=== PATIENT | male | born 1965 | race Caucasian/White ===

== ENCOUNTER 2020-02-12 09:29 | Emergency (ER) | payer MEDICARE, MEDICAID, SELFPAY ==
[2020-02-12 09:45] VITALS: BP 123/81; PULSE 87; RESP 18; TEMP 35.9; O2SAT 97
--- NOTE | 2020-02-12 09:57 | ED.WOUNDLAC ---
HPI - Wound/Laceration General Chief Complaint: Wound/Laceration Stated Complaint: Possible spider bite Time Seen by Provider: 02/12/20 09:48 Source: patient and RN notes reviewed Mode of arrival: ambulatory Limitations: no limitations History of Present Illness HPI narrative: 54-year-old male presents with concern for possible spider bite. He reports a wound on his left leg lateral to his left knee. He reports the wound is several weeks old and has been draining a small amount of purulent fluid. Denies any knee pain, ankle pain. Denies malaise, fever. He did not witness a spider biting him. Extremity Location: Left: lower leg Related Data Home Medications Medication Instructions Recorded Confirmed aripiprazole 15 mg PO DAILY 02/12/20 02/12/20 canagliflozin [Invokana] 100 mg PO DAILY 02/12/20 02/12/20 doxepin 10 mg PO DAILY 02/12/20 02/12/20 levothyroxine 25 mcg PO DAILY 02/12/20 02/12/20 linagliptin [Tradjenta] 5 mg PO DAILY 02/12/20 02/12/20 pravastatin 02/12/20 prednisone 02/12/20 sulfamethoxazole-trimethoprim 02/12/20 umeclidinium [Incruse Ellipta] INHALATION 02/12/20 umeclidinium-vilanterol [Anoro INHALATION 02/12/20 Ellipta] warfarin [Jantoven] 02/12/20 Allergies Allergy/AdvReac Type Severity Reaction Status Date / Time No Known Allergies Allergy Verified 07/24/19 20:14 Review of Systems Review of Systems: Narrative: CONSTITUTIONAL: Denies malaise, chills, sweats, or fever. ENT: Denies difficulty swallowing, swollen tongue, swollen lips CARDIOVASCULAR: Denies chest pain, palpitations, or edema. RESPIRATORY: Denies dyspnea. GASTROINTESTINAL: Denies abdominal pain, nausea, vomiting, diarrhea SKIN: Reports a wound to his left leg MUSCULOSKELETAL: Denies myalgia. Denies knee pain, ankle pain NEUROLOGIC: Denies numbness, weakness, or headache. All systems reviewed & are unremarkable except as noted in HPI and below PMFSH Social History Social History Gender identity (if verbalized by the patient): Male Comments At time of signature, agree with nursing past medical, surgical, social and family history. There is no relevant family history pertinent to the presenting complaint Exam Narrative: Exam Narrative: GENERAL: Well-appearing, well-nourished, and in no acute distress. HEAD: Normocephalic, atraumatic. EYES: PERRLA, conjunctivae clear ENT: Nares clear. Mucous membranes moist. Oropharynx without edema, erythema or lesions. NECK: Supple. No lymphadenopathy. No jugular venous distension, thyromegaly, or carotid bruits. Carotids were easily palpable bilaterally. CHEST: No respiratory distress. Clear to auscultation. No bony deformities, no asymmetry. Speaks in full sentences. HEART: Regular rate and rhythm. No murmur heard. Normal peripheral pulses. AEXTREMITIES: Left lower extremity has normal range of motion, no edema, normal strength and sensation. SKIN: Warm, dry. 2 cm diameter wound left lateral leg below the knee with 0.5cm yellow and pink wound bed. Wound bed is surrounded by ecchymosis. Wound is not surrounded by induration, erythema. No streaking noted. NEURO: Alert and oriented x3. PSYCH: Normal mood and affect Course Course Emergency Course: Patient is aware of diagnosis, understands and agrees to treatment plan. Anticipatory guidance given. Patient agrees to follow-up as directed and is aware of reasons to seek care at the emergency department. Portions of this record may have been created with voice recognition software Vital Signs Vital signs: Vital Signs Temperature 96.7 F L 02/12/20 09:45 Pulse Rate 87 02/12/20 09:45 Respiratory Rate 18 02/12/20 09:45 Blood Pressure 123/81 02/12/20 09:45 Pulse Oximetry 97 02/12/20 09:45 Temperature 96.7 F L 02/12/20 09:45 Pulse Rate 87 02/12/20 09:45 Respiratory Rate 18 02/12/20 09:45 Blood Pressure 123/81 02/12/20 09:45 Pulse Oximetry 97 02/12/20 09:45 Reviewed. Patient has history of hypert
== END 2020-02-12 10:08 | disposition home or self-care (01) ==
PROVIDERS: Emergency Provider Nurse Practitioner
DX: L08.9 Local infection of the skin and subcutaneous tissue, unspecified (principal); S81.802A Unspecified open wound, left lower leg, initial encounter; X58.XXXA Exposure to other specified factors, initial encounter; Z86.73 Personal history of transient ischemic attack (TIA), and cerebral infarction without residual deficits; I10 Essential (primary) hypertension; Z95.5 Presence of coronary angioplasty implant and graft; J44.9 Chronic obstructive pulmonary disease, unspecified; Z94.0 Kidney transplant status
CPT/HCPCS: 99213; G0463

== ENCOUNTER 2020-02-22 04:04 | Inpatient (IN) | payer MEDICARE, MEDICAID, SELFPAY ==
[2020-02-22] VITALS (28 sets, daily range): BP systolic 130–186; BP diastolic 61–118; PULSE 60–107; RESP 16–46; TEMP 36.6–37.8; O2SAT 93–100; BMI 23.8
--- NOTE | 2020-02-22 | ECHO_ITS ---
Patient Info Name: Bob Alfaro Age: 54 years : 1965 Gender: Male Ht: 69 in Wt: 160 lbs BSA: 1.88 m2 HR: 84 bpm BP: 159 / 88 mmHg Technical Quality: Fair Exam Date: 02/22/2020 12:14 PM Exam Location: [facility] Patient Status: Inpatient Admit Date: 02/22/2020 Staff Ordering Physician: Karena Hussein PA-C Yoghurt Maker: Mark Rivas, BOO, RT Attending Provider: Karena Hussein PA-C Referring Physician: Jovita COOK; Exam Type: CA echo doppler color flow Study Info Indications - elevated troponin Complete two-dimensional, color flow and Doppler transthoracic echocardiogram is performed. Summary 1. Left ventricular chamber dimension is normal. 2. Left ventricular systolic function is normal, estimated at 60-65%. 3. There is moderately increased left ventricular wall thickness. 4. Left ventricular septal wall motion is normal. 5. The left ventricular diastolic function is abnormal. 6. Left atrial chamber dimension is mildly enlarged. 7. There is moderate aortic valve sclerosis. 8. There is mild mitral valve regurgitation. 9. There is mild tricuspid valve regurgitation. Left Ventricle Left ventricular chamber dimension is normal. Left ventricular systolic function is normal, estimated at 60-65%. There is moderately increased left ventricular wall thickness. Left ventricular septal wall motion is normal. The left ventricular diastolic function is abnormal. Right Ventricle Right ventricular chamber dimension is normal. Right ventricular systolic function is normal. Left Atria Left atrial chamber dimension is mildly enlarged. Right Atria Right atrial chamber dimension is normal. Atrial Septum Intact interatrial septum visualized by color flow imaging. Aortic Valve The aortic valve is trileaflet. There is moderate aortic valve sclerosis. There is no aortic valve stenosis. There is trace aortic valve regurgitation. Pulmonic Valve The pulmonic valve is normal. There is no pulmonic valve stenosis. There is trace pulmonic regurgitation. Mitral Valve The mitral valve has calcified annulus. There is no mitral valve stenosis. There is mild mitral valve regurgitation. Tricuspid Valve The tricuspid valve leaflets are normal. There is no significant tricuspid valve stenosis. There is mild tricuspid valve regurgitation. Pericardium/Pleural The pericardium appears normal. There is trivial pericardial effusion. Inferior Vena Cava Dilated inferior vena cava with <50% collapse upon inspiration consistent with elevated right atrial pressure, 15 mmHg. Aorta The aortic root size at the sinus of Valsalva is mildly dilated. The prox ascending aorta size is normal. There is mild aortic atherosclerosis. Left Ventricular Outflow Tract Name Value Normal LVOT 2D LVOT Diameter 2.1 cm LVOT Doppler LVOT Peak Gradient 1 mmHg LVOT Mean Gradient 1 mmHg LVOT VTI 12 cm LVOT VTI/AV VTI Ratio 0.6 LVOT Stroke Volume 41 ml
--- NOTE | ~2020-02-22 | XR_ITS ---
EXAMINATION: XR chest 1V portable EXAM DATE: 02/22/2020 09:15 INDICATION: Dyspnea, COPD. TECHNIQUE: Portable AP frontal chest x-ray was obtained. Comparison is made to prior examination from earlier same day. FINDINGS: There is a dual lead pacemaker/AICD seen with leads projecting over the expected locations of the right atrial appendage and right ventricle. Moderate hyperinflation. The lungs are clear. The re are no pleural effusions. The cardiomediastinal silhouette is within normal limits. There is no pneumothorax suspected. The bones and soft tissues are unremarkable. There is aortic arterial scle rosis. IMPRESSION: 1. No acute cardiopulmonary findings. 2. Hyperinflation. Reviewed, dictated and finalized at location B.
--- NOTE | ~2020-02-22 | XR_ITS ---
EXAMINATION: XR chest 1V portable DATE: 02/22/2020 04:48 INDICATION: Dyspnea. TECHNIQUE: A single frontal view of the chest was obtained on 2 radiographs. COMPARISON: Chest single view 07/24/2019 FINDINGS: Prieto B lines are noted, consistent with mild pulmonary edema. No pleural effusion or pneu mothorax. The heart size is normal. There is a left chest wall pacer with leads in the right atrium a nd right ventricle. Main pulmonary artery is enlarged, consistent with pulmonary arterial hypertensio n. IMPRESSION: 1. Mild pulmonary edema. Reviewed, dictated and finalized at location A. IMPRESSION: 1. Mild pulmonary edema.
--- NOTE | 2020-02-22 04:04 | ECG_ITS ---
Measurements Intervals [place] Rate: 72 P: HI: 0 QRS: -89 QRSD: 204 T: 97 QT: 456 QTc: 501 Interpretive Statements ELECTRONIC VENTRICULAR PACEMAKER UNDERLYING ATRIAL FLUTTER BASELINE ARTIFACT- I, V4-V6 NO FURTHER INTERPRETATION IS POSSIBLE ABNORMAL ECG Electronically Signed On 02-22-2020 13:42:31 CDT by Eliu Thompson D.O.
--- NOTE | 2020-02-22 04:06 | ED.GENADULT ---
HPI - General Adult General Chief complaint: Shortness of Breath/Dyspnea Stated complaint: sob Source: patient and EMS Mode of arrival: EMS Limitations: clinical condition History of Present Illness HPI narrative: Patient is a 54-year-old gentleman with a history of COPD who presents for evaluation of shortness of breath. Patient reportedly went up to go to the restroom this evening, started to have difficulty breathing, and called EMS. At the time of arrival of EMS, patient's oxygen saturation was 85% on room air, patient was in tripod position, severe respiratory distress and unable to speak to them. Patient was placed on a CPAP machine and transferred to our facility for assessment. At the time of assessment, patient is awake, alert, dyspneic on the CPAP machine with use of accessory muscles to breathe. He reports congestion, dry cough, denies chest pain, abdominal pain, fever, vomiting. Patient with history of COPD, states he has never had to be intubated in the past. He is not currently taking any antibiotics or steroids. He denies any recent sick contacts, recent travel. Related Data Home Medications Medication Instructions Recorded Confirmed Aspir-81 02/22/20 albuterol sulfate INHALATION 02/22/20 aripiprazole [Abilify] mg 02/22/20 docusate sodium 100 mg PO DAILY 02/22/20 fluticasone propion-salmeterol 1 inh INHALATION Q12H 02/22/20 [Advair Diskus] levothyroxine 02/22/20 linagliptin [Tradjenta] mg 02/22/20 mycophenolate sodium [Myfortic] PO 02/22/20 pravastatin 40 mg PO DAILY 02/22/20 prednisone 02/22/20 senna mg 02/22/20 sulfamethoxazole-trimethoprim 02/22/20 tacrolimus 3 mg BID 02/22/20 tiotropium bromide [Spiriva with INHALATION 02/22/20 HandiHaler] warfarin [Jantoven] 02/22/20 Allergies Allergy/AdvReac Type Severity Reaction Status Date / Time No Known Allergies Allergy Verified 02/22/20 04:40 Review of Systems Review of Systems: Narrative: CONSTITUTIONAL: Denies fever, chills, or sweats. ENT: Reports rhinorrhea, congestion CARDIOVASCULAR: Denies chest pain, palpitations, or edema. RESPIRATORY: Reports cough and shortness of breath GASTROINTESTINAL: Denies abdominal pain, nausea, vomiting, or diarrhea. GENITOURINARY: Denies dysuria or hematuria. SKIN: Denies rash or itching. MUSCULOSKELETAL: Denies back pain, joint pain, or myalgia. NEUROLOGIC: Denies headache, numbness, or weakness. [facility] Past Medical History Medical History (Updated 02/22/20 @ 07:02 by Rose Marie De La Cruz MD) COPD (chronic obstructive pulmonary disease) Coronary artery disease Hypertension Myocardial infarction Pacemaker TIA (transient ischemic attack) Surgical History Surgical History (Updated 02/22/20 @ 06:57 by Rose Marie De La Cruz MD) Renal transplant recipient S/P coronary artery stent placement Family History Family History (Updated 02/22/20 @ 07:18 by Syl Foley RN) Mother Cancer Social History Social History (Updated 02/22/20 @ 04:09 by Rose Marie De La Cruz MD) Smoking status: Never smoker Tobacco type: cigarettes Alcohol intake: never Substance use: never Gender identity (if verbalized by the patient): Male Spiritual care concerns: No Agree to blood products: Yes Exam Narrative: Exam Narrative: GENERAL: Awake, alert, on CPAP, severe respiratory distress, tachypneic HEAD: Normocephalic, atraumatic. EYES: PERRLA and EOMI. ENT: Nares clear, no rhinorrhea or epistaxis. Mucous membranes dry NECK: Supple. CHEST: Non-CPAP, tachypneic, use of accessory muscles to breathe, bilateral expiratory wheezing, severe respiratory distress HEART: Regular rate, sinus rhythm ABDOMEN:Non distended, non tender EXTREMITIES: Normal range of motion. No edema. SKIN: Warm, dry, no rash. NEURO:No focal deficits. Alert and oriented x3 Course Course Emergency Course: Patient presented to the emergency department for evaluation of shortness of breath. At the time of initial assess
[2020-02-22] MEDS: EPINEPHrine HCL INJ 1 MG/ML AMPUL 0.3 MG IM (04:18)
[2020-02-22] MEDS: SODIUM CHLORIDE 0.9% IV 500 ML 999 ML IV CONT (04:18)
[2020-02-22] MEDS: MAGNESIUM SULF 2 GM/WATER 50ML 2 GM/50 ML BAG IVPB (04:18)
[2020-02-22 04:35] LABS: Alveolar/Arterial O2 Gradient 130.2 mmHg; Base Excess ABG -4.3 mEq/l (+/-2.0); Carboxyhemoglobin 1.2 % THb (0-2.0); Fractional Inspired Oxygen 60 %; HCO3 ABG 22.9 mEq/l (22.0-26.0); Methemoglobin ABG 0.4 %THb (0-1.5); Oxygen Content ABG 22.4 %vol (16.0-22.0); Oxygen Saturation ABG 99.4 % (95.0-100.0); Oxyhemoglobin 97.7 % THb (90.0-100.0); PCO2 ABG 49.9 mmHg (35.0-45.0); PO2 ABG 242.7 mmHg (80.0-100.0); PO2 FiO2 Ratio Arterial Blood 4.05 %; Reduced Hemoglobin 0.7 %THb (0-5.0); Total Hemoglobin 15.9 g/dL (12.0-18.0)
[2020-02-22 04:37] LABS: Basophils Absolute Auto 0.1 K/mm3 (0.0-0.1); Basophils Percent Auto 0.4 % (0.2-1.2); Eosinophils Absolute Auto 0.3 K/mm3 (0-0.3); Eosinophils Percent Auto 1.6 % (0-4.4); Hematocrit 51.9 % (42.0-52.0); Hemoglobin 16.5 g/dL (14.0-18.0); Immature Granulocyte Percent A 0.5 % (0-0.5); Lymphocytes Absolute Auto 2.64 K/mm3 (0.9-3.2); Lymphocytes Percent Auto 13.8 % (18.3-44.2); Mean Corpuscular HGB Conc 31.8 g/dl (32-36); Mean Corpuscular Hemoglobin 31.7 pg (26-34); Mean Corpuscular Volume 99.6 fl (80-100); Mean Platelet Volume 9.7 fl (7.4-10.4); Monocytes Absolute Auto 1.6 K/mm3 (0.1-0.6); Monocytes Percent Auto 8.4 % (2.6-8.5); Neutrophils Absolute Auto 14.4 K/mm3 (1.3-6.7); Neutrophils Percent Auto 75.3 % (45.5-73.1); Platelet Count Result 196 k/mm3 (150-375); Red Blood Count 5.21 M/mm3 (4.6-6.20); Red Cell Distribution Width 13.9 % (11.5-14.5); White Blood Count 19.1 K/mm3 (4.5-10.0)
[2020-02-22 04:37] LABS: Modified Allen's Test Pass; Site Drawn RIGHT RADIAL
[2020-02-22 04:38] LABS: Device NON-INVASIVE VENT; Non-Invasive Expiratory Pressure 5 CMH2O; Non-Invasive Inspiratory Pressure 14 CMH2O; Non-Invasive Vent Rate 14 /MIN
[2020-02-22] MEDS: IPRATROPIUM BR 0.02% INH SOLN 0.5 MG/2.5 ML VIAL 2 MG INHALATION (04:43)
[2020-02-22] MEDS: ALBUTEROL SULFATE NEB 2.5 MG/0.5 ML INH 20 MG INHALATION (04:43)
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
[2020-02-22 04:57] LABS: Lactic Acid Reflex 0.5 mmol/L (0.7-2.1)
[2020-02-22 05:07] LABS: Alanine Aminotransferase 10 U/L (4-50); Albumin Level 1.6 g/dL (3.5-5.1); Alkaline Phosphatase 61 U/L (38-126); Aspartate Amino Transferase 15 U/L (17-59); Bilirubin,Total < 0.1 mg/dL (0.2-1.3); Blood Urea Nitrogen 17 mg/dL (9-20); CRP 0.8 mg/dL (<1.0); Calcium 4.4 mg/dL (8.4-10.2); Carbon Dioxide 15 mmol/L (22-30); Chloride 113 mmol/L (98-107); Estimated CRCL calculation 111 ml/min; Estimated Glomerular Filt Rate > 60; Glucose 108 mg/dL (75-110); Lactate Dehydrogenase 216 U/L (313-618); Potassium 2.3 mmol/L (3.4-5.0); Sodium 132 mmol/L (137-145)
[2020-02-22 05:13] LABS: NT Pro B Type Natriuretic Pept 1210 PG/ML (5-100); Troponin I 0.016 ng/mL (0.000-0.034)
[2020-02-22] MEDS: POTASSIUM CHLORIDE 20 MEQ PACKET (FOR LIQUID) 40 MEQ PO (05:42)
--- NOTE | 2020-02-22 05:48 | PC.NURSE ---
Patient sleeping and unwilling to go over home medications.
[2020-02-22] MEDS: SODIUM CHLORIDE 0.9% IV 1,000 ML 50 ML (05:59)
--- NOTE | 2020-02-22 06:53 | ADMGEN ---
This patient, Bob Alfaro, was admitted to IMU Room 200-01. Patient/family oriented to hospital policies and general routines including ID bracelet, bed and alarms, visiting hours, pain management, procedures, bathroom and other care routines, personal items, smoking policy, room service/diet, and visiting hours. Valuables list has been completed. Information on how to activate the Rapid Response Team has been discussed. Patient/Family are encouraged to report perceived risks to care and to ask questions if they do not understand what they are told or what they should do.
[2020-02-22 07:46] LABS: Partial Thromboplastin Time 26.6 SECONDS (22.3-36.8); Prothrombin Time 21.9 Seconds (11.1-14.7)
[2020-02-22 07:51] LABS: Alanine Aminotransferase 22 U/L (4-50); Albumin Level 3.9 g/dL (3.5-5.1); Alkaline Phosphatase 107 U/L (38-126); Aspartate Amino Transferase 29 U/L (17-59); Bilirubin,Total 0.5 mg/dL (0.2-1.3); Blood Urea Nitrogen 32 mg/dL (9-20); Carbon Dioxide 24 mmol/L (22-30); Chloride 104 mmol/L (98-107); Estimated CRCL calculation 62 ml/min; Estimated Glomerular Filt Rate > 60; Glucose 223 mg/dL (75-110); Potassium 5.1 mmol/L (3.4-5.0); Sodium 136 mmol/L (137-145)
--- NOTE | 2020-02-22 08:42 | ECG_ITS ---
Measurements Intervals [place] Rate: 69 P: 0 AL: 148 QRS: -88 QRSD: 203 T: 94 QT: 439 QTc: 470 Interpretive Statements ELECTRONIC VENTRICULAR PACEMAKER UNDERLYING ATRIAL FLUTTER BASELINE ARTIFACT- I, II, V4-V6 NO FURTHER INTERPRETATION IS POSSIBLE ABNORMAL ECG Electronically Signed On 02-22-2020 13:42:45 CDT by Eliu Thompson D.O.
[2020-02-22] MEDS: ALBUTEROL SULFATE NEB 2.5 MG/0.5 ML INH 5 MG INHALATION ×3 (08:47→19:57)
[2020-02-22] MEDS: IPRATROPIUM BR 0.02% INH SOLN 0.5 MG/2.5 ML VIAL INHALATION ×3 (08:47→19:57)
[2020-02-22 09:17] LABS: Alveolar/Arterial O2 Gradient 132.5 mmHg; Base Excess ABG -5.3 mEq/l (+/-2.0); Fractional Inspired Oxygen 50 %; HCO3 ABG 22.9 mEq/l (22.0-26.0); Oxygen Content ABG 23.9 %vol (16.0-22.0); Oxygen Saturation ABG 98.8 % (95.0-100.0); Oxyhemoglobin 97.7 % THb (90.0-100.0); PCO2 ABG 54.4 mmHg (35.0-45.0); PO2 ABG 162.8 mmHg (80.0-100.0); PO2 FiO2 Ratio Arterial Blood 3.26 %; Total Hemoglobin 17.2 g/dL (12.0-18.0); pH ABG 7.242 (7.350-7.450)
[2020-02-22 09:18] LABS: Device NON-INVASIVE VENT; Modified Allen's Test Pass; Non-Invasive Expiratory Pressure 8 CMH2O; Non-Invasive Inspiratory Pressure 14 CMH2O; Non-Invasive Vent Rate 16 /MIN; Site Drawn LEFT RADIAL
[2020-02-22 09:34] LABS: Add Urine Microscopic? YES; Appearance Urine Clear (Clear); Bilirubin Urine Negative (Negative); Blood Urine Negative (Negative); Color Urine Straw (Yellow); Glucose Urine UA 3+ mg/dL (Negative); Ketones Urine Negative (Negative); Leukocyte Esterase Ur Negative LEU/UL (Negative); Nitrate Urine Negative (Negative); Protein Urine 1+ mg/dL (Negative); RBC Urine 0-2 /hpf (0-2); Specific Grav Ur 1.014 (1.001-1.035); Squamous Epithelial Cell Urine Occasional /hpf (Few); Urobilinogen Urine Negative mg/dL (<2.0); WBC Urine 0-3 /hpf
[2020-02-22] MEDS: methylPREDNISolone SOD SUCC 125 MG VIAL IV PUSH (09:34)
[2020-02-22] MEDS: FUROSEMIDE INJ 40 MG/4 ML VIAL IV PUSH (09:34)
[2020-02-22] MEDS: hydrALAZINE HCL 20 MG/ML VIAL 10 MG IV PUSH (09:35)
[2020-02-22] MEDS: FUROSEMIDE INJ 40 MG/4 ML VIAL 20 MG IV PUSH (09:36)
[2020-02-22] MEDS: BUDESONIDE RESPULE NEB 0.5 MG/2 ML AMP INHALATION ×2 (09:40→19:57)
[2020-02-22 09:43] LABS: Blood Urea Nitrogen 29 mg/dL (9-20); Calcium 10.3 mg/dL (8.4-10.2); Carbon Dioxide 23 mmol/L (22-30); Chloride 103 mmol/L (98-107); Estimated CRCL calculation 62 ml/min; Estimated Glomerular Filt Rate > 60; Glucose 261 mg/dL (75-110); Potassium 5.4 mmol/L (3.4-5.0); Sodium 135 mmol/L (137-145)
[2020-02-22 09:58] LABS: Troponin I 0.069 ng/mL (0.000-0.034)
--- NOTE | 2020-02-22 10:09 | PM.IMHP ---
H&P: HPI History of Present Illness Chief complaint: COPD exacerbation/Hypokalemia/Hypocalcemia Narrative: Bob Alfaro is a 54 year old male with a history of COPD, type 2 diabetes, atrial fibrillation, schizophrenia who presented emergency room earlier today and respiratory distress and shortness of breath. Patient states his shortness of breath started last night randomly. He says that it is no worse lying flat and it is associated with a slight cough. He is a former smoker and quit 3 days ago. He just got a nebulizer machine in the mail and he has been using it and thinks it does help a little bit. He takes a maintenance inhaler daily. He has not had any sick contacts nor has he went anywhere since the alf in place act has been suggested. His dad grocery shops for what he needs. He has not traveled. He denies diarrhea, constipation, fevers, chills, abdominal pain, nausea, vomiting, fever, chills, problems with taste or smell. I spoke to his father who says he has schizophrenia although the patient denies this. The father also states that he had PFTs done last month at [facility] and was given a nebulizer and maintenance inhaler. He has been tested for sleep apnea in the past and the father thinks he was positive but did not tolerate a CPAP at that time. He is unsure if the patient snores at night. Patient states his diabetes is well controlled and his blood sugar usually runs around 115-120 a day. He has never had a blood clot that he knows of but is on warfarin for atrial fibrillation. He has not had any sputum production. He denies any narcotic or benzodiazepine use Review of Systems Review of Systems: All systems reviewed & are unremarkable except as noted in HPI and below PMFSH Past Medical History Medical History (Updated 02/22/20 @ 16:56 by Karena Hussein PA-C) COPD (chronic obstructive pulmonary disease) Coronary artery disease Depression HTN (hypertension) with goal to be determined Hypertension Hypothyroid Immunosuppressed status Myocardial infarction Pacemaker Persistent atrial fibrillation Schizophrenia T2DM (type 2 diabetes mellitus) TIA (transient ischemic attack) Surgical History Surgical History Kidney transplant recipient Renal transplant recipient S/P coronary artery stent placement Family History Family History Mother Cancer Social History Social History (Updated 02/22/20 @ 16:57 by Karena Hussein PA-C) Social History: Patient would like to be a full code and his POA is his father relay. He sees Dr. Lyman at [facility] as his primary care doctor. He quit smoking 3 days ago but before that was smoking about a pack per month. He does not drink alcohol. He is on disability for schizophrenia. Smoking status: Never smoker Tobacco type: cigarettes Alcohol intake: never Substance use: never Gender identity (if verbalized by the patient): Male Spiritual care concerns: No Agree to blood products: Yes Meds Home Medications and Allergies Home Medications Medication Instructions Recorded Confirmed Type albuterol sulfate [ProAir HFA] 90 mcg INHALATION BID PRN 02/22/20 02/22/20 History aripiprazole [Abilify] 15 mg PO DAILY 02/22/20 02/22/20 History aspirin [Aspir-81] 81 mg PO DAILY 02/22/20 02/22/20 History canagliflozin [Invokana] 100 mg PO DAILY 02/22/20 02/22/20 History carvedilol [Coreg] 12.5 mg PO BID 02/22/20 02/22/20 History cholecalciferol (vitamin D3) 50 mcg PO DAILY 02/22/20 02/22/20 History [Vitamin D3] docusate sodium 100 mg PO DAILY 02/22/20 02/22/20 History doxepin 10 mg PO HS 02/22/20 02/22/20 History fluticasone propion-salmeterol 1 inh INHALATION Q12H 02/22/20 02/22/20 History [Advair Diskus] levothyroxine 25 mcg PO DAILY 02/22/20 02/22/20 History linagliptin [Tradjenta] 5 mg PO DAILY 02/22/20 02/22/20 History mycophenolate sodium
[2020-02-22 10:19] LABS: Lactic Acid Reflex 2.5 mmol/L (0.7-2.1)
[2020-02-22 10:19] LABS: Alanine Aminotransferase 26 U/L (4-50); Albumin Level 4.7 g/dL (3.5-5.1); Alkaline Phosphatase 146 U/L (38-126); Aspartate Amino Transferase 32 U/L (17-59); Bilirubin,Total 0.7 mg/dL (0.2-1.3); Lactate Dehydrogenase 466 U/L (313-618)
[2020-02-22] MEDS: DOCUSATE SODIUM 100 MG CAPSULE PO (10:42)
[2020-02-22] MEDS: ASPIRIN 81 MG ENTERIC TABLET PO (10:42)
[2020-02-22] MEDS: ARIPIPRAZOLE 5 MG TABLET 15 MG PO (10:42)
[2020-02-22] MEDS: PRAVASTATIN SODIUM 20 MG TABLET 40 MG PO (10:42)
--- NOTE | 2020-02-22 11:01 | PM.CNCAR ---
Assessment and Plan Additional Plan 54-year-old white male with: Elevated troponin level which I would attribute to respiratory insufficiency hypoxemia. I do not believe there is substantial evidence of an acute coronary syndrome. History of coronary artery disease previous PCI at [facility] 6 years ago details of that are not available to me at the time of this dictation History of atrial fib/flutter being managed by electrophysiology down at [facility] presumably there were unsuccessful at maintaining sinus rhythm since he has had his AV node ablated in a pacemaker installed. He is appropriately anticoagulated and his INR is therapeutic. History of end-stage renal disease with renal transplant in the past also being followed at [place] in transplant clinic Significant COPD by on physical exam and chest x-ray obviously due to chronic cigarette smoking which unfortunately continues At this point I do not believe we need to conduct an ischemia evaluation here at [facility]. His troponin levels will be elevated in this setting described above regardless of whether there is an acute coronary syndrome going on there is no clinical evidence or complaints to suggest this. Eric Suarez MD [facility] History of Present Illness History of Present Illness Consult date/time: Date of service: 02/22/20 11:01 Consult reason: shortness of breath Reason For Visit: COPD exacerbation/Hypokalemia/Hypocalcemia Narrative: This is a 54-year-old patient I am seeing at the request of the hospitalist because of dyspnea and elevated troponin level. He presented [facility] emergency room this morning complaining of shortness of breath that was relatively severe and had been progressively getting worse for about 3-4 days. He does not have any history of coughing fever chills for night sweats. He apparently has a extensive medical history and receives his medical care from physicians on downw at [facility]. According to the records he has a history of end-stage renal disease and is a renal transplant recipient. He also has a history of hypertension significant COPD, schizophrenia as well as coronary artery disease with a percutaneous revascularization that was done about 5 or 6 years ago a history of chronic AFib/flutter for which she has received AV node ablation and a permanent [employer] pacemaker implant device. He is not reporting any sense of chest pain pressure or heaviness. His lab data upon arrival, included a troponin level that was slightly elevated at 0.06. For this reason we are seeing him in consultation. His electrocardiogram shows a ventricularly paced rhythm with atrial flutter there is evidence of AV dissociation since as expected his AV node has been ablated. According to the records he is systemically anticoagulated with warfarin. The patient's chest x-ray demonstrates evidence of COPD with chronic hyperinflation I do not see any evidence of pneumonia or vascular congestion. The patient's oxygen saturations were low in the field in the mid 80s. He is now on BiPAP is adequately saturated and is in room 200 in the IMU seated in the chair. His lab data [place] [address]. According to the records from [place] he has despite the above history he continues to smoke about half a pack per day. In addition to that stated above he also has a history of a previous CVA with residual right-sided deficits. Review of Systems Constitutional: Constitutional: Reports weakness Eyes: Eyes: Reports no additional eye complaints ENT: Reports system reviewed and no additional complaints, except as documented Cardiovascular: Cardiovascular: Reports no additional cardiovascular complaints Respiratory: Respiratory: Reports dyspnea Gastrointestinal: Gastrointestinal: Reports no additional gastrointestinal complaints Musculoskeletal: Musculoskeletal: Reports no additional musculoskeletal complaints Integumentary/Breasts: Ski
[2020-02-22 11:57] LABS: Alveolar/Arterial O2 Gradient 69.8 mmHg; Base Excess ABG -4.5 mEq/l (+/-2.0); Carboxyhemoglobin 0.5 % THb (0-2.0); Fractional Inspired Oxygen 35 %; HCO3 ABG 21.1 mEq/l (22.0-26.0); Methemoglobin ABG 0.3 %THb (0-1.5); Oxygen Content ABG 22.5 %vol (16.0-22.0); Oxygen Saturation ABG 98.4 % (95.0-100.0); Oxyhemoglobin 97.5 % THb (90.0-100.0); PCO2 ABG 41.1 mmHg (35.0-45.0); PO2 FiO2 Ratio Arterial Blood 3.77 %; Reduced Hemoglobin 1.7 %THb (0-5.0); Total Hemoglobin 16.3 g/dL (12.0-18.0); pH ABG 7.329 (7.350-7.450)
[2020-02-22 11:58] LABS: Device NON-INVASIVE VENT; Modified Allen's Test Pass; Non-Invasive Expiratory Pressure 8 CMH2O; Non-Invasive Inspiratory Pressure 14 CMH2O; Non-Invasive Vent Rate 16 /MIN; Site Drawn LEFT RADIAL
[2020-02-22 13:02] LABS: Basophils Percent Auto 0.3 % (0.2-1.2); Eosinophils Percent Auto 0.2 % (0-4.4); Hematocrit 49.1 % (42.0-52.0); Hemoglobin 15.4 g/dL (14.0-18.0); Immature Granulocyte Absolute 0.09 K/mm3 (0.00-0.031); Immature Granulocyte Percent A 0.7 % (0-0.5); Lymphocytes Absolute Auto 0.68 K/mm3 (0.9-3.2); Lymphocytes Percent Auto 5.4 % (18.3-44.2); Mean Corpuscular HGB Conc 31.4 g/dl (32-36); Mean Platelet Volume 9.8 fl (7.4-10.4); Monocytes Absolute Auto 0.3 K/mm3 (0.1-0.6); Neutrophils Absolute Auto 11.6 K/mm3 (1.3-6.7); Neutrophils Percent Auto 91.4 % (45.5-73.1); Platelet Count Result 164 k/mm3 (150-375); Red Blood Count 4.96 M/mm3 (4.6-6.20); White Blood Count 12.7 K/mm3 (4.5-10.0)
[2020-02-22 13:04] LABS: Reflex Lactic Acid Yes or No Add Lactic
[2020-02-22 13:16] LABS: Glucose Point of Care 241 (65-105)
[2020-02-22] MEDS: methylPREDNISolone SOD SUCC 40 MG VIAL IV PUSH ×3 (13:17→23:44)
[2020-02-22] MEDS: carvediloL 12.5 MG TABLET PO ×2 (13:17→21:11)
[2020-02-22] MEDS: INSULIN ASPART (*BKC) 100 UNITS/ML SUB-Q ×2 (13:17→17:17)
[2020-02-22 13:30] LABS: Troponin I 0.075 ng/mL (0.000-0.034)
--- NOTE | 2020-02-22 13:36 | PHAR ---
HOME MEDICATIONS VERIFIED BY PHARMACY: TACROLIMUS 1MG CAPSULE TAKE 3 CAPSULES PO TWICE DAILY RX#[id number] 360MG TAKE 1 TABLET PO BID RX#[id number]
[2020-02-22 13:45] LABS: Lactic Acid 1.8 mmol/L (0.7-2.1)
[2020-02-22] MEDS: LEVOTHYROXINE SODIUM 25 MCG TABLET PO (14:00)
[2020-02-22 16:17] LABS: Blood Urea Nitrogen 32 mg/dL (9-20); Calcium 10.4 mg/dL (8.4-10.2); Carbon Dioxide 27 mmol/L (22-30); Chloride 102 mmol/L (98-107); Estimated CRCL calculation 58 ml/min; Estimated Glomerular Filt Rate 57; Glucose 251 mg/dL (75-110); Potassium 4.9 mmol/L (3.4-5.0); Sodium 136 mmol/L (137-145)
[2020-02-22 16:33] LABS: Troponin I 0.067 ng/mL (0.000-0.034)
[2020-02-22 17:06] LABS: Glucose Point of Care 251 (65-105)
[2020-02-22] MEDS: WARFARIN (*PBKC) 3 MG TABLET PO (17:16)
[2020-02-22 21:08] LABS: Glucose Point of Care 176 (65-105)
[2020-02-22] MEDS: DOXEPIN HCL 10 MG CAPSULE PO (21:11)
[2020-02-23] VITALS (8 sets, daily range): BP systolic 98–112; BP diastolic 54–63; PULSE 60–85; RESP 14–18; TEMP 36.6–37.1; O2SAT 94–97
[2020-02-23 04:42] LABS: Hematocrit 46.4 % (42.0-52.0); Mean Corpuscular HGB Conc 32.3 g/dl (32-36); Mean Corpuscular Hemoglobin 31.4 pg (26-34); Mean Corpuscular Volume 97.3 fl (80-100); Mean Platelet Volume 9.9 fl (7.4-10.4); Platelet Count Result 169 k/mm3 (150-375); Red Blood Count 4.77 M/mm3 (4.6-6.20); Red Cell Distribution Width 13.7 % (11.5-14.5); White Blood Count 13.2 K/mm3 (4.5-10.0)
[2020-02-23 04:52] LABS: INR 2.2; Prothrombin Time 23.8 Seconds (11.1-14.7)
[2020-02-23 05:02] LABS: Alanine Aminotransferase 19 U/L (4-50); Albumin Level 3.9 g/dL (3.5-5.1); Alkaline Phosphatase 74 U/L (38-126); Aspartate Amino Transferase 23 U/L (17-59); Bilirubin,Total 0.6 mg/dL (0.2-1.3); Blood Urea Nitrogen 36 mg/dL (9-20); CRP 2.3 mg/dL (<1.0); Calcium 10.2 mg/dL (8.4-10.2); Carbon Dioxide 23 mmol/L (22-30); Chloride 103 mmol/L (98-107); Estimated CRCL calculation 57 ml/min; Estimated Glomerular Filt Rate 57; Glucose 246 mg/dL (75-110); Magnesium 1.7 mg/dL (1.6-2.3); Potassium 4.9 mmol/L (3.4-5.0); Sodium 135 mmol/L (137-145)
[2020-02-23] MEDS: methylPREDNISolone SOD SUCC 40 MG VIAL IV PUSH (05:42)
[2020-02-23] MEDS: LEVOTHYROXINE SODIUM 25 MCG TABLET PO (05:42)
[2020-02-23] MEDS: PRAVASTATIN SODIUM 20 MG TABLET 40 MG PO (08:07)
[2020-02-23] MEDS: ASPIRIN 81 MG ENTERIC TABLET PO (08:07)
[2020-02-23] MEDS: carvediloL 12.5 MG TABLET PO (08:07)
[2020-02-23] MEDS: ARIPIPRAZOLE 5 MG TABLET 15 MG PO (08:08)
[2020-02-23] MEDS: INSULIN ASPART (*BKC) 100 UNITS/ML SUB-Q (08:08)
[2020-02-23] MEDS: DOCUSATE SODIUM 100 MG CAPSULE PO (08:08)
[2020-02-23 08:53] LABS: Glucose Point of Care 281 (65-105)
[2020-02-23] MEDS: BUDESONIDE RESPULE NEB 0.5 MG/2 ML AMP INHALATION (09:06)
[2020-02-23] MEDS: IPRATROPIUM BR 0.02% INH SOLN 0.5 MG/2.5 ML VIAL INHALATION (09:06)
[2020-02-23] MEDS: ALBUTEROL SULFATE NEB 2.5 MG/0.5 ML INH 5 MG INHALATION (09:06)
--- NOTE | 2020-02-23 18:15 | PM.DS ---
DS: Diagnosis Admitting Diagnosis Admitting Diagnosis: Acute respiratory failure with hypercapnia Discharge Diagnosis (1) Acute respiratory failure with hypercapnia: Code(s): J96.02 - Acute respiratory failure with hypercapnia Status: Acute Assessment and Plan: due to COPD exacerbation. ABG Shows acidosis with a elevated CO2 and an elevated PO2. Patient received scheduled Solu-Medrol, azithromycin, ceftriaxone, and breathing treatments and improved quickly, sat 97% RA at time of d/c... Chest x-ray no infiltrates. . (2) Acute exacerbation of chronic obstructive airways disease: Code(s): J44.1 - Chronic obstructive pulmonary disease with (acute) exacerbation Status: Acute Assessment and Plan: above. Continue steroids with taper on d/c, and inhalers (3) Elevated troponin: Code(s): R79.89 - Other specified abnormal findings of blood chemistry Status: Acute Assessment and Plan: secondary to respiratory failure. EKG was reviewed but he is ventricular paced which makes interpretation difficult. This was compared to a previous EKG from July 2019 and looks similar and is on the chart. He does have chronic atrial fibrillation which he is on warfarin for. He has no chest pain at this time. . Troponins were flat and echo normal EF 65% with no wall motion abnormality. he had a stress test 07/27/2019 at [facility] and was a pharmacological stress test which was normal. He was seen by Cardiology and they agreed there was no acute coronary syndrome, elevated tropes probably secondary to respiratory failure (4) Kidney transplant recipient: Code(s): Z94.0 - Kidney transplant status Status: Acute Assessment and Plan: -----patient has a history of kidney transplant due to diabetes and 2014. PA spoke with Dr. Sheppard, transplant attending at [facility], who recommended continuing tacrolimus and Myfortic at this time since the chest x-ray is negative and there is no other infection suspected. She says once he is ready to be tapered off steroids that he should continue his home prednisone thereafter. at 5 mg bid (5) Pacemaker: Code(s): Z95.0 - Presence of cardiac pacemaker Status: Acute Assessment and Plan: -----ventricularly paced. No acute issues, history of AFib. INR 2.2 today (6) Hypothyroid: Code(s): E03.9 - Hypothyroidism, unspecified Status: Acute Assessment and Plan: -----TSH normal at 1.8. Continue thyroid medication at this time. (7) T2DM (type 2 diabetes mellitus): Code(s): E11.9 - Type 2 diabetes mellitus without complications Status: Acute Assessment and Plan: -----last glucose 261. Will do moderate sliding scale insulin at this time and hold home medications. His last A1c in July was 6.3. He is now on high-dose IV steroids which were quickly tapered to oral with a 5 day oral taper back to his 5 mg b.i.d.. Blood sugar low 2 fasting the discharge (8) Depression: Code(s): F32.9 - Major depressive disorder, single episode, unspecified Status: Acute Assessment and Plan: ----- continue doxepin (9) Persistent atrial fibrillation: Code(s): I48.19 - Other persistent atrial fibrillation Status: Acute Assessment and Plan: -----continue warfarin. It appears that he is on carvedilol at this time. He is in regular rate and has a pacemaker. INR 2.2 (10) HTN (hypertension) with goal to be determined: Code(s): I10 - Essential (primary) hypertension Status: Acute Assessment and Plan: -----last blood pressure came down quickly with treatment of his underlying respiratory failure. Resumed his oral Coreg (11) Leukocytosis: Code(s): D72.829 - Elevated white blood cell count, unspecified Status: Acute Assessment and Plan: acute phase reactant. Received antibi
[2020-02-24 22:07] LABS: Tacrolimus Prograf 11.3 mcg/L
== END 2020-02-23 11:19 | disposition home or self-care (01) | DRG 190 ==
LOC: ANHED 05:20 → ANHIMU 06:23
PROVIDERS: Family Medicine; Physician Assistant; Admitting Provider Internal Medicine; Emergency Provider Emergency Medicine; Visit Provider Internal Medicine
DX: J44.1 Chronic obstructive pulmonary disease with (acute) exacerbation (principal); J96.02 Acute respiratory failure with hypercapnia; I48.19 Other persistent atrial fibrillation; Z94.0 Kidney transplant status; I48.92 Unspecified atrial flutter; E87.2 Acidosis; E11.9 Type 2 diabetes mellitus without complications; E03.9 Hypothyroidism, unspecified; R79.89 Other specified abnormal findings of blood chemistry; F32.9 Major depressive disorder, single episode, unspecified; I10 Essential (primary) hypertension; D72.829 Elevated white blood cell count, unspecified; F20.9 Schizophrenia, unspecified; I25.10 Atherosclerotic heart disease of native coronary artery without angina pectoris; E87.6 Hypokalemia; E87.5 Hyperkalemia; E83.51 Hypocalcemia; D89.9 Disorder involving the immune mechanism, unspecified; Z79.01 Long term (current) use of anticoagulants; Z95.0 Presence of cardiac pacemaker; I25.2 Old myocardial infarction; Z86.73 Personal history of transient ischemic attack (TIA), and cerebral infarction without residual deficits; Z95.5 Presence of coronary angioplasty implant and graft; Z87.891 Personal history of nicotine dependence
CPT/HCPCS: 36415; 36600; 71045; 80048; 80053; 80076; 80197; 81001; 82375; 82805; 83050; 83605; 83615; 83735; 83880; 84443; 84484; 85025; 85027; 85610; 85730; 86140; 87040; 87804; 93005; 93306; 94002; 94640; 96365; 96367; 96372; 96375; 99285; A9270; J0171; J0360; J0456; J0696; J1815; J1940; J2920; J2930; J3475; J3480; J7030; J7040

== ENCOUNTER 2020-03-21 11:41 | Emergency (ER) | payer MEDICARE, MEDICAID, SELFPAY ==
[2020-03-21 11:56] VITALS: BP 111/78; PULSE 85; RESP 16; TEMP 35.9; O2SAT 99
--- NOTE | 2020-03-21 11:58 | ED.SKABFB ---
HPI - Skin/Abscess/Foreign Bdy General Chief complaint: Skin/Abscess/Foreign Body Stated complaint: Possible spider bite Time Seen by Provider: 03/21/20 11:58 Source: patient and RN notes reviewed History of Present Illness HPI narrative: Patient is a 54-year-old male that presents the urgent care with complaints of a spider bite to the left leg. Patient states that it is been there for a couple months and he was treated with oral antibiotics in January. Patient states that he completed the oral antibiotics and have been cleaning it and keeping it covered. Patient states that it does have pain sometimes when he rubs up against it. Denies of any fever, nausea, vomiting. No other acute complaints. No acute distress noted. Patient read the plan of care. Related Data Home Medications Medication Instructions Recorded Confirmed canagliflozin [Invokana] 100 mg PO DAILY 02/12/20 02/12/20 linagliptin [Tradjenta] 5 mg PO DAILY 02/12/20 02/12/20 umeclidinium [Incruse Ellipta] INHALATION 02/12/20 umeclidinium-vilanterol [Anoro INHALATION 02/12/20 Ellipta] Invokana 100 mg PO DAILY 02/22/20 02/22/20 Spiriva with HandiHaler 1 cap INHALATION DAILY 02/22/20 02/22/20 Tradjenta 5 mg PO DAILY 02/22/20 02/22/20 albuterol sulfate [ProAir HFA] 90 mcg INHALATION BID PRN 02/22/20 02/22/20 aripiprazole [Abilify] 15 mg PO DAILY 02/22/20 02/22/20 aspirin [Aspir-81] 81 mg PO DAILY 02/22/20 02/22/20 carvedilol [Coreg] 12.5 mg PO BID 02/22/20 02/22/20 cholecalciferol (vitamin D3) 50 mcg PO DAILY 02/22/20 02/22/20 [Vitamin D3] docusate sodium 100 mg PO DAILY 02/22/20 02/22/20 doxepin 10 mg PO HS 02/22/20 02/22/20 fluticasone propion-salmeterol 1 inh INHALATION Q12H 02/22/20 02/22/20 [Advair Diskus] levothyroxine 25 mcg PO DAILY 02/22/20 02/22/20 mycophenolate sodium [Myfortic] 360 mg PO BID 02/22/20 02/22/20 pravastatin 40 mg PO DAILY 02/22/20 02/22/20 prednisone 5 mg PO BID 02/22/20 02/22/20 tacrolimus 3 mg PO BID 02/22/20 02/22/20 warfarin [Jantoven] 3 mg PO DAILY 02/22/20 02/22/20 Allergies Allergy/AdvReac Type Severity Reaction Status Date / Time No Known Allergies Allergy Verified 03/18/20 12:55 Review of Systems Review of Systems: Narrative: CONSTITUTIONAL: Denies fever, chills, or sweats. EYES: Denies visual changes, redness, or discharge. ENT: Denies rhinorrhea, congestion, sore throat, or otalgia. CARDIOVASCULAR: Denies chest pain, palpitations, or edema. RESPIRATORY: Denies cough or dyspnea. GASTROINTESTINAL: Denies abdominal pain, nausea, vomiting, or diarrhea. GENITOURINARY: Denies dysuria or hematuria. SKIN: Reports of a spider bite to the left leg MUSCULOSKELETAL: Denies back pain, joint pain, or myalgia. NEUROLOGIC: Denies headache, numbness, or weakness. All other systems reviewed are negative, except as documented in HPI. [facility] Past Medical History Medical History (Updated 03/21/20 @ 12:05 by JACKSON Ovalle) COPD (chronic obstructive pulmonary disease) Coronary artery disease Depression HTN (hypertension) with goal to be determined Hypertension Hypothyroid Immunosuppressed status Myocardial infarction Pacemaker Persistent atrial fibrillation Schizophrenia T2DM (type 2 diabetes mellitus) TIA (transient ischemic attack) Social History Social History (System 03/18/20 @ 12:55 by Nehal Crow) Social History: Patient would like to be a full code and his POA is his father relay. He sees Dr. Lyman at [facility] as his primary care doctor. He quit smoking 3 days ago but before that was smoking about a pack per month. He does not drink alcohol. He is on disability for schizophrenia. Smoking status: Never smoker Tobacco type: cigarettes Alcohol intake: never Substance use: never Gender identity (if verbalized by the patient): Male Spiritual care concerns: No Agree to blood products: Yes Comments At the time of my signature, I reviewed and agree with the nursing past medic
== END 2020-03-21 12:12 | disposition home or self-care (01) ==
PROVIDERS: Emergency Provider Nurse Practitioner Family
DX: S81.802A Unspecified open wound, left lower leg, initial encounter (principal); J44.9 Chronic obstructive pulmonary disease, unspecified; I25.10 Atherosclerotic heart disease of native coronary artery without angina pectoris; I10 Essential (primary) hypertension; E03.9 Hypothyroidism, unspecified; I25.2 Old myocardial infarction; E11.9 Type 2 diabetes mellitus without complications; Z95.0 Presence of cardiac pacemaker; I48.19 Other persistent atrial fibrillation; Z79.01 Long term (current) use of anticoagulants; Z79.82 Long term (current) use of aspirin; Z86.73 Personal history of transient ischemic attack (TIA), and cerebral infarction without residual deficits; F20.9 Schizophrenia, unspecified; F32.9 Major depressive disorder, single episode, unspecified; X58.XXXA Exposure to other specified factors, initial encounter
CPT/HCPCS: 99213; G0463

== ENCOUNTER 2020-04-03 15:33 | Emergency (ER) | payer MEDICARE, MEDICAID, SELFPAY ==
[2020-04-03] VITALS (8 sets, daily range): BP systolic 123–205; BP diastolic 81–133; PULSE 72–99; RESP 20–28; TEMP 36.3; O2SAT 75–100
--- NOTE | ~2020-04-03 | XR_ITS ---
EXAMINATION: XR chest 1V portable INDICATION: Myocardial infarction TECHNIQUE: Portable AP chest at 1555 hours COMPARISON: 02/22/2020 FINDINGS: A dual-lead cardiac pacemaker of the left chest wall ends with leads in expected locations. There is mild pulmonary edema. The heart size is normal. There is no pleural effusion or pneumothora x. The lungs are free of acute opacities. Again noted is enlargement of the main pulmonary artery, co nsistent with pulmonary hypertension. IMPRESSION: 1. Mild pulmonary edema. Reviewed, dictated and finalized at location A. IMPRESSION: 1. Mild pulmonary edema.
--- NOTE | 2020-04-03 15:31 | ECG_ITS ---
Measurements Intervals [place] Rate: 93 P: [place]: 0 QRS: -88 QRSD: 203 T: 95 QT: 443 QTc: 552 Interpretive Statements ATRIAL SENSE- ELECTRONIC VENTRICULAR PACEMAKER FREQUENT VENTRICULAR PREMATURE COMPLEXES BASELINE ARTIFACT- I, V1-V2 NO FURTHER INTERPRETATION IS POSSIBLE ABNORMAL ECG Electronically Signed On 04-04-2020 7:06:10 CDT by Eliu Thompson D.O.
[2020-04-03 15:53] LABS: Alveolar/Arterial O2 Gradient 122.8 mmHg; Base Excess ABG -7.2 mEq/l (+/-2.0); Carboxyhemoglobin 0.8 % THb (0-2.0); Device NON-REBREATHER MASK; Fractional Inspired Oxygen 50 %; HCO3 ABG 22.7 mEq/l (22.0-26.0); Methemoglobin ABG 0.4 %THb (0-1.5); Oxygen Content ABG 23.5 %vol (16.0-22.0); Oxygen Saturation ABG 98.6 % (95.0-100.0); Oxyhemoglobin 97.3 % THb (90.0-100.0); PCO2 ABG 63.7 mmHg (35.0-45.0); PO2 FiO2 Ratio Arterial Blood 3.24 %; Reduced Hemoglobin 1.5 %THb (0-5.0); Site Drawn RIGHT BRACHIAL
--- NOTE | 2020-04-03 15:53 | PC.NURSE ---
COVID swab collected and sent to lab. Xray at bedside to obtain chest xray.
[2020-04-03 15:56] LABS: Basophils Absolute Auto 0.1 K/mm3 (0.0-0.1); Basophils Percent Auto 0.7 % (0.2-1.2); Eosinophils Absolute Auto 0.2 K/mm3 (0-0.3); Eosinophils Percent Auto 1.4 % (0-4.4); Hematocrit 53.4 % (42.0-52.0); Hemoglobin 17.2 g/dL (14.0-18.0); Immature Granulocyte Absolute 0.11 K/mm3 (0.00-0.031); Immature Granulocyte Percent A 0.7 % (0-0.5); Lymphocytes Absolute Auto 5.15 K/mm3 (0.9-3.2); Lymphocytes Percent Auto 31.7 % (18.3-44.2); Mean Corpuscular HGB Conc 32.2 g/dl (32-36); Mean Corpuscular Volume 99.4 fl (80-100); Mean Platelet Volume 9.9 fl (7.4-10.4); Monocytes Absolute Auto 1.4 K/mm3 (0.1-0.6); Monocytes Percent Auto 8.4 % (2.6-8.5); Neutrophils Absolute Auto 9.3 K/mm3 (1.3-6.7); Neutrophils Percent Auto 57.1 % (45.5-73.1); Platelet Count Result 228 k/mm3 (150-375); Red Blood Count 5.37 M/mm3 (4.6-6.20); Red Cell Distribution Width 13.7 % (11.5-14.5); White Blood Count 16.2 K/mm3 (4.5-10.0)
--- NOTE | 2020-04-03 15:56 | ECG_ITS ---
Measurements Intervals [place] Rate: 65 P: [place]: 0 QRS: 270 QRSD: 207 T: 98 QT: 512 QTc: 536 Interpretive Statements ELECTRONIC VENTRICULAR PACEMAKER FREQUENT VENTRICULAR PREMATURE COMPLEXES UNDERLYING ATRIAL FLUTTER/TACHYCARDIA BASELINE ARTIFACT- I, V1-V2 NO FURTHER INTERPRETATION IS POSSIBLE ABNORMAL ECG Electronically Signed On 04-04-2020 7:09:50 CDT by Eliu Thompson D.O.
[2020-04-03 16:06] LABS: INR 1.8; Prothrombin Time 20.7 Seconds (11.1-14.7)
[2020-04-03 16:07] LABS: Partial Thromboplastin Time 27.5 SECONDS (22.3-36.8)
[2020-04-03 16:09] LABS: Alanine Aminotransferase 23 U/L (4-50); Albumin Level 4.7 g/dL (3.5-5.1); Alkaline Phosphatase 124 U/L (38-126); Aspartate Amino Transferase 39 U/L (17-59); Bilirubin,Total 0.4 mg/dL (0.2-1.3); Blood Urea Nitrogen 24 mg/dL (9-20); Calcium 10.5 mg/dL (8.4-10.2); Carbon Dioxide 26 mmol/L (22-30); Chloride 101 mmol/L (98-107); Cholesterol 182 mg/dL (0-200); Estimated CRCL calculation 40 ml/min; Estimated Glomerular Filt Rate 42; Glucose 230 mg/dL (75-110); HDL Direct 47 mg/dL; Sodium 137 mmol/L (137-145); Triglycerides 161 mg/dL (<150)
--- NOTE | 2020-04-03 16:11 | PC.NURSE ---
Patient requesting to have BiPap removed. EDP called to bedside; discussed with patient. EDP gave verbal order to remove BiPap mask and place patient on O2 NC 6L.
[2020-04-03 16:19] LABS: LDL Cholesterol Direct 102 mg/dL
[2020-04-03 16:29] LABS: Troponin I 0.049 ng/mL (0.000-0.034)
--- NOTE | 2020-04-03 16:29 | ED.SOB ---
HPI - SOB/Dyspnea General Chief Complaint: Shortness of Breath/Dyspnea Stated Complaint: sob Time Seen by Provider: 04/03/20 15:42 History of Present Illness HPI Narrative: Patient presents via EMS for severe shortness of breath. He received a couple breathing treatments in route. He arrived diaphoretic and moving air poorly. He was unable to answer questions. He could nod his head. Later he found him to be a COPD patient. His blood gas showed severe acidosis and hypercapnia. His EKG had ST elevation, and a STEMI was called. MD elicited complaint: shortness of breath Pertinent past history: COPD Related Data Home Medications Medication Instructions Recorded Confirmed canagliflozin [Invokana] 100 mg PO DAILY 02/12/20 02/12/20 linagliptin [Tradjenta] 5 mg PO DAILY 02/12/20 02/12/20 umeclidinium [Incruse Ellipta] INHALATION 02/12/20 umeclidinium-vilanterol [Anoro INHALATION 02/12/20 Ellipta] Invokana 100 mg PO DAILY 02/22/20 02/22/20 Spiriva with HandiHaler 1 cap INHALATION DAILY 02/22/20 02/22/20 Tradjenta 5 mg PO DAILY 02/22/20 02/22/20 albuterol sulfate [ProAir HFA] 90 mcg INHALATION BID PRN 02/22/20 02/22/20 aripiprazole [Abilify] 15 mg PO DAILY 02/22/20 02/22/20 aspirin [Aspir-81] 81 mg PO DAILY 02/22/20 02/22/20 carvedilol [Coreg] 12.5 mg PO BID 02/22/20 02/22/20 cholecalciferol (vitamin D3) 50 mcg PO DAILY 02/22/20 02/22/20 [Vitamin D3] docusate sodium 100 mg PO DAILY 02/22/20 02/22/20 doxepin 10 mg PO HS 02/22/20 02/22/20 fluticasone propion-salmeterol 1 inh INHALATION Q12H 02/22/20 02/22/20 [Advair Diskus] levothyroxine 25 mcg PO DAILY 02/22/20 02/22/20 mycophenolate sodium [Myfortic] 360 mg PO BID 02/22/20 02/22/20 pravastatin 40 mg PO DAILY 02/22/20 02/22/20 prednisone 5 mg PO BID 02/22/20 02/22/20 tacrolimus 3 mg PO BID 02/22/20 02/22/20 warfarin [Jantoven] 3 mg PO DAILY 02/22/20 02/22/20 Allergies Allergy/AdvReac Type Severity Reaction Status Date / Time No Known Allergies Allergy Verified 04/03/20 15:47 Review of Systems Review of Systems: Narrative: Unable to obtain due to the patient's severe shortness of breath. [facility] Past Medical History Medical History COPD (chronic obstructive pulmonary disease) Coronary artery disease Depression HTN (hypertension) with goal to be determined Hypertension Hypothyroid Immunosuppressed status Myocardial infarction Pacemaker Persistent atrial fibrillation Schizophrenia T2DM (type 2 diabetes mellitus) TIA (transient ischemic attack) Surgical History Surgical History Kidney transplant recipient Renal transplant recipient S/P coronary artery stent placement Social History Social History Social History: Patient would like to be a full code and his POA is his father relay. He sees Dr. Lyman at [facility] as his primary care doctor. He quit smoking 3 days ago but before that was smoking about a pack per month. He does not drink alcohol. He is on disability for schizophrenia. Smoking status: Never smoker Tobacco type: cigarettes Alcohol intake: never Substance use: never Gender identity (if verbalized by the patient): Male Spiritual care concerns: No Agree to blood products: Yes Exam Narrative: Exam Narrative: GENERAL: Severe shortness of breath retractions diaphoresis. Unable to speak.. HEAD: Normocephalic, atraumatic. EYES: PERRLA and EOMI. ENT: Nares clear, no rhinorrhea or epistaxis. Mucous membranes moist. NECK: Supple. CHEST: Retractions very poor aeration, no crackles, no wheezes. HEART: Regular rate and rhythm. No murmur heard. Normal peripheral pulses. ABDOMEN: Soft, nontender, nondistended, normal active bowel sounds. EXTREMITIES: Normal range of motion. No edema. SKIN: Warm, sweating everywhere, no rash. NEURO: No focal deficits. Alert and oriented x3.
[2020-04-03 16:31] LABS: Lactic Acid 2.6 mmol/L (0.7-2.1)
--- NOTE | 2020-04-03 16:31 | PC.NURSE ---
Software Development Coordinator at bedside assessing patient.
--- NOTE | 2020-04-03 17:02 | PM.CNCAR ---
Assessment and Plan Additional Plan SOB is likely COPD exacerbation, Abnormal EKG is paced V rhythm, Hx of CAD, Hx of Kidney transplant, mild elevation in trop is likely related to acute resp failure. HX of AF, AVN ablation and pacemaker insertion plan COPD and resp failure management per ICU team, cont ASA, statin, warfarin. serial enzymes, History of Present Illness History of Present Illness Consult date/time: 04/03/20 17:02 Consult reason: Other (abnormal EKG) Reason For Visit: sob Narrative: Patient presented with acute progressive worsening of SOB, SOB is severe, not worse with lying down but worse with mild activity. He had known HX of COPD and was recently in hospital in February with Similar symptoms. He had no fevers but has cough with green sputum. He realized it's likely recurrent COPD exacerbation. He has no recent sick contacts or travels. He has no chest painor discomfort and no plapitations. He was started on BiPAP in ER and felt much better. He had HX of CAD and prior PCI in 2015. He also had Hx of kidney transplant. Review of Systems Review of Systems: All systems reviewed & are unremarkable except as noted in HPI and below PMFSH Past Medical History Medical History COPD (chronic obstructive pulmonary disease) Coronary artery disease Depression HTN (hypertension) with goal to be determined Hypertension Hypothyroid Immunosuppressed status Myocardial infarction Pacemaker Persistent atrial fibrillation Schizophrenia T2DM (type 2 diabetes mellitus) TIA (transient ischemic attack) Surgical History Surgical History Kidney transplant recipient Renal transplant recipient S/P coronary artery stent placement Social History Social History Social History: Patient would like to be a full code and his POA is his father relay. He sees Dr. Lyman at [facility] as his primary care doctor. He quit smoking 3 days ago but before that was smoking about a pack per month. He does not drink alcohol. He is on disability for schizophrenia. Smoking status: Never smoker Tobacco type: cigarettes Alcohol intake: never Substance use: never Gender identity (if verbalized by the patient): Male Spiritual care concerns: No Agree to blood products: Yes Meds Home Medications and Allergies Home Medications Medication Instructions Recorded Confirmed Type canagliflozin [Invokana] 100 mg PO DAILY 02/12/20 02/12/20 History linagliptin [Tradjenta] 5 mg PO DAILY 02/12/20 02/12/20 History umeclidinium [Incruse Ellipta] INHALATION 02/12/20 History umeclidinium-vilanterol [Anoro INHALATION 02/12/20 History Ellipta] Invokana 100 mg PO DAILY 02/22/20 02/22/20 History Spiriva with HandiHaler 1 cap INHALATION DAILY 02/22/20 02/22/20 History Tradjenta 5 mg PO DAILY 02/22/20 02/22/20 History albuterol sulfate [ProAir HFA] 90 mcg INHALATION BID PRN 02/22/20 02/22/20 History aripiprazole [Abilify] 15 mg PO DAILY 02/22/20 02/22/20 History aspirin [Aspir-81] 81 mg PO DAILY 02/22/20 02/22/20 History carvedilol [Coreg] 12.5 mg PO BID 02/22/20 02/22/20 History cholecalciferol (vitamin D3) 50 mcg PO DAILY 02/22/20 02/22/20 History [Vitamin D3] docusate sodium 100 mg PO DAILY 02/22/20 02/22/20 History doxepin 10 mg PO HS 02/22/20 02/22/20 History fluticasone propion-salmeterol 1 inh INHALATION Q12H 02/22/20 02/22/20 History [Advair Diskus] levothyroxine 25 mcg PO DAILY 02/22/20 02/22/20 History mycophenolate sodium [Myfortic] 360 mg PO BID 02/22/20 02/22/20 History pravastatin 40 mg PO DAILY 02/22/20 02/22/20 History prednisone 5 mg PO BID 02/22/20 02/22/20 History tacrolimus 3 mg PO BID 02/22/20 02/22/20 History warfarin [Jantoven] 3 mg PO DAILY 02/22/20 02/22/20 History prednisone 20 mg PO DIRECTED #7 tablet 02/23/20 Rx mupirocin calcium 1 applic TOPICAL TID #15 gm
[2020-04-03] MEDS: FUROSEMIDE INJ 40 MG/4 ML VIAL IV PUSH (17:24)
--- NOTE | 2020-04-03 18:13 | PC.NURSE ---
Patient wishing to leave; unwilling to be admitted or transferred to different facility. Father notified. Patient wishing to sign AMA form.
== END 2020-04-03 18:35 | disposition left against medical advice (07) ==
PROVIDERS: Emergency Provider Emergency Medicine
DX: Z03.818 Encounter for observation for suspected exposure to other biological agents ruled out (principal); I21.3 ST elevation (STEMI) myocardial infarction of unspecified site; J44.1 Chronic obstructive pulmonary disease with (acute) exacerbation; I11.0 Hypertensive heart disease with heart failure; I50.9 Heart failure, unspecified; R06.00 Dyspnea, unspecified; I25.10 Atherosclerotic heart disease of native coronary artery without angina pectoris; F32.9 Major depressive disorder, single episode, unspecified; E03.9 Hypothyroidism, unspecified; I25.2 Old myocardial infarction; Z79.01 Long term (current) use of anticoagulants; Z94.0 Kidney transplant status
CPT/HCPCS: 36415; 36600; 71045; 80053; 80061; 82375; 82805; 83050; 83605; 84484; 85025; 85610; 85730; 86850; 86900; 86901; 87040; 87635; 87804; 93005; 96365; 96375; 99284; C9803; J0456; J0696; J1940; U0003

== ENCOUNTER 2020-04-08 16:23 | Emergency (ER) | payer MEDICARE, MEDICAID, SELFPAY ==
[2020-04-08] VITALS (14 sets, daily range): BP systolic 108–193; BP diastolic 75–108; PULSE 61–95; RESP 14–41; TEMP 36.6–37.2; O2SAT 93–100
--- NOTE | ~2020-04-08 | XR_ITS ---
EXAMINATION: XR chest 1V portable INDICATION: Cough TECHNIQUE: Portable AP chest at 1701 hours COMPARISON: 04/03/2020 FINDINGS: The lungs are free of acute opacities. Previously described pulmonary edema has resolved. T here is no pleural effusion or pneumothorax. The cardiomediastinal silhouette is normal. A dual-lead cardiac pacemaker of the left chest wall ends with leads in expected locations. IMPRESSION: 1. No acute cardiopulmonary abnormality. Reviewed, dictated and finalized at location A.
--- NOTE | 2020-04-08 16:24 | ECG_ITS ---
Measurements Intervals [place] Rate: 89 P: [place]: 0 QRS: -87 QRSD: 186 T: 95 QT: 427 QTc: 522 Interpretive Statements ATRIAL SENSE- ELECTRONIC VENTRICULAR PACEMAKER VENTRICULAR PREMATURE COMPLEXES BASELINE ARTIFACT- I, V1-V3 NO FURTHER INTERPRETATION IS POSSIBLE ATYPICAL ECG Electronically Signed On 04-09-2020 9:45:50 CDT by Eliu Thompson D.O.
[2020-04-08] MEDS: methylPREDNISolone SOD SUCC 125 MG VIAL IV PUSH (16:30)
--- NOTE | 2020-04-08 16:34 | PC.NURSE ---
Placed on Bipap at this time.
[2020-04-08 16:36] LABS: Basophils Absolute Auto 0.1 K/mm3 (0.0-0.1); Basophils Percent Auto 0.7 % (0.2-1.2); Eosinophils Absolute Auto 0.3 K/mm3 (0-0.3); Hematocrit 53.2 % (42.0-52.0); Hemoglobin 16.9 g/dL (14.0-18.0); Immature Granulocyte Absolute 0.07 K/mm3 (0.00-0.031); Immature Granulocyte Percent A 0.5 % (0-0.5); Lymphocytes Absolute Auto 4.34 K/mm3 (0.9-3.2); Lymphocytes Percent Auto 29.4 % (18.3-44.2); Mean Corpuscular HGB Conc 31.8 g/dl (32-36); Mean Corpuscular Hemoglobin 32.1 pg (26-34); Mean Corpuscular Volume 101.1 fl (80-100); Monocytes Absolute Auto 1.2 K/mm3 (0.1-0.6); Neutrophils Absolute Auto 8.8 K/mm3 (1.3-6.7); Neutrophils Percent Auto 59.4 % (45.5-73.1); Platelet Count Result 203 k/mm3 (150-375); Red Blood Count 5.26 M/mm3 (4.6-6.20); Red Cell Distribution Width 13.7 % (11.5-14.5); White Blood Count 14.8 K/mm3 (4.5-10.0)
[2020-04-08 16:38] LABS: Alveolar/Arterial O2 Gradient 256.4 mmHg; Base Excess ABG -6.2 mEq/l (+/-2.0); Fractional Inspired Oxygen 70 %; HCO3 ABG 25.3 mEq/l (22.0-26.0); Oxygen Content ABG 22.7 %vol (16.0-22.0); Oxygen Saturation ABG 98.3 % (95.0-100.0); Oxyhemoglobin 96.7 % THb (90.0-100.0); PO2 ABG 157.8 mmHg (80.0-100.0); PO2 FiO2 Ratio Arterial Blood 2.25 %; Total Hemoglobin 16.5 g/dL (12.0-18.0)
--- NOTE | 2020-04-08 16:39 | ED.SOB ---
HPI - SOB/Dyspnea General Chief Complaint: Shortness of Breath/Dyspnea Stated Complaint: sob/diff breathing Time Seen by Provider: 04/08/20 19:41 Source: RN notes reviewed History of Present Illness HPI Narrative: Patient presents emergency department from home for respiratory distress. Patient states that approximately 4 PM this afternoon he was going to use his inhaler he began to feel severely short of breath. At that time EMS was called. When EMS arrived the patient was noted to have a pulse ox in the mid 60s. Patient states he has a history of COPD as well as CHF. Patient also states history of renal transplant. He denies any recent illness denies any cough Related Data Home Medications Medication Instructions Recorded Confirmed canagliflozin [Invokana] 100 mg PO DAILY 02/12/20 02/12/20 linagliptin [Tradjenta] 5 mg PO DAILY 02/12/20 02/12/20 umeclidinium [Incruse Ellipta] INHALATION 02/12/20 umeclidinium-vilanterol [Anoro INHALATION 02/12/20 Ellipta] Invokana 100 mg PO DAILY 02/22/20 02/22/20 Spiriva with HandiHaler 1 cap INHALATION DAILY 02/22/20 02/22/20 Tradjenta 5 mg PO DAILY 02/22/20 02/22/20 albuterol sulfate [ProAir HFA] 90 mcg INHALATION BID PRN 02/22/20 02/22/20 aripiprazole [Abilify] 15 mg PO DAILY 02/22/20 02/22/20 aspirin [Aspir-81] 81 mg PO DAILY 02/22/20 02/22/20 carvedilol [Coreg] 12.5 mg PO BID 02/22/20 02/22/20 cholecalciferol (vitamin D3) 50 mcg PO DAILY 02/22/20 02/22/20 [Vitamin D3] docusate sodium 100 mg PO DAILY 02/22/20 02/22/20 doxepin 10 mg PO HS 02/22/20 02/22/20 fluticasone propion-salmeterol 1 inh INHALATION Q12H 02/22/20 02/22/20 [Advair Diskus] levothyroxine 25 mcg PO DAILY 02/22/20 02/22/20 mycophenolate sodium [Myfortic] 360 mg PO BID 02/22/20 02/22/20 pravastatin 40 mg PO DAILY 02/22/20 02/22/20 prednisone 5 mg PO BID 02/22/20 02/22/20 tacrolimus 3 mg PO BID 02/22/20 02/22/20 warfarin [Jantoven] 3 mg PO DAILY 02/22/20 02/22/20 Allergies Allergy/AdvReac Type Severity Reaction Status Date / Time No Known Allergies Allergy Verified 04/08/20 16:25 Review of Systems Review of Systems: Narrative: Gen.: Denies fevers or chills ENT: Denies congestion Respiratory: See HPI CV: Denies chest pain or palpitations GI: Denies abdominal pain nausea, emesis or diarrhea Musculoskeletal: Denies back pain or muscle pain Neuro: Denies numbness, tingling, weakness or focal weakness Skin: Denies rash Except as documented, all other systems reviewed and negative [facility] Past Medical History Medical History COPD (chronic obstructive pulmonary disease) Coronary artery disease Depression HTN (hypertension) with goal to be determined Hypertension Hypothyroid Immunosuppressed status Myocardial infarction Pacemaker Persistent atrial fibrillation Schizophrenia T2DM (type 2 diabetes mellitus) TIA (transient ischemic attack) Social History Social History Social History: Patient would like to be a full code and his POA is his father relay. He sees Dr. Lyman at [facility] as his primary care doctor. He quit smoking 3 days ago but before that was smoking about a pack per month. He does not drink alcohol. He is on disability for schizophrenia. Smoking status: Never smoker Tobacco type: cigarettes Alcohol intake: never Substance use: never Gender identity (if verbalized by the patient): Male Spiritual care concerns: No Agree to blood products: Yes Exam Narrative: Exam Narrative: APPEARANCE: Severe respiratory distress, nontoxic, resting in bed HEENT: Normocephalic, atraumatic OMM RESPIRATORY: Severe respiratory distress sitting upright speaking in short phrases decreased breath sounds at the bilateral lung powell with wheezing upper lung powell accessory muscles used CARDIOVASCULAR: Regular rate and rhythm without murmurs rubs or gallops. ABDOMINAL: Soft, non
[2020-04-08 16:40] LABS: Device NON-INVASIVE VENT; Modified Allen's Test Pass; Site Drawn LEFT RADIAL; pH ABG 7.124 (7.350-7.450)
[2020-04-08 16:41] LABS: Non-Invasive Expiratory Pressure 8 CMH2O; Non-Invasive Inspiratory Pressure 14 CMH2O; Non-Invasive Vent Rate 4 /MIN
[2020-04-08] MEDS: IPRATROPIUM BR 0.02% INH SOLN 0.5 MG/2.5 ML VIAL INHALATION ×2 (16:46→19:15)
[2020-04-08] MEDS: ALBUTEROL SULFATE NEB 2.5 MG/0.5 ML INH 5 MG INHALATION ×2 (16:46→19:14)
[2020-04-08 16:51] LABS: Blood Urea Nitrogen 26 mg/dL (9-20); Calcium 10.7 mg/dL (8.4-10.2); Carbon Dioxide 27 mmol/L (22-30); Chloride 102 mmol/L (98-107); Estimated CRCL calculation 54 ml/min; Estimated Glomerular Filt Rate 53; Glucose 241 mg/dL (75-110); Lactic Acid Reflex 2.7 mmol/L (0.7-2.1); Potassium 5.8 mmol/L (3.4-5.0); Sodium 137 mmol/L (137-145)
[2020-04-08 17:04] LABS: INR 1.8; Partial Thromboplastin Time 29.2 SECONDS (22.3-36.8); Prothrombin Time 20.4 Seconds (11.1-14.7)
[2020-04-08 17:08] LABS: NT Pro B Type Natriuretic Pept 4190 PG/ML (5-100); Troponin I 0.048 ng/mL (0.000-0.034)
[2020-04-08] MEDS: ASPIRIN 81 MG CHEWABLE TABLET 324 MG PO (17:30)
--- NOTE | 2020-04-08 17:33 | PC.NURSE ---
Called to add on BMP.
--- NOTE | 2020-04-08 17:44 | PC.NURSE ---
Verbal order received for repeat BNP per Dr. Crow.
[2020-04-08 18:09] LABS: NT Pro B Type Natriuretic Pept 4090 PG/ML (5-100)
--- NOTE | 2020-04-08 18:18 | PC.NURSE ---
Called lab to add on BMP.
[2020-04-08 18:23] LABS: Alveolar/Arterial O2 Gradient 109.7 mmHg; Base Excess ABG -3.7 mEq/l (+/-2.0); Fractional Inspired Oxygen 70 %; HCO3 ABG 22.9 mEq/l (22.0-26.0); Oxygen Content ABG 21.4 %vol (16.0-22.0); Oxygen Saturation ABG 99.7 % (95.0-100.0); PCO2 ABG 46.9 mmHg (35.0-45.0); PO2 FiO2 Ratio Arterial Blood 4.84 %; Total Hemoglobin 14.9 g/dL (12.0-18.0); pH ABG 7.306 (7.350-7.450)
[2020-04-08 18:24] LABS: Device NON-INVASIVE VENT; Modified Allen's Test Pass; Non-Invasive Expiratory Pressure 8 CMH2O; Non-Invasive Inspiratory Pressure 14 CMH2O; Non-Invasive Vent Rate 4 /MIN; Site Drawn RIGHT RADIAL
[2020-04-08 18:31] LABS: Blood Urea Nitrogen 27 mg/dL (9-20); Calcium 10.3 mg/dL (8.4-10.2); Carbon Dioxide 25 mmol/L (22-30); Chloride 106 mmol/L (98-107); Estimated CRCL calculation 54 ml/min; Estimated Glomerular Filt Rate 53; Glucose 210 mg/dL (75-110); Potassium 5.7 mmol/L (3.4-5.0); Sodium 138 mmol/L (137-145)
--- NOTE | 2020-04-08 18:33 | PC.NURSE ---
Patient taken off bipap at this time per Dr. Crow and placed on 2 Li NC at this time.
[2020-04-08] MEDS: DEXTROSE 50% 25 GM/50 ML SYRINGE IV PUSH (19:25)
[2020-04-08] MEDS: INSULIN HUMAN REGULAR (*BKC) 100 UNITS/ML 10 UNITS IV PUSH (19:26)
[2020-04-08 19:28] LABS: Glucose Point of Care 275 (65-105)
[2020-04-08 19:34] LABS: Reflex Lactic Acid Yes or No Add Lactic
[2020-04-08 20:04] LABS: Lactic Acid 1.6 mmol/L (0.7-2.1)
[2020-04-08 20:18] LABS: Troponin I 0.056 ng/mL (0.000-0.034)
[2020-04-08] MEDS: SODIUM POLYSTYRENE SULFONONATE 15 GM/60 ML BTL 30 GM PO (22:26)
--- NOTE | 2020-04-08 22:34 | PC.NURSE ---
2220 Called [facility] to transport patient to [place]. ETA [phone]- [facility] called to update ETA to [phone] Called [facility] to request transport. [facility] not available.
== END 2020-04-08 23:50 | disposition short-term general hospital (02) ==
PROVIDERS: Emergency Medicine; Emergency Provider Emergency Medicine
DX: J96.02 Acute respiratory failure with hypercapnia (principal); J96.01 Acute respiratory failure with hypoxia; J44.1 Chronic obstructive pulmonary disease with (acute) exacerbation; E87.5 Hyperkalemia; Z94.0 Kidney transplant status; R79.89 Other specified abnormal findings of blood chemistry; F20.9 Schizophrenia, unspecified; I25.10 Atherosclerotic heart disease of native coronary artery without angina pectoris; I50.9 Heart failure, unspecified; I11.0 Hypertensive heart disease with heart failure; E03.9 Hypothyroidism, unspecified; I25.2 Old myocardial infarction; I48.19 Other persistent atrial fibrillation; Z79.01 Long term (current) use of anticoagulants; E11.9 Type 2 diabetes mellitus without complications; Z86.73 Personal history of transient ischemic attack (TIA), and cerebral infarction without residual deficits; Z79.82 Long term (current) use of aspirin
CPT/HCPCS: 36415; 36600; 71045; 80048; 82805; 83605; 83880; 84484; 85025; 85610; 85730; 87040; 93005; 94640; 96374; 96375; 99291; A9270; J1815; J2930

== ENCOUNTER 2020-04-27 07:41 | Inpatient (IN) | payer MEDICARE, MEDICAID, SELFPAY ==
[2020-04-27] VITALS (30 sets, daily range): BP systolic 92–189; BP diastolic 69–109; PULSE 60–87; RESP 14–36; TEMP 35.5–36.2; O2SAT 93–100; BMI 23.6
--- NOTE | ~2020-04-27 | XR_ITS ---
EXAMINATION: XR chest 1V portable DATE: 04/28/2020 06:00 INDICATION: Acute respiratory failure. Pneumonia. TECHNIQUE: frontal view of the chest was obtained. COMPARISON: Chest radiograph dated 04/27/2020 FINDINGS: Endotracheal tube tip 3.2 cm above the mervin. Nasogastric tube extends below the left hemidiaphragm with distal tip collimated off the study. Interstitial and subtle airspace opacities in the bilateral lower lung zones. No pleural effusion or pneumothorax. The cardiomediastinal silhouette is normal. Dual lead pacemaker seen with leads project ing over the expected locations of the right atrium and right ventricle. IMPRESSION: 1. Slight improvement in bilateral airspace disease in the lower lungs which could represent pulmonar y edema and/or pneumonia. Reviewed, dictated and finalized at location A. IMPRESSION: 1. Slight improvement in bilateral airspace disease in the lower lungs which co uld represent pulmonary edema and/or pneumonia.
--- NOTE | ~2020-04-27 | XR_ITS ---
EXAMINATION: XR chest 1V portable INDICATION: Pulmonary vascular congestion, cough TECHNIQUE: Portable AP chest at 1018 hours COMPARISON: 0553 hours FINDINGS: The lungs are free of acute opacities. There is no pleural effusion or pneumothorax. The ca rdiomediastinal silhouette is normal. A dual-lead cardiac pacemaker of the left chest wall ends with leads in expected locations. IMPRESSION: 1. No acute cardiopulmonary abnormality. Reviewed, dictated and finalized at location A.
--- NOTE | ~2020-04-27 | XR_ITS ---
EXAMINATION: XR chest 1V portable INDICATION: Acute respiratory failure/pneumonia TECHNIQUE: Portable AP chest at 0553 hours COMPARISON: 04/29/2020 FINDINGS: The endotracheal and nasogastric tubes have been removed. The lungs are free of acute opaci ties. There is no pleural effusion or pneumothorax. The cardiomediastinal silhouette is normal. A yves l-lead cardiac pacemaker of the left chest wall ends with leads in expected locations. IMPRESSION: 1. No acute cardiopulmonary abnormality. Endotracheal and nasogastric tube removal. Reviewed, dictated and finalized at location A. IMPRESSION: 1. No acute cardiopulmonary abnormality. Endotracheal and nasogastric tube daren garcia.
--- NOTE | ~2020-04-27 | XR_ITS ---
XR chest ET placement 04/27/2020 08:14 Indication: Respiratory distress. Intubation. Procedure: AP portable chest Comparison: Comparison to multiple prior studies sequentially, with oldest reviewed study dated 04/2020. Findings: Endotracheal tube tip 3.5 cm above the mervin. Patchy bilateral airspace disease, compatibl e with pneumonia versus atypical edema. Pacemaker leads in expected position. NG tube tip in the stom ach, side-port in the distal esophagus. No pleural effusion or pneumothorax. Impression: 1: Patchy bilateral airspace disease which may represent pneumonia or atypical edema. Reviewed, dictated and finalized at location A. Impression: 1: Patchy bilateral airspace disease which may represent pneumonia or atypical edema.
--- NOTE | ~2020-04-27 | US_ITS ---
EXAMINATION: US renal BI DATE: 04/28/2020 13:15 INDICATION: Acute renal insufficiency. Renal transplantation. TECHNIQUE: Multiple ultrasound grayscale images of the kidneys were obtained. COMPARISON: 07/01/2004 FINDINGS: The right kidney measures 7.3 x 2.4 x 2.8 cm. The left kidney measures 5.3 x 2.8 x 2.3 cm. There is c ortical thinning and increased cortical echogenicity the bilateral [place] kidneys. 2.[address] at the mid right kidney. The left transplant kidney measures 12.6 x 4.5 x 5.6 cm with normal echog enicity. A patent left transplant renal vein is identified. No hydronephrosis in either [place] kidney or the left transplant kidney. No stones identified. The bladder is decompressed with a Cunningham cathet er reportedly in place which limits evaluation. IMPRESSION: 1. Atrophy of the bilateral [place] kidneys, severe on the left and moderate to severe on the right. 2. Normal-appearing left transplant kidney with patent draining vein and no hydronephrosis. Reviewed, dictated and finalized at location A. IMPRESSION: 1. Atrophy of the bilateral [place] kidneys, severe on the left and moderate to severe on the right. 2. Normal-appearing left transplant kidney with patent draining vein and no hyd ronephrosis.
--- NOTE | ~2020-04-27 | XR_ITS ---
EXAMINATION: XR chest 1V portable DATE: 04/29/2020 05:31 INDICATION: Acute respiratory failure. Pneumonia. TECHNIQUE: frontal view of the chest was obtained. COMPARISON: Chest radiograph dated 04/28/2020 FINDINGS: Endotracheal tube tip 2.5 cm above the mervin. Nasogastric tube tip in the stomach collimated off th e study. No focal airspace opacities, pulmonary edema, pleural effusion or pneumothorax. The cardiomediastinal silhouette is normal. Dual lead pacemaker seen with leads projecting over the expected locations of the right atrium and right ventricle. IMPRESSION: 1. No acute cardiopulmonary disease. Reviewed, dictated and finalized at location A.
--- NOTE | ~2020-04-27 | XR_ITS ---
XR abdomen/kub 1V INDICATION: Evaluate NG tube position. TECHNIQUE: Limited KUB perform for evaluating NG tube . COMPARISON: No prior studies for comparison. FINDINGS: NG tube tip in the stomach, side port above the GE junction. Visualized bowel gas pattern is unremarkable. IMPRESSION: 1: NG tube tip in the stomach, side port above the GE junction. Recommend tube advancement. Reviewed, dictated and finalized at location A.
--- NOTE | ~2020-04-27 | XR_ITS ---
EXAMINATION: XR chest 1V portable DATE: 05/02/2020 05:47 INDICATION: Acute respiratory failure. Pneumonia. TECHNIQUE: A single frontal view of the chest was obtained. COMPARISON: Chest single view 05/01/2020 FINDINGS: There are Prieto B-lines, consistent with mild pulmonary edema. No pleural effusion or pneu mothorax. The heart size is normal. The main pulmonary artery is enlarged, consistent with pulmonary arterial hypertension. There is a left chest wall pacer with leads in the right atrium and right vent ricle. IMPRESSION: 1. Mild pulmonary edema. Reviewed, dictated and finalized at location A. IMPRESSION: 1. Mild pulmonary edema.
--- NOTE | ~2020-04-27 | NM_ITS ---
EXAMINATION: NM mateo stress w perfusion DATE: 05/02/2020 13:37 INDICATION: Coronary atherosclerosis. TECHNIQUE: Rest images were obtained following intravenous administration of 9.9 mCi Tc99m tetrofosmi n (Myoview). The patient was infused intravenously with Lexiscan (regadenoson). Then, 29.3 mCi Tc99m tetrofosmin (Myoview) was administered intravenously, and stress images were obtained. Data was recon structed into short axis and horizontal and vertical long axis SPECT images. Gated SPECT images were also obtained. COMPARISON: None. FINDINGS: There is no definite reversible or fixed perfusion abnormality to suggest ischemia or infar ction. There is no segmental wall motion abnormality. Left ventricular ejection fraction measures 5 2%. IMPRESSION: 1. No definite ischemia or infarct. 2. Normal left ventricular ejection fraction measuring 52%. Reviewed, dictated and finalized at location A.
--- NOTE | ~2020-04-27 | XR_ITS ---
EXAMINATION: XR chest 1V portable INDICATION: Acute respiratory failure TECHNIQUE: Portable AP chest at 0550 hours COMPARISON: 04/30/2020 FINDINGS: The lungs are free of acute opacities. There is no pleural effusion or pneumothorax. The ca rdiomediastinal silhouette is normal. The visualized bones and soft tissues are unremarkable. . A vyes l-lead cardiac pacemaker of the left chest wall ends with leads in expected locations. IMPRESSION: 1. No acute cardiopulmonary abnormality. Reviewed, dictated and finalized at location A.
--- NOTE | 2020-04-27 07:50 | PC.NURSE ---
Pt arrives in respiratory distress on EMS CPAP with abdominal muscle use, accessory muscle use, and nasal flaring sitting straight up. Pt was 88% on CPAP. Pt set up for RSI per MD [place].Respiratory at bedside.
--- NOTE | 2020-04-27 07:55 | PC.NURSE ---
Pt given 20 of Etomidate IVP for RSI via IV in LAC
[2020-04-27] MEDS: RAPID SEQUENCE INTUBATION KIT 1 EACH (07:56)
--- NOTE | 2020-04-27 07:56 | PC.NURSE ---
Pt given 100 mg Succs IVP via IV LAC
--- NOTE | 2020-04-27 07:57 | PC.NURSE ---
Pt has 8.0 ETT 26 at teeth inserted without difficulty
--- NOTE | 2020-04-27 08:01 | ECG_ITS ---
Measurements Intervals [place] Rate: 78 P: [place]: 0 QRS: -81 QRSD: 194 T: 99 QT: 470 QTc: 539 Interpretive Statements ELECTRONIC VENTRICULAR PACEMAKER FREQUENT VENTRICULAR PREMATURE COMPLEXES UNDERLYING PROBABLY ATRIAL FLUTTER/TACHYCARDIA BASELINE ARTIFACT- I, II, III, V1-V6 NO FURTHER INTERPRETATION IS POSSIBLE ABNORMAL ECG Electronically Signed On 04-27-2020 9:24:48 CDT by Eliu Thompson D.O.
--- NOTE | 2020-04-27 08:04 | ED.SOB ---
HPI - SOB/Dyspnea General Chief Complaint: Shortness of Breath/Dyspnea Stated Complaint: DIFFICULTU BREATHING Time Seen by Provider: 04/27/20 08:01 History of Present Illness HPI Narrative: Patient arrives via EMS for shortness of breath. He has known COPD no home oxygen. Started about 2 hours before he called 911. They gave magnesium albuterol and steroids. He was started on CPAP. He was still in severe distress when he arrived with oxygen saturations in the high 80s. His respiratory rate got up to 44. He was diaphoretic on the CPAP. He had never been intubated before. I explained to him that his breathing was hard and that I wanted to put a tube down and he said yes. MD elicited complaint: shortness of breath Pertinent past history: COPD Onset (ago): hour(s) Timing: constant Related Data Home Medications Medication Instructions Recorded Confirmed canagliflozin [Invokana] 100 mg PO DAILY 02/12/20 04/27/20 linagliptin [Tradjenta] 5 mg PO DAILY 02/12/20 04/27/20 umeclidinium-vilanterol [Anoro 1 inh INHALATION DAILY 02/12/20 04/27/20 Ellipta] Invokana 100 mg PO DAILY 02/22/20 04/27/20 albuterol sulfate [ProAir HFA] 2 puff INHALATION Q4H PRN 02/22/20 04/27/20 aripiprazole [Abilify] 15 mg PO DAILY 02/22/20 04/27/20 aspirin [Aspir-81] 81 mg PO DAILY 02/22/20 04/27/20 carvedilol [Coreg] 12.5 mg PO BID 02/22/20 04/27/20 cholecalciferol (vitamin D3) 50 mcg PO DAILY 02/22/20 04/27/20 [Vitamin D3] docusate sodium 100 mg PO DAILY 02/22/20 04/27/20 doxepin 10 mg PO HS 02/22/20 04/27/20 levothyroxine 25 mcg PO DAILY 02/22/20 04/27/20 mycophenolate sodium [Myfortic] 360 mg PO BID 02/22/20 04/27/20 pravastatin 40 mg PO DAILY 02/22/20 04/27/20 prednisone 5 mg PO DAILY 02/22/20 04/27/20 tacrolimus 3 mg PO BID 02/22/20 04/27/20 warfarin [Jantoven] 2 mg PO DAILY 02/22/20 04/27/20 Allergies Allergy/AdvReac Type Severity Reaction Status Date / Time No Known Allergies Allergy Verified 04/27/20 07:43 Review of Systems Review of Systems: Narrative: Unable to obtain review of systems due to severe shortness of breath. [facility] Past Medical History Medical History COPD (chronic obstructive pulmonary disease) Coronary artery disease Depression HTN (hypertension) with goal to be determined Hypertension Hypothyroid Immunosuppressed status Myocardial infarction Pacemaker Persistent atrial fibrillation Schizophrenia T2DM (type 2 diabetes mellitus) TIA (transient ischemic attack) Surgical History Surgical History Kidney transplant recipient Renal transplant recipient S/P coronary artery stent placement Family History Family History Mother Cancer Social History Social History Social History: Patient would like to be a full code and his POA is his father relay. He sees Dr. Lyman at [facility] as his primary care doctor. He quit smoking 3 days ago but before that was smoking about a pack per month. He does not drink alcohol. He is on disability for schizophrenia. Smoking status: Former smoker Tobacco type: cigarettes Alcohol intake: never Substance use: never Gender identity (if verbalized by the patient): Male Spiritual care concerns: No Agree to blood products: Yes Exam Narrative: Exam Narrative: Tall thin man with severe retractions and abdominal breathing. Diaphoretic. GENERAL: HEAD: Normocephalic, atraumatic. EYES: PERRLA and EOMI. ENT: Nares clear, no rhinorrhea or epistaxis. Mucous membranes moist. NECK: Supple. CHEST: Poor aeration. HEART: Regular rate and rhythm. No murmur heard. Normal peripheral pulses. ABDOMEN: Soft, nontender, nondistended, normal active bowel sounds. EXTREMITIES: Normal range of motion. No edema. SKIN: Warm, dry, no rash. NEURO
[2020-04-27] MEDS: PROPOFOL IV EMULSION 100 ML 9 MG IV CONT (08:15)
[2020-04-27] MEDS: PROPOFOL IV EMULSION 100 ML 9 MG (08:20)
[2020-04-27 08:29] LABS: Basophils Absolute Auto 0.1 K/mm3 (0.0-0.1); Basophils Percent Auto 0.6 % (0.2-1.2); Eosinophils Absolute Auto 0.4 K/mm3 (0-0.3); Eosinophils Percent Auto 2.7 % (0-4.4); Hematocrit 50.1 % (42.0-52.0); Hemoglobin 16.1 g/dL (14.0-18.0); Immature Granulocyte Absolute 0.08 K/mm3 (0.00-0.031); Immature Granulocyte Percent A 0.6 % (0-0.5); Lymphocytes Absolute Auto 2.74 K/mm3 (0.9-3.2); Lymphocytes Percent Auto 19.3 % (18.3-44.2); Mean Corpuscular HGB Conc 32.1 g/dl (32-36); Mean Corpuscular Hemoglobin 32.7 pg (26-34); Mean Corpuscular Volume 101.6 fl (80-100); Mean Platelet Volume 9.9 fl (7.4-10.4); Monocytes Absolute Auto 1.2 K/mm3 (0.1-0.6); Monocytes Percent Auto 8.3 % (2.6-8.5); Neutrophils Absolute Auto 9.8 K/mm3 (1.3-6.7); Neutrophils Percent Auto 68.5 % (45.5-73.1); Platelet Count Result 163 k/mm3 (150-375); Red Blood Count 4.93 M/mm3 (4.6-6.20); Red Cell Distribution Width 13.6 % (11.5-14.5); White Blood Count 14.2 K/mm3 (4.5-10.0)
[2020-04-27 08:46] LABS: Alanine Aminotransferase 25 U/L (4-50); Albumin Level 4.2 g/dL (3.5-5.1); Alkaline Phosphatase 104 U/L (38-126); Aspartate Amino Transferase 46 U/L (17-59); Bilirubin,Total 0.7 mg/dL (0.2-1.3); Blood Urea Nitrogen 28 mg/dL (9-20); Calcium 10.3 mg/dL (8.4-10.2); Carbon Dioxide 21 mmol/L (22-30); Chloride 106 mmol/L (98-107); Estimated CRCL calculation 49 ml/min; Estimated Glomerular Filt Rate 45; Glucose 149 mg/dL (75-110); Lactic Acid 1.7 mmol/L (0.7-2.1); Potassium 5.2 mmol/L (3.4-5.0); Sodium 138 mmol/L (137-145)
[2020-04-27 08:59] LABS: Troponin I 0.045 ng/mL (0.000-0.034)
[2020-04-27 09:05] LABS: NT Pro B Type Natriuretic Pept 3210 PG/ML (5-100)
[2020-04-27 09:22] LABS: Alveolar/Arterial O2 Gradient 347.9 mmHg; Base Excess ABG -8.9 mEq/l (+/-2.0); Carboxyhemoglobin 1.2 % THb (0-2.0); Fractional Inspired Oxygen 80 %; HCO3 ABG 18.1 mEq/l (22.0-26.0); Methemoglobin ABG 0.3 %THb (0-1.5); Oxygen Content ABG 20.4 %vol (16.0-22.0); Oxyhemoglobin 97.3 % THb (90.0-100.0); PCO2 ABG 42.6 mmHg (35.0-45.0); PO2 ABG 177.8 mmHg (80.0-100.0); PO2 FiO2 Ratio Arterial Blood 2.22 %; Reduced Hemoglobin 1.2 %THb (0-5.0); Total Hemoglobin 14.7 g/dL (12.0-18.0)
[2020-04-27 09:24] LABS: Modified Allen's Test Pass; Site Drawn LEFT RADIAL; pH ABG 7.245 (7.350-7.450)
[2020-04-27 09:25] LABS: Arterial Blood Gas PEEP 5 cmH2O; Arterial Blood Gas Vent Mode CMV; Arterial Blood Gas Ventilator rate 14 /MIN; Device VENTILATOR
[2020-04-27 09:26] LABS: Arterial Blood Gas Tidal Volume 500 ml
--- NOTE | 2020-04-27 09:40 | PC.NURSE ---
Pt is in soft limb restraints to bilateral wrists due to pt still trying to pull at tubes and MD Boone does not want to increase propofol or add other medications due to pt BP 95/69. Pt continues to move extremities. Pt vital signs stable. Pt appears uncomfortable. Pt informed and redirected. Pt ease of breathing improved with intubation.
[2020-04-27 09:42] LABS: Add Urine Microscopic? YES; Appearance Urine Clear (Clear); Bacteria Urine Trace /hpf; Bilirubin Urine Negative (Negative); Blood Urine 1+ (Negative); Color Urine Yellow (Yellow); Glucose Urine UA 3+ mg/dL (Negative); Ketones Urine Negative (Negative); Leukocyte Esterase Ur Trace LEU/UL (Negative); Mucus Urine Rare /lpf; Nitrate Urine Negative (Negative); Protein Urine 1+ mg/dL (Negative); RBC Urine 21-50 /hpf (0-2); Specific Grav Ur 1.028 (1.001-1.035); Squamous Epithelial Cell Urine Few /hpf (Few); Urobilinogen Urine Negative mg/dL (<2.0); WBC Urine 21-30 /hpf
--- NOTE | 2020-04-27 09:58 | ADMGEN ---
This patient, Bob Alfaro, was admitted to Intensive Care Unit-4. Patient/family oriented to hospital policies and general routines including ID bracelet, bed and alarms, visiting hours, pain management, procedures, bathroom and other care routines, personal items, smoking policy, room service/diet, and visiting hours. Valuables list has been completed. Information on how to activate the Rapid Response Team has been discussed. Patient/Family are encouraged to report perceived risks to care and to ask questions if they do not understand what they are told or what they should do.
[2020-04-27] MEDS: ASPIRIN 300 MG SUPPOSITORY RECTAL (10:34)
[2020-04-27] MEDS: DEXTROSE 5%/0.9% SOD CHL 1,000 ML 100 ML IV CONT (10:34)
[2020-04-27 10:41] LABS: INR 1.4; Prothrombin Time 16.6 Seconds (11.1-14.7)
--- NOTE | 2020-04-27 10:41 | ADMGEN ---
This patient, Bob Alfaro, was admitted to Intensive Care Unit-4. Patient intubated and sedated on propofol, leonard and OG present, PIVs x2, wounds noted. Patient oriented to hospital policies and general routines including ID bracelet, bed and alarms, visiting hours, pain management, procedures, bathroom and other care routines, personal items, smoking policy, room service/diet, and visiting hours. Valuables list has been compl
[2020-04-27] MEDS: LACTATED RINGERS 500 ML 999 ML IV CONT (11:27)
[2020-04-27] MEDS: LACTATED RINGERS 1,000 ML 100 ML IV CONT ×2 (11:28→21:30)
--- NOTE | 2020-04-27 11:31 | WPDCNINT ---
Assessment and Plan Assessment and plan (1) Respiratory failure: Qualifiers: Chronicity: acute Respiratory failure complication: hypoxia Qualified Code(s): J96.01 - Acute respiratory failure with hypoxia Code(s): J96.90 - Respiratory failure, unspecified, unspecified whether with hypoxia or hypercapnia Status: Acute Assessment and Plan: Patient presented with acute shortness of breath, tachypnea, was intubated in the ED on 04/27/2020 -chest x-ray and ABGs reviewed, likely related to pneumonia, ventilator adjusted, wean FiO2 to maintain O2 sats greater than 92% -rule out COVID-19 -continue ceftriaxone and doxycycline -sedated with propofol infusion, daily sedation vacation, maintain RASS of 0 to -2 (2) Pneumonia: Code(s): J18.9 - Pneumonia, unspecified organism Status: Acute Assessment and Plan: Chest x-ray with possibility of pneumonia, will obtain sputum culture -continue antibiotics as above -continue bronchodilators (3) Suspected 2019 novel coronavirus infection: Code(s): Z20.828 - Contact with and (suspected) exposure to other viral communicable diseases Status: Acute Assessment and Plan: SARS-CoV-2 PCR has been obtained and pending -placed patient on droplet, airborne and contact isolation - if COVID-19 is positive, will obtain inflammatory markers (4) Kidney transplant recipient: Code(s): Z94.0 - Kidney transplant status Status: Acute Assessment and Plan: Patient has a history of kidney transplant, on immunosuppression, -obtain tacrolimus levels (5) Hyperkalemia: Code(s): E87.5 - Hyperkalemia Status: Acute Assessment and Plan: Hyperkalemia, potassium of 5.2, -patient will receive IV fluids, will continue to monitor (6) Renal insufficiency: Code(s): N28.9 - Disorder of kidney and ureter, unspecified Status: Acute Assessment and Plan: Patient with renal insufficiency with elevated creatinine of 1.6 (baseline creatinine seems to be 1.2-1.3) -start maintenance IV fluids -continue monitor urine output, renal function electrolytes -will have Neurology follow the patient (7) Schizophrenia: Code(s): F20.9 - Schizophrenia, unspecified Status: Acute Assessment and Plan: History of schizophrenia will restart Abilify (8) T2DM (type 2 diabetes mellitus): Code(s): E11.9 - Type 2 diabetes mellitus without complications Status: Acute Assessment and Plan: Continue Accu-Cheks and sliding scale insulin (9) DVT prophylaxis: Code(s): Z29.9 - Encounter for prophylactic measures, unspecified Status: Acute Assessment and Plan: DVT prophylaxis: Continue Coumadin Stress ulcer prophylaxis: Protonix (10) CHF (congestive heart failure): Qualifiers: Heart failure chronicity: unspecified Heart failure type: unspecified Qualified Code(s): I50.9 - Heart failure, unspecified Code(s): I50.9 - Heart failure, unspecified Status: Acute Assessment and Plan: Patient with diastolic dysfunction, --echocardiogram 02/22/2020 showed EF of 60-65%, left ventricular diastolic function is abnormal, moderate aortic valve sclerosis, mild mitral valve regurg and mild tricuspid valve regurg. -continue to monitor Additional Plan Will discuss with family Code status: Full code Critical care time spent:41 minutes Due to a high probability of clinically significant, life threatening deterioration, the patient required my highest level of preparedness to intervene emergently and I personally spent this critical care time directly and personally managing the patient. This critical care time included obtaining a history; examining the patient; pulse oximetry; ordering and review of studies; arranging urgent treatment with development of a management plan; evaluation of patient's response to treatment; frequent reassessment; and discussions with
[2020-04-27 11:33] LABS: D Dimer 0.95 ug/mL (<0.48)
[2020-04-27] MEDS: PROPOFOL IV EMULSION 100 ML 22.5 MG IV CONT ×2 (11:47→16:29)
[2020-04-27 11:55] LABS: Glucose Point of Care 111 (65-105)
--- NOTE | 2020-04-27 12:00 | PM.IMHP ---
H&P: HPI History of Present Illness Chief complaint: resp failure Narrative: Bob Alfaro is a 54 year old male with multiple medical problems including COPD, CAD, persistent atrial fibrillation with a pacemaker, kidney transplant , schizophrenia DM type 2 Hypothyroidsm who presented to the hospital with SOB and cough. He was found to be in respiratory distress in the ER and was given Mg, albuterol steroids and placed on a cpap with no significant response. He was subsequently intubated and transferred to ICU. He is currently intubated and sedated, can follow simple commands. Review of Systems Review of Systems: ROS unobtainable: Yes unobtainable due to medical condition PMFSH Past Medical History Medical History COPD (chronic obstructive pulmonary disease) Coronary artery disease Depression HTN (hypertension) with goal to be determined Hypertension Hypothyroid Immunosuppressed status Myocardial infarction Pacemaker Persistent atrial fibrillation Schizophrenia T2DM (type 2 diabetes mellitus) TIA (transient ischemic attack) Surgical History Surgical History Kidney transplant recipient Renal transplant recipient S/P coronary artery stent placement Family History Family History Mother Cancer Social History Social History Social History: Patient would like to be a full code and his POA is his father relay. He sees Dr. Lyman at [facility] as his primary care doctor. He quit smoking 3 days ago but before that was smoking about a pack per month. He does not drink alcohol. He is on disability for schizophrenia. Smoking status: Former smoker Tobacco type: cigarettes Alcohol intake: never Substance use: never Gender identity (if verbalized by the patient): Male Spiritual care concerns: No Agree to blood products: Yes Meds Home Medications and Allergies Home Medications Medication Instructions Recorded Confirmed Type canagliflozin [Invokana] 100 mg PO DAILY 02/12/20 04/27/20 History linagliptin [Tradjenta] 5 mg PO DAILY 02/12/20 04/27/20 History umeclidinium-vilanterol [Anoro 1 inh INHALATION DAILY 02/12/20 04/27/20 History Ellipta] Invokana 100 mg PO DAILY 02/22/20 04/27/20 History albuterol sulfate [ProAir HFA] 2 puff INHALATION Q4H PRN 02/22/20 04/27/20 History aripiprazole [Abilify] 15 mg PO DAILY 02/22/20 04/27/20 History aspirin [Aspir-81] 81 mg PO DAILY 02/22/20 04/27/20 History carvedilol [Coreg] 12.5 mg PO BID 02/22/20 04/27/20 History cholecalciferol (vitamin D3) 50 mcg PO DAILY 02/22/20 04/27/20 History [Vitamin D3] docusate sodium 100 mg PO DAILY 02/22/20 04/27/20 History doxepin 10 mg PO HS 02/22/20 04/27/20 History levothyroxine 25 mcg PO DAILY 02/22/20 04/27/20 History mycophenolate sodium [Myfortic] 360 mg PO BID 02/22/20 04/27/20 History pravastatin 40 mg PO DAILY 02/22/20 04/27/20 History prednisone 5 mg PO DAILY 02/22/20 04/27/20 History tacrolimus 3 mg PO BID 02/22/20 04/27/20 History warfarin [Jantoven] 2 mg PO DAILY 02/22/20 04/27/20 History Allergies Allergy/AdvReac Type Severity Reaction Status Date / Time No Known Allergies Allergy Verified 04/27/20 07:43 Vital Signs Vital Signs - 24 hr 04/27/20 07:43 04/27/20 07:57 04/27/20 08:18 Temperature Pulse Rate 65 63 67 Respiratory Rate 36 H 20 Blood Pressure 189/109 H Pulse Oximetry 100 99 100 04/27/20 08:30 04/27/20 08:33 04/27/20 08:44 Temperature Pulse Rate 62 61 64 Respiratory Rate 16 14 16 Blood Pressure 111/72 92/69 L Pulse Oximetry 04/27/20 08:45 04/27/20 08:46 04/27/20 09:00 Temperature Pulse Rate 66 64 63 Respiratory Rate 14 14 15 Blood Pressure 95/73 L Pulse Oximetry 100 97 04/27/20 09:01 04/27/20 09:15 04/27/20 09:16
[2020-04-27] MEDS: PANTOPRAZOLE SODIUM IV 40 MG VIAL IV PUSH (12:52)
[2020-04-27] MEDS: ALBUTEROL SULFATE NEB 2.5 MG/0.5 ML INH INHALATION ×2 (14:22→19:23)
[2020-04-27] MEDS: IPRATROPIUM BR 0.02% INH SOLN 0.5 MG/2.5 ML VIAL INHALATION ×2 (14:22→19:23)
[2020-04-27] MEDS: carvediloL 12.5 MG TABLET FEED TUBE (16:32)
[2020-04-27] MEDS: WARFARIN (*PBKC) 3 MG TABLET PO (16:32)
[2020-04-27 17:00] LABS: Glucose Point of Care 103 (65-105)
--- NOTE | 2020-04-27 17:31 | PM.CNNEP ---
Assessment and Plan Assessment and plan (1) JEWEL (acute kidney injury): Code(s): N17.9 - Acute kidney failure, unspecified Status: Acute (2) Kidney transplant recipient: Code(s): Z94.0 - Kidney transplant status Status: Acute (3) Hyperkalemia: Code(s): E87.5 - Hyperkalemia Status: Acute (4) Pneumonia: Code(s): J18.9 - Pneumonia, unspecified organism Status: Acute Assessment and Plan: . Additional Plan Bob appears to have an elevated creatinine on top of his mild renal insufficiency. As already mention, his baseline creatinine runs around 1.2-1.3 mg/dL and he remains on immunosuppressive therapy in the form of prednisone, CellCept, and tacrolimus. I suspect that his rising creatinine is secondary to his acute respiratory failure and possible concern for pneumonia. The patient remains hemodynamically stable but has had some fluctuations in his blood pressure in general presumably from the respiratory distress and subsequent intubation and sedation as noted. He still appears to be making fairly good urine output and although his potassium was mildly elevated I suspect that he may have also had some degree of prerenal azotemia/volume depletion given his elevated hemoglobin and albumin as noted from his admission lab work. For further evaluation of his acute kidney injury, I will check a renal ultrasound with focus on his transplant kidney, urine electrolytes, urine eosinophils, and follow the trend of his repeat labs and urine output with continued supportive therapy that has been instituted. For now, I would continue his immunosuppression as is and if his blood pressure decreases I would consider stress dose steroids since he is on prednisone therapy chronically for his kidney transplant. I agree with checking a tacrolimus level to ensure that this is not supratherapeutic and depending on the trend of his kidney function, further testing may be required and possibly consideration for backing off on his immunosuppression if the concern for sepsis exist as well. I will continue follow patient with you while remains hospitalized and make further recommendations during his hospital course. Thank you for allowing me to participate in the care this patient. History of Present Illness Reason for Consult Consult date: 04/28/20 Reason for consult: acute renal failure Chief Complaint Chief complaint: resp failure History of Present Illness Narrative: The patient is a 54 year old male with a past medical history as outlined below who presented to [facility] ER with complaints of shortness of breath. His shortness of breath started about 2 hours prior to presentation to the ER. He was able to call 911 and presented to the ER in respiratory distress. He was initially started on CPAP with administration of magnesium, albuteroll nebulizer treatment as well as steroids. Unfortunately, his respiratory status continued to decline with noted tachypnea (respiratory rate in the 40s), accessory muscle use, and diaphoresis. He was subsequently intubated and placed on mechanical ventilation. Further work-up and evaluation in the ER demonstrated a chest x-ray with possible patchy bilateral infiltrates which may represent pneumonia or atypical edema. He was otherwise hemodynamically stable and blood work was noteworthy leukocytosis, elevated hemoglobin, and a mildly elevated creatinine above his baseline. Patient was then transferred to the ICU for further management Renal consultation was requested due to his acute kidney injury/acute renal failure. The patient has a baseline creatinine around 1.2 - 1.3 mg/dL. As already mentioned, his admission creatinine was 1.6 mg/dL association with a mildly elevated potassium level. He otherwise had no other critical electrolyte abnormalities and appears to be making fairly good urine output at the time of my visit. The patient has history signific
[2020-04-27 17:34] LABS: SARS-CoV-2 RNA PCR Negative
[2020-04-27] MEDS: PROPOFOL IV EMULSION 100 ML 20.2 MG IV CONT (21:25)
[2020-04-28] VITALS (31 sets, daily range): BP systolic 113–143; BP diastolic 77–92; PULSE 60–87; RESP 8–16; TEMP 36.2–36.8; O2SAT 16–100; BMI 23.5
[2020-04-28] MEDS: PROPOFOL IV EMULSION 100 ML 22.5 MG IV CONT ×3 (01:20→09:41)
[2020-04-28] MEDS: ALBUTEROL SULFATE NEB 2.5 MG/0.5 ML INH INHALATION ×4 (01:32→19:58)
[2020-04-28] MEDS: IPRATROPIUM BR 0.02% INH SOLN 0.5 MG/2.5 ML VIAL INHALATION ×4 (01:33→19:58)
[2020-04-28 02:11] LABS: Glucose Point of Care 96 (65-105)
[2020-04-28 04:19] LABS: Basophils Percent Auto 0.2 % (0.2-1.2); Hematocrit 47.3 % (42.0-52.0); Immature Granulocyte Absolute 0.08 K/mm3 (0.00-0.031); Immature Granulocyte Percent A 0.7 % (0-0.5); Lymphocytes Absolute Auto 1.09 K/mm3 (0.9-3.2); Lymphocytes Percent Auto 9.4 % (18.3-44.2); Mean Corpuscular HGB Conc 31.7 g/dl (32-36); Mean Corpuscular Hemoglobin 32.7 pg (26-34); Mean Corpuscular Volume 103.1 fl (80-100); Mean Platelet Volume 10.1 fl (7.4-10.4); Monocytes Absolute Auto 1.1 K/mm3 (0.1-0.6); Monocytes Percent Auto 9.7 % (2.6-8.5); Neutrophils Absolute Auto 9.3 K/mm3 (1.3-6.7); Platelet Count Result 135 k/mm3 (150-375); Red Blood Count 4.59 M/mm3 (4.6-6.20); Red Cell Distribution Width 13.4 % (11.5-14.5); White Blood Count 11.6 K/mm3 (4.5-10.0)
[2020-04-28 04:35] LABS: Alveolar/Arterial O2 Gradient 131.2 mmHg; Base Excess ABG -4.2 mEq/l (+/-2.0); Carboxyhemoglobin 0.6 % THb (0-2.0); Fractional Inspired Oxygen 40 %; HCO3 ABG 20.2 mEq/l (22.0-26.0); Methemoglobin ABG 0.2 %THb (0-1.5); Oxygen Content ABG 20.2 %vol (16.0-22.0); Oxygen Saturation ABG 98.1 % (95.0-100.0); Oxyhemoglobin 96.9 % THb (90.0-100.0); PCO2 ABG 35.2 mmHg (35.0-45.0); PO2 ABG 113.5 mmHg (80.0-100.0); PO2 FiO2 Ratio Arterial Blood 2.84 %; Reduced Hemoglobin 2.3 %THb (0-5.0); Total Hemoglobin 14.7 g/dL (12.0-18.0); pH ABG 7.376 (7.350-7.450)
[2020-04-28 04:37] LABS: Prothrombin Time 22.1 Seconds (11.1-14.7)
[2020-04-28 04:38] LABS: Device VENTILATOR; Modified Allen's Test Pass; Site Drawn LEFT RADIAL
[2020-04-28 04:38] LABS: Partial Thromboplastin Time 32.8 SECONDS (22.3-36.8)
[2020-04-28 04:39] LABS: Arterial Blood Gas PEEP 5 cmH2O; Arterial Blood Gas Tidal Volume 500 ml; Arterial Blood Gas Vent Mode CMV; Arterial Blood Gas Ventilator rate 16 /MIN
[2020-04-28 04:40] LABS: Blood Urea Nitrogen 34 mg/dL (9-20); CRP 5.8 mg/dL (<1.0); Calcium 9.9 mg/dL (8.4-10.2); Carbon Dioxide 20 mmol/L (22-30); Chloride 105 mmol/L (98-107); Estimated CRCL calculation 59 ml/min; Estimated Glomerular Filt Rate 57; Glucose 122 mg/dL (75-110); Magnesium 1.9 mg/dL (1.6-2.3); Phosphorus 3.9 mg/dL (2.5-4.5); Potassium 5.6 mmol/L (3.4-5.0); Sodium 136 mmol/L (137-145)
[2020-04-28 04:47] LABS: Creatinine Urine 42.3 mg/dL; Total Protein Urine Random 15 mg/dL
[2020-04-28 04:48] LABS: Sodium Urine Random 55 meq/L
[2020-04-28] MEDS: LEVOTHYROXINE SODIUM 25 MCG TABLET FEED TUBE (05:36)
[2020-04-28] MEDS: ALBUTEROL SULFATE NEB 2.5 MG/0.5 ML INH 15 MG INHALATION (08:30)
[2020-04-28] MEDS: LACTATED RINGERS 1,000 ML 75 ML IV CONT ×2 (08:56→17:19)
[2020-04-28] MEDS: ARIPIPRAZOLE 5 MG TABLET 15 MG PO (08:58)
[2020-04-28] MEDS: PRAVASTATIN SODIUM 20 MG TABLET 40 MG FEED TUBE (08:58)
[2020-04-28] MEDS: PANTOPRAZOLE SODIUM IV 40 MG VIAL IV PUSH (08:58)
[2020-04-28] MEDS: carvediloL 12.5 MG TABLET FEED TUBE ×2 (08:58→16:59)
[2020-04-28] MEDS: ASPIRIN 81 MG ENTERIC TABLET PO (08:59)
[2020-04-28] MEDS: SODIUM BICARBONATE 8.4% 50 MEQ/50 ML VIAL IV PUSH (09:08)
[2020-04-28] MEDS: SODIUM POLYSTYRENE SULFONONATE 15 GM/60 ML BTL FEED TUBE (09:08)
[2020-04-28] MEDS: DEXTROSE 50% 25 GM/50 ML SYRINGE IV PUSH (09:09)
[2020-04-28] MEDS: INSULIN HUMAN REGULAR (*BKC) 100 UNITS/ML 10 UNITS IV PUSH (09:09)
--- NOTE | 2020-04-28 12:01 | WPDINTPN ---
Progress Note: A&P Assessment and Plan (1) Respiratory failure: Qualifiers: Chronicity: acute Respiratory failure complication: hypoxia Qualified Code(s): J96.01 - Acute respiratory failure with hypoxia Code(s): J96.90 - Respiratory failure, unspecified, unspecified whether with hypoxia or hypercapnia Status: Acute Assessment and Plan: Patient presented with acute shortness of breath, tachypnea, was intubated in the ED on 04/27/2020 -FiO2 requirements down to 30% after review chest x-ray and ABGs today. -patient ruled out for COVID-19, SARS-CoV-2 PCR negative -continue ceftriaxone and doxycycline -sedated with propofol infusion, daily sedation vacation, maintain RASS of 0 to -2 -will wean sedation and evaluate for extubation (2) Pneumonia: Qualifiers: Pneumonia type: due to unspecified organism Laterality: bilateral Lung location: unspecified part of lung Qualified Code(s): J18.9 - Pneumonia, unspecified organism Code(s): J18.9 - Pneumonia, unspecified organism Status: Acute Assessment and Plan: Chest x-ray with possibility of pneumonia, -SPUTUM culture with moderate Gram-negative bacilli -blood cultures negative x2 -continue antibiotics as above -continue bronchodilators -CRP is elevated (3) Suspected 2019 novel coronavirus infection: Code(s): Z20.828 - Contact with and (suspected) exposure to other viral communicable diseases Status: Acute Assessment and Plan: SARS-CoV-2 PCR NEGATIVE -patient taken OFF droplet, airborne and contact isolation (4) Kidney transplant recipient: Code(s): Z94.0 - Kidney transplant status Status: Acute Assessment and Plan: Patient has a history of kidney transplant, on immunosuppression, -tacrolimus levels pending -appreciate Nephrology evaluation recommendation, once tacrolimus levels are up and if not supratherapeutic will Restart his immunosuppressants (5) Hyperkalemia: Code(s): E87.5 - Hyperkalemia Status: Acute Assessment and Plan: Hyperkalemia, potassium of 5.6 this morning, will treat hyperkalemia with insulin and D50, Kayexalate, albuterol, bicarb., -repeat BMP to re-evaluate potassium level -patient will receive IV fluids, will continue to monitor (6) Renal insufficiency: Code(s): N28.9 - Disorder of kidney and ureter, unspecified Status: Acute Assessment and Plan: Patient with renal insufficiency with elevated creatinine of 1.6 (baseline creatinine seems to be 1.2-1.3) -decrease maintenance IV fluids -continue monitor urine output, renal function electrolytes -appreciate Nephrology evaluation and recommendation (7) Schizophrenia: Code(s): F20.9 - Schizophrenia, unspecified Status: Acute Assessment and Plan: Continue Abilify (8) T2DM (type 2 diabetes mellitus): Code(s): E11.9 - Type 2 diabetes mellitus without complications Status: Acute Assessment and Plan: Continue Accu-Cheks and sliding scale insulin (9) DVT prophylaxis: Code(s): Z29.9 - Encounter for prophylactic measures, unspecified Status: Acute Assessment and Plan: DVT prophylaxis: Continue Coumadin Stress ulcer prophylaxis: Protonix (10) CHF (congestive heart failure): Qualifiers: Heart failure chronicity: unspecified Heart failure type: unspecified Qualified Code(s): I50.9 - Heart failure, unspecified Code(s): I50.9 - Heart failure, unspecified Status: Acute Assessment and Plan: Patient with diastolic dysfunction, --echocardiogram 02/22/2020 showed EF of 60-65%, left ventricular diastolic function is abnormal, moderate aortic valve sclerosis, mild mitral valve regurg and mild tricuspid valve regurg. -continue to monitor (11) Dietary counseling and surveillance: Code(s): Z71.3 - Dietary counseling and surveillance Status: Acute Assessment and Plan: Will start feeds
[2020-04-28 12:17] LABS: Glucose Point of Care 120 (65-105)
--- NOTE | 2020-04-28 13:17 | PM.PNNEP ---
Progress Note: A&P Assessment and Plan (1) JEWEL (acute kidney injury): Code(s): N17.9 - Acute kidney failure, unspecified Status: Acute Assessment and Plan: suspect due to acute illness/infection creatinine close/back to baseline (runs ~ 1/2 - 1.3mg/dl) making good urine output urine lytes not suggestive of volume depletion continue supportive thearpy (2) Kidney transplant recipient: Code(s): Z94.0 - Kidney transplant status Status: Acute Assessment and Plan: transplant medications oh hold tacrolimuis level pending (3) Hyperkalemia: Code(s): E87.5 - Hyperkalemia Status: Acute Assessment and Plan: cause/etiology? treated medically today follow repeat levels (4) Pneumonia: Code(s): J18.9 - Pneumonia, unspecified organism Status: Acute Assessment and Plan: follow cultures on antibiotics follow WBC (5) Acute respiratory failure: Code(s): J96.00 - Acute respiratory failure, unspecified whether with hypoxia or hypercapnia Status: Acute Assessment and Plan: on ventilator COVID-19 negative due to #4? Will continue to follow. Subjective Date/time seen: 04/28/20 13:17 Remains intubated and on mechanical ventilation; no apparent issues overnight or earlier today; appears comfortable at the time of my visit (sedated); no distress noted. Exam Narrative: Exam Narrative: General: WD/WN male in NAD; intubated Heart: normal S1 and S2; no rub Lungs: coarse breath sounds with some rhonchi Abdomen: soft, nontender, nondistended, positive bowel sounds Extremities: no cyanosis or clubbing; no edema Skin: warm and dry Objective Data Vital Signs Vital Signs: Vital Signs Temp Pulse Resp BP Pulse Ox 04/28/20 12:00 36.2 C L 62 16 143/92 H 100 04/28/20 10:00 74 16 117/77 100 04/28/20 09:10 68 16 04/28/20 09:00 66 16 100 04/28/20 08:58 61 04/28/20 08:00 36.4 C 61 16 125/82 100 04/28/20 06:00 77 16 133/86 100 04/28/20 05:02 100 04/28/20 04:11 81 100 04/28/20 04:00 36.8 C 87 16 136/87 16 L 04/28/20 02:00 78 16 124/81 100 04/28/20 01:42 85 16 04/28/20 01:35 83 16 04/28/20 01:27 87 100 04/28/20 01:00 36.5 C 60 16 143/88 H 100 04/28/20 00:00 60 04/27/20 22:45 61 100 04/27/20 22:18 71 17 132/88 100 04/27/20 20:00 36.2 C L 69 16 144/91 H 100 04/27/20 19:37 70 16 04/27/20 19:25 79 17 04/27/20 19:18 63 100 04/27/20 18:00 76 16 115/76 98 04/27/20 17:28 60 100 04/27/20 16:32 68 04/27/20 16:00 35.9 C L 60 16 121/81 100 04/27/20 14:23 60 100 04/27/20 14:10 62 16 04/27/20 14:00 60 16 115/88 100 Intake/Output Intake/Output: Intake & Output 04/25/20 04/26/20 04/27/20 04/28/20 23:59 23:59 23:59 23:59 Intake Total 2360 1330 Output Total 875 1480 Balance 1485 -150 Meds/Results Medications: Active Medications Generic Name Dose Route Start Last Admin Trade Name Freq PRN Reason Stop Dose Admin Albuterol 2.5 mg 04/27/20 14:00 04/28/20 08:30 Albuterol Sulf Neb 2.5mg/0.5ml INHALATION 2.5 mg Q6HRT PRISCILLA Administration Aripiprazole 15 mg 04/28/20 09:00 04/28/20 08:58 Abilify PO 15 mg QAM PRISCILLA Administration Aspirin 81 mg 04/28/20 09:00 04/28/20 08:59 Aspirin Ec PO 81 mg DAILY PRISCILLA Administration Carvedilol 12.5 mg 04/27/20 17:00 04/28/20 08:58 Coreg FEED TUBE 12.5 mg BID PRISCILLA Administration Dextrose 12.5 gm 04/27/20 11:53 Dextrose 50% Syringe IV PUSH PRN PRN Hypoglycemia Protocol Glucagon 1 mg 04/27/20 11:53 Glucagon For Inj IM PRN PRN Hypoglycemia Protocol Glucose 15 gm 04/27/20 11:53 Glutose 15 PO PRN PRN Hypoglycemia Protocol Propofol 100 mls @ 17.962 mls/hr 04/27/20 08:10 04/28/20 10:40 Diprivan IV CONT
[2020-04-28 13:37] LABS: Blood Urea Nitrogen 36 mg/dL (9-20); Calcium 9.6 mg/dL (8.4-10.2); Carbon Dioxide 20 mmol/L (22-30); Chloride 104 mmol/L (98-107); Estimated CRCL calculation 64 ml/min; Estimated Glomerular Filt Rate > 60; Glucose 153 mg/dL (75-110); Sodium 133 mmol/L (137-145)
[2020-04-28] MEDS: PROPOFOL IV EMULSION 100 ML 18 MG IV CONT (14:50)
[2020-04-28] MEDS: WARFARIN (*PBKC) 3 MG TABLET PO (16:59)
--- NOTE | 2020-04-28 17:30 | PM.IMPN ---
Progress Note: A&P Assessment and Plan (1) Respiratory failure: Qualifiers: Chronicity: acute Respiratory failure complication: hypoxia Qualified Code(s): J96.01 - Acute respiratory failure with hypoxia Code(s): J96.90 - Respiratory failure, unspecified, unspecified whether with hypoxia or hypercapnia Status: Acute Assessment and Plan: Hypoxemic respiratory failure due to bilateral pneumonia, COVID 19 rule out. 04/28/20 17:30 Bob Alfaro is a 54 year old male with multiple medical problems including COPD, CAD, persistent atrial fibrillation with a pacemaker, kidney transplant , schizophrenia DM type 2 Hypothyroidsm who presented to the hospital with SOB and cough. He was found to be in respiratory distress in the ER and was given Mg, albuterol steroids and placed on a cpap with no significant response. He was subsequently intubated and transferred to ICU. Patient is found to have pneumonia most likely community-acquired sputum culture is growing gram-negative bacilli blood culture no growth so far, patient is being treated Rocephin and doxycycline seen by care director, patient also has a history of kidney transplant clinically stable seen by ad operations coordinator. (2) Pneumonia: Qualifiers: Laterality: bilateral Lung location: unspecified part of lung Pneumonia type: due to unspecified organism Qualified Code(s): J18.9 - Pneumonia, unspecified organism Code(s): J18.9 - Pneumonia, unspecified organism Status: Acute Assessment and Plan: Sputum cultures and blood cultures obtained, on ceftriaxone and doxycycline. (3) Suspected 2019 novel coronavirus infection: Code(s): Z20.828 - Contact with and (suspected) exposure to other viral communicable diseases Status: Acute Assessment and Plan: PCR sent, on isolation, it is negative patient is off isolation (4) Renal insufficiency: Code(s): N28.9 - Disorder of kidney and ureter, unspecified Status: Acute Assessment and Plan: Nephrology was consulted by critical care. (5) Kidney transplant recipient: Code(s): Z94.0 - Kidney transplant status Status: Acute Assessment and Plan: Hold his immunosuppressants for now. (6) Immunosuppressed status: Code(s): D89.9 - Disorder involving the immune mechanism, unspecified Status: Acute Assessment and Plan: Hold due to underlying severe infection, if he goes into shock he will need a stress dose of steroids, so far he is hemodynamically stable (7) Persistent atrial fibrillation: Code(s): I48.19 - Other persistent atrial fibrillation Status: Chronic Assessment and Plan: Resume carvedilol and Warfarin. (8) Elevated troponin: Code(s): R79.89 - Other specified abnormal findings of blood chemistry Status: Acute Assessment and Plan: Most likely demand ischemia due to respiratory distress, continue to trend. (9) Acute exacerbation of chronic obstructive airways disease: Code(s): J44.1 - Chronic obstructive pulmonary disease with (acute) exacerbation Status: Acute (10) Hypothyroid: Qualifiers: Hypothyroidism type: unspecified Qualified Code(s): E03.9 - Hypothyroidism, unspecified Code(s): E03.9 - Hypothyroidism, unspecified Status: Acute (11) T2DM (type 2 diabetes mellitus): Code(s): E11.9 - Type 2 diabetes mellitus without complications Status: Acute Assessment and Plan: Insulin correctional scale for now. (12) DVT prophylaxis: Code(s): Z29.9 - Encounter for prophylactic measures, unspecified Status: Acute Assessment and Plan: On warfarin Subjective Date/time seen: 04/28/20 17:30 Bob Alfaro is a 54 year old male with multiple medical problems including COPD, CAD, persistent atrial fibrillation with a pacemaker, kidney transplant , schizophrenia DM
[2020-04-28 18:00] LABS: Glucose Point of Care 139 (65-105)
[2020-04-28] MEDS: PROPOFOL IV EMULSION 100 ML 9 MG IV CONT (22:00)
[2020-04-29] VITALS (29 sets, daily range): BP systolic 109–153; BP diastolic 63–100; PULSE 60–103; RESP 8–28; TEMP 36.4–37.1; O2SAT 91–100
[2020-04-29 00:08] LABS: Glucose Point of Care 175 (65-105)
[2020-04-29] MEDS: IPRATROPIUM BR 0.02% INH SOLN 0.5 MG/2.5 ML VIAL INHALATION ×3 (01:35→13:17)
[2020-04-29] MEDS: ALBUTEROL SULFATE NEB 2.5 MG/0.5 ML INH INHALATION ×3 (01:35→13:17)
[2020-04-29 04:24] LABS: Carboxyhemoglobin 0.5 % THb (0-2.0); Fractional Inspired Oxygen 30 %; HCO3 ABG 23.9 mEq/l (22.0-26.0); Methemoglobin ABG 0.1 %THb (0-1.5); Oxygen Content ABG 19.1 %vol (16.0-22.0); Oxygen Saturation ABG 97.9 % (95.0-100.0); Oxyhemoglobin 96.8 % THb (90.0-100.0); PCO2 ABG 32.8 mmHg (35.0-45.0); PO2 ABG 98.4 mmHg (80.0-100.0); PO2 FiO2 Ratio Arterial Blood 3.28 %; Reduced Hemoglobin 2.6 %THb (0-5.0)
[2020-04-29 04:26] LABS: Device VENTILATOR; Modified Allen's Test Pass; Site Drawn RIGHT RADIAL
[2020-04-29 04:27] LABS: Arterial Blood Gas PEEP 5 cmH2O; Arterial Blood Gas Vent Mode ASV
[2020-04-29 04:36] LABS: Basophils Percent Auto 0.2 % (0.2-1.2); Eosinophils Percent Auto 0.5 % (0-4.4); Hematocrit 42.1 % (42.0-52.0); Hemoglobin 13.9 g/dL (14.0-18.0); Immature Granulocyte Absolute 0.04 K/mm3 (0.00-0.031); Immature Granulocyte Percent A 0.5 % (0-0.5); Lymphocytes Percent Auto 9.2 % (18.3-44.2); Mean Corpuscular Hemoglobin 32.8 pg (26-34); Mean Corpuscular Volume 99.3 fl (80-100); Mean Platelet Volume 10.1 fl (7.4-10.4); Monocytes Absolute Auto 0.8 K/mm3 (0.1-0.6); Monocytes Percent Auto 9.3 % (2.6-8.5); Neutrophils Percent Auto 80.3 % (45.5-73.1); Platelet Count Result 136 k/mm3 (150-375); Red Blood Count 4.24 M/mm3 (4.6-6.20); Red Cell Distribution Width 13.4 % (11.5-14.5); White Blood Count 8.7 K/mm3 (4.5-10.0)
[2020-04-29 04:46] LABS: INR 2.3; Prothrombin Time 25.2 Seconds (11.1-14.7)
[2020-04-29 04:47] LABS: Partial Thromboplastin Time 38.3 SECONDS (22.3-36.8)
[2020-04-29 04:51] LABS: Blood Urea Nitrogen 33 mg/dL (9-20); CRP 4.6 mg/dL (<1.0); Calcium 9.5 mg/dL (8.4-10.2); Carbon Dioxide 25 mmol/L (22-30); Chloride 107 mmol/L (98-107); Estimated CRCL calculation 76 ml/min; Estimated Glomerular Filt Rate > 60; Glucose 169 mg/dL (75-110); Magnesium 1.8 mg/dL (1.6-2.3); Phosphorus 2.2 mg/dL (2.5-4.5); Potassium 4.1 mmol/L (3.4-5.0); Sodium 137 mmol/L (137-145)
[2020-04-29] MEDS: LEVOTHYROXINE SODIUM 25 MCG TABLET FEED TUBE (06:19)
[2020-04-29 06:38] LABS: Glucose Point of Care 185 (65-105)
[2020-04-29] MEDS: LACTATED RINGERS 1,000 ML 75 ML IV CONT ×2 (07:03→20:54)
[2020-04-29] MEDS: ARIPIPRAZOLE 5 MG TABLET 15 MG PO (07:44)
[2020-04-29] MEDS: ASPIRIN 81 MG ENTERIC TABLET PO (07:44)
[2020-04-29] MEDS: carvediloL 12.5 MG TABLET FEED TUBE (07:45)
[2020-04-29] MEDS: PRAVASTATIN SODIUM 20 MG TABLET 40 MG FEED TUBE (07:47)
[2020-04-29] MEDS: PANTOPRAZOLE SODIUM IV 40 MG VIAL IV PUSH (07:47)
[2020-04-29] MEDS: predniSONE 5 MG TABLET PO (09:22)
[2020-04-29 09:46] LABS: Alveolar/Arterial O2 Gradient 73.8 mmHg; Base Excess ABG 3.2 mEq/l (+/-2.0); Fractional Inspired Oxygen 30 %; HCO3 ABG 27.4 mEq/l (22.0-26.0); Oxygen Content ABG 18.8 %vol (16.0-22.0); Oxygen Saturation ABG 97.4 % (95.0-100.0); PCO2 ABG 40.4 mmHg (35.0-45.0); PO2 ABG 92.6 mmHg (80.0-100.0); PO2 FiO2 Ratio Arterial Blood 3.09 %; Total Hemoglobin 13.9 g/dL (12.0-18.0)
[2020-04-29 09:47] LABS: Arterial Blood Gas Vent Mode SPONTANEOUS; Device VENTILATOR; Modified Allen's Test Pass; Site Drawn RIGHT RADIAL
[2020-04-29 09:48] LABS: Arterial Blood Gas PEEP 5 cmH2O; Arterial Blood Gas Pressure Support 8 cmH2O
--- NOTE | 2020-04-29 10:11 | PHAR ---
HOME MEDICATIONS VERIFIED BY PHARMACY: MYCOPHENOLIC ACID 360MG TABLET - 1 TAB PO TWICE DAILY RX [id number] LIGHT PINK WITH MYC 360 ON ONE SIDE TACROLIMUS 1MG CAPSULES TAKE 3 CAPSULES PO TWICE DAILY RX#[id number]
--- NOTE | 2020-04-29 11:03 | PCDIET ---
Nutrition Follow-Up Complete: Nutrition Diagnosis: Inadequate oral intake related to oral intubation as evidenced by NPO status Nutrition Goal: Patient to meet estimated nutritional needs Goal in progress. Tube feedings initiated on 04/27/20 and well tolerated, but currently on hold for anticipated extubation. Recommend swallow evaluation following extubation to ensure diet can be safely advanced. If unable to successfully extubate, recommend Glucerna 1.2 starting at 20mL/hr and advancing by 10mL/hr every 8 hours, as tolerated, to goal of 60mL/hr. Last recorded weight is 76.2 kg which is increased from last review, despite negative I/O. Bowel Motility: No documented BM as of yet. Labs Reviewed: Glu (169), BUN (33), PO4 (2.2) Meds Noted: Albuterol, Doxycycline, Abilify, Novolog, Rocephin, Atrovent, Precedex, Protonix, Prednisone, Coumadin, LR at 75mL/hr Additional Notes: Abrasion to calves documented. No pressure ulcers reported. Will continue to monitor with same goal. Nutrition Monitoring and Evaluation: Follow up every 3 days. Follow daily in ICU rounds.
[2020-04-29 11:21] LABS: Glucose Point of Care 166 (65-105)
--- NOTE | 2020-04-29 12:03 | WPDINTPN ---
Progress Note: A&P Assessment and Plan (1) Respiratory failure: Qualifiers: Chronicity: acute Respiratory failure complication: hypoxia Qualified Code(s): J96.01 - Acute respiratory failure with hypoxia Code(s): J96.90 - Respiratory failure, unspecified, unspecified whether with hypoxia or hypercapnia Status: Acute Assessment and Plan: Patient presented with acute shortness of breath, tachypnea, was intubated in the ED on 04/27/2020 -remains on ASV mode of ventilation, 30% FiO2, peep of 5 -continue ceftriaxone and doxycycline -sedation has been turned off, patient placed on SBT, will evaluate for extubation. Tube Feeds on hold (2) Pneumonia: Qualifiers: Laterality: bilateral Lung location: unspecified part of lung Pneumonia type: due to unspecified organism Qualified Code(s): J18.9 - Pneumonia, unspecified organism Code(s): J18.9 - Pneumonia, unspecified organism Status: Acute Assessment and Plan: Chest x-ray with possibility of pneumonia, -SPUTUM culture with moderate Gram-negative bacilli -blood cultures negative x2 -continue antibiotics as above -continue bronchodilators -CRP is elevated (3) Suspected 2019 novel coronavirus infection: Code(s): Z20.828 - Contact with and (suspected) exposure to other viral communicable diseases Status: Acute Assessment and Plan: SARS-CoV-2 PCR NEGATIVE -patient taken OFF droplet, airborne and contact isolation (4) Kidney transplant recipient: Code(s): Z94.0 - Kidney transplant status Status: Acute Assessment and Plan: Patient has a history of kidney transplant, on immunosuppression, -tacrolimus levels pending -kidney functions are back to normal, will restart prednisone, tacrolimus and mycophenolate (5) Hyperkalemia: Code(s): E87.5 - Hyperkalemia Status: Acute Assessment and Plan: Hyperkalemia, potassium stage IV 4.1 this morning, , -continue to monitor (6) Renal insufficiency: Code(s): N28.9 - Disorder of kidney and ureter, unspecified Status: Acute Assessment and Plan: Patient with renal insufficiency with elevated creatinine of 1.6 (baseline creatinine seems to be 1.2-1.3) -creatinine 1.0 this morning on 04/29/2020 -continue monitor urine output, renal function electrolytes -appreciate Nephrology evaluation and recommendation (7) Schizophrenia: Code(s): F20.9 - Schizophrenia, unspecified Status: Acute Assessment and Plan: Continue Abilify (8) T2DM (type 2 diabetes mellitus): Code(s): E11.9 - Type 2 diabetes mellitus without complications Status: Acute Assessment and Plan: Continue Accu-Cheks and sliding scale insulin (9) DVT prophylaxis: Code(s): Z29.9 - Encounter for prophylactic measures, unspecified Status: Acute Assessment and Plan: DVT prophylaxis: Continue Coumadin Stress ulcer prophylaxis: Protonix (10) CHF (congestive heart failure): Qualifiers: Heart failure chronicity: unspecified Heart failure type: unspecified Qualified Code(s): I50.9 - Heart failure, unspecified Code(s): I50.9 - Heart failure, unspecified Status: Acute Assessment and Plan: Patient with diastolic dysfunction, --echocardiogram 02/22/2020 showed EF of 60-65%, left ventricular diastolic function is abnormal, moderate aortic valve sclerosis, mild mitral valve regurg and mild tricuspid valve regurg. -continue to monitor (11) Dietary counseling and surveillance: Code(s): Z71.3 - Dietary counseling and surveillance Status: Acute Assessment and Plan: Will start diet once extubated Additional Plan Discussed with patient's father Hemal Alfaro and updated with his condition and plan of care. The father wanted the patient to get an O2 evaluation for home O2. PT/OT will be ordered Code status: Full code Critical care time spent:33 minutes Due
--- NOTE | 2020-04-29 14:19 | PM.IMPN ---
Progress Note: A&P Assessment and Plan (1) Respiratory failure: Qualifiers: Chronicity: acute Respiratory failure complication: hypoxia Qualified Code(s): J96.01 - Acute respiratory failure with hypoxia Code(s): J96.90 - Respiratory failure, unspecified, unspecified whether with hypoxia or hypercapnia Status: Acute Assessment and Plan: Hypoxemic respiratory failure due to bilateral pneumonia, COVID 19 rule out. 04/29/20 14:19 Bob Alfaro is a 54 year old male with multiple medical problems including COPD, CAD, persistent atrial fibrillation with a pacemaker, kidney transplant , schizophrenia DM type 2 Hypothyroidsm who presented to the hospital with SOB and cough. He was found to be in respiratory distress in the ER and was given Mg, albuterol steroids and placed on a cpap with no significant response. He was subsequently intubated and transferred to ICU. Patient is found to have pneumonia most likely community-acquired sputum culture is growing gram-negative bacilli blood culture no growth so far, patient is being treated Rocephin and doxycycline seen by roof tiler, patient also has a history of kidney transplant clinically stable seen by orthopedic cast specialist. t today patient was placed on SBT and taken off sedation eventually was extubated today, patient states feeling better now apparently patient had ran out of his COPD medications this may have led to exacerbation of COPD. patient also has a history of kidney transplant clinically stable seen by orthopedic cast specialist. (2) Pneumonia: Qualifiers: Laterality: bilateral Lung location: unspecified part of lung Pneumonia type: due to unspecified organism Qualified Code(s): J18.9 - Pneumonia, unspecified organism Code(s): J18.9 - Pneumonia, unspecified organism Status: Acute Assessment and Plan: Sputum cultures and blood cultures obtained, on ceftriaxone and doxycycline. (3) Suspected 2019 novel coronavirus infection: Code(s): Z20.828 - Contact with and (suspected) exposure to other viral communicable diseases Status: Acute Assessment and Plan: PCR sent, on isolation, it is negative patient is off isolation (4) Renal insufficiency: Code(s): N28.9 - Disorder of kidney and ureter, unspecified Status: Acute Assessment and Plan: Nephrology was consulted by critical care. (5) Kidney transplant recipient: Code(s): Z94.0 - Kidney transplant status Status: Acute Assessment and Plan: Hold his immunosuppressants for now. (6) Immunosuppressed status: Code(s): D89.9 - Disorder involving the immune mechanism, unspecified Status: Acute Assessment and Plan: Hold due to underlying severe infection, if he goes into shock he will need a stress dose of steroids, so far he is hemodynamically stable (7) Persistent atrial fibrillation: Code(s): I48.19 - Other persistent atrial fibrillation Status: Chronic Assessment and Plan: Resume carvedilol and Warfarin. (8) Elevated troponin: Code(s): R79.89 - Other specified abnormal findings of blood chemistry Status: Acute Assessment and Plan: Most likely demand ischemia due to respiratory distress, continue to trend. (9) Acute exacerbation of chronic obstructive airways disease: Code(s): J44.1 - Chronic obstructive pulmonary disease with (acute) exacerbation Status: Acute (10) Hypothyroid: Qualifiers: Hypothyroidism type: unspecified Qualified Code(s): E03.9 - Hypothyroidism, unspecified Code(s): E03.9 - Hypothyroidism, unspecified Status: Acute (11) T2DM (type 2 diabetes mellitus): Code(s): E11.9 - Type 2 diabetes mellitus without complications Status: Acute Assessment and Plan: Insulin correctional scale for now. (12) DVT prophylaxis: Code(s): Z29.9 - Encounter for prophylact
--- NOTE | 2020-04-29 15:41 | PM.PNNEP ---
Progress Note: A&P Assessment and Plan (1) JEWEL (acute kidney injury): Code(s): N17.9 - Acute kidney failure, unspecified Status: Acute Assessment and Plan: suspect due to acute illness/infection creatinine back to baseline if not better making good urine output urine lytes not suggestive of volume depletion continue supportive thearpy (2) Kidney transplant recipient: Code(s): Z94.0 - Kidney transplant status Status: Acute Assessment and Plan: transplant medications resumed tacrolimuis level pending (3) Hyperkalemia: Code(s): E87.5 - Hyperkalemia Status: Acute Assessment and Plan: cause/etiology? - due to #1 treated medically yesterday follow repeat levels - stable (4) Pneumonia: Code(s): J18.9 - Pneumonia, unspecified organism Status: Acute Assessment and Plan: follow cultures on antibiotics follow WBC (5) Acute respiratory failure: Code(s): J96.00 - Acute respiratory failure, unspecified whether with hypoxia or hypercapnia Status: Acute Assessment and Plan: resolving (extubated ) COVID-19 negative presumably due to #4? Will continue to follow. Subjective Date/time seen: 04/29/20 15:41 Patient extubated at the time of my visit and currently in the process of being transferred out the ICU; no apparent distress at this time; no issues or events overnight or earlier this AM. Exam Narrative: Exam Narrative: General: WD/WN male in NAD Heart: normal S1 and S2; no rub Lungs: coarse breath sounds with some rhonchi Abdomen: soft, nontender, nondistended, positive bowel sounds Extremities: no cyanosis or clubbing; no edema Skin: warm and dry Objective Data Vital Signs Vital Signs: Vital Signs Temp Pulse Resp BP Pulse Ox 04/29/20 14:00 73 26 H 139/100 H 91 04/29/20 13:26 68 25 H 04/29/20 13:20 67 22 H 04/29/20 12:00 62 04/29/20 11:25 65 26 H 141/91 H 99 04/29/20 11:23 67 28 H 98 04/29/20 10:37 65 25 H 100 04/29/20 10:30 93 04/29/20 10:00 60 22 H 122/85 100 04/29/20 08:15 60 8 L 04/29/20 08:09 60 9 L 04/29/20 08:08 60 98 04/29/20 08:01 36.5 C 65 9 L 135/90 99 04/29/20 08:00 74 10 L 100 04/29/20 07:45 60 04/29/20 06:00 60 9 L 139/90 100 04/29/20 04:31 60 100 04/29/20 04:00 36.4 C 60 9 L 139/90 100 04/29/20 02:00 60 9 L 115/79 100 04/29/20 01:50 60 8 L 04/29/20 01:38 75 9 L 04/29/20 01:32 103 H 100 04/29/20 00:00 36.7 C 81 9 L 153/97 H 100 04/28/20 22:46 60 99 04/28/20 22:00 60 9 L 120/89 99 04/28/20 20:07 60 8 L 04/28/20 20:01 77 99 04/28/20 20:00 36.4 C L 62 9 L 113/78 100 04/28/20 19:59 68 9 L 04/28/20 18:00 60 9 L 123/83 100 04/28/20 17:07 73 99 04/28/20 16:59 61 04/28/20 16:00 36.3 C L 64 9 L 122/84 99 04/28/20 15:49 65 100 Intake/Output Intake/Output: Intake & Output 04/26/20 04/27/20 04/28/20 04/29/20 23:59 23:59 23:59 23:59 Intake Total 2360 3009 1802 Output Total 875 3080 850 Balance 1485 -71 952 Meds/Results Medications: Active Medications Generic Name Dose Route Start Last Admin Trade Name Freq PRN Reason Stop Dose Admin Albuterol 2.5 mg 04/29/20 14:44 Albuterol Sulf Neb 2.5mg/0.5ml INHALATION Q4HRT PRN Shortness Of Breath Aripiprazole 15 mg 04/28/20 09:00 04/29/20 07:44 Abilify PO 15 mg QAM PRISCILLA Administration Aspirin 81 mg 04/28/20 09:00 04/29/20 07:44 Aspirin Ec PO 81 mg DAILY PRISCILLA Administration Carvedilol 12.5 mg 04/29/20 21:00 Coreg PO Q12HR PRISCILLA Dextrose 12.5 gm 04/27/20 11:53 Dextrose 50% Syringe IV PUSH PRN PRN Hypoglycemia Protocol Glucagon 1 mg 04/27/20 11:53 Glucagon For Inj IM PRN PRN Hypoglycemia Protocol Glucose 15 gm 04/27/20 11:5
[2020-04-29] MEDS: WARFARIN (*PBKC) 3 MG TABLET PO (16:13)
--- NOTE | 2020-04-29 16:53 | PC.NURSE ---
Patient downgraded to med tele. Report given to Amita BROWN. Patient travelled via wheelchair with O2 and belongings with patient. Also sent walker from PT to give to patient. Gave meds to RN and put patient to bed, restarted IV fluids and connected to O2 at 2L on wall at 1735
--- NOTE | 2020-04-29 16:54 | PC.NURSE ---
Received patient from ICU via wheelchair with ICU staff. Patient settled into room. No distress noted. O2 on at 2 liters per nasal cannula. Patient denies pain or discomfort. Telemetry placed on patient.
[2020-04-29 16:55] LABS: Tacrolimus Prograf 7.1 mcg/L
[2020-04-29 17:06] LABS: Glucose Point of Care 159 (65-105)
[2020-04-29] MEDS: ACETAMINOPHEN 325 MG TABLET 650 MG PO (18:32)
[2020-04-29] MEDS: BENZOCAINE/MENTHOL (*BKC) 18 EA LOZENGE 1 LOZENGE PO (18:32)
[2020-04-29] MEDS: carvediloL 12.5 MG TABLET PO (20:45)
[2020-04-29 21:10] LABS: Glucose Point of Care 244 (65-105)
[2020-04-30] VITALS (25 sets, daily range): BP systolic 108–178; BP diastolic 65–80; PULSE 59–100; RESP 16–44; TEMP 36.3–36.9; O2SAT 86–100
[2020-04-30 03:32] LABS: Basophils Percent Auto 0.3 % (0.2-1.2); Eosinophils Absolute Auto 0.1 K/mm3 (0-0.3); Eosinophils Percent Auto 1.5 % (0-4.4); Hematocrit 37.6 % (42.0-52.0); Hemoglobin 12.1 g/dL (14.0-18.0); Immature Granulocyte Absolute 0.02 K/mm3 (0.00-0.031); Immature Granulocyte Percent A 0.3 % (0-0.5); Lymphocytes Absolute Auto 1.08 K/mm3 (0.9-3.2); Mean Corpuscular HGB Conc 32.2 g/dl (32-36); Mean Corpuscular Hemoglobin 32.8 pg (26-34); Mean Corpuscular Volume 101.9 fl (80-100); Mean Platelet Volume 10.1 fl (7.4-10.4); Monocytes Absolute Auto 0.9 K/mm3 (0.1-0.6); Monocytes Percent Auto 12.2 % (2.6-8.5); Neutrophils Absolute Auto 5.1 K/mm3 (1.3-6.7); Neutrophils Percent Auto 70.7 % (45.5-73.1); Platelet Count Result 119 k/mm3 (150-375); Red Blood Count 3.69 M/mm3 (4.6-6.20); Red Cell Distribution Width 13.3 % (11.5-14.5); White Blood Count 7.2 K/mm3 (4.5-10.0)
[2020-04-30 03:42] LABS: INR 2.1; Prothrombin Time 23.4 Seconds (11.1-14.7)
[2020-04-30 03:43] LABS: Partial Thromboplastin Time 35.5 SECONDS (22.3-36.8)
[2020-04-30 04:17] LABS: Blood Urea Nitrogen 28 mg/dL (9-20); CRP 11.7 mg/dL (<1.0); Calcium 9.3 mg/dL (8.4-10.2); Carbon Dioxide 26 mmol/L (22-30); Chloride 107 mmol/L (98-107); Estimated CRCL calculation 84 ml/min; Estimated Glomerular Filt Rate > 60; Glucose 130 mg/dL (75-110); Magnesium 1.6 mg/dL (1.6-2.3); Phosphorus 2.4 mg/dL (2.5-4.5); Sodium 138 mmol/L (137-145)
[2020-04-30] MEDS: IPRATROPIUM BR 0.02% INH SOLN 0.5 MG/2.5 ML VIAL INHALATION ×4 (04:52→19:19)
[2020-04-30] MEDS: ALBUTEROL SULFATE NEB 2.5 MG/0.5 ML INH INHALATION ×4 (04:52→19:19)
[2020-04-30] MEDS: ACETAMINOPHEN 325 MG TABLET 650 MG PO ×2 (05:03→18:37)
[2020-04-30 05:06] LABS: Alveolar/Arterial O2 Gradient 83.7 mmHg; Base Excess ABG 3.4 mEq/l (+/-2.0); Carboxyhemoglobin 0.8 % THb (0-2.0); Fractional Inspired Oxygen 28 %; HCO3 ABG 27.9 mEq/l (22.0-26.0); Methemoglobin ABG 0.3 %THb (0-1.5); Oxygen Content ABG 17.7 %vol (16.0-22.0); Oxygen Saturation ABG 93.7 % (95.0-100.0); Oxyhemoglobin 92.3 % THb (90.0-100.0); PCO2 ABG 42.1 mmHg (35.0-45.0); PO2 ABG 66.3 mmHg (80.0-100.0); PO2 FiO2 Ratio Arterial Blood 2.37 %; Reduced Hemoglobin 6.6 %THb (0-5.0); Total Hemoglobin 13.6 g/dL (12.0-18.0); pH ABG 7.439 (7.350-7.450)
[2020-04-30 05:07] LABS: Device NASAL CANNULA; Site Drawn RIGHT BRACHIAL
[2020-04-30] MEDS: LEVOTHYROXINE SODIUM 25 MCG TABLET PO (06:12)
[2020-04-30] MEDS: ARIPIPRAZOLE 5 MG TABLET 15 MG PO (08:46)
[2020-04-30] MEDS: predniSONE 5 MG TABLET PO (08:47)
[2020-04-30] MEDS: PRAVASTATIN SODIUM 20 MG TABLET 40 MG PO (08:47)
[2020-04-30] MEDS: ASPIRIN 81 MG ENTERIC TABLET PO (08:47)
[2020-04-30] MEDS: PANTOPRAZOLE SODIUM IV 40 MG VIAL IV PUSH (08:48)
[2020-04-30] MEDS: carvediloL 12.5 MG TABLET PO ×2 (08:48→22:03)
[2020-04-30 10:00] LABS: Glucose Point of Care 151 (65-105)
[2020-04-30 10:22] LABS: NT Pro B Type Natriuretic Pept 8290 PG/ML (5-100)
[2020-04-30 11:16] LABS: Glucose Point of Care 179 (65-105)
--- NOTE | 2020-04-30 11:48 | PM.PNNEP ---
Progress Note: A&P Assessment and Plan (1) JEWEL (acute kidney injury): Code(s): N17.9 - Acute kidney failure, unspecified Status: Acute Assessment and Plan: resolved suspect due to acute illness/infection creatinine back to baseline if not better making good urine output urine lytes not suggestive of volume depletion continue supportive thearpy (2) Kidney transplant recipient: Code(s): Z94.0 - Kidney transplant status Status: Acute Assessment and Plan: transplant medications resumed allograft function back to baseline (3) Hyperkalemia: Code(s): E87.5 - Hyperkalemia Status: Acute Assessment and Plan: cause/etiology? - due to #1 treated medically when present follow repeat levels - stable (4) Pneumonia: Code(s): J18.9 - Pneumonia, unspecified organism Status: Acute Assessment and Plan: sputun culture with Pseudomonas on antibiotics follow WBC (5) Acute respiratory failure: Code(s): J96.00 - Acute respiratory failure, unspecified whether with hypoxia or hypercapnia Status: Acute Assessment and Plan: resolving COVID-19 negative presumably due to #4? Will continue to follow. Subjective Date/time seen: 04/30/20 11:48 Transferred out of ICU yesterday afternoon; sleeping comfortably at the time of my visit; upon awakening; no apparent distress voiced at this time; breathing stable if not better; no issues overnight. Exam Narrative: Exam Narrative: General: WD/WN male in NAD Heart: normal S1 and S2; no rub Lungs: coarse breath sounds with some rhonchi Abdomen: soft, nontender, nondistended, positive bowel sounds Extremities: no cyanosis or clubbing; no edema Skin: warm and dry Objective Data Vital Signs Vital Signs: Vital Signs Temp Pulse Resp BP Pulse Ox 04/30/20 11:15 61 20 04/30/20 11:06 80 20 94 04/30/20 10:00 36.6 C 61 16 108/68 97 04/30/20 09:04 91 04/30/20 08:50 91 04/30/20 08:48 64 04/30/20 08:00 72 04/30/20 05:00 71 21 H 04/30/20 04:54 73 20 04/30/20 04:00 36.4 C L 68 18 160/73 H 98 06/13/20 00:00 36.6 C 60 20 128/65 96 04/29/20 20:45 63 04/29/20 20:00 37.1 C 67 22 H 134/69 99 04/29/20 18:00 36.9 C 71 17 131/63 98 04/29/20 17:15 65 04/29/20 16:00 67 04/29/20 15:58 37.0 C 77 22 H 109/78 98 04/29/20 14:00 73 26 H 139/100 H 91 04/29/20 13:26 68 25 H 04/29/20 13:20 67 22 H 04/29/20 12:00 62 Intake/Output Intake/Output: Intake & Output 04/27/20 04/28/20 04/29/20 04/30/20 23:59 23:59 23:59 23:59 Intake Total 2360 3009 4182 1245 Output Total 875 3080 2550 1000 Balance 1485 -71 1632 245 Meds/Results Medications: Active Medications Generic Name Dose Route Start Last Admin Trade Name Freq PRN Reason Stop Dose Admin Acetaminophen 650 mg 04/29/20 17:06 04/30/20 05:03 Tylenol Tablet PO 650 mg Q4H PRN Administration Mild Pain (1-3) or Fever Albuterol 2.5 mg 04/29/20 14:44 04/30/20 11:05 Albuterol Sulf Neb 2.5mg/0.5ml INHALATION 2.5 mg Q4HRT PRN Administration Shortness Of Breath Aripiprazole 15 mg 04/28/20 09:00 04/30/20 08:46 Abilify PO 15 mg QAM PRISCILLA Administration Aspirin 81 mg 04/28/20 09:00 04/30/20 08:47 Aspirin Ec PO 81 mg DAILY PRISCILLA Administration Benzocaine 1 lozenge 04/29/20 17:05 04/29/20 18:32 Chloraseptic Lozenge PO 1 lozenge PRN PRN Administration Sore Throat Carvedilol 12.5 mg 04/29/20 21:00 04/30/20 08:48 Coreg PO 12.5 mg Q12HR PRISCILLA Administration Dextrose 12.5 gm 04/27/20 11:53 Dextrose 50% Syringe IV PUSH PRN PRN Hypoglycemia Protocol Glucagon 1 mg 04/27/20 11:53 Glucagon For Inj IM PRN PRN Hypoglycemia Protocol Glucose 15 gm 04/27/20 11:53 Glutose 15 PO PRN PRN Hypoglycemia
--- NOTE | 2020-04-30 13:38 | PM.IMPN ---
Progress Note: A&P Assessment and Plan (1) Respiratory failure: Qualifiers: Chronicity: acute Respiratory failure complication: hypoxia Qualified Code(s): J96.01 - Acute respiratory failure with hypoxia Code(s): J96.90 - Respiratory failure, unspecified, unspecified whether with hypoxia or hypercapnia Status: Acute Assessment and Plan: Hypoxemic respiratory failure due to bilateral pneumonia, COVID 19 rule out. 04/30/20 13:38 Bob Alfaro is a 54 year old male with multiple medical problems including COPD, CAD, persistent atrial fibrillation with a pacemaker, kidney transplant , schizophrenia DM type 2 Hypothyroidsm who presented to the hospital with SOB and cough. He was found to be in respiratory distress in the ER and was given Mg, albuterol steroids and placed on a cpap with no significant response. He was subsequently intubated and transferred to ICU. Patient is found to have pneumonia most likely community-acquired sputum culture is growing gram-negative bacilli blood culture no growth so far, patient is being treated Rocephin and doxycycline seen by ground crewman mission support, patient also has a history of kidney transplant clinically stable seen by network operations analyst. t today patient was placed on SBT and taken off sedation eventually was extubated on 04/29, patient states feeling better now apparently patient had ran out of his inhalers medications this may have led to exacerbation of COPD. History of atrial fibrillation with pacemaker, patient also has a history of kidney transplant clinically stable seen by network operations analyst. Patient is not on home oxygen for his requiring oxygen while in the hospital and patient with history of severe COPD will consult expenditure requisition clerk for further recommendation, and is participating in physical therapy and occupation therapy, will do the home oxygen evaluation before discharging the patient on Saturday (2) Pneumonia: Qualifiers: Pneumonia type: due to unspecified organism Laterality: bilateral Lung location: unspecified part of lung Qualified Code(s): J18.9 - Pneumonia, unspecified organism Code(s): J18.9 - Pneumonia, unspecified organism Status: Acute Assessment and Plan: Sputum cultures and blood cultures obtained, on ceftriaxone and doxycycline. Sputum is growing Pseudomonas blood culture still no growth will continue present management and follow-up sensitivity (3) Suspected 2019 novel coronavirus infection: Code(s): Z20.828 - Contact with and (suspected) exposure to other viral communicable diseases Status: Acute Assessment and Plan: PCR sent, on isolation, it is negative patient is off isolation (4) Renal insufficiency: Code(s): N28.9 - Disorder of kidney and ureter, unspecified Status: Acute Assessment and Plan: Nephrology was consulted by critical care. (5) Kidney transplant recipient: Code(s): Z94.0 - Kidney transplant status Status: Acute Assessment and Plan: Hold his immunosuppressants for now. (6) Immunosuppressed status: Code(s): D89.9 - Disorder involving the immune mechanism, unspecified Status: Acute Assessment and Plan: Hold due to underlying severe infection, if he goes into shock he will need a stress dose of steroids, so far he is hemodynamically stable (7) Persistent atrial fibrillation: Code(s): I48.19 - Other persistent atrial fibrillation Status: Chronic Assessment and Plan: Resume carvedilol and Warfarin. (8) Elevated troponin: Code(s): R79.89 - Other specified abnormal findings of blood chemistry Status: Acute Assessment and Plan: Most likely demand ischemia due to respiratory distress, continue to trend. (9) Acute exacerbation of chronic obstructive airways disease: Code(s): J44.1 - Chronic obstructive pulmonary disease with (acute) exacerbation Status: Acut
--- NOTE | 2020-04-30 13:58 | PM.CNPUL ---
Assessment and Plan Assessment and plan (1) CHF (congestive heart failure): Qualifiers: Heart failure chronicity: unspecified Heart failure type: unspecified Qualified Code(s): I50.9 - Heart failure, unspecified Code(s): I50.9 - Heart failure, unspecified Status: Acute Assessment and Plan: Diastolic dysfunction, BNP of > 8000 with normal Cr and CXR showing increased vascular markings. - will start lasix 20 mg IV daily + spironolactone 25 mg PO daily - monitor O2 sats, daily K, Mag levels (2) COPD exacerbation: Code(s): J44.1 - Chronic obstructive pulmonary disease with (acute) exacerbation Status: Acute Assessment and Plan: - will schedule Albuterol 2.5 mg /Atrovent 0.5 mg Q6h - start Pulmicort 0.5 mg bid - agree with ceftriaxone and doxy as prescribed for 5-7 days - PT/OT History of Present Illness History of Present Illness Consult date: 04/30/20 Chief complaint: resp failure Narrative: 54 y/o male with COPD, smoker who quit in January/February of this year, h/o or renal transplant, diastolic dysfunction presents with sudden onset dyspnea exertion but no chest tightness or excessive wheezing. Albuterol HFA was not helping. He was brought to ER in respiratory distress with RR in the 40's and O2 sats in the high 80's. He was intubated for 1-2 days and has now been transferred to medical [facility]. He does have cough productive of colored sputum but denies fever, chills or night sweats. He's a bit disoriented and his remote memory is not the best. He continues to feel short of breath and does not feel dramatically better than admission. CXR on admission showed hyperinflated lungs consistent with COPD. I do not see significant pneumonia but do see increased pulmonary vascular markings and fluid in the right fissure. Review of Systems Review of Systems: All systems reviewed & are unremarkable except as noted in HPI and below PMFSH Past Medical History Medical History COPD (chronic obstructive pulmonary disease) Coronary artery disease Depression HTN (hypertension) with goal to be determined Hypertension Hypothyroid Immunosuppressed status Myocardial infarction Pacemaker Persistent atrial fibrillation Schizophrenia T2DM (type 2 diabetes mellitus) TIA (transient ischemic attack) Surgical History Surgical History Kidney transplant recipient Renal transplant recipient S/P coronary artery stent placement Family History Family History Mother Cancer Social History Social History Social History: Patient would like to be a full code and his POA is his father relay. He sees Dr. Lyman at [facility] as his primary care doctor. He quit smoking 3 days ago but before that was smoking about a pack per month. He does not drink alcohol. He is on disability for schizophrenia. Smoking status: Former smoker Tobacco type: cigarettes Alcohol intake: never Substance use: never Gender identity (if verbalized by the patient): Male Spiritual care concerns: No Agree to blood products: Yes Meds Home Medications and Allergies Home Medications Medication Instructions Recorded Confirmed Type canagliflozin [Invokana] 100 mg PO DAILY 02/12/20 04/27/20 History linagliptin [Tradjenta] 5 mg PO DAILY 02/12/20 04/27/20 History umeclidinium-vilanterol [Anoro 1 inh INHALATION DAILY 02/12/20 04/27/20 History Ellipta] Invokana 100 mg PO DAILY 02/22/20 04/27/20 History albuterol sulfate [ProAir HFA] 2 puff INHALATION Q4H PRN 02/22/20 04/27/20 History aripiprazole [Abilify] 15 mg PO DAILY 02/22/20 04/27/20 History aspirin [Aspir-81] 81 mg PO DAILY 02/22/20 04/27/20 History carvedilol [Coreg] 12.5 mg PO BID 02/22/20 04/27/20 History cholecalciferol (
--- NOTE | 2020-04-30 14:21 | PCOTNOTE ---
Patient refused this morning due to fatigue, Patient attempted again in afternoon and receiving respiratory services- will attempt again tomorrow.
[2020-04-30] MEDS: SPIRONOLACTONE 25 MG TABLET PO (14:26)
[2020-04-30] MEDS: MAGNESIUM SULFATE 3GM/D5W100ML 3 GM/100 ML BAG IVPB (14:26)
[2020-04-30] MEDS: FUROSEMIDE INJ 40 MG/4 ML VIAL 20 MG IV PUSH (14:26)
[2020-04-30 16:27] LABS: Glucose Point of Care 196 (65-105)
[2020-04-30] MEDS: WARFARIN (*PBKC) 3 MG TABLET PO (17:14)
[2020-04-30] MEDS: SILVERGEL (ELTA) 45 ML 1 APPLIC TOPICAL (18:04)
[2020-04-30] MEDS: BUDESONIDE RESPULE NEB 0.5 MG/2 ML AMP INHALATION (19:19)
--- NOTE | 2020-04-30 19:30 | P.PNCROSS_ITS ---
Event Note Event Note Event Note: Subjective: I received a call from the patient's nurse at approximately 19:30 with reports of respiratory distress. Patient was admitted to the emergency department on 04/27/2020 in respiratory distress, intubated shortly after arrival, and treated for COPD exacerbation. He was extubated on 04/29/2020 and was downgraded to the medical floor. He continues to receive updrafts q.6 hours and is on both ceftriaxone and doxycycline though chest x-ray shows no findings of pneumonia. Today he was seen in consult by fuel efficient automobile designer Dr. Suarez who added Pulmicort to his regimen and also started Lasix 20 milligrams IV daily plus spironolactone due to increase pulmonary vascular markings on chest x-ray and elevated BNP. According to the nurse, the patient has been doing well on 1 to 3 liters nasal cannula today. This evening he developed sudden onset respiratory distress. At the time my evaluation the patient is only able to give one-word answers. He does indicate that he feels very short of breath. He denies chest pain, pleuritic pain, lightheadedness, nausea. Objective: Acutely ill-appearing male sitting up in bed, on Venti mask receiving a nebulizer treatment. He is tachypneic with respiratory rate in the mid 40s. He is using abdominal muscles to aid in his breathing. He is diaphoretic. Diminished breath sounds noted with diffuse crackles heard anteriorly. Regular rate and rhythm. Bowel sounds positive. Trace pretibial edema bilaterally. Negative Paulie sign. Stat ABG showed a pH of 7.290, pCO2 59.9, PO2 82.5, bicarb 28.2. Assessment: Acute respiratory failure, suspected acute pulmonary edema given the sudden onset. Pulmonary embolism is considered, as his INR was subtherapeutic on admission however was 2.1 today but less likely. Plan: He has been placed on BiPAP with repeat blood gas 1 hour thereafter. Lasix 20 milligrams IV push x1. Nitro paste 0.5 inches x1. EKG and troponins to rule out cardiac event. CXR pending. Transfer to IMU. I did discuss the case with terrazzo polisher, Dr. Gonsales, in the event that the patient may need to be reintubated. I have a call out to Dr. Suarez at this time so he can be updated on change in condition. <Amparo Barraza PA-C - Last Filed: 04/30/20 20:35> Critical Care Time Critical Care Time: Yes <Amparo Barraza PA-C - Last Filed: 04/30/20 20:35> Total Critical Care Time: 40 <Amparo Barraza PA-C - Last Filed: 04/30/20 20:35> Attestation: Due to a high probability of clinically significant, life threatening d eterioration, the patient required my highest level of preparedness to intervene emergently and I personally spent this critical care time directly and personally managing the patient. This critical care time included obtaining a history; examining the patient; pulse oximetry; ordering and review of studies including ABG; arranging urgent treatment with BiPAP and development of a management plan; evaluation of patient's response to treatment; frequent reassessment; and discussions with other providers. It was exclusive of separately billable procedures and treating other patients and teaching time. Please see Assessment and Plan section and the rest of the note for further information on patient assessment and treatment <Amparo Barraza PA-C - Last Filed: 04/30/20 20:35>
[2020-04-30 19:36] LABS: Alveolar/Arterial O2 Gradient 279.4 mmHg; Carboxyhemoglobin 1.4 % THb (0-2.0); Fractional Inspired Oxygen 60 %; HCO3 ABG 28.2 mEq/l (22.0-26.0); Methemoglobin ABG 0.3 %THb (0-1.5); Oxygen Content ABG 20.4 %vol (16.0-22.0); Oxygen Saturation ABG 94.7 % (95.0-100.0); Oxyhemoglobin 92.9 % THb (90.0-100.0); PCO2 ABG 59.9 mmHg (35.0-45.0); PO2 ABG 82.5 mmHg (80.0-100.0); PO2 FiO2 Ratio Arterial Blood 1.38 %; Reduced Hemoglobin 5.4 %THb (0-5.0); Total Hemoglobin 15.6 g/dL (12.0-18.0)
[2020-04-30] MEDS: FUROSEMIDE INJ 40 MG/4 ML VIAL (19:36)
[2020-04-30 19:37] LABS: Device SIMPLE MASK; Modified Allen's Test Pass; Site Drawn LEFT RADIAL
[2020-04-30 19:40] LABS: Glucose Point of Care 155 (65-105)
[2020-04-30] MEDS: NITROGLYCERIN OINTMENT 1 INCH DOSE (19:45)
--- NOTE | 2020-04-30 19:49 | PCRCNOTE ---
CALLED TO PT ROOM FOR EARLY ALBUTEROL TX DUE TO PT C/O SOB. UPON ARRIVAL, I FOUND PT BREATHING IN THE 40'S WITH SPO2 86% ON 3L NC. IMMEDIATELY STARTED ALBUTEROL TX ON OXYGEN WITH AN INCREASE IN SPO2 TO 99%. PER SANDY THOMAS PA-C, ABG DRAWN AND PT PLACED ON BIPAP WITH SETTINGS OF 14/8. PT RR DECREASED TO LOW 30'S AND APPEARS MORE COMFORTABLE. WILL RE-EVALUATE IN 30MIN
--- NOTE | 2020-04-30 20:32 | ECG_ITS ---
Measurements Intervals [place] Rate: 64 P: MT: 0 QRS: 90 QRSD: 193 T: -90 QT: 557 QTc: 578 Interpretive Statements ELECTRONIC VENTRICULAR PACEMAKER VENTRICULAR PREMATURE COMPLEXES UNDERLYING ATRIAL FLUTTER/TACHYCARDIA BASELINE ARTIFACT- I, II, AVR, AVL NO FURTHER INTERPRETATION IS POSSIBLE ABNORMAL ECG Electronically Signed On 05-01-2020 8:04:45 CDT by Eliu Thompson D.O.
--- NOTE | 2020-04-30 20:59 | PC.NURSE ---
Transferred pt to IMU at 2044. Continous BIpap on. Report given to Sherry in IMU. Received to Room 205. Calling family to make aware of pt transfer.
[2020-04-30 21:08] LABS: Glucose Point of Care 230 (65-105)
[2020-04-30 21:33] LABS: Base Excess ABG 2.4 mEq/l (+/-2.0); Fractional Inspired Oxygen 40 %; HCO3 ABG 26.6 mEq/l (22.0-26.0); Methemoglobin ABG 0.2 %THb (0-1.5); Oxygen Content ABG 18.8 %vol (16.0-22.0); Oxygen Saturation ABG 98.4 % (95.0-100.0); Oxyhemoglobin 96.6 % THb (90.0-100.0); PCO2 ABG 39.6 mmHg (35.0-45.0); PO2 ABG 116.7 mmHg (80.0-100.0); PO2 FiO2 Ratio Arterial Blood 2.92 %; Reduced Hemoglobin 2.2 %THb (0-5.0); Total Hemoglobin 13.7 g/dL (12.0-18.0); pH ABG 7.445 (7.350-7.450)
[2020-04-30 21:33] LABS: Troponin I 0.306 ng/mL (0.000-0.034)
[2020-04-30 21:34] LABS: Device NON-INVASIVE VENT; Non-Invasive Vent Rate 12 /MIN; Site Drawn RIGHT BRACHIAL
[2020-04-30 21:35] LABS: Non-Invasive Expiratory Pressure 8 CMH2O; Non-Invasive Inspiratory Pressure 14 CMH2O
[2020-04-30] MEDS: INSULIN ASPART (*BKC) 100 UNITS/ML SUB-Q (22:08)
--- NOTE | 2020-04-30 22:19 | PC.NURSE ---
Spoke with Pt's listed contact for close to an hour regarding copd. Pt continuiing for every day need at home as well as plans to work and get pt where he can manage his chronic conditions at home. Expressed that at home pt would have to continue to follow every day measures such as bipap at night. No changing of oxygen level at home seeking outside help when having additional trouble at home. Compliance with medications being used for his Chf as well as Copd will be a have to do not a want to do.
--- NOTE | 2020-04-30 22:34 | PC.NURSE ---
This patient, Bob Alfaro, was received from room 249-01 on 04/30/20 at 2051. Report taken from KEVIN Saab. Personal belongings list checked and signed. Patient/family oriented to unit policies and routines
[2020-05-01] VITALS (25 sets, daily range): BP systolic 82–133; BP diastolic 42–80; PULSE 62–97; RESP 14–26; TEMP 36.3–37; O2SAT 92–99
[2020-05-01 02:03] LABS: Troponin I 0.335 ng/mL (0.000-0.034)
[2020-05-01] MEDS: IPRATROPIUM BR 0.02% INH SOLN 0.5 MG/2.5 ML VIAL INHALATION ×4 (02:19→19:22)
[2020-05-01] MEDS: ALBUTEROL SULFATE NEB 2.5 MG/0.5 ML INH INHALATION ×4 (02:19→19:22)
[2020-05-01 04:20] LABS: Basophils Percent Auto 0.4 % (0.2-1.2); Eosinophils Absolute Auto 0.3 K/mm3 (0-0.3); Eosinophils Percent Auto 3.1 % (0-4.4); Hematocrit 42.1 % (42.0-52.0); Hemoglobin 13.6 g/dL (14.0-18.0); Immature Granulocyte Absolute 0.04 K/mm3 (0.00-0.031); Immature Granulocyte Percent A 0.5 % (0-0.5); Lymphocytes Absolute Auto 1.09 K/mm3 (0.9-3.2); Mean Corpuscular HGB Conc 32.3 g/dl (32-36); Mean Corpuscular Hemoglobin 32.8 pg (26-34); Mean Corpuscular Volume 101.4 fl (80-100); Mean Platelet Volume 9.9 fl (7.4-10.4); Monocytes Absolute Auto 0.9 K/mm3 (0.1-0.6); Monocytes Percent Auto 10.1 % (2.6-8.5); Neutrophils Absolute Auto 6.1 K/mm3 (1.3-6.7); Neutrophils Percent Auto 72.9 % (45.5-73.1); Platelet Count Result 135 k/mm3 (150-375); Red Blood Count 4.15 M/mm3 (4.6-6.20); White Blood Count 8.4 K/mm3 (4.5-10.0)
[2020-05-01 04:30] LABS: INR 2.1; Partial Thromboplastin Time 36.4 SECONDS (22.3-36.8); Prothrombin Time 22.9 Seconds (11.1-14.7)
[2020-05-01 04:59] LABS: Blood Urea Nitrogen 26 mg/dL (9-20); CRP 13.4 mg/dL (<1.0); Calcium 9.6 mg/dL (8.4-10.2); Carbon Dioxide 29 mmol/L (22-30); Chloride 102 mmol/L (98-107); Estimated CRCL calculation 81 ml/min; Estimated Glomerular Filt Rate > 60; Glucose 124 mg/dL (75-110); Magnesium 1.7 mg/dL (1.6-2.3); Phosphorus 2.4 mg/dL (2.5-4.5); Potassium 3.9 mmol/L (3.4-5.0); Sodium 137 mmol/L (137-145); Troponin I 0.329 ng/mL (0.000-0.034)
[2020-05-01] MEDS: LEVOTHYROXINE SODIUM 25 MCG TABLET PO (06:24)
[2020-05-01] MEDS: ACETAMINOPHEN 325 MG TABLET 650 MG PO ×2 (06:27→20:53)
[2020-05-01 06:30] LABS: Glucose Point of Care 187 (65-105)
[2020-05-01] MEDS: BUDESONIDE RESPULE NEB 0.5 MG/2 ML AMP INHALATION ×2 (07:55→19:22)
[2020-05-01] MEDS: PANTOPRAZOLE 40 MG TABLET PO (09:31)
[2020-05-01] MEDS: PRAVASTATIN SODIUM 20 MG TABLET 40 MG PO (09:31)
[2020-05-01] MEDS: ARIPIPRAZOLE 5 MG TABLET 15 MG PO (09:32)
[2020-05-01] MEDS: ASPIRIN 81 MG ENTERIC TABLET PO (09:32)
[2020-05-01] MEDS: carvediloL 12.5 MG TABLET PO ×2 (09:32→20:48)
[2020-05-01] MEDS: SPIRONOLACTONE 25 MG TABLET PO (09:33)
[2020-05-01] MEDS: SILVERGEL (ELTA) 45 ML 1 APPLIC TOPICAL (09:34)
[2020-05-01] MEDS: predniSONE 5 MG TABLET PO (09:34)
[2020-05-01] MEDS: FUROSEMIDE INJ 40 MG/4 ML VIAL 20 MG IV PUSH (09:35)
--- NOTE | 2020-05-01 10:43 | PM.PNPUL ---
Progress Note: A&P Assessment and Plan (1) COPD exacerbation: Code(s): J44.1 - Chronic obstructive pulmonary disease with (acute) exacerbation Status: Acute Assessment and Plan: - continue albuterol, atrovent and pulmicort nebs as prescribed. - no need to increased systemic steroid dose at this point - Ceftriaxone and Doxycyline distoninued and switched to oral levaquin in light of Pseudomonas in sputum (2) CHF (congestive heart failure): Qualifiers: Heart failure chronicity: unspecified Heart failure type: unspecified Qualified Code(s): I50.9 - Heart failure, unspecified Code(s): I50.9 - Heart failure, unspecified Status: Acute Assessment and Plan: History from last night and admission consistent with Flash Pulmonary edema. This may not show up very well on CXR in patients with COPD. - DD is Aflutter ( last nights EKG) vs underying CAD - patient had cardiac cath and possible stent at [facility] at time of of renal transplant which he thinks is about six years ago but he's a poor historian and this may be unreliable - Cardiology consult is recommended (3) Pseudomonas aeruginosa colonization: Code(s): Z22.39 - Carrier of other specified bacterial diseases Status: Acute Assessment and Plan: Growth in sputum after > 48 hours. This is likely a colonizer. - will treat with oral Levaquin 750 mg PO OD X 7 days anyway given immune compromized state Subjective Date/time seen: 05/01/20 10:43 Interval history: Developed sudden onset respiratory distress last night likely from flash pulmonary edema in the setting of rapid Aflutter as evidenced by EKG. Given Lasix 20 mg IV X 1 and placed on BIPAP and now improved and back to baseline this morning. This is not due to COPD exacerbation in my opinion. Flash pulmonary edema maybe due to AFlutter or underlying CAD. Cardiology consult should be considered. He feels back to baseline this morning. I suspect this is what was going on at home Review of Systems Review of Systems: All systems reviewed & are unremarkable except as noted in HPI and below Exam Const: General: comfortable and no acute distress Eyes: General: appearance normal, both eyes and all related structures Neck: Neck: supple and no JVD Resp: Auscultation: crackles and diminished lung sounds Cardio: Rate: regular rate Rhythm: regular rhythm Heart sounds: no murmurs GI: GI Palp: Yes Soft to palpation Auscultation: normal bowel sounds Skin: General skin exam: normal color Neuro: Speech: No normal speech Extrem: General: normal to inspection, no edema and no pedal edema Objective Data Vital Signs Vital Signs: Vital Signs - 24 hr 04/30/20 11:06 04/30/20 11:15 04/30/20 12:00 Temperature Pulse Rate 80 61 69 Respiratory Rate 20 20 Blood Pressure Pulse Oximetry 94 04/30/20 14:00 04/30/20 14:15 04/30/20 16:00 Temperature 36.7 C Pulse Rate 68 66 75 Respiratory Rate 18 20 Blood Pressure 137/68 Pulse Oximetry 100 04/30/20 18:00 04/30/20 19:19 04/30/20 19:36 Temperature 36.9 C Pulse Rate 100 68 82 Respiratory Rate 20 30 H 44 H Blood Pressure 178/80 H Pulse Oximetry 95 86 L 04/30/20 19:37 04/30/20 19:40 04/30/20 20:00 Temperature Pulse Rate 72 Respiratory Rate 44 H 34 H Blood Pressure Pulse Oximetry 99 96 04/30/20 20:55 04/30/20 20:59 04/30/20 22:03 Temperature 36.3 C L Pulse Rate 67 67 64 Respiratory Rate 29 H 29 H Blood Pressure 147/75 H Pulse Oximetry 100 100 04/30/20 23:59 05/01/20 00:00 05/01/20 02:00 Temperature 36.6 C Pulse Rate 74 74 67 Respiratory Rate 18 18 Blood Pressure 115/72 Pulse Oximetry 99 99 05/01/20 02:19 05/01/20 02:25 05/01/20 03:55 Temperature 36.3 C L Pulse Rate 65 69 62 Respiratory Rate 24 H 20 18 Blood Pressure 131/78 Pulse Oximetry 93 05/01/20 04:00 05/01/20 05:34 05/01/20 07:52 Temperature Pulse Rate 69 78 64 Respirat
[2020-05-01 11:29] LABS: Glucose Point of Care 183 (65-105)
--- NOTE | 2020-05-01 11:59 | PM.CNCAR ---
Assessment and Plan Assessment and plan (1) COPD exacerbation: Code(s): J44.1 - Chronic obstructive pulmonary disease with (acute) exacerbation Status: Acute Assessment and Plan: Per pulmonology. (2) Persistent atrial fibrillation: Code(s): I48.19 - Other persistent atrial fibrillation Status: Chronic Assessment and Plan: On anticoagulation (3) Elevated troponin: Code(s): R79.89 - Other specified abnormal findings of blood chemistry Status: Acute Assessment and Plan: Chronically elevated troponins. Thought to be related to hypoxemia. He does have a history of coronary disease though and will proceed with a Lexiscan perfusion study in the morning for ischemic evaluation given the episode last night. Discontinue further troponins unless there is a change in clinical status. (4) Pacemaker: Code(s): Z95.0 - Presence of cardiac pacemaker Status: Acute Assessment and Plan: Previously functioning normally (5) Coronary artery disease: Code(s): I25.10 - Atherosclerotic heart disease of [place] coronary artery without angina pectoris Status: Acute Assessment and Plan: Discontinue nitroglycerin paste. Stress test in a.m.. Continue his other cardiac regimen (6) Shortness of breath: Code(s): R06.02 - Shortness of breath Status: Acute Assessment and Plan: I do not think he is in significant heart failure. I think his underlying lung disease as the cause of his shortness of breath and including acutely last night aS he states that his symptoms were predominantly improved with albuterol. However to be thorough and complete given multiple admissions lately, will proceed with a Lexiscan in the morning History of Present Illness History of Present Illness Consult date/time: 05/01/20 11:59 Requesting physician: Sameer Castañeda MD Consult reason: shortness of breath Reason For Visit: resp failure Narrative: Date of service 05/01/2020: Reason for consultation shortness of breath Requesting provider Dr. Castañeda History patient is a 54-year-old male who we have now seen on several occasions recently. He does have a history of coronary disease and follows with doctor Rios at [facility]. He also has significant COPD. He has been seen in consultation because of elevated troponin as well shortness of breath. Troponin in the past had been thought to be related to underlying hypoxemia in the setting of significant COPD exacerbation. Most recent consultation for shortness of breath was also thought to be related to COPD exacerbation. Serial cardiac enzymes were revised and patient was recommended to continue on his current drug regimen. Patient was admitted once again on 04/27/2020 in respiratory distress. He was treated for COPD exacerbation. He was intubated shortly after arrival. He was extubated on 04/29/2020 and down graded to the medical floor. He has continued to have up q.6 hours. He is on antibiotics also. Chest x-ray showed no findings of pneumonia. He was started on some IV diuretics as well as spironolactone. Yesterday evening he developed acute onset of respiratory distress. He was seen in cross coverage by Amparo Barraza who started him on nitroglycerin and give him IV Lasix. Troponins were drawn which were elevated and EKG was ordered showing a ventricular paced rhythm with underlying chronic atrial flutter. Cardiology consultation was requested for further evaluation. Patient denies any chest pain. He states that her shortness of breath predominantly improved with albuterol inhaler yesterday. He denies any syncope, presyncope, paroxysmal nocturnal dyspnea Heidi orthopnea, edema or palpitations. Troponins were elevated although he does have chronically elevated troponins Review of Systems Review of Systems: All systems reviewed & are unremarkable except as noted in HPI and below Constitutional: Constitutional: Rep
[2020-05-01] MEDS: MAGNESIUM SULF 2 GM/WATER 50ML 2 GM/50 ML BAG IVPB (13:43)
--- NOTE | 2020-05-01 14:06 | PM.PNNEP ---
Progress Note: A&P Assessment and Plan (1) JEWEL (acute kidney injury): Code(s): N17.9 - Acute kidney failure, unspecified Status: Acute Assessment and Plan: resolved suspect due to acute illness/infection creatinine back to baseline if not better making good urine output urine lytes not suggestive of volume depletion continue supportive thearpy (2) Kidney transplant recipient: Code(s): Z94.0 - Kidney transplant status Status: Acute Assessment and Plan: transplant medications resumed allograft function back to baseline (3) Hyperkalemia: Code(s): E87.5 - Hyperkalemia Status: Acute Assessment and Plan: cause/etiology? - due to #1 treated medically when present follow repeat levels - stable (4) Pneumonia: Code(s): J18.9 - Pneumonia, unspecified organism Status: Acute Assessment and Plan: sputun culture with Pseudomonas on antibiotics follow WBC (5) Acute respiratory failure: Code(s): J96.00 - Acute respiratory failure, unspecified whether with hypoxia or hypercapnia Status: Acute Assessment and Plan: resolving but events noted overnight Pulmonary and Cardiology following COVID-19 negative presumably due to #4? Not much else to add from renal perspective -- will continue to follow from a distance. Subjective Date/time seen: 05/01/20 14:06 Events noted overnight -- episode of acute respiratory distress that seemed to improve with a combination of nebulizer treatments, SL nitro, BiPAP and and IV lasix; appears to be doing significantly better at this time. Exam Narrative: Exam Narrative: General: WD/WN male in NAD Heart: normal S1 and S2; no rub Lungs: coarse breath sounds with some rhonchi Abdomen: soft, nontender, nondistended, positive bowel sounds Extremities: no cyanosis or clubbing; no edema Skin: warm and dry Objective Data Vital Signs Vital Signs: Vital Signs Temp Pulse Resp BP Pulse Ox 05/01/20 13:31 87 20 05/01/20 12:00 71 05/01/20 11:07 36.9 C 62 26 H 82/42 L 93 05/01/20 10:00 71 05/01/20 09:32 78 05/01/20 08:08 64 20 05/01/20 08:00 62 05/01/20 07:59 36.5 C 62 14 109/71 93 05/01/20 07:52 64 20 94 05/01/20 05:34 78 05/01/20 04:00 69 18 93 05/01/20 03:55 36.3 C L 62 18 131/78 93 05/01/20 02:25 69 20 05/01/20 02:19 65 24 H 05/01/20 02:00 67 05/01/20 00:00 74 18 99 04/30/20 23:59 36.6 C 74 18 115/72 99 04/30/20 22:03 64 04/30/20 20:59 36.3 C L 67 29 H 147/75 H 100 04/30/20 20:55 67 29 H 100 04/30/20 20:00 72 04/30/20 19:40 34 H 96 04/30/20 19:37 44 H 99 04/30/20 19:36 82 44 H 04/30/20 19:19 68 30 H 86 L 04/30/20 18:00 36.9 C 100 20 178/80 H 95 04/30/20 16:00 75 04/30/20 14:15 66 20 Intake/Output Intake/Output: Intake & Output 04/28/20 04/29/20 04/30/20 05/01/20 23:59 23:59 23:59 23:59 Intake Total 3009 4182 1855 490 Output Total 3080 2550 3095 1140 Balance -71 1632 1240 -650 Meds/Results Medications: Active Medications Generic Name Dose Route Start Last Admin Trade Name Freq PRN Reason Stop Dose Admin Acetaminophen 650 mg 04/29/20 17:06 05/01/20 06:27 Tylenol Tablet PO 650 mg Q4H PRN Administration Mild Pain (1-3) or Fever Albuterol 2.5 mg 04/30/20 14:00 05/01/20 13:30 Albuterol Sulf Neb 2.5mg/0.5ml INHALATION 2.5 mg Q6HRT PRISCILLA Administration Aripiprazole 15 mg 04/28/20 09:00 05/01/20 09:32 Abilify PO 15 mg QAM PRISCILLA Administration Aspirin 81 mg 04/28/20 09:00 05/01/20 09:32 Aspirin Ec PO 81 mg DAILY PRISCILLA Administration Benzocaine 1 lozenge 04/29/20 17:05 04/29/20 18:32 Chloraseptic Lozenge PO 1 lozenge PRN PRN Administration Sore Throat Budesonide 0.5 mg 04/30/20 20:00 05/01/20 07:55 Pulmicort Respule Neb IN
[2020-05-01 17:03] LABS: Glucose Point of Care 207 (65-105)
--- NOTE | 2020-05-01 17:22 | PM.IMPN ---
Progress Note: A&P Assessment and Plan (1) Respiratory failure: Qualifiers: Chronicity: acute Respiratory failure complication: hypoxia Qualified Code(s): J96.01 - Acute respiratory failure with hypoxia Code(s): J96.90 - Respiratory failure, unspecified, unspecified whether with hypoxia or hypercapnia Status: Acute Assessment and Plan: Hypoxemic respiratory failure due to bilateral pneumonia, COVID 19 rule out. 05/01/20 17:22 Bob Alfaro is a 54 year old male with multiple medical problems including COPD, CAD, persistent atrial fibrillation with a pacemaker, kidney transplant , schizophrenia DM type 2 Hypothyroidsm who presented to the hospital with SOB and cough. He was found to be in respiratory distress in the ER and was given Mg, albuterol steroids and placed on a cpap with no significant response. He was subsequently intubated and transferred to ICU. Patient is found to have pneumonia most likely community-acquired sputum culture is growing gram-negative bacilli blood culture no growth so far, patient is being treated Rocephin and doxycycline seen by regional sales associate, patient also has a history of kidney transplant clinically stable seen by alcohol and drug counselor. t today patient was placed on SBT and taken off sedation eventually was extubated on 04/29, patient states feeling better now apparently patient had ran out of his inhalers medications this may have led to exacerbation of COPD. History of atrial fibrillation with pacemaker, patient also has a history of kidney transplant clinically stable seen by alcohol and drug counselor. Patient is not on home oxygen for his requiring oxygen while in the hospital and patient with history of severe COPD consulted assistant professor sculpture for further recommendation, on 04/30 during the daytime patient was clinically stable however late in the evening patient developed shortness of breath he was placed on BiPAP was given Lasix and albuterol inhaler which did improve seen and he was transferred to IMU for observation, today patient is feeling little better not a short of breath his last night patient is seen by marketing support assistant does not suspect cardiac event however to further evaluate patient will have Lexiscan test tomorrow and further recommendation to follow, patient is seen by assistant professor sculpture, patient sputum culture is growing Pseudomonas assistant professor sculpture started the patient on Levaquin for 7 days as patient is immunocompromised on transplant kidney, will continue to monitor and plan (2) Pneumonia: Qualifiers: Pneumonia type: due to unspecified organism Laterality: bilateral Lung location: unspecified part of lung Qualified Code(s): J18.9 - Pneumonia, unspecified organism Code(s): J18.9 - Pneumonia, unspecified organism Status: Acute Assessment and Plan: Sputum cultures and blood cultures obtained, on ceftriaxone and doxycycline. Sputum is growing Pseudomonas blood culture still no growth will continue present management and follow-up sensitivity (3) Suspected 2019 novel coronavirus infection: Code(s): Z20.828 - Contact with and (suspected) exposure to other viral communicable diseases Status: Acute Assessment and Plan: PCR sent, on isolation, it is negative patient is off isolation (4) Renal insufficiency: Code(s): N28.9 - Disorder of kidney and ureter, unspecified Status: Acute Assessment and Plan: Nephrology was consulted by critical care. (5) Kidney transplant recipient: Code(s): Z94.0 - Kidney transplant status Status: Acute Assessment and Plan: Hold his immunosuppressants for now. (6) Immunosuppressed status: Code(s): D89.9 - Disorder involving the immune mechanism, unspecified Status: Acute Assessment and Plan: Hold due to underlying severe infection, if he goes into shock he will need a stress dose of steroids, so far he is hemodynamically stable (7) Persiste
[2020-05-01] MEDS: WARFARIN (*PBKC) 3 MG TABLET PO (17:40)
[2020-05-01] MEDS: INSULIN ASPART (*BKC) 100 UNITS/ML SUB-Q (17:41)
[2020-05-01 20:53] LABS: Glucose Point of Care 177 (65-105)
[2020-05-02] VITALS (25 sets, daily range): BP systolic 106–154; BP diastolic 64–95; PULSE 59–101; RESP 12–24; TEMP 35.7–36.6; O2SAT 93–100
[2020-05-02] MEDS: IPRATROPIUM BR 0.02% INH SOLN 0.5 MG/2.5 ML VIAL INHALATION ×4 (01:19→19:17)
[2020-05-02] MEDS: ALBUTEROL SULFATE NEB 2.5 MG/0.5 ML INH INHALATION ×4 (01:19→19:17)
[2020-05-02 05:41] LABS: Basophils Percent Auto 0.6 % (0.2-1.2); Eosinophils Absolute Auto 0.3 K/mm3 (0-0.3); Eosinophils Percent Auto 5.9 % (0-4.4); Hematocrit 37.6 % (42.0-52.0); Hemoglobin 12.2 g/dL (14.0-18.0); Immature Granulocyte Absolute 0.02 K/mm3 (0.00-0.031); Immature Granulocyte Percent A 0.4 % (0-0.5); Lymphocytes Absolute Auto 1.02 K/mm3 (0.9-3.2); Lymphocytes Percent Auto 19.4 % (18.3-44.2); Mean Corpuscular HGB Conc 32.4 g/dl (32-36); Mean Corpuscular Hemoglobin 32.2 pg (26-34); Mean Corpuscular Volume 99.2 fl (80-100); Mean Platelet Volume 10.2 fl (7.4-10.4); Monocytes Absolute Auto 0.6 K/mm3 (0.1-0.6); Monocytes Percent Auto 11.6 % (2.6-8.5); Neutrophils Absolute Auto 3.3 K/mm3 (1.3-6.7); Neutrophils Percent Auto 62.1 % (45.5-73.1); Platelet Count Result 144 k/mm3 (150-375); Red Blood Count 3.79 M/mm3 (4.6-6.20); Red Cell Distribution Width 12.5 % (11.5-14.5); White Blood Count 5.3 K/mm3 (4.5-10.0)
[2020-05-02 05:52] LABS: INR 2.5; Prothrombin Time 26.6 Seconds (11.1-14.7)
[2020-05-02 05:53] LABS: Partial Thromboplastin Time 46.3 SECONDS (22.3-36.8)
[2020-05-02] MEDS: LEVOTHYROXINE SODIUM 25 MCG TABLET PO (05:54)
[2020-05-02 06:53] LABS: Blood Urea Nitrogen 34 mg/dL (9-20); CRP 15.1 mg/dL (<1.0); Calcium 9.4 mg/dL (8.4-10.2); Carbon Dioxide 28 mmol/L (22-30); Chloride 102 mmol/L (98-107); Estimated CRCL calculation 66 ml/min; Estimated Glomerular Filt Rate > 60; Glucose 123 mg/dL (75-110); Magnesium 1.8 mg/dL (1.6-2.3); Phosphorus 2.2 mg/dL (2.5-4.5); Potassium 3.9 mmol/L (3.4-5.0); Sodium 135 mmol/L (137-145)
--- NOTE | 2020-05-02 08:00 | EST_ITS ---
Patient Info Name: Bob Alfaro Age: 54 years : 1965 Gender: Male Ht: 70 in Wt: 154 lbs BSA: 1.86 m2 Heart Rhythm: Paced Exam Date: 05/02/2020 12:07 PM Exam Location: [facility] Stress Patient Status: Inpatient Admit Date: 04/27/2020 Staff Ordering Physician: Miguel Rene MD Attending Provider: Babak Aparicio MD Exercise Technologist: Malissa Rasheed RDCS Nurse: Haydee Watts ANP, ACNP-BC Exam Type: CA stress mateo w NM Study Info Indications - cad - elevated troponins A regadenoson stress test was performed. Summary 1. Ventricular pacing. 2. Non-diagnostic ECG due to electronic pacing. 3. Frequent PVCs. 4. Please correlate with nuclear medicine images, reported separately. Protocol: Lexiscan Stress ECG Details Stage: REST Duration (min): 1 min : 1 sec HR (bpm): 68 SBP (mmHg): 148 DBP (mmHg): 93 Stage: REST Duration (min): 14 min : 21 sec HR (bpm): 64 SBP (mmHg): 148 DBP (mmHg): 93 Stage: STAGE 1 Duration (min): 0 min : 59 sec HR (bpm): 67 SBP (mmHg): 159 DBP (mmHg): 98 Stage: RECOVERY Duration (min): 1 min : 0 sec HR (bpm): 68 SBP (mmHg): 159 DBP (mmHg): 98 Stage: RECOVERY Duration (min): 2 min : 0 sec HR (bpm): 65 SBP (mmHg): 140 DBP (mmHg): 86 Stage: RECOVERY Duration (min): 3 min : 0 sec HR (bpm): 64 SBP (mmHg): 141 DBP (mmHg): 87 Stage: RECOVERY Duration (min): 4 min : 0 sec HR (bpm): 64 SBP (mmHg): 141 DBP (mmHg): 87 Stage: RECOVERY Duration (min): 5 min : 0 sec HR (bpm): 63 SBP (mmHg): 138 DBP (mmHg): 86 Stage: RECOVERY Duration (min): 5 min : 6 sec HR (bpm): 64 SBP (mmHg): 138 DBP (mmHg): 86 Rest HR: 64 bpm Peak HR: 68 bpm Rest Sys BP: 148 mmHg Peak Sys BP: 159 mmHg Max Pred HR: 165 bpm % Max Pred HR: 41 % Target HR: 140 bpm Max RPP: 10,812 bpm*mmHg Termination Reason: Completed protocol Cardiac Symptoms: None Total Time: 1 min : 0 sec Rest Linda BP: 93 mmHg Peak Linda BP: 98 mmHg Total Dose: 0.4 mg Resting ECG Ventricular pacing. Stress ECG Non-diagnostic ECG due to electronic pacing. Arrhythmias Frequent PVCs. Report Signatures
[2020-05-02] MEDS: ACETAMINOPHEN 325 MG TABLET 650 MG PO ×2 (08:11→20:47)
[2020-05-02 08:29] LABS: Glucose Point of Care 95 (65-105)
[2020-05-02] MEDS: BUDESONIDE RESPULE NEB 0.5 MG/2 ML AMP INHALATION ×2 (08:48→19:19)
[2020-05-02] MEDS: PANTOPRAZOLE 40 MG TABLET PO (09:49)
--- NOTE | 2020-05-02 11:57 | PC.NURSE ---
0800- NPO for [employer]
--- NOTE | 2020-05-02 12:29 | PCNFU ---
Nutrition Follow-Up Complete: Inadequate oral intake related to oral intubation as evidenced by NPO status Goal:Patient to meet estimated nutritional needs Progressing towards goal. We will continue current goal. Pt current nutrition is NPO. Nutrition recommendation: NPO advance to [facility]. Last recorded weight is 69 kg. Bowel Motility:+Bm reported 04/29 Labs Reviewed:Glu 123,BUN 34,Na 135,PO4 2.2 Meds Noted:Levaquin,Protonix Additional Notes: Patient NPO today for Lexiscan. He has been tolerating diabetic diet, eating 60-100% of meals. Monitoring: Follow up every 5 days.
--- NOTE | 2020-05-02 12:51 | PM.PNCARD ---
Progress Note: A&P Assessment and Plan (1) Elevated troponin: Code(s): R79.89 - Other specified abnormal findings of blood chemistry Status: Acute Assessment and Plan: Chronically elevated troponins. Thought to be related to hypoxemia. He does have a history of coronary disease. Lexiscan perfusion study for ischemic evaluation pending. (2) COPD exacerbation: Code(s): J44.1 - Chronic obstructive pulmonary disease with (acute) exacerbation Status: Acute Assessment and Plan: Per pulmonology (3) Persistent atrial fibrillation: Code(s): I48.19 - Other persistent atrial fibrillation Status: Chronic Assessment and Plan: On anticoagulation (4) Pacemaker: Code(s): Z95.0 - Presence of cardiac pacemaker Status: Acute Assessment and Plan: Previously functioning normally. States it is a [employer]. (5) Coronary artery disease: Code(s): I25.10 - Atherosclerotic heart disease of [place] coronary artery without angina pectoris Status: Acute Assessment and Plan: Follows at [place] with Dr Stauffer. Andrea pending. Continue his other cardiac regimen (6) Shortness of breath: Code(s): R06.02 - Shortness of breath Status: Acute Assessment and Plan: Underlying lung disease as the cause of his shortness of breath and including acutely night of admission. His symptoms were predominantly improved with albuterol. To be thorough and complete given multiple admissions lately Lexiscan has been performed. Results pending. Additional Plan Further recommendations pending outcome of the stress test. Plan discussed with Dr. Pandya 1255 05/02/2020 Time Spent With Patient Time with patient: less than 15 minutes Subjective Date/time seen: 05/02/20 12:20 Seen in stress lab. Interval history: Follow-up for: Shortness of breath. History of persistent atrial fibrillation, pacemaker, coronary artery disease and COPD. Date of service: 05/02/2020 Subjective: Denied chest discomfort. States breathing is ?okay?. No lightheadedness. Review of Systems Constitutional: Constitutional: Denies excessive sweating, Denies fatigue, Denies headache(s) and Reports weakness Eyes: Eyes: Denies blurry vision ENT: Reports Normal hearing present and Denies headache(s) Cardiovascular: Cardiovascular: Denies chest pain and Reports dyspnea Respiratory: Respiratory: Reports dyspnea Gastrointestinal: Gastrointestinal: Denies abdominal pain and Denies melena Genitourinary: Genitourinary: Denies hematuria, Denies dysuria and Denies urinary frequency Musculoskeletal: Musculoskeletal: Denies back pain Integumentary/Breasts: Skin/Breast: Denies dry skin Neurologic: Reports Normal hearing present, Denies headache(s) and Reports weakness Psychiatric: Psychiatric: Denies anxiety Endocrine: Endocrine: Denies excessive sweating and Denies fatigue Hematologic/Lymphatic: Hematologic/Lymphatic: Denies easy bleeding Allergic/Immunologic: Allergic/Immunologic: Denies GI upset with certain foods Exam Narrative: Exam Narrative: Comfortable in stress lab. No complaints of discomfort. Const: General: no acute distress HENMT: Other: Nasal cannula in place Eyes: Sclera: sclerae normal Neck: Neck: supple and no JVD Resp: Auscultation: diminished lung sounds bilateral Cardio: Rate: regular rate Other: Ventricular paced rhythm without significant murmur Skin: General skin exam: normal color Neuro: Cranial nerves: Yes Normal hearing present Cognition (Neuro): normal cognition Speech: normal speech Extrem: General: normal to inspection Psych: Affect: normal affect Objective Data Vital Signs Vital Signs: Vital Signs - 24 hr 05/01/20 13:31 05/01/20 14:00 05/01/20
[2020-05-02 13:36] LABS: Glucose Point of Care 71 (65-105)
--- NOTE | 2020-05-02 13:42 | PCOTNOTE ---
Attempted to see patient this PM for skilled OT, however patient reported he just got back from testing and was too tired . Patient not seen for OT this date. Will continue poc tomorrow.
[2020-05-02] MEDS: PRAVASTATIN SODIUM 20 MG TABLET 40 MG PO (14:46)
[2020-05-02] MEDS: carvediloL 12.5 MG TABLET PO ×2 (14:46→20:47)
[2020-05-02] MEDS: ASPIRIN 81 MG ENTERIC TABLET PO (14:46)
[2020-05-02] MEDS: ARIPIPRAZOLE 5 MG TABLET 15 MG PO (14:47)
[2020-05-02] MEDS: predniSONE 5 MG TABLET PO (14:47)
[2020-05-02] MEDS: SPIRONOLACTONE 25 MG TABLET PO (14:47)
[2020-05-02] MEDS: FUROSEMIDE INJ 40 MG/4 ML VIAL 20 MG IV PUSH (14:48)
--- NOTE | 2020-05-02 15:16 | PM.PNPUL ---
Progress Note: A&P Assessment and Plan (1) COPD exacerbation: Code(s): J44.1 - Chronic obstructive pulmonary disease with (acute) exacerbation Status: Acute Assessment and Plan: - continue albuterol, atrovent and pulmicort nebs as prescribed. - no need to increased systemic steroid dose at this point - Ceftriaxone and Doxycyline discontinued, switched to oral levaquin in light of Pseudomonas in sputum (2) CHF (congestive heart failure): Qualifiers: Heart failure chronicity: unspecified Heart failure type: unspecified Qualified Code(s): I50.9 - Heart failure, unspecified Code(s): I50.9 - Heart failure, unspecified Status: Acute Assessment and Plan: History from last night and admission consistent with Flash Pulmonary edema. This may not show up very well on CXR in patients with COPD. - DD is Aflutter ( last nights EKG) vs underying CAD - patient had cardiac cath and possible stent at [place] at time of of renal transplant which he thinks is about six years ago but he's a poor historian and this may be unreliable - Lexiscan is adequate. EF 52% and no evidence of ischemia. (3) Pseudomonas aeruginosa colonization: Code(s): Z22.39 - Carrier of other specified bacterial diseases Status: Acute Assessment and Plan: Growth in sputum after > 48 hours. This is likely a colonizer. - will treat with oral Levaquin 750 mg PO OD X 7 days anyway given immune compromized state Subjective Date/time seen: 05/02/20 15:16 This 54 yo man is seen in follow up for COPD exacerbation, feels better, sitting up in a chair. He declined wearing BiPAP last night, and his hypercapnea improved April 30, see ABGs below. He completed his Lexiscan today, no evidence of ischemia. EF 52%. He is on 3 L/min with saturation 99%, so can be weaned. He has no sputum, feels less short of breath. his sputum grew Pseudomonas and he is on oral Levaquin. CRP today is 15.1, elevated. Review of Systems Review of Systems: All systems reviewed & are unremarkable except as noted in HPI and below Exam Const: General: comfortable and no acute distress Eyes: General: appearance normal, both eyes and all related structures Neck: Neck: supple and no JVD Resp: Auscultation: crackles (few in the bases) bilateral and diminished lung sounds Cardio: Rate: regular rate Rhythm: regular rhythm Heart sounds: no murmurs GI: Auscultation: normal bowel sounds Skin: General skin exam: normal color Neuro: Speech: No normal speech Extrem: General: normal to inspection (with cool fingertips; cannot fully open hands 2/2 stroke Left ), no edema and no pedal edema Objective Data Vital Signs Vital Signs: Vital Signs - 24 hr 05/01/20 16:00 05/01/20 18:00 05/01/20 19:23 Temperature 37.0 C Pulse Rate 83 97 70 Respiratory Rate 20 18 Blood Pressure 104/68 Pulse Oximetry 96 05/01/20 19:26 05/01/20 19:33 05/01/20 20:00 Temperature 36.6 C Pulse Rate 68 73 Respiratory Rate 18 18 Blood Pressure 133/80 Pulse Oximetry 96 97 05/01/20 20:48 05/01/20 21:51 05/02/20 00:00 Temperature 36.6 C Pulse Rate 70 68 73 Respiratory Rate 18 Blood Pressure 118/77 Pulse Oximetry 99 05/02/20 01:19 05/02/20 01:25 05/02/20 02:00 Temperature Pulse Rate 66 62 66 Respiratory Rate 20 18 Blood Pressure Pulse Oximetry 05/02/20 03:56 05/02/20 04:00 05/02/20 06:00 Temperature 36.5 C Pulse Rate 68 64 76 Respiratory Rate 18 18 Blood Pressure 130/73 Pulse Oximetry 99 93 05/02/20 07:52 05/02/20 08:26 05/02/20 08:48 Temperature 35.8 C L Pulse Rate 59 L 64 69 Respiratory Rate 12 20 Blood Pressure 133/84 Pulse Oximetry 97 94 05/02/20 09:07 05/02/20 12:00 05/02/20 14:46 Tem
[2020-05-02 16:41] LABS: Glucose Point of Care 107 (65-105)
[2020-05-02] MEDS: WARFARIN (*PBKC) 3 MG TABLET PO (18:02)
[2020-05-02] MEDS: SILVERGEL (ELTA) 45 ML 1 APPLIC TOPICAL (18:21)
--- NOTE | 2020-05-02 18:43 | PM.IMPN ---
Progress Note: A&P Assessment and Plan (1) Respiratory failure: Qualifiers: Chronicity: acute Respiratory failure complication: hypoxia Qualified Code(s): J96.01 - Acute respiratory failure with hypoxia Code(s): J96.90 - Respiratory failure, unspecified, unspecified whether with hypoxia or hypercapnia Status: Acute Assessment and Plan: Hypoxemic respiratory failure due to bilateral pneumonia, COVID 19 rule out. 05/02/20 18:43 Bob Alfaro is a 54 year old male with multiple medical problems including COPD, CAD, persistent atrial fibrillation with a pacemaker, kidney transplant , schizophrenia DM type 2 Hypothyroidsm who presented to the hospital with SOB and cough. He was found to be in respiratory distress in the ER and was given Mg, albuterol steroids and placed on a cpap with no significant response. He was subsequently intubated and transferred to ICU. Patient is found to have pneumonia most likely community-acquired sputum culture is growing gram-negative bacilli blood culture no growth so far, patient is being treated Rocephin and doxycycline seen by surveyor geophysical prospecting, patient also has a history of kidney transplant clinically stable seen by refuse collector. t today patient was placed on SBT and taken off sedation eventually was extubated on 04/29, patient states feeling better now apparently patient had ran out of his inhalers medications this may have led to exacerbation of COPD. History of atrial fibrillation with pacemaker, patient also has a history of kidney transplant clinically stable seen by refuse collector. Patient is not on home oxygen for his requiring oxygen while in the hospital and patient with history of severe COPD consulted pottery decorator for further recommendation, on 04/30 during the daytime patient was clinically stable however late in the evening patient developed shortness of breath he was placed on BiPAP was given Lasix and albuterol inhaler which did improve seen and he was transferred to IMU for observation, today patient is feeling little better not a short of breath his last night patient is seen by curb machine operator does not suspect cardiac event however to further evaluate patient will have Lexiscan test tomorrow and further recommendation to follow, patient is seen by pottery decorator, patient sputum culture is growing Pseudomonas pottery decorator started the patient on Levaquin for 7 days, stop Rocephin and doxycycline, as patient is immunocompromised on transplant kidney, today patient Lexiscan which is essentially normal with ejection fraction of 52% and no ischemic event most likely patient symptoms stems from severe COPD and patient is seen by pottery decorator, patient is clinically stable today will continue present management and may discharge the patient home tomorrow (2) Pneumonia: Qualifiers: Pneumonia type: due to unspecified organism Laterality: bilateral Lung location: unspecified part of lung Qualified Code(s): J18.9 - Pneumonia, unspecified organism Code(s): J18.9 - Pneumonia, unspecified organism Status: Acute Assessment and Plan: Sputum cultures and blood cultures obtained, on ceftriaxone and doxycycline. Sputum is growing Pseudomonas blood culture still no growth will continue present management and follow-up sensitivity (3) Suspected 2019 novel coronavirus infection: Code(s): Z20.828 - Contact with and (suspected) exposure to other viral communicable diseases Status: Acute Assessment and Plan: PCR sent, on isolation, it is negative patient is off isolation (4) Renal insufficiency: Code(s): N28.9 - Disorder of kidney and ureter, unspecified Status: Acute Assessment and Plan: Nephrology was consulted by critical care. (5) Kidney transplant recipient: Code(s): Z94.0 - Kidney transplant status Status: Acute Assessment and Plan: Hold his immunosuppressants for now. (6) Immunosu
[2020-05-02 21:17] LABS: Glucose Point of Care 207 (65-105)
[2020-05-03] VITALS (20 sets, daily range): BP systolic 102–159; BP diastolic 61–87; PULSE 63–99; RESP 12–20; TEMP 35.8–36.8; O2SAT 92–100
[2020-05-03] MEDS: ALBUTEROL SULFATE NEB 2.5 MG/0.5 ML INH INHALATION ×3 (01:07→14:24)
[2020-05-03] MEDS: IPRATROPIUM BR 0.02% INH SOLN 0.5 MG/2.5 ML VIAL INHALATION ×3 (01:07→14:24)
[2020-05-03 03:40] LABS: Hematocrit 44.7 % (42.0-52.0); Hemoglobin 14.5 g/dL (14.0-18.0); Mean Corpuscular HGB Conc 32.4 g/dl (32-36); Mean Corpuscular Hemoglobin 32.6 pg (26-34); Mean Corpuscular Volume 100.4 fl (80-100); Mean Platelet Volume 10.1 fl (7.4-10.4); Platelet Count Result 172 k/mm3 (150-375); Red Blood Count 4.45 M/mm3 (4.6-6.20); Red Cell Distribution Width 12.6 % (11.5-14.5); White Blood Count 4.7 K/mm3 (4.5-10.0)
[2020-05-03 03:50] LABS: INR 2.1; Prothrombin Time 23.4 Seconds (11.1-14.7)
[2020-05-03 03:53] LABS: Blood Urea Nitrogen 41 mg/dL (9-20); Calcium 10.2 mg/dL (8.4-10.2); Carbon Dioxide 30 mmol/L (22-30); Chloride 100 mmol/L (98-107); Estimated CRCL calculation 61 ml/min; Estimated Glomerular Filt Rate > 60; Glucose 209 mg/dL (75-110); Potassium 4.4 mmol/L (3.4-5.0); Sodium 135 mmol/L (137-145)
[2020-05-03] MEDS: LEVOTHYROXINE SODIUM 25 MCG TABLET PO (05:42)
[2020-05-03] MEDS: ACETAMINOPHEN 325 MG TABLET 650 MG PO (05:42)
[2020-05-03 07:52] LABS: Glucose Point of Care 124 (65-105)
[2020-05-03] MEDS: carvediloL 12.5 MG TABLET PO (08:20)
[2020-05-03] MEDS: predniSONE 5 MG TABLET PO (08:20)
[2020-05-03] MEDS: ARIPIPRAZOLE 5 MG TABLET 15 MG PO (08:20)
[2020-05-03] MEDS: PRAVASTATIN SODIUM 20 MG TABLET 40 MG PO (08:21)
[2020-05-03] MEDS: ASPIRIN 81 MG ENTERIC TABLET PO (08:21)
[2020-05-03] MEDS: PANTOPRAZOLE 40 MG TABLET PO (08:21)
[2020-05-03] MEDS: SPIRONOLACTONE 25 MG TABLET PO (08:22)
[2020-05-03] MEDS: FUROSEMIDE INJ 40 MG/4 ML VIAL 20 MG IV PUSH (08:22)
[2020-05-03] MEDS: BUDESONIDE RESPULE NEB 0.5 MG/2 ML AMP INHALATION (08:55)
--- NOTE | 2020-05-03 11:06 | PCOTNOTE ---
Attempted to see patient for skilled OT session this A.M. Patient sitting up in chair upon entry. When asked if patient would like to participate in OT session, patient stated No, I don't need to wash up or anything, I'm going home. and I just finished with another therapy, I'm good. Patient declined OT session this date.
--- NOTE | 2020-05-03 11:10 | PM.PNPUL ---
Progress Note: A&P Assessment and Plan (1) COPD exacerbation: Code(s): J44.1 - Chronic obstructive pulmonary disease with (acute) exacerbation Status: Acute Assessment and Plan: - much improved; will check home O2 evaluation today to determine if he needs home O2, has not been on this at home. - switch to Advair which he uses at home, continue albuterol nebs and inhaler prn shortness of breath. - no need to increased systemic steroid dose at this point - oral in light of Pseudomonas in sputum - he has a pulmonary doctor at [place], and will follow up after discharge. He does not know the name of his doctor who prescribes Advair and nebulizer with albuterol. (2) CHF (congestive heart failure): Qualifiers: Heart failure chronicity: unspecified Heart failure type: unspecified Qualified Code(s): I50.9 - Heart failure, unspecified Code(s): I50.9 - Heart failure, unspecified Status: Acute Assessment and Plan: - low (+) tropnins with 3 recenet admissions, Lexiscan is adequate. EF 52% and no evidence of ischemia. - had tachyarrhythmia a few nights ago. - patient had cardiac cath and possible stent at [facility] [place] at time of of renal transplant which he thinks is about six years ago but - - he's a poor historian and this may be unreliable (3) Pseudomonas aeruginosa colonization: Code(s): Z22.39 - Carrier of other specified bacterial diseases Status: Acute Assessment and Plan: - Growth in sputum after > 48 hours. This is likely a colonizer. - will treat with oral Levaquin 750 mg PO OD X 7 days anyway given immune compromised state Subjective Date/time seen: 05/03/20 11:10 This 54 yo man is seen in follow up for COPD exacerbation, feels better, Has had a kidney transplant and is on immunosuppressant. Followed at [facility] by fur finisher tailor, pulmonary, renal specialists. He is now on Room Air down from 3 L/min yesterday and I am waiting on his home walk study. He has had recurrent admissions with increased troponins, and cardiology has evaluated, says that he is not ischedmic. Lexiscan was negative yesterday. EF 52%. He declined wearing BiPAP 2 nights ago. Hypercapnea improved April 30. He has no sputum, feels less short of breath. Sputum grew Pseudomonas and he is on oral Levaquin.elevated. Review of Systems Review of Systems: All systems reviewed & are unremarkable except as noted in HPI and below Exam Const: General: comfortable and no acute distress Eyes: General: appearance normal, both eyes and all related structures Neck: Neck: supple and no JVD Chest: Chest palpation & inspection: normal inspection of the chest Resp: Auscultation: diminished lung sounds Cardio: Rate: regular rate Rhythm: regular rhythm Heart sounds: no murmurs GI: Auscultation: normal bowel sounds Skin: General skin exam: normal color Neuro: Speech: No normal speech Extrem: General: normal to inspection (with cool fingertips; cannot fully open hands 2/2 stroke Left ), no edema and no pedal edema Objective Data Vital Signs Vital Signs: Vital Signs - 24 hr 05/02/20 12:00 05/02/20 13:00 05/02/20 14:00 Temperature 35.7 C L Pulse Rate 65 69 67 Respiratory Rate 12 Blood Pressure 154/95 H Pulse Oximetry 96 05/02/20 14:46 05/02/20 15:03 05/02/20 15:11 Temperature Pulse Rate 86 101 H 71 Respiratory Rate 24 H 22 H Blood Pressure Pulse Oximetry 05/02/20 16:00 05/02/20 19:20 05/02/20 19:30 Temperature 35.7 C L Pulse Rate 80 69 62 Respiratory Rate 12 20 20 Blood Pressure 106/64 Pulse Oximetry 96 97 05/02/20 20:00 05/02/20 20:47 05/02/20 22:00 Temperature 36.4 C Pulse Rate 86 82 86 Respiratory Rate 18 Blood Pressure 134/73 Pulse Oximetry 100
[2020-05-03] MEDS: SILVERGEL (ELTA) 45 ML 1 APPLIC TOPICAL (11:49)
[2020-05-03 12:05] LABS: Glucose Point of Care 199 (65-105)
--- NOTE | 2020-05-03 14:30 | HOMEO2EVAL ---
Home Oxygen Evaluation RC: Home Oxygen (O2) Evaluation Start: 05/03/20 11:14 Freq: ONCE Status: Active Protocol: RPE Activity Type Activity Date Activity User E-Sign Co-Sign Detail Recorded Client Recorded Date Recorded By Document 05/03/20 14:05 ABHAY [id number] 05/03/20 14:30 ABHAY Document 05/03/20 14:10 ABHAY [id number] 05/03/20 14:30 ABHAY Document 05/03/20 14:20 ABHAY [id number] 05/03/20 14:30 ABHAY 05/03/20 05/03/20 05/03/20 14:05 14:10 14:20 Home O2 Evaluation Test Phase Resting Exercise Resting Oxygen Delivery Room Air Room Air Room Air Pulse Oximetry (90-100 %) 95 92 95 Pulse Rate (60-100 beats/min) 89 99 90 Activity Tolerance Good Rating of Perceived Dyspnea (PD) +1 Mild, Noticeable to the Participant but Not to an Observer Ambulation Distance (feet) 200 Home Oxygen Evaluation Comments PT ALSO UP TO BATHROOM AND BACK TO BED AFTER WALK Treatment Charges O2 Evaluation
--- NOTE | 2020-05-03 14:30 | PCRCNOTE ---
HOME O2 EVAL DONE, NO HOME O2 NEEDED AT THIS TIME, RN NOTIFIED
--- NOTE | 2020-05-03 15:10 | PM.DS ---
DS: Admitting Diagnosis Admitting Diagnosis Admitting Diagnosis: Pneumonia, unspecified organism DS: Discharge Diagnosis Discharge Diagnosis (1) Respiratory failure: Qualifiers: Chronicity: acute Respiratory failure complication: hypoxia Qualified Code(s): J96.01 - Acute respiratory failure with hypoxia Code(s): J96.90 - Respiratory failure, unspecified, unspecified whether with hypoxia or hypercapnia Status: Acute Assessment and Plan: Hypoxemic respiratory failure due to bilateral pneumonia, COVID 19 rule out. 05/02/20 18:43 Bob Alfaro is a 54 year old male with multiple medical problems including COPD, CAD, persistent atrial fibrillation with a pacemaker, kidney transplant , schizophrenia DM type 2 Hypothyroidsm who presented to the hospital with SOB and cough. He was found to be in respiratory distress in the ER and was given Mg, albuterol steroids and placed on a cpap with no significant response. He was subsequently intubated and transferred to ICU. Patient is found to have pneumonia most likely community-acquired sputum culture is growing gram-negative bacilli blood culture no growth so far, patient is being treated Rocephin and doxycycline seen by product marketing programs manager, patient also has a history of kidney transplant clinically stable seen by shop assistant. t today patient was placed on SBT and taken off sedation eventually was extubated on 04/29, patient states feeling better now apparently patient had ran out of his inhalers medications this may have led to exacerbation of COPD. History of atrial fibrillation with pacemaker, patient also has a history of kidney transplant clinically stable seen by shop assistant. Patient is not on home oxygen for his requiring oxygen while in the hospital and patient with history of severe COPD consulted numerical control tool programmer for further recommendation, on 04/30 during the daytime patient was clinically stable however late in the evening patient developed shortness of breath he was placed on BiPAP was given Lasix and albuterol inhaler which did improve seen and he was transferred to IMU for observation, today patient is feeling little better not a short of breath his last night patient is seen by liquor bridge operator helper does not suspect cardiac event however to further evaluate patient will have Lexiscan test tomorrow and further recommendation to follow, patient is seen by numerical control tool programmer, patient sputum culture is growing Pseudomonas numerical control tool programmer started the patient on Levaquin for 7 days, stop Rocephin and doxycycline, as patient is immunocompromised on transplant kidney, today patient Lexiscan which is essentially normal with ejection fraction of 52% and no ischemic event most likely patient symptoms stems from severe COPD and patient is seen by numerical control tool programmer, patient is clinically stable today will continue present management and may discharge the patient home tomorrow (2) Pneumonia: Qualifiers: Pneumonia type: due to unspecified organism Laterality: bilateral Lung location: unspecified part of lung Qualified Code(s): J18.9 - Pneumonia, unspecified organism Code(s): J18.9 - Pneumonia, unspecified organism Status: Acute Assessment and Plan: Sputum cultures and blood cultures obtained, on ceftriaxone and doxycycline. Sputum is growing Pseudomonas blood culture still no growth will continue present management and follow-up sensitivity (3) Suspected 2019 novel coronavirus infection: Code(s): Z20.828 - Contact with and (suspected) exposure to other viral communicable diseases Status: Acute Assessment and Plan: PCR sent, on isolation, it is negative patient is off isolation (4) Renal insufficiency: Code(s): N28.9 - Disorder of kidney and ureter, unspecified Status: Acute Assessment and Plan: Nephrology was consulted by critical care. (5) Kidney transplant recipient: Code(s): Z94.0 - Kidney transplant statu
--- NOTE | 2020-05-03 16:16 | PC.NURSE ---
called pt 's father and discussed discharge medications and appointments; Hemal Alfaro confirmed pt will to follow up with primary physician about wound on left leg
[2020-05-03 17:14] LABS: Chloride Rand Ur 49 mmol/L (32-290); Chloride/Creatinine Rand Ur 126 (23-275); Creatinine Random Urine 39 mg/dL (20-320)
== END 2020-05-03 15:20 | disposition home or self-care (01) | DRG 208 ==
LOC: ANHED 08:50 → ANHICU 11:01 → ANHIMU 05-02 08:45 → ANH2MED 05-04 08:05 → ANHICU 05-04 08:05 → ANHIMU 05-04 08:05
PROVIDERS: Hospitalist; Internal Medicine; Internal Medicine Critical Care Medicine; Internal Medicine Nephrology; Physician Assistant; Admitting Provider Family Medicine; Emergency Provider Emergency Medicine; Visit Provider Family Medicine
DX: J15.1 Pneumonia due to Pseudomonas (principal); J96.01 Acute respiratory failure with hypoxia; J44.0 Chronic obstructive pulmonary disease with (acute) lower respiratory infection; I48.19 Other persistent atrial fibrillation; Z94.0 Kidney transplant status; J44.1 Chronic obstructive pulmonary disease with (acute) exacerbation; I24.8 Other forms of acute ischemic heart disease; N17.9 Acute kidney failure, unspecified; I48.92 Unspecified atrial flutter; Z20.828 Contact with and (suspected) exposure to other viral communicable diseases; I25.10 Atherosclerotic heart disease of native coronary artery without angina pectoris; E03.9 Hypothyroidism, unspecified; F20.9 Schizophrenia, unspecified; N28.9 Disorder of kidney and ureter, unspecified; I11.0 Hypertensive heart disease with heart failure; I50.9 Heart failure, unspecified; E87.5 Hyperkalemia; E11.9 Type 2 diabetes mellitus without complications; E83.42 Hypomagnesemia; D89.9 Disorder involving the immune mechanism, unspecified; I25.2 Old myocardial infarction; Z95.0 Presence of cardiac pacemaker; Z95.5 Presence of coronary angioplasty implant and graft; Z86.73 Personal history of transient ischemic attack (TIA), and cerebral infarction without residual deficits; Z87.891 Personal history of nicotine dependence; Z79.82 Long term (current) use of aspirin
CPT/HCPCS: 31500; 36415; 36600; 71045; 74018; 76775; 78452; 80048; 80053; 80197; 81001; 81050; 82375; 82436; 82570; 82805; 83050; 83605; 83735; 83880; 84100; 84156; 84300; 84484; 85025; 85027; 85380; 85610; 85730; 85999; 86140; 87040; 87070; 87077; 87086; 87186; 87205; 87635; 87804; 93005; 93017; 94002; 94003; 94618; 94640; 94660; 96365; 96375; 97110; 97116; 97161; 97165; 99291; A9270; A9502; C9113; C9803; J0456; J0696; J1815; J1940; J2704; J2785; J3475; J7040; J7042; J7120; J7512; U0003

== ENCOUNTER 2020-05-09 17:08 | Emergency (ER) | payer MEDICARE, MEDICAID, SELFPAY ==
--- NOTE | ~2020-05-09 | XR_ITS ---
EXAMINATION: XR chest 1V portable INDICATION: Shortness of breath TECHNIQUE: Portable AP chest at 1824 hours COMPARISON: 05/02/2020 FINDINGS: The lungs are free of acute opacities. There is no pleural effusion or pneumothorax. The he art size is normal. A dual-lead cardiac pacemaker of the left chest wall ends with leads in expected locations. IMPRESSION: 1. No acute cardiopulmonary abnormality. Reviewed, dictated and finalized at location A.
[2020-05-09 17:14] VITALS: BP 155/105; PULSE 65; RESP 38; O2SAT 88
--- NOTE | 2020-05-09 17:21 | ED.GENADULT ---
HPI - General Adult General Chief complaint: Shortness of Breath/Dyspnea Stated complaint: resp distress Time Seen by Provider: 05/09/20 17:20 History of Present Illness HPI narrative: Patient is a 54 y/o male complaining of SOB for 1-2 months, but it's worse today. He states that his SOB is severe and relieved slight by Albuterol. He has some cough, but denies any fever, chest pain, abdominal pain or vomiting. Related Data Home Medications Medication Instructions Recorded Confirmed Anoro Ellipta 1 inh INHALATION DAILY 02/12/20 04/27/20 Invokana 100 mg PO DAILY 02/12/20 04/27/20 Tradjenta 5 mg PO DAILY 02/12/20 04/27/20 Invokana 100 mg PO DAILY 02/22/20 04/27/20 albuterol sulfate [ProAir HFA] 2 puff INHALATION Q4H PRN 02/22/20 04/27/20 aripiprazole [Abilify] 15 mg PO DAILY 02/22/20 04/27/20 aspirin [Aspir-81] 81 mg PO DAILY 02/22/20 04/27/20 carvedilol [Coreg] 12.5 mg PO BID 02/22/20 04/27/20 cholecalciferol (vitamin D3) 50 mcg PO DAILY 02/22/20 04/27/20 [Vitamin D3] docusate sodium 100 mg PO DAILY 02/22/20 04/27/20 doxepin 10 mg PO HS 02/22/20 04/27/20 levothyroxine 25 mcg PO DAILY 02/22/20 04/27/20 mycophenolate sodium [Myfortic] 360 mg PO BID 02/22/20 04/27/20 pravastatin 40 mg PO DAILY 02/22/20 04/27/20 prednisone 5 mg PO DAILY 02/22/20 04/27/20 tacrolimus 3 mg PO BID 02/22/20 04/27/20 warfarin [Jantoven] 2 mg PO DAILY 02/22/20 04/27/20 Allergies Allergy/AdvReac Type Severity Reaction Status Date / Time No Known Allergies Allergy Verified 05/09/20 17:20 Review of Systems Constitutional: Constitutional: Denies chills, Denies fever(s), Denies headache(s) and Denies weakness Eyes: Eyes: Denies blurry vision ENT: Denies headache(s) and Denies neck pain Cardiovascular: Cardiovascular: Denies chest pain and Denies dyspnea Respiratory: Respiratory: Reports cough and Reports dyspnea Gastrointestinal: Gastrointestinal: Denies abdominal pain, Denies diarrhea, Denies nausea and Denies vomiting Genitourinary: Genitourinary: Denies hematuria and Denies dysuria Musculoskeletal: Musculoskeletal: Denies back pain and Denies neck pain Neurologic: Denies headache(s) and Denies weakness [facility] Past Medical History Medical History COPD (chronic obstructive pulmonary disease) Coronary artery disease Depression HTN (hypertension) with goal to be determined Hypertension Hypothyroid Immunosuppressed status Myocardial infarction Pacemaker Persistent atrial fibrillation Schizophrenia T2DM (type 2 diabetes mellitus) TIA (transient ischemic attack) Surgical History Surgical History Kidney transplant recipient Renal transplant recipient S/P coronary artery stent placement Family History Family History Mother Cancer Social History Social History Social History: Patient would like to be a full code and his POA is his father relay. He sees Dr. Lyman at [facility] as his primary care doctor. He quit smoking 3 days ago but before that was smoking about a pack per month. He does not drink alcohol. He is on disability for schizophrenia. Smoking status: Former smoker Tobacco type: cigarettes Alcohol intake: never Substance use: never Gender identity (if verbalized by the patient): Male Spiritual care concerns: No Agree to blood products: Yes Exam Const: General: well developed and acute distress Orientation/consciousness: oriented to person, oriented to place, oriented to time and patient oriented x3 HENMT: Head: normocephalic Ears: external ears normal General nose exam: Normal external nose present Eyes: General: appearance normal, both eyes and all related structures Conjunctivae: conjunctivae normal Neck: Neck: normal visual inspection and full ROM Chest: Chest palpation & in
--- NOTE | 2020-05-09 17:24 | ECG_ITS ---
Measurements Intervals [place] Rate: 68 P: [place]: 0 QRS: -87 QRSD: 209 T: 100 QT: 483 QTc: 516 Interpretive Statements ELECTRONIC VENTRICULAR PACEMAKER UNDERLYING ATRIAL FLUTTER/TACHYCARDIA NO FURTHER INTERPRETATION IS POSSIBLE ABNORMAL ECG Electronically Signed On 05-09-2020 17:42:36 CDT by Eliu Thompson D.O.
[2020-05-09 17:34] VITALS: PULSE 66; RESP 28; O2SAT 95
[2020-05-09 17:38] LABS: Basophils Absolute Auto 0.1 K/mm3 (0.0-0.1); Basophils Percent Auto 0.9 % (0.2-1.2); Eosinophils Absolute Auto 0.4 K/mm3 (0-0.3); Eosinophils Percent Auto 4.1 % (0-4.4); Hematocrit 46.7 % (42.0-52.0); Immature Granulocyte Absolute 0.12 K/mm3 (0.00-0.031); Immature Granulocyte Percent A 1.4 % (0-0.5); Lymphocytes Absolute Auto 1.25 K/mm3 (0.9-3.2); Lymphocytes Percent Auto 14.1 % (18.3-44.2); Mean Corpuscular HGB Conc 32.1 g/dl (32-36); Mean Corpuscular Hemoglobin 32.5 pg (26-34); Mean Corpuscular Volume 101.3 fl (80-100); Mean Platelet Volume 10.1 fl (7.4-10.4); Monocytes Absolute Auto 0.8 K/mm3 (0.1-0.6); Monocytes Percent Auto 8.5 % (2.6-8.5); Neutrophils Absolute Auto 6.3 K/mm3 (1.3-6.7); Platelet Count Result 223 k/mm3 (150-375); Red Blood Count 4.61 M/mm3 (4.6-6.20); Red Cell Distribution Width 13.2 % (11.5-14.5); White Blood Count 8.8 K/mm3 (4.5-10.0)
[2020-05-09 18:05] LABS: Alveolar/Arterial O2 Gradient 241.8 mmHg; Base Excess ABG -2.7 mEq/l (+/-2.0); Fractional Inspired Oxygen 50 %; HCO3 ABG 24.1 mEq/l (22.0-26.0); Oxygen Content ABG 17.9 %vol (16.0-22.0); Oxygen Saturation ABG 88.3 % (95.0-100.0); Oxyhemoglobin 87.7 % THb (90.0-100.0); PO2 ABG 59.6 mmHg (80.0-100.0); PO2 FiO2 Ratio Arterial Blood 1.19 %; Total Hemoglobin 14.5 g/dL (12.0-18.0); pH ABG 7.309 (7.350-7.450)
[2020-05-09 18:06] LABS: Device NON-INVASIVE VENT; Modified Allen's Test Pass; Non-Invasive Expiratory Pressure 6 CMH2O; Non-Invasive Inspiratory Pressure 16 CMH2O; Non-Invasive Vent Rate 14 /MIN; Site Drawn RIGHT RADIAL
[2020-05-09] MEDS: methylPREDNISolone SOD SUCC 125 MG VIAL IV PUSH (18:45)
--- NOTE | 2020-05-09 18:45 | PC.NURSE ---
pt demanding to be taken off bipap. placed on 6l via nc. ice water given.
[2020-05-09 19:15] LABS: Alanine Aminotransferase 26 U/L (4-50); Albumin Level 3.6 g/dL (3.5-5.1); Alkaline Phosphatase 75 U/L (38-126); Aspartate Amino Transferase 27 U/L (17-59); Bilirubin,Total 0.3 mg/dL (0.2-1.3); Blood Urea Nitrogen 22 mg/dL (9-20); Calcium 9.7 mg/dL (8.4-10.2); Carbon Dioxide 28 mmol/L (22-30); Chloride 101 mmol/L (98-107); Estimated CRCL calculation 54 ml/min; Estimated Glomerular Filt Rate 53; Glucose 245 mg/dL (75-110); Potassium 4.8 mmol/L (3.4-5.0); Sodium 138 mmol/L (137-145)
[2020-05-09 19:30] LABS: NT Pro B Type Natriuretic Pept 3100 PG/ML (5-100); Troponin I 0.085 ng/mL (0.000-0.034)
== END 2020-05-09 19:29 | disposition left against medical advice (07) ==
PROVIDERS: Emergency Provider Emergency Medicine
DX: J44.9 Chronic obstructive pulmonary disease, unspecified (principal); J96.21 Acute and chronic respiratory failure with hypoxia; J96.22 Acute and chronic respiratory failure with hypercapnia; J44.1 Chronic obstructive pulmonary disease with (acute) exacerbation; I25.10 Atherosclerotic heart disease of native coronary artery without angina pectoris; I10 Essential (primary) hypertension; E03.9 Hypothyroidism, unspecified; I25.2 Old myocardial infarction; I48.19 Other persistent atrial fibrillation; E11.9 Type 2 diabetes mellitus without complications; F20.9 Schizophrenia, unspecified; F32.9 Major depressive disorder, single episode, unspecified; Z86.73 Personal history of transient ischemic attack (TIA), and cerebral infarction without residual deficits; Z95.0 Presence of cardiac pacemaker; Z79.01 Long term (current) use of anticoagulants; Z79.82 Long term (current) use of aspirin; Z95.5 Presence of coronary angioplasty implant and graft; Z94.0 Kidney transplant status; Z87.891 Personal history of nicotine dependence
CPT/HCPCS: 36415; 36600; 71045; 80053; 82805; 83880; 84484; 85025; 93005; 94002; 96374; 99284; J2930

== ENCOUNTER 2020-06-03 02:35 | Inpatient (IN) | payer MEDICARE, MEDICAID, SELFPAY ==
[2020-06-03] VITALS (26 sets, daily range): BP systolic 109–163; BP diastolic 58–113; PULSE 60–170; RESP 16–33; TEMP 35.5–36.7; O2SAT 96–100; BMI 32.2
--- NOTE | ~2020-06-03 | XR_ITS ---
XR chest 1V portable DATE: 06/03/2020 03:29 INDICATION: Shortness of breath TECHNIQUE: Portable AP chest on 06/03/2020 at 0256 hours COMPARISON: 05/09/2020 portable AP chest at 1824 hours FINDINGS: Moderate bilateral hyperinflation. No pulmonary infiltrate or consolidation, pleural effusi on or pulmonary vascular congestion or pneumothorax. Normal heart size. There is a left-sided pacemak er device with leads overlying right atrium and right ventricle. There is aortic arch calcification. No hilar or mediastinal enlargement. Included skeletal structures are unremarkable. IMPRESSION: Moderate bilateral hyperinflation; no active cardiopulmonary disease Aortic atherosclerosis Dual-lead left-sided pacemaker device again noted Reviewed, dictated and finalized at location A. IMPRESSION: Moderate bilateral hyperinflation; no active cardiopulmonary diseas e Aortic atherosclerosis Dual-lead left-sided pacemaker device again noted
--- NOTE | 2020-06-03 02:35 | PC.NURSE ---
pt mad we had to turn the light on. pt yelled HEY . pt wants to be moved to a different room, explained we would not be able to do that at this time. gave pt an updated eta
[2020-06-03] MEDS: IPRATROPIUM BR 0.02% INH SOLN 0.5 MG/2.5 ML VIAL INHALATION (02:50)
[2020-06-03] MEDS: ALBUTEROL SULFATE NEB 2.5 MG/0.5 ML INH 10 MG INHALATION (02:50)
--- NOTE | 2020-06-03 03:34 | ECG_ITS ---
Measurements Intervals [place] Rate: 76 P: [place]: 0 QRS: 270 QRSD: 194 T: 97 QT: 464 QTc: 525 Interpretive Statements ELECTRONIC VENTRICULAR PACEMAKER FREQUENT VENTRICULAR PREMATURE COMPLEX UNDERLYING ATRIAL FLUTTER/TACHYCARDIA BASELINE ARTIFACT- I, AVL NO FURTHER INTERPRETATION IS POSSIBLE ABNORMAL ECG Electronically Signed On 06-03-2020 7:59:30 CDT by Eliu Thompson D.O.
[2020-06-03 03:51] LABS: Basophils Absolute Auto 0.1 K/mm3 (0.0-0.1); Basophils Percent Auto 0.4 % (0.2-1.2); Eosinophils Absolute Auto 0.3 K/mm3 (0-0.3); Eosinophils Percent Auto 1.7 % (0-4.4); Hemoglobin 15.8 g/dL (14.0-18.0); Immature Granulocyte Absolute 0.08 K/mm3 (0.00-0.031); Immature Granulocyte Percent A 0.5 % (0-0.5); Lymphocytes Absolute Auto 1.74 K/mm3 (0.9-3.2); Lymphocytes Percent Auto 10.6 % (18.3-44.2); Mean Corpuscular HGB Conc 31.6 g/dl (32-36); Mean Corpuscular Hemoglobin 31.8 pg (26-34); Mean Corpuscular Volume 100.6 fl (80-100); Mean Platelet Volume 9.4 fl (7.4-10.4); Monocytes Absolute Auto 1.7 K/mm3 (0.1-0.6); Monocytes Percent Auto 10.5 % (2.6-8.5); Neutrophils Absolute Auto 12.5 K/mm3 (1.3-6.7); Neutrophils Percent Auto 76.3 % (45.5-73.1); Platelet Count Result 207 k/mm3 (150-375); Red Blood Count 4.97 M/mm3 (4.6-6.20); Red Cell Distribution Width 13.2 % (11.5-14.5); White Blood Count 16.4 K/mm3 (4.5-10.0)
[2020-06-03 03:54] LABS: Alanine Aminotransferase 20 U/L (4-50); Albumin Level 4.8 g/dL (3.5-5.1); Alkaline Phosphatase 87 U/L (38-126); Aspartate Amino Transferase 36 U/L (17-59); Bilirubin,Total 0.7 mg/dL (0.2-1.3); Blood Urea Nitrogen 21 mg/dL (9-20); Calcium 10.7 mg/dL (8.4-10.2); Carbon Dioxide 21 mmol/L (22-30); Chloride 103 mmol/L (98-107); Estimated Glomerular Filt Rate 57; Glucose 245 mg/dL (75-110); NT Pro B Type Natriuretic Pept 2320 PG/ML (5-100); Potassium 4.3 mmol/L (3.4-5.0); Sodium 138 mmol/L (137-145)
--- NOTE | 2020-06-03 04:16 | ED.SOB ---
HPI - SOB/Dyspnea General Chief Complaint: Shortness of Breath/Dyspnea History of Present Illness HPI Narrative: Patient is a 54-year-old male who presents the ER with sudden onset shortness of breath. Picked up by EMS. Placed on CPAP and given Decadron and magnesium IV. Patient is denying any chest pain or chest pressure. He is much more comfortable on the BiPAP. He has had no infectious prodrome. Cannot describe aggravating factors. Related Data Home Medications Medication Instructions Recorded Confirmed Anoro Ellipta 1 inh INHALATION DAILY 02/12/20 04/27/20 Invokana 100 mg PO DAILY 02/12/20 04/27/20 Tradjenta 5 mg PO DAILY 02/12/20 04/27/20 Invokana 100 mg PO DAILY 02/22/20 04/27/20 albuterol sulfate [ProAir HFA] 2 puff INHALATION Q4H PRN 02/22/20 04/27/20 aripiprazole [Abilify] 15 mg PO DAILY 02/22/20 04/27/20 aspirin [Aspir-81] 81 mg PO DAILY 02/22/20 04/27/20 carvedilol [Coreg] 12.5 mg PO BID 02/22/20 04/27/20 cholecalciferol (vitamin D3) 50 mcg PO DAILY 02/22/20 04/27/20 [Vitamin D3] docusate sodium 100 mg PO DAILY 02/22/20 04/27/20 doxepin 10 mg PO HS 02/22/20 04/27/20 levothyroxine 25 mcg PO DAILY 02/22/20 04/27/20 mycophenolate sodium [Myfortic] 360 mg PO BID 02/22/20 04/27/20 pravastatin 40 mg PO DAILY 02/22/20 04/27/20 prednisone 5 mg PO DAILY 02/22/20 04/27/20 tacrolimus 3 mg PO BID 02/22/20 04/27/20 warfarin [Jantoven] 2 mg PO DAILY 02/22/20 04/27/20 Allergies Allergy/AdvReac Type Severity Reaction Status Date / Time No Known Allergies Allergy Verified 05/09/20 17:20 Review of Systems Review of Systems: All systems reviewed & are unremarkable except as noted in HPI and below Constitutional: Constitutional: Denies chills, Denies fever(s) and Denies weakness ENT: Denies nasal congestion and Denies sore throat Respiratory: Respiratory: Reports chest congestion, Denies cough and Reports dyspnea Gastrointestinal: Gastrointestinal: Denies abdominal pain, Denies nausea and Denies vomiting PMFSH Social History Social History Social History: Patient would like to be a full code and his POA is his father relay. He sees Dr. Lyman at [facility] as his primary care doctor. He quit smoking 3 days ago but before that was smoking about a pack per month. He does not drink alcohol. He is on disability for schizophrenia. Smoking status: Former smoker Tobacco type: cigarettes Alcohol intake: never Substance use: never Gender identity (if verbalized by the patient): Male Spiritual care concerns: No Agree to blood products: Yes Exam Narrative: Exam Narrative: GENERAL: Chronically ill-appearing, well-nourished, and in mild distress. HEAD: Normocephalic, atraumatic. ENT: Mucous membranes moist. CHEST: Clear to auscultation. No respiratory distress. HEART: Regular rate and rhythm. Normal peripheral pulses. ABDOMEN: Soft, nontender, nondistended. EXTREMITIES: Normal range of motion. No edema. SKIN: Warm, dry, no rash. NEURO: Alert and oriented x3. Course Vital Signs Vital signs: Vital Signs Temperature 98.1 F 06/03/20 02:35 Pulse Rate 86 06/03/20 02:35 Respiratory Rate 33 H 06/03/20 02:35 Blood Pressure 163/113 H 06/03/20 02:35 Pulse Oximetry 97 06/03/20 02:35 Temperature 98.1 F 06/03/20 02:35 Pulse Rate 66 06/03/20 04:34 Respiratory Rate 25 H 06/03/20 04:34 Blood Pressure 110/58 L 06/03/20 04:34 Pulse Oximetry 100 06/03/20 04:34 MDM - SOB/Dyspnea Lab Data Result diagrams: 06/03/20 02:30 06/03/20 02:30 Labs: Lab Results 06/03/20 06/03/20 Range/Units 02:30 02:30 WBC 16.4 H (4.5-10.0) K/mm3 RBC 4.97 (4.6-6.20) M/mm3 Hgb 15.8 (14.0-18.0) g/dL Hct 50.0 (42.0-52.0) % MCV 100.6 H (80-100) fl MCH 31.8 (26-34) pg MCHC 31.6 L (32-36) g/dl RDW 13.2 (11.5-14.5) % Plt Count 207 (150-375) k/mm3 MPV 9.4 (7.4-10.4) fl I
[2020-06-03] MEDS: FUROSEMIDE INJ 40 MG/4 ML VIAL IV PUSH ×2 (05:02→18:49)
--- NOTE | 2020-06-03 05:06 | PM.IMHP ---
H&P: HPI History of Present Illness Chief complaint: chf exacerbation Narrative: This is a 54 year old Diabetic male with known Chronic Respiratory failure, CAD, persistent atrial fibrillation with a pacemaker, kidney transplant , schizophrenia, Hypothyroidsm who presented to the hospital with sudden onset of shortness of breath that started this evening. He was found to be in respiratory distress by EMS and was placed on CPAP and given Decadron and Magnesium IV. On arrival to the ER the patient was transitioned to a Bipap and denies any other symptoms including fever, cough, chest pain, abdominal pain, nausea, vomiting, dysuria, or LE swelling. He states his symptoms started abruptly this evening. Routine labs were obtained which demonstrated mild leukocytosis. His BNP was elevated but now nearly as high as it has been in the past when he has had a CHF exacerbation. CXR demonstrated pulmonary congestion but no signficiant pulmonary edema. We have been asked to admit the patient to the hospital for his acute respiratory failure. Review of Systems Review of Systems: All systems reviewed & are unremarkable except as noted in HPI and below PMFSH Past Medical History Medical History COPD (chronic obstructive pulmonary disease) Coronary artery disease Depression HTN (hypertension) with goal to be determined Hypertension Hypothyroid Immunosuppressed status Myocardial infarction Pacemaker Persistent atrial fibrillation Schizophrenia T2DM (type 2 diabetes mellitus) TIA (transient ischemic attack) Surgical History Surgical History Kidney transplant recipient Renal transplant recipient S/P coronary artery stent placement Family History Family History Mother Cancer Social History Social History Social History: Patient would like to be a full code and his POA is his father relay. [facility]. He quit smoking 3 days ago but before that was smoking about a pack per month. He does not drink alcohol. He is on disability for schizophrenia. Smoking status: Former smoker Tobacco type: cigarettes Alcohol intake: never Substance use: never Gender identity (if verbalized by the patient): Male Spiritual care concerns: No Agree to blood products: Yes Meds Home Medications and Allergies Home Medications Medication Instructions Recorded Confirmed Type Anoro Ellipta 1 inh INHALATION DAILY 02/12/20 04/27/20 History Invokana 100 mg PO DAILY 02/12/20 04/27/20 History Tradjenta 5 mg PO DAILY 02/12/20 04/27/20 History Invokana 100 mg PO DAILY 02/22/20 04/27/20 History albuterol sulfate [ProAir HFA] 2 puff INHALATION Q4H PRN 02/22/20 04/27/20 History aripiprazole [Abilify] 15 mg PO DAILY 02/22/20 04/27/20 History aspirin [Aspir-81] 81 mg PO DAILY 02/22/20 04/27/20 History carvedilol [Coreg] 12.5 mg PO BID 02/22/20 04/27/20 History cholecalciferol (vitamin D3) 50 mcg PO DAILY 02/22/20 04/27/20 History [Vitamin D3] docusate sodium 100 mg PO DAILY 02/22/20 04/27/20 History doxepin 10 mg PO HS 02/22/20 04/27/20 History levothyroxine 25 mcg PO DAILY 02/22/20 04/27/20 History mycophenolate sodium [Myfortic] 360 mg PO BID 02/22/20 04/27/20 History pravastatin 40 mg PO DAILY 02/22/20 04/27/20 History prednisone 5 mg PO DAILY 02/22/20 04/27/20 History tacrolimus 3 mg PO BID 02/22/20 04/27/20 History warfarin [Jantoven] 2 mg PO DAILY 02/22/20 04/27/20 History levofloxacin [Levaquin] 750 mg PO DAILY #4 tablet 05/03/20 Rx pantoprazole 40 mg PO QAM #30 tablet 05/03/20 Rx silver [Silver-Sept] 1 applic TOPICAL DAILY #60 g 05/03/20 Rx spironolactone 25 mg PO QAM #30 tablet 05/03/20 Rx Allergies Allergy/AdvReac Type Severity Reaction Status Date / Time No Known
--- NOTE | 2020-06-03 05:16 | ECG_ITS ---
Measurements Intervals [place] Rate: 67 P: 229 GA: 90 QRS: -85 QRSD: 205 T: 90 QT: 541 QTc: 574 Interpretive Statements ELECTRONIC VENTRICULAR PACEMAKER VENTRICULAR PREMATURE COMPLEXES UNDERLYING ATRIAL FLUTTER/TACHYCARDIA NO FURTHER INTERPRETATION IS POSSIBLE ABNORMAL ECG Electronically Signed On 06-03-2020 8:00:39 CDT by Eliu Thompson D.O.
--- NOTE | 2020-06-03 05:55 | PC.NURSE ---
heber capellan-father [id number]
[2020-06-03 06:25] LABS: HCO3 ABG 20.4 mEq/l (22.0-26.0); PCO2 ABG 43.2 mmHg (35.0-45.0); pH ABG 7.293 (7.350-7.450)
[2020-06-03 06:26] LABS: Base Excess ABG 5.9 mEq/l (+/-2.0); Oxygen Saturation ABG 99.2 % (95.0-100.0)
[2020-06-03 06:27] LABS: Alveolar/Arterial O2 Gradient 76.7 mmHg; Total Hemoglobin 14.7 g/dL (12.0-18.0)
[2020-06-03 06:28] LABS: Fractional Inspired Oxygen 45 %; Oxygen Content ABG 20.5 %vol (16.0-22.0); Oxyhemoglobin 97.4 % THb (90.0-100.0); PO2 FiO2 Ratio Arterial Blood 4.33 %; Site Drawn RIGHT BRACHIAL
[2020-06-03 06:29] LABS: Device BIPAP; Expiratory Pressure 6 cmH2O; Inspiratory Pressure 12 cmH2O
[2020-06-03] MEDS: methylPREDNISolone SOD SUCC 125 MG VIAL 60 MG IV PUSH ×3 (06:31→18:49)
--- NOTE | 2020-06-03 06:37 | ADMGEN ---
This patient, Bob Alfaro, was admitted to IMU Room 203-01 on 06/03/20 at 0618. Patient/family oriented to hospital policies and general routines including ID bracelet, bed and alarms, visiting hours, pain management, procedures, bathroom and other care routines, personal items, smoking policy, room service/diet, and visiting hours. Valuables list has been completed. Information on how to activate the Rapid Response Team has been discussed. Patient/Family are encouraged to report perceived risks to care and to ask questions if they do not understand what they are told or what they should do.
[2020-06-03 07:35] LABS: INR 1.6
[2020-06-03 07:56] LABS: Alveolar/Arterial O2 Gradient 199.2 mmHg; Base Excess ABG -8.1 mEq/l (+/-2.0); Carboxyhemoglobin 1.6 % THb (0-2.0); Device NON-INVASIVE VENT; Fractional Inspired Oxygen 45 %; HCO3 ABG 20.7 mEq/l (22.0-26.0); Methemoglobin ABG 0.2 %THb (0-1.5); Modified Allen's Test Pass; Oxygen Content ABG 21.4 %vol (16.0-22.0); Oxygen Saturation ABG 98.7 % (95.0-100.0); Oxyhemoglobin 96.8 % THb (90.0-100.0); PCO2 ABG 55.7 mmHg (35.0-45.0); PO2 ABG 167.3 mmHg (80.0-100.0); PO2 FiO2 Ratio Arterial Blood 2.79 %; Reduced Hemoglobin 1.4 %THb (0-5.0); Site Drawn RIGHT RADIAL; Total Hemoglobin 15.5 g/dL (12.0-18.0); pH ABG 7.189 (7.350-7.450)
[2020-06-03 07:58] LABS: Non-Invasive Expiratory Pressure 6 CMH2O; Non-Invasive Inspiratory Pressure 12 CMH2O; Non-Invasive Vent Rate 14 /MIN
[2020-06-03] MEDS: ALBUTEROL SULFATE NEB 2.5 MG/0.5 ML INH 5 MG INHALATION ×3 (08:43→20:06)
[2020-06-03 09:11] LABS: Glucose Point of Care 176 (65-105)
[2020-06-03] MEDS: INSULIN ASPART (*BKC) 100 UNITS/ML SUB-Q (13:12)
[2020-06-03 13:13] LABS: Glucose Point of Care 282 (65-105)
--- NOTE | 2020-06-03 15:22 | PM.IMPN ---
Progress Note: A&P Assessment and Plan (1) Acute respiratory failure: Qualifiers: Respiratory failure complication: unspecified whether with hypoxia or hypercapnia Qualified Code(s): J96.00 - Acute respiratory failure, unspecified whether with hypoxia or hypercapnia Code(s): J96.00 - Acute respiratory failure, unspecified whether with hypoxia or hypercapnia Status: Acute Assessment and Plan: Continue treatment for COPD exacerbation. HOme tomorrow (2) COPD exacerbation: Code(s): J44.1 - Chronic obstructive pulmonary disease with (acute) exacerbation Status: Acute Assessment and Plan: Continue steroid therapy, Bronchodilators. (3) Leukocytosis: Qualifiers: Leukocytosis type: unspecified Qualified Code(s): D72.829 - Elevated white blood cell count, unspecified Code(s): D72.829 - Elevated white blood cell count, unspecified Status: Acute Assessment and Plan: May be secondary to acute COPD exacerbation vs. steroids (4) Kidney transplant recipient: Code(s): Z94.0 - Kidney transplant status Status: Chronic Assessment and Plan: Resume home immunosuppresants. (5) Persistent atrial fibrillation: Code(s): I48.19 - Other persistent atrial fibrillation Status: Chronic Assessment and Plan: Rate controlled. Check EKG. Continue Coreg and Coumadin. Check PT/PTT/INR (6) Hypothyroid: Qualifiers: Hypothyroidism type: unspecified Qualified Code(s): E03.9 - Hypothyroidism, unspecified Code(s): E03.9 - Hypothyroidism, unspecified Status: Chronic Assessment and Plan: Continue Levothyroxine PO. (7) T2DM (type 2 diabetes mellitus): Qualifiers: Diabetes mellitus termite control technician insulin use: without alf use Diabetes mellitus complication status: without complication Qualified Code(s): E11.9 - Type 2 diabetes mellitus without complications Code(s): E11.9 - Type 2 diabetes mellitus without complications Status: Chronic Assessment and Plan: Accuchecks, SSI Coverage, Hypoglycemic protocol. (8) HTN (hypertension) with goal to be determined: Code(s): I10 - Essential (primary) hypertension Status: Chronic Assessment and Plan: stable. Monitor blood pressure. Resume home antihypertensives in am. (9) Schizophrenia: Qualifiers: Schizophrenia type: other Qualified Code(s): F20.89 - Other schizophrenia Code(s): F20.9 - Schizophrenia, unspecified Status: Chronic Assessment and Plan: Continue abilify. Subjective Date/time seen: 06/03/20 15:22 Interval history: Pt admitted last night with SOB, pt has history of Chronic Respiratory failure, CAD, persistent atrial fibrillation with a pacemaker, kidney transplant , schizophrenia, Hypothyroidsm who presented to the hospital with sudden onset of shortness of breath that started this evening. Needing Bipap last night , continue to watch today and hopeful dischrage tomorrow. Review of Systems Review of Systems: All systems reviewed & are unremarkable except as noted in HPI and below Respiratory: Respiratory: Reports dyspnea and Reports wheezing Exam Const: General: tired appearing Resp: Effort & Inspection: other (Stable on oxygen ) Auscultation: diminished lung sounds Cardio: Rate: regular rate Rhythm: regular rhythm Heart sounds: no murmurs GI: Inspection: normal to inspection Auscultation: normal bowel sounds Skin: General skin exam: normal color and no rashes or lesions noted Neuro: General: patient oriented x3 Cranial nerves: Yes CN's II-XII intact bilaterally and Yes Equal, round and reactive pupils present Speech: normal speech Motor exam (neuro): 5/5 motor strength present throughout Sensory Exam: normal sensation Extrem: General: normal to inspection and no edema Objective Data Vital Signs Vital Signs: Vital Signs - 24 hr 06/03/20
[2020-06-03 16:22] LABS: INR 1.8
[2020-06-03 17:36] LABS: Glucose Point of Care 196 (65-105)
[2020-06-03 20:37] LABS: Glucose Point of Care 307 (65-105)
--- NOTE | 2020-06-03 23:42 | PC.NURSE ---
This patient, Bob Alfaro, was transferred to [facility] on 06/03/20 at 2343 via wheelchair. Personal belongings sent with patient. Belongings list checked and signed with receiving RN. Report given to Haleigh BROWN. Appropriate documentation sent with patient.
[2020-06-04] VITALS (9 sets, daily range): BP systolic 112–138; BP diastolic 69–78; PULSE 59–73; RESP 16–24; TEMP 36.1–36.6; O2SAT 97–100
[2020-06-04] MEDS: methylPREDNISolone SOD SUCC 125 MG VIAL 60 MG IV PUSH ×3 (00:06→12:05)
[2020-06-04] MEDS: ALBUTEROL SULFATE NEB 2.5 MG/0.5 ML INH 5 MG INHALATION (01:02)
[2020-06-04 05:44] LABS: Hematocrit 43.6 % (42.0-52.0); Hemoglobin 13.9 g/dL (14.0-18.0); Mean Corpuscular HGB Conc 31.9 g/dl (32-36); Mean Corpuscular Volume 100.2 fl (80-100); Mean Platelet Volume 10.3 fl (7.4-10.4); Platelet Count Result 160 k/mm3 (150-375); Red Blood Count 4.35 M/mm3 (4.6-6.20); Red Cell Distribution Width 13.2 % (11.5-14.5)
[2020-06-04 05:54] LABS: Blood Urea Nitrogen 34 mg/dL (9-20); Calcium 10.5 mg/dL (8.4-10.2); Carbon Dioxide 26 mmol/L (22-30); Chloride 100 mmol/L (98-107); Estimated CRCL calculation 67 ml/min; Estimated Glomerular Filt Rate 57; Glucose 260 mg/dL (75-110); Potassium 4.4 mmol/L (3.4-5.0); Sodium 135 mmol/L (137-145)
[2020-06-04] MEDS: FUROSEMIDE INJ 40 MG/4 ML VIAL IV PUSH (06:08)
[2020-06-04 06:21] LABS: Lymphocytes Absolute Manual 0.39 K/mm3 (1.1-4.5); Monocytes Absolute Manual 0.26 K/mm3 (0.1-0.90); Monocytes Percent Manual 2 % (3-9); Neutrophils Percent Manual 95 % (46-73); Platelet Estimate Adequate (Adequate); Total Cells Counted 100
[2020-06-04 06:22] LABS: Hypochromasia 2+ (NORMAL)
[2020-06-04 06:23] LABS: Stomatocytes 1+ (NORMAL)
[2020-06-04 08:15] LABS: Glucose Point of Care 233 (65-105)
[2020-06-04] MEDS: INSULIN ASPART (*BKC) 100 UNITS/ML SUB-Q ×2 (08:15→12:05)
--- NOTE | 2020-06-04 08:26 | PCRCNOTE ---
pt refused neb tx/will call if he feels he needs it
[2020-06-04] MEDS: ACETAMINOPHEN 325 MG TABLET 650 MG PO (12:13)
--- NOTE | 2020-06-04 13:12 | PCRCNOTE ---
pt refused/going home
--- NOTE | 2020-06-04 15:07 | PM.DS ---
DS: Admitting Diagnosis Admitting Diagnosis Admitting Diagnosis: Acute respiratory failure, unspecified whether with hypoxia or hypercapnia DS: Discharge Diagnosis Discharge Diagnosis (1) Acute respiratory failure: Qualifiers: Respiratory failure complication: unspecified whether with hypoxia or hypercapnia Qualified Code(s): J96.00 - Acute respiratory failure, unspecified whether with hypoxia or hypercapnia Code(s): J96.00 - Acute respiratory failure, unspecified whether with hypoxia or hypercapnia Status: Acute Assessment and Plan: Continue treatment for COPD exacerbation. Home today, taper off steroids then back to regular dose of prednisone daily. Pt also received iv lasix few doses while in the hospital, but likely COPD excerbation. (2) COPD exacerbation: Code(s): J44.1 - Chronic obstructive pulmonary disease with (acute) exacerbation Status: Acute Assessment and Plan: Continue steroid therapy, Bronchodilators. (3) Leukocytosis: Qualifiers: Leukocytosis type: unspecified Qualified Code(s): D72.829 - Elevated white blood cell count, unspecified Code(s): D72.829 - Elevated white blood cell count, unspecified Status: Acute Assessment and Plan: May be secondary to acute COPD exacerbation vs. steroids (4) Kidney transplant recipient: Code(s): Z94.0 - Kidney transplant status Status: Chronic Assessment and Plan: Resume home immunosuppresants. (5) Persistent atrial fibrillation: Code(s): I48.19 - Other persistent atrial fibrillation Status: Chronic Assessment and Plan: . Continue Coreg and Coumadin. (6) Hypothyroid: Qualifiers: Hypothyroidism type: unspecified Qualified Code(s): E03.9 - Hypothyroidism, unspecified Code(s): E03.9 - Hypothyroidism, unspecified Status: Chronic Assessment and Plan: Continue Levothyroxine PO. 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 While in the hospital. (8) HTN (hypertension) with goal to be determined: Code(s): I10 - Essential (primary) hypertension Status: Chronic Assessment and Plan: Stable. Monitor blood pressure. Resume home antihypertensives in am. (9) Schizophrenia: Qualifiers: Schizophrenia type: other Qualified Code(s): F20.89 - Other schizophrenia Code(s): F20.9 - Schizophrenia, unspecified Status: Chronic Assessment and Plan: Continue abilify. DS: Summary Time Spent with Patient Time attestation: Total time spent providing and/or coordinating discharge services:40 minutes on the day of discharge Exam Const: General: cooperative, alert and awake Nutritional Appearance: well nourished Orientation/consciousness: patient oriented x3 Neck: Neck: supple and no JVD Thyroid: thyroid normal Lymphatic: lymphadenopathy not noted Resp: Auscultation: clear to auscultation bilaterally Cardio: Rate: regular rate Rhythm: regular rhythm Heart sounds: no murmurs GI: Inspection: normal to inspection Auscultation: normal bowel sounds Skin: General skin exam: normal color and no rashes or lesions noted Neuro: General: patient oriented x3 Cranial nerves: Yes CN's II-XII intact bilaterally and Yes Equal, round and reactive pupils present Speech: normal speech Motor exam (neuro): 5/5 motor strength present throughout Sensory Exam: normal sensation Extrem: General: normal to inspection and no edema Psych: Mental Status: mental status grossly normal Affect: normal affect DS: [place]
[2020-06-04 16:46] LABS: Glucose Point of Care 229 (65-105)
== END 2020-06-04 13:50 | disposition home or self-care (01) | DRG 189 ==
LOC: ANHED 04:59 → ANHIMU 05:26 → ANH2MED 06-04 13:30 → ANHIMU 06-06 17:12
PROVIDERS: Admitting Provider Family Medicine; Emergency Provider Emergency Medicine; Visit Provider Family Medicine
DX: J96.20 Acute and chronic respiratory failure, unspecified whether with hypoxia or hypercapnia (principal); J44.1 Chronic obstructive pulmonary disease with (acute) exacerbation; Z94.0 Kidney transplant status; I50.9 Heart failure, unspecified; I48.19 Other persistent atrial fibrillation; E03.9 Hypothyroidism, unspecified; D72.829 Elevated white blood cell count, unspecified; E11.9 Type 2 diabetes mellitus without complications; F20.9 Schizophrenia, unspecified; I25.10 Atherosclerotic heart disease of native coronary artery without angina pectoris; Z95.0 Presence of cardiac pacemaker; I25.2 Old myocardial infarction; Z86.73 Personal history of transient ischemic attack (TIA), and cerebral infarction without residual deficits; F32.9 Major depressive disorder, single episode, unspecified; Z87.891 Personal history of nicotine dependence; I11.0 Hypertensive heart disease with heart failure
CPT/HCPCS: 36415; 36600; 71045; 80048; 80053; 82375; 82805; 83050; 83880; 85025; 85610; 85730; 93005; 94002; 94003; 94640; 96375; 99285; A9270; G0378; J1815; J1940; J2930

== ENCOUNTER 2020-06-30 21:16 | Inpatient (IN) | payer MEDICARE, MEDICAID, SELFPAY ==
[2020-06-30] VITALS (8 sets, daily range): BP systolic 105–171; BP diastolic 80–106; PULSE 60–88; RESP 20–30; TEMP 36.1; O2SAT 98–100
--- NOTE | ~2020-06-30 | XR_ITS ---
EXAMINATION: XR chest 1V portable EXAM DATE: 06/30/2020 22:10 INDICATION: Shortness of breath, low oxygen saturation. TECHNIQUE: Portable AP frontal chest x-ray was obtained. Comparison is made to prior examination from 06/03/2020. FINDINGS: There is indistinct right basilar reticulation, new compared to prior study. Likely develop ing edema or possibly nonconfluent pneumonia. Moderate chronic hyperinflation. There is a dual lead p acemaker/AICD seen with leads projecting over the expected locations of the right atrial appendage an d right ventricle. Cardiomediastinal silhouette is normal. IMPRESSION: Indistinct right basilar reticulation, likely developing edema or possibly pneumonia. Reviewed, dictated and finalized at location G.
--- NOTE | 2020-06-30 21:17 | ECG_ITS ---
Measurements Intervals [place] Rate: 64 P: [place]: 0 QRS: -89 QRSD: 205 T: 102 QT: 508 QTc: 524 Interpretive Statements ELECTRONIC VENTRICULAR PACEMAKER VENTRICULAR PREMATURE COMPLEX UNDERLYING ATRIAL FLUTTER/TACHYCARDIA BASELINE ARTIFACT- I, V2 NO FURTHER INTERPRETATION IS POSSIBLE ABNORMAL ECG Electronically Signed On 07-01-2020 10:50:54 CDT by Eliu Thompson D.O.
--- NOTE | 2020-06-30 21:21 | ED.SOB ---
HPI - SOB/Dyspnea General Chief Complaint: Shortness of Breath/Dyspnea Stated Complaint: sob History of Present Illness HPI Narrative: Brought in from home by EMS for respiratory distress. When EMS arrived his O2 saturation was in the 80s. He was placed on CPAP with some improvement in his condition. No Chest pain or fever. History limited by medical condition. Related Data Home Medications Medication Instructions Recorded Confirmed Anoro Ellipta 1 inh INHALATION DAILY 02/12/20 07/01/20 Invokana 100 mg PO DAILY 02/12/20 07/01/20 Tradjenta 5 mg PO DAILY 02/12/20 07/01/20 albuterol sulfate [ProAir HFA] 2 puff INHALATION Q4H PRN 02/22/20 07/01/20 aripiprazole [Abilify] 15 mg PO DAILY 02/22/20 07/01/20 aspirin [Aspir-81] 81 mg PO DAILY 02/22/20 07/01/20 carvedilol [Coreg] 12.5 mg PO BID 02/22/20 07/01/20 cholecalciferol (vitamin D3) 50 mcg PO DAILY 02/22/20 07/01/20 [Vitamin D3] docusate sodium 100 mg PO DAILY 02/22/20 07/01/20 doxepin 10 mg PO HS 02/22/20 07/01/20 levothyroxine 25 mcg PO DAILY 02/22/20 07/01/20 mycophenolate sodium [Myfortic] 360 mg PO BID 02/22/20 07/01/20 pravastatin 40 mg PO DAILY 02/22/20 07/01/20 tacrolimus 3 mg PO BID 02/22/20 07/01/20 Allergies Allergy/AdvReac Type Severity Reaction Status Date / Time No Known Allergies Allergy Verified 06/03/20 07:19 Review of Systems Review of Systems: ROS unobtainable: Yes unobtainable due to medical condition Constitutional: Constitutional: Denies fever(s) Cardiovascular: Cardiovascular: Denies chest pain Respiratory: Respiratory: Reports dyspnea PMFSH Past Medical History Medical History COPD (chronic obstructive pulmonary disease) Coronary artery disease Depression HTN (hypertension) with goal to be determined Hypertension Hypothyroid Immunosuppressed status Myocardial infarction Pacemaker Persistent atrial fibrillation Schizophrenia T2DM (type 2 diabetes mellitus) TIA (transient ischemic attack) Surgical History Surgical History Kidney transplant recipient Renal transplant recipient S/P coronary artery stent placement Family History Family History Mother Cancer Social History Social History Social History: Patient would like to be a full code and his POA is his father relay. He sees Dr. Lyman at [facility] as his primary care doctor. He quit smoking 3 days ago but before that was smoking about a pack per month. He does not drink alcohol. He is on disability for schizophrenia. Years smoked: 15 Smoking status: Former smoker Tobacco type: cigarettes Additional smoking assessment comments: Pt states he smokes about 1 pack per month Alcohol intake: never Substance use: current Substance use type: marijuana Gender identity (if verbalized by the patient): Male Spiritual care concerns: No Agree to blood products: Yes Exam Const: General: alert and ill appearing Other: mild distress, diaphoretic HENMT: Head: normal to inspection Chest: Chest palpation & inspection: normal inspection of the chest Resp: Effort & Inspection: labored and tachypneic Auscultation: diminished lung sounds Cardio: Rate: regular rate GI: GI Palp: Yes Soft to palpation and No Tenderness to palpation present (GI) Skin: General skin exam: normal color Other: diaphoretic Neuro: General: patient oriented x3 and CN's II-XI intact bilaterally Course Vital Signs Vital signs: Vital Signs Temperature 36.1 C L 06/30/20 21:12 Pulse Rate 88 06/30/20 21:12 Respiratory Rate 30 H 06/30/20 21:12 Blood Pressure 171/106 H 06/30/20 21:12 Pulse Oximetry 99 06/30/20 21:12 Temperature 36.3 C L 07/02/20 06:00 Pulse Rate 103 H 07/02/20 12:00 Respiratory Rate 16 07/02/20 06:00 Blood P
[2020-06-30] MEDS: ALBUTEROL SULFATE NEB 2.5 MG/0.5 ML INH 10 MG INHALATION (21:36)
[2020-06-30] MEDS: IPRATROPIUM BR 0.02% INH SOLN 0.5 MG/2.5 ML VIAL 1 MG INHALATION (21:37)
[2020-06-30 21:55] LABS: Alveolar/Arterial O2 Gradient 133.3 mmHg; Base Excess ABG -5.3 mEq/l (+/-2.0); Fractional Inspired Oxygen 40 %; HCO3 ABG 20.8 mEq/l (22.0-26.0); Oxygen Content ABG 21.4 %vol (16.0-22.0); Oxygen Saturation ABG 97.3 % (95.0-100.0); Oxyhemoglobin 95.5 % THb (90.0-100.0); PCO2 ABG 42.2 mmHg (35.0-45.0); PO2 ABG 103.4 mmHg (80.0-100.0); PO2 FiO2 Ratio Arterial Blood 2.59 %; Total Hemoglobin 15.9 g/dL (12.0-18.0)
[2020-06-30 22:06] LABS: Basophils Absolute Auto 0.1 K/mm3 (0.0-0.1); Basophils Percent Auto 0.5 % (0.2-1.2); Eosinophils Absolute Auto 0.1 K/mm3 (0-0.3); Hematocrit 55.1 % (42.0-52.0); Hemoglobin 17.2 g/dL (14.0-18.0); Immature Granulocyte Absolute 0.11 K/mm3 (0.00-0.031); Lymphocytes Absolute Auto 0.96 K/mm3 (0.9-3.2); Lymphocytes Percent Auto 8.4 % (18.3-44.2); Mean Corpuscular HGB Conc 31.2 g/dl (32-36); Mean Corpuscular Hemoglobin 31.4 pg (26-34); Mean Corpuscular Volume 100.7 fl (80-100); Mean Platelet Volume 9.7 fl (7.4-10.4); Monocytes Absolute Auto 1.2 K/mm3 (0.1-0.6); Monocytes Percent Auto 10.1 % (2.6-8.5); Platelet Count Result 198 k/mm3 (150-375); Red Blood Count 5.47 M/mm3 (4.6-6.20); Red Cell Distribution Width 13.3 % (11.5-14.5); White Blood Count 11.4 K/mm3 (4.5-10.0)
[2020-06-30 22:16] LABS: INR 1.2; Prothrombin Time 15.2 Seconds (11.1-14.7)
[2020-06-30 22:17] LABS: Partial Thromboplastin Time 24.6 SECONDS (22.3-36.8)
[2020-06-30 22:18] LABS: Alanine Aminotransferase 54 U/L (4-50); Albumin Level 4.8 g/dL (3.5-5.1); Alkaline Phosphatase 149 U/L (38-126); Anion Gap 13 mmol/L (8-16); Aspartate Amino Transferase 80 U/L (17-59); Bilirubin,Total 0.7 mg/dL (0.2-1.3); Blood Urea Nitrogen 25 mg/dL (9-20); Calcium 10.8 mg/dL (8.4-10.2); Carbon Dioxide 23 mmol/L (22-30); Chloride 101 mmol/L (98-107); Estimated Glomerular Filt Rate 48; Glucose 244 mg/dL (75-110); Potassium 5.8 mmol/L (3.4-5.0); Sodium 137 mmol/L (137-145)
[2020-06-30 22:27] LABS: Modified Allen's Test Pass; Site Drawn RIGHT RADIAL
[2020-06-30 22:28] LABS: Device NON-INVASIVE VENT
[2020-06-30 22:29] LABS: Non-Invasive Expiratory Pressure 5 CMH2O; Non-Invasive Inspiratory Pressure 15 CMH2O; Non-Invasive Vent Rate 20 /MIN
[2020-06-30 22:30] LABS: NT Pro B Type Natriuretic Pept 1020 PG/ML (5-100); Troponin I < 0.012 ng/mL (0.000-0.034)
--- NOTE | 2020-06-30 23:15 | PM.IMHP ---
H&P: HPI History of Present Illness Date/Time: 06/30/20 23:15 Chief complaint: Acute respiratory failure, COPD exacerbation Narrative: This is a 54 year old Diabetic male with known Chronic Respiratory failure, CAD, persistent atrial fibrillation with a pacemaker, kidney transplant , schizophrenia, Hypothyroidsm known to me from a recent admission one month ago who presented to the hospital with sudden onset of shortness of breath that started today. He was found to be in respiratory distress with low oxygen sats by EMS. On arrival to the ER the patient was placed on Bipap and denies any other symptoms including fever, cough, chest pain, abdominal pain, nausea, vomiting, dysuria, or LE swelling. His BNP was elevated but now nearly as high as it has been in the past when he has had a CHF exacerbation. CXR demonstrated developing pulmonary edema. We have been asked to admit the patient to the hospital for his acute respiratory failure. He has no other complaints. The patient admits that he continues to smoke cigarettes. Review of Systems Review of Systems: All systems reviewed & are unremarkable except as noted in HPI and below PMFSH Past Medical History Medical History COPD (chronic obstructive pulmonary disease) Coronary artery disease Depression HTN (hypertension) with goal to be determined Hypertension Hypothyroid Immunosuppressed status Myocardial infarction Pacemaker Persistent atrial fibrillation Schizophrenia T2DM (type 2 diabetes mellitus) TIA (transient ischemic attack) Surgical History Surgical History Kidney transplant recipient Renal transplant recipient S/P coronary artery stent placement Family History Family History Mother Cancer Social History Social History Social History: Patient would like to be a full code and his POA is his father relay. He sees Dr. Lyman at [facility] as his primary care doctor. He quit smoking 3 days ago but before that was smoking about a pack per month. He does not drink alcohol. He is on disability for schizophrenia. Years smoked: 15 Smoking status: Former smoker Tobacco type: cigarettes Additional smoking assessment comments: Pt states he smokes about 1 pack per month Alcohol intake: never Substance use: current Substance use type: marijuana Gender identity (if verbalized by the patient): Male Spiritual care concerns: No Agree to blood products: Yes Meds Home Medications and Allergies Home Medications Medication Instructions Recorded Confirmed Type Anoro Ellipta 1 inh INHALATION DAILY 02/12/20 07/01/20 History Invokana 100 mg PO DAILY 02/12/20 07/01/20 History Tradjenta 5 mg PO DAILY 02/12/20 07/01/20 History albuterol sulfate [ProAir HFA] 2 puff INHALATION Q4H PRN 02/22/20 07/01/20 History aripiprazole [Abilify] 15 mg PO DAILY 02/22/20 07/01/20 History aspirin [Aspir-81] 81 mg PO DAILY 02/22/20 07/01/20 History carvedilol [Coreg] 12.5 mg PO BID 02/22/20 07/01/20 History cholecalciferol (vitamin D3) 50 mcg PO DAILY 02/22/20 07/01/20 History [Vitamin D3] docusate sodium 100 mg PO DAILY 02/22/20 07/01/20 History doxepin 10 mg PO HS 02/22/20 07/01/20 History levothyroxine 25 mcg PO DAILY 02/22/20 07/01/20 History mycophenolate sodium [Myfortic] 360 mg PO BID 02/22/20 07/01/20 History pravastatin 40 mg PO DAILY 02/22/20 07/01/20 History tacrolimus 3 mg PO BID 02/22/20 07/01/20 History warfarin [Jantoven] 2 mg PO DAILY 02/22/20 07/01/20 History Silver-Sept 1 applic TOPICAL DAILY #60 g 05/03/20 07/01/20 Rx pantoprazole 40 mg PO QAM #30 tablet 05/03/20 07/01/20 Rx spironolactone 25 mg PO QAM #30 tablet 05/03/20 07/01/20 Rx prednisone 5 mg PO DAILY #0 tablet 06/04/20 07/01/20 Rx Allergies Allergy/AdvReac Type Severity Re
[2020-07-01] VITALS (18 sets, daily range): BP systolic 105–121; BP diastolic 66–93; PULSE 20–79; RESP 16–26; TEMP 36.2–36.8; O2SAT 60–100; BMI 22.7
--- NOTE | 2020-07-01 00:18 | ADMGEN ---
This patient, Bob Alfaro, was admitted to IMU Room 211-01. Patient/family oriented to hospital policies and general routines including ID bracelet, bed and alarms, visiting hours, pain management, procedures, bathroom and other care routines, personal items, smoking policy, room service/diet, and visiting hours. Valuables list has been completed. Information on how to activate the Rapid Response Team has been discussed. Patient/Family are encouraged to report perceived risks to care and to ask questions if they do not understand what they are told or what they should do.
[2020-07-01 02:18] LABS: Alveolar/Arterial O2 Gradient 44.1 mmHg; Base Excess ABG -3.8 mEq/l (+/-2.0); Fractional Inspired Oxygen 40 %; HCO3 ABG 21.6 mEq/l (22.0-26.0); Modified Allen's Test Pass; Oxygen Content ABG 21.8 %vol (16.0-22.0); Oxygen Saturation ABG 99.3 % (95.0-100.0); Oxyhemoglobin 97.8 % THb (90.0-100.0); PCO2 ABG 40.4 mmHg (35.0-45.0); PO2 ABG 194.6 mmHg (80.0-100.0); PO2 FiO2 Ratio Arterial Blood 4.87 %; Site Drawn LEFT RADIAL; Total Hemoglobin 15.6 g/dL (12.0-18.0); pH ABG 7.345 (7.350-7.450)
[2020-07-01 02:19] LABS: Device NON-INVASIVE VENT; Non-Invasive Expiratory Pressure 5 CMH2O; Non-Invasive Inspiratory Pressure 15 CMH2O; Non-Invasive Vent Rate 20 /MIN
[2020-07-01] MEDS: ENOXAPARIN 80 MG/0.8 ML SYRINGE 73 MG SUB-Q ×2 (02:29→09:04)
[2020-07-01 05:27] LABS: INR 1.4; Partial Thromboplastin Time 34.6 SECONDS (22.3-36.8); Prothrombin Time 16.8 Seconds (11.1-14.7)
[2020-07-01 05:28] LABS: Basophils Absolute Auto 0.1 K/mm3 (0.0-0.1); Basophils Percent Auto 0.6 % (0.2-1.2); Eosinophils Absolute Auto 0.1 K/mm3 (0-0.3); Eosinophils Percent Auto 1.4 % (0-4.4); Hematocrit 46.6 % (42.0-52.0); Hemoglobin 14.6 g/dL (14.0-18.0); Immature Granulocyte Absolute 0.05 K/mm3 (0.00-0.031); Immature Granulocyte Percent A 0.6 % (0-0.5); Lymphocytes Absolute Auto 1.67 K/mm3 (0.9-3.2); Lymphocytes Percent Auto 19.3 % (18.3-44.2); Mean Corpuscular HGB Conc 31.3 g/dl (32-36); Mean Corpuscular Hemoglobin 31.9 pg (26-34); Mean Corpuscular Volume 101.7 fl (80-100); Mean Platelet Volume 9.6 fl (7.4-10.4); Monocytes Absolute Auto 1.2 K/mm3 (0.1-0.6); Monocytes Percent Auto 14.3 % (2.6-8.5); Neutrophils Absolute Auto 5.5 K/mm3 (1.3-6.7); Neutrophils Percent Auto 63.8 % (45.5-73.1); Platelet Count Result 170 k/mm3 (150-375); Red Blood Count 4.58 M/mm3 (4.6-6.20); Red Cell Distribution Width 13.2 % (11.5-14.5); White Blood Count 8.7 K/mm3 (4.5-10.0)
[2020-07-01 05:39] LABS: Anion Gap 7 mmol/L (8-16); Blood Urea Nitrogen 26 mg/dL (9-20); Calcium 9.8 mg/dL (8.4-10.2); Carbon Dioxide 23 mmol/L (22-30); Chloride 105 mmol/L (98-107); Estimated CRCL calculation 54 ml/min; Estimated Glomerular Filt Rate 57; Glucose 142 mg/dL (75-110); Potassium 4.9 mmol/L (3.4-5.0); Sodium 135 mmol/L (137-145)
[2020-07-01] MEDS: CANAGLIFLOZIN 100 MG TABLET PO (06:39)
[2020-07-01] MEDS: LEVOTHYROXINE SODIUM 25 MCG TABLET PO (06:40)
[2020-07-01 08:51] LABS: Glucose Point of Care 109 (65-105)
[2020-07-01] MEDS: ALBUTEROL SULFATE (*SP) AEROSOL 1 PUFF 2 PUFF INHALATION ×3 (09:01→20:01)
[2020-07-01] MEDS: predniSONE 20 MG TABLET 60 MG PO (09:01)
[2020-07-01] MEDS: DOCUSATE SODIUM 100 MG CAPSULE PO (09:02)
[2020-07-01] MEDS: carvediloL 12.5 MG TABLET PO ×2 (09:02→17:30)
[2020-07-01] MEDS: CHOLECALCIFEROL 1,000 UNITS TABLET 2000 UNITS PO (09:02)
[2020-07-01] MEDS: PRAVASTATIN SODIUM 20 MG TABLET 40 MG PO (09:03)
[2020-07-01] MEDS: SPIRONOLACTONE 25 MG TABLET PO (09:03)
[2020-07-01] MEDS: ARIPiprazole 5 MG TABLET 15 MG PO (09:03)
[2020-07-01] MEDS: ASPIRIN 81 MG ENTERIC TABLET PO (09:03)
[2020-07-01] MEDS: PANTOPRAZOLE 40 MG TABLET PO (09:03)
[2020-07-01] MEDS: SILVERGEL (ELTA) 45 ML 1 APPLIC TOPICAL (09:04)
--- NOTE | 2020-07-01 09:28 | P.PNIM_ITS ---
Progress Note: A&P Assessment and Plan (1) Acute respiratory failure: Qualifiers: Respiratory failure complication: unspecified whether with hypoxia or hypercapnia Qualified Code(s): J96.00 - Acute respiratory failure, unspecified whether with hypoxia or hypercapnia Code(s): J96.00 - Acute respiratory failure, unspecified whether with hypoxia or hypercapnia Status: Acute Assessment and Plan: Suspect 2/2 COPD exacerbation. Improvement in respiratory status overnight. On 2L O2 NC now. * Treat COPD exacerbation noted below * RT assess and treat. * Wean O2 as tolerated * Monitor * Consider transfer to medical floor if continued improvement today or tomorrow (2) COPD exacerbation: Code(s): J44.1 - Chronic obstructive pulmonary disease with (acute) exacerbation Status: Acute Assessment and Plan: As noted above, seems to have clinical improvement * Continue IV antibiotics with doxycycline for severe COPD exacerbation. * Continue bronchodilators. * Steroid therapy. Consider weaning to 50 mg prednisone daily tomorrow (3) Subtherapeutic anticoagulation: Code(s): Z51.81 - Encounter for therapeutic drug level monitoring; Z79.01 - salvage determiner (current) use of anticoagulants Status: Acute Assessment and Plan: INR increased 1.4. For persistent a. Fib * Continue coumadin PO. Consider increasing * We will bridge with therapeutic Lovenox SC. * Monitor PT/INR. (4) Kidney transplant recipient: Code(s): Z94.0 - Kidney transplant status Status: Chronic Assessment and Plan: * Continue home meds. May use home meds (5) Hypothyroid: Qualifiers: Hypothyroidism type: unspecified Qualified Code(s): E03.9 - Hypothyroidism, unspecified Code(s): E03.9 - Hypothyroidism, unspecified Status: Chronic Assessment and Plan: * Continue levothyroxine. * Check TSH tomorrow (6) T2DM (type 2 diabetes mellitus): Qualifiers: Diabetes mellitus intermediate manager insulin use: without intermediate manager use Diabetes mellitus complication status: without complication Qualified Code(s): E11.9 - Type 2 diabetes mellitus without complications Code(s): E11.9 - Type 2 diabetes mellitus without complications Status: Chronic Assessment and Plan: BGL 100s today * Continue home oral hypoglycemic agents if formulary * Accuchecks ACHS, hypoglycemia protocol, correctional insulin, diabetic diet (7) Persistent atrial fibrillation: Code(s): I48.19 - Other persistent atrial fibrillation Status: Chronic Assessment and Plan: No cp/palpitations; Appears to be a. flutter on tele. Subtherapeutic INR * Continue beta guillermo. * Continue anticoagulation. (8) Schizophrenia: Qualifiers: Schizophrenia type: other Qualified Code(s): F20.89 - Other schizophrenia Code(s): F20.9 - Schizophrenia, unspecified Status: Chronic Assessment and Plan: * Continue home antispychotic medications. (9) HTN (hypertension) with goal to be determined: Code(s): I10 - Essential (primary) hypertension Status: Chronic Assessment and Plan: Stable. 120s sys * Monitor blood pressure. * Continue home antihypertensives.
--- NOTE | 2020-07-01 09:28 | PM.IMPN ---
Progress Note: A&P Assessment and Plan (1) Acute respiratory failure: Qualifiers: Respiratory failure complication: unspecified whether with hypoxia or hypercapnia Qualified Code(s): J96.00 - Acute respiratory failure, unspecified whether with hypoxia or hypercapnia Code(s): J96.00 - Acute respiratory failure, unspecified whether with hypoxia or hypercapnia Status: Acute Assessment and Plan: Suspect 2/2 COPD exacerbation. Improvement in respiratory status overnight. On 2L O2 NC now. Treat COPD exacerbation noted below RT assess and treat. Wean O2 as tolerated Monitor Consider transfer to medical floor if continued improvement today or tomorrow (2) COPD exacerbation: Code(s): J44.1 - Chronic obstructive pulmonary disease with (acute) exacerbation Status: Acute Assessment and Plan: As noted above, seems to have clinical improvement Continue IV antibiotics with doxycycline for severe COPD exacerbation. Continue bronchodilators. Steroid therapy. Consider weaning to 50 mg prednisone daily tomorrow (3) Subtherapeutic anticoagulation: Code(s): Z51.81 - Encounter for therapeutic drug level monitoring; Z79.01 - USP (current) use of anticoagulants Status: Acute Assessment and Plan: INR increased 1.4. For persistent a. Fib Continue coumadin PO. Consider increasing We will bridge with therapeutic Lovenox SC. Monitor PT/INR. (4) Kidney transplant recipient: Code(s): Z94.0 - Kidney transplant status Status: Chronic Assessment and Plan: Continue home meds. May use home meds (5) Hypothyroid: Qualifiers: Hypothyroidism type: unspecified Qualified Code(s): E03.9 - Hypothyroidism, unspecified Code(s): E03.9 - Hypothyroidism, unspecified Status: Chronic Assessment and Plan: Continue levothyroxine. Check TSH tomorrow (6) T2DM (type 2 diabetes mellitus): Qualifiers: Diabetes mellitus terminal carman insulin use: without custodial use Diabetes mellitus complication status: without complication Qualified Code(s): E11.9 - Type 2 diabetes mellitus without complications Code(s): E11.9 - Type 2 diabetes mellitus without complications Status: Chronic Assessment and Plan: BGL 100s today Continue home oral hypoglycemic agents if formulary Accuchecks ACHS, hypoglycemia protocol, correctional insulin, diabetic diet (7) Persistent atrial fibrillation: Code(s): I48.19 - Other persistent atrial fibrillation Status: Chronic Assessment and Plan: No cp/palpitations; Appears to be a. flutter on tele. Subtherapeutic INR Continue beta guillermo. Continue anticoagulation. (8) Schizophrenia: Qualifiers: Schizophrenia type: other Qualified Code(s): F20.89 - Other schizophrenia Code(s): F20.9 - Schizophrenia, unspecified Status: Chronic Assessment and Plan: Continue home antispychotic medications. (9) HTN (hypertension) with goal to be determined: Code(s): I10 - Essential (primary) hypertension Status: Chronic Assessment and Plan: Stable. 120s sys Monitor blood pressure. Continue home antihypertensives. Subjective Date/time seen: 07/01/20 09:28 Interval history: Patient is a 55 yo M with history of known DMII, Chronic Respiratory failure, CAD, persistent atrial fibrillation with a pacemaker, kidney transplant , schizophrenia, Hypothyroidsm, and wound on left posterior lower leg (followed by physician at [facility], per patient) who is here for likely COPD exacerbation an
[2020-07-01 09:37] LABS: Amphetamine Screen Urine Negative (Negative); Barbiturate Screen Urine Negative (Negative); Benzodiazepines Screen Urine Negative (Negative); Cannabinoid Screen Urine Negative (Negative); Cocaine Screen Urine Negative (Negative); Methadone Screen Urine Negative (Negative); Opiate Screen Urine Negative (Negative); Phencyclidine Screen Urine Negative (Negative)
--- NOTE | 2020-07-01 10:38 | PHAR ---
Home Meds Verified: Tacrolimus 1mg take 3 caps PO BID Mycophenolic Acid 360mg take 1 tab PO BID
--- NOTE | 2020-07-01 11:40 | PCRCNOTE ---
ALBUTEROL INHALER NOT GIVEN AT THIS TIME. PT. PLACED ON BIPAP.
[2020-07-01] MEDS: INSULIN ASPART (*BKC) 100 UNITS/ML SUB-Q (13:27)
[2020-07-01 16:25] LABS: Glucose Point of Care 207 (65-105)
--- NOTE | 2020-07-01 17:23 | PC.NURSE ---
This patient, Bob Alfaro, was transferred to [[id number] ] on 07/01/20 at 1723. Personal belongings sent with patient. Belongings list checked and signed with receiving [ ]. Report given to [Betty ]. Appropriate documentation sent with patient. Transferred patient on room air O2 sats at 98%
[2020-07-01] MEDS: WARFARIN (*PBKC) 2 MG TABLET PO (17:31)
[2020-07-01 17:33] LABS: Glucose Point of Care 230 (65-105)
[2020-07-01 17:46] LABS: Glucose Point of Care 181 (65-105)
--- NOTE | 2020-07-01 18:34 | PC.NURSE ---
This patient, Bob Alfaro, was received from IMU on 07/01/20 at 1715. Personal belongings list checked and signed. Patient/family oriented to unit policies and routines
[2020-07-01] MEDS: ENOXAPARIN 80 MG/0.8 ML SYRINGE 70 MG SUB-Q (20:55)
[2020-07-01] MEDS: DOXEPIN HCL 10 MG CAPSULE PO (21:00)
[2020-07-02] VITALS: PULSE 69
[2020-07-02 01:51] LABS: Glucose Point of Care 256 (65-105)
[2020-07-02 04:00] VITALS: PULSE 65
[2020-07-02 06:00] VITALS: BP 120/77; PULSE 62; RESP 16; TEMP 36.3; O2SAT 100
[2020-07-02] MEDS: LEVOTHYROXINE SODIUM 25 MCG TABLET PO (06:04)
[2020-07-02] MEDS: CANAGLIFLOZIN 100 MG TABLET PO (06:31)
[2020-07-02 06:34] LABS: Basophils Percent Auto 0.2 % (0.2-1.2); Eosinophils Percent Auto 0.5 % (0-4.4); Hematocrit 48.6 % (42.0-52.0); Hemoglobin 15.5 g/dL (14.0-18.0); Immature Granulocyte Absolute 0.06 K/mm3 (0.00-0.031); Immature Granulocyte Percent A 0.7 % (0-0.5); Lymphocytes Absolute Auto 1.29 K/mm3 (0.9-3.2); Lymphocytes Percent Auto 15.1 % (18.3-44.2); Mean Corpuscular HGB Conc 31.9 g/dl (32-36); Mean Corpuscular Hemoglobin 31.4 pg (26-34); Mean Corpuscular Volume 98.6 fl (80-100); Mean Platelet Volume 9.8 fl (7.4-10.4); Monocytes Absolute Auto 0.9 K/mm3 (0.1-0.6); Monocytes Percent Auto 10.2 % (2.6-8.5); Neutrophils Absolute Auto 6.3 K/mm3 (1.3-6.7); Neutrophils Percent Auto 73.3 % (45.5-73.1); Platelet Count Result 187 k/mm3 (150-375); Red Blood Count 4.93 M/mm3 (4.6-6.20); Red Cell Distribution Width 13.2 % (11.5-14.5); White Blood Count 8.5 K/mm3 (4.5-10.0)
[2020-07-02 06:48] LABS: INR 1.2; Prothrombin Time 14.8 Seconds (11.1-14.7)
[2020-07-02 07:30] LABS: Anion Gap 8 mmol/L (8-16); Blood Urea Nitrogen 30 mg/dL (9-20); Calcium 10.4 mg/dL (8.4-10.2); Carbon Dioxide 25 mmol/L (22-30); Chloride 104 mmol/L (98-107); Estimated CRCL calculation 59 ml/min; Estimated Glomerular Filt Rate > 60; Glucose 174 mg/dL (75-110); Potassium 5.1 mmol/L (3.4-5.0); Sodium 137 mmol/L (137-145)
[2020-07-02 07:42] LABS: Thyroid Stimulating Hormone Reflex 0.649 uIU/mL (0.465-4.68)
[2020-07-02 08:00] VITALS: PULSE 60
[2020-07-02 08:30] VITALS: O2SAT 92
[2020-07-02] MEDS: predniSONE 20 MG TABLET 60 MG PO (09:01)
[2020-07-02] MEDS: ARIPiprazole 5 MG TABLET 15 MG PO (09:02)
[2020-07-02] MEDS: ASPIRIN 81 MG ENTERIC TABLET PO (09:03)
[2020-07-02] MEDS: carvediloL 12.5 MG TABLET PO (09:03)
[2020-07-02 09:06] LABS: Glucose Point of Care 126 (65-105)
[2020-07-02] MEDS: ENOXAPARIN 80 MG/0.8 ML SYRINGE 70 MG SUB-Q (09:07)
[2020-07-02] MEDS: DOCUSATE SODIUM 100 MG CAPSULE PO (09:07)
[2020-07-02] MEDS: PANTOPRAZOLE 40 MG TABLET PO (09:10)
[2020-07-02] MEDS: SPIRONOLACTONE 25 MG TABLET PO (09:11)
[2020-07-02] MEDS: PRAVASTATIN SODIUM 20 MG TABLET 40 MG PO (09:11)
[2020-07-02] MEDS: CHOLECALCIFEROL 1,000 UNITS TABLET 2000 UNITS PO (10:39)
--- NOTE | 2020-07-02 10:57 | P.DS_ITS ---
DS: Admitting Diagnosis Admitting Diagnosis Admitting Diagnosis: Acute respiratory failure, COPD exacerbation DS: Discharge Diagnosis Discharge Diagnosis (1) Acute respiratory failure: Qualifiers: Respiratory failure complication: unspecified whether with hypoxia or hypercapnia Qualified Code(s): J96.00 - Acute respiratory failure, unspecified whether with hypoxia or hypercapnia Code(s): J96.00 - Acute respiratory failure, unspecified whether with hypoxia or hypercapnia Status: Acute Assessment and Plan: Suspect 2/2 COPD exacerbation. Significant improvement in respiratory status again today. On RA and satting 100% * Treat COPD exacerbation noted below * RT assess and treat. * D/c today back home (2) COPD exacerbation: Code(s): J44.1 - Chronic obstructive pulmonary disease with (acute) exacerbation Status: Acute Assessment and Plan: As noted above, seems to have significant clinical improvement * Switch to PO antibiotics with doxycycline for COPD exacerbation. Will do 7 days total therapy * Continue bronchodilators. * Steroid therapy. Will do Prednisone taper to home dose at discharge (3) Subtherapeutic anticoagulation: Code(s): Z51.81 - Encounter for therapeutic drug level monitoring; Z79.01 - terminal computer operator (current) use of anticoagulants Status: Acute Assessment and Plan: INR down to 1.2. For persistent a. Fib. Patient states this has happened before and usually increases his warfarin to 3 mg. Agreeable to check INR on 07/04 and prompt follow up with his Material Flow Engineer at [place] * Will increase to 3 mg today and have patient check INR on 07/04 * F/u with Material Flow Engineer at [place] (4) Kidney transplant recipient: Code(s): Z94.0 - Kidney transplant status Status: Chronic Assessment and Plan: * Continue home meds. (5) Hypothyroid: Qualifiers: Hypothyroidism type: unspecified Qualified Code(s): E03.9 - Hypothyroidism, unspecified Code(s): E03.9 - Hypothyroidism, unspecified Status: Chronic Assessment and Plan: * Continue levothyroxine. * TSH WNL (6) T2DM (type 2 diabetes mellitus): Qualifiers: Diabetes mellitus complication status: without complication Diabetes mellitus senior living insulin use: without senior living use Qualified Code(s): E11.9 - Type 2 diabetes mellitus without complications Code(s): E11.9 - Type 2 diabetes mellitus without complications Status: Chronic Assessment and Plan: BGL 100s today * Continue home oral hypoglycemic agents at discharge * Accuchecks ACHS, hypoglycemia protocol, correctional insulin, diabetic diet during stay (7) Persistent atrial fibrillation: Code(s): I48.19 - Other persistent atrial fibrillation Status: Chronic Assessment and Plan: No cp/palpitations; Appears to be a. flutter on tele. Subtherapeutic INR * Continue beta guillermo. * Continue anticoagulation at increased dose as noted above (8) Schizophrenia: Qualifiers: Schizophrenia type: other Qualified Code(s): F20.89 - Other sc hizophrenia Code(s): F20.9 - Schizophrenia, unspecified Status: Chronic Assessment and Plan: * Continue home antispychotic medications. (9)
--- NOTE | 2020-07-02 10:57 | PM.DS ---
DS: Admitting Diagnosis Admitting Diagnosis Admitting Diagnosis: Acute respiratory failure, COPD exacerbation DS: Discharge Diagnosis Discharge Diagnosis (1) Acute respiratory failure: Qualifiers: Respiratory failure complication: unspecified whether with hypoxia or hypercapnia Qualified Code(s): J96.00 - Acute respiratory failure, unspecified whether with hypoxia or hypercapnia Code(s): J96.00 - Acute respiratory failure, unspecified whether with hypoxia or hypercapnia Status: Acute Assessment and Plan: Suspect 2/2 COPD exacerbation. Significant improvement in respiratory status again today. On RA and satting 100% Treat COPD exacerbation noted below RT assess and treat. D/c today back home (2) COPD exacerbation: Code(s): J44.1 - Chronic obstructive pulmonary disease with (acute) exacerbation Status: Acute Assessment and Plan: As noted above, seems to have significant clinical improvement Switch to PO antibiotics with doxycycline for COPD exacerbation. Will do 7 days total therapy Continue bronchodilators. Steroid therapy. Will do Prednisone taper to home dose at discharge (3) Subtherapeutic anticoagulation: Code(s): Z51.81 - Encounter for therapeutic drug level monitoring; Z79.01 - termite control servicer (current) use of anticoagulants Status: Acute Assessment and Plan: INR down to 1.2. For persistent a. Fib. Patient states this has happened before and usually increases his warfarin to 3 mg. Agreeable to check INR on 07/04 and prompt follow up with his Knife Setter Assembler at [place] Will increase to 3 mg today and have patient check INR on 07/04 F/u with Knife Setter Assembler at [place] (4) Kidney transplant recipient: Code(s): Z94.0 - Kidney transplant status Status: Chronic Assessment and Plan: Continue home meds. (5) Hypothyroid: Qualifiers: Hypothyroidism type: unspecified Qualified Code(s): E03.9 - Hypothyroidism, unspecified Code(s): E03.9 - Hypothyroidism, unspecified Status: Chronic Assessment and Plan: Continue levothyroxine. TSH WNL (6) T2DM (type 2 diabetes mellitus): Qualifiers: Diabetes mellitus complication status: without complication Diabetes mellitus termite control servicer insulin use: without termite control servicer use Qualified Code(s): E11.9 - Type 2 diabetes mellitus without complications Code(s): E11.9 - Type 2 diabetes mellitus without complications Status: Chronic Assessment and Plan: BGL 100s today Continue home oral hypoglycemic agents at discharge Accuchecks ACHS, hypoglycemia protocol, correctional insulin, diabetic diet during stay (7) Persistent atrial fibrillation: Code(s): I48.19 - Other persistent atrial fibrillation Status: Chronic Assessment and Plan: No cp/palpitations; Appears to be a. flutter on tele. Subtherapeutic INR Continue beta guillermo. Continue anticoagulation at increased dose as noted above (8) Schizophrenia: Qualifiers: Schizophrenia type: other Qualified Code(s): F20.89 - Other schizophrenia Code(s): F20.9 - Schizophrenia, unspecified Status: Chronic Assessment and Plan: Continue home antispychotic medications. (9) HTN (hypertension) with goal to be determined: Code(s): I10 - Essential (primary) hypertension Status: Chronic Assessment and Plan: Stable. 120s sys Monitor blood pressure. Continue home antihypertensives. DS: Summary Hospital Course Reason for hospitalization: COPD exacerbation, ARF, subtherapeutic INR Hospital Course: Patient is
[2020-07-02] MEDS: ALBUTEROL SULFATE (*SP) AEROSOL 1 PUFF 2 PUFF INHALATION (11:18)
[2020-07-02 12:00] VITALS: PULSE 103
== END 2020-07-02 13:20 | disposition home or self-care (01) | DRG 190 ==
LOC: ANHED 22:50 → ANHIMU 07-01 02:16 → ANH3MEDSUR 07-02 05:28 → ANHIMU 07-05 12:37
PROVIDERS: Admitting Provider Family Medicine; Emergency Provider Emergency Medicine; Visit Provider Physician Assistant
DX: J44.1 Chronic obstructive pulmonary disease with (acute) exacerbation (principal); J96.20 Acute and chronic respiratory failure, unspecified whether with hypoxia or hypercapnia; Z94.0 Kidney transplant status; I48.19 Other persistent atrial fibrillation; F20.89 Other schizophrenia; E03.9 Hypothyroidism, unspecified; I10 Essential (primary) hypertension; E11.9 Type 2 diabetes mellitus without complications; I25.10 Atherosclerotic heart disease of native coronary artery without angina pectoris; Z95.0 Presence of cardiac pacemaker; Z79.01 Long term (current) use of anticoagulants; I25.2 Old myocardial infarction; Z86.73 Personal history of transient ischemic attack (TIA), and cerebral infarction without residual deficits; Z95.5 Presence of coronary angioplasty implant and graft; Z87.891 Personal history of nicotine dependence
CPT/HCPCS: 36415; 36600; 71045; 80048; 80053; 80307; 82805; 83735; 83880; 84443; 84484; 85025; 85610; 85730; 93005; 94002; 94003; 94640; 99285; A9270; J1650; J1815; J7512

== ENCOUNTER 2020-07-19 14:17 | Emergency (ER) | payer MEDICARE, MEDICAID, SELFPAY ==
--- NOTE | ~2020-07-19 | XR_ITS ---
EXAMINATION: XR chest 1V portable INDICATION: Respiratory failure TECHNIQUE: Portable AP chest at 1449 hours COMPARISON: 06/30/2020 FINDINGS: The lungs are hyperinflated but free of acute opacities. The cardiomediastinal silhouette i s normal. There is no pleural effusion or pneumothorax. A dual-lead cardiac pacemaker of the left ju[address] wall ends with leads in expected locations. IMPRESSION: 1. Hyperinflation without acute cardiopulmonary abnormality. Reviewed, dictated and finalized at location A.
[2020-07-19 14:18] VITALS: BP 150/108; PULSE 79; RESP 22; O2SAT 89
--- NOTE | 2020-07-19 14:24 | ECG_ITS ---
Measurements Intervals [place] Rate: 86 P: NC: 0 QRS: 269 QRSD: 191 T: 93 QT: 457 QTc: 548 Interpretive Statements ELECTRONIC VENTRICULAR PACEMAKER FREQUENT VENTRICULAR PREMATURE COMPLEXES UNDERLYING ATRIAL FLUTTER/TACHYCARDIA BASELINE ARTIFACT- I, AVR, V1-V2 NO FURTHER INTERPRETATION IS POSSIBLE ABNORMAL ECG Electronically Signed On 07-19-2020 15:48:51 CDT by Eliu Thompson D.O.
[2020-07-19 14:27] VITALS: PULSE 79
[2020-07-19 14:37] LABS: Alveolar/Arterial O2 Gradient 79.2 mmHg; Base Excess ABG -2.1 mEq/l (+/-2.0); Carboxyhemoglobin 0.8 % THb (0-2.0); Fractional Inspired Oxygen 28 %; HCO3 ABG 24.8 mEq/l (22.0-26.0); Methemoglobin ABG 0.3 %THb (0-1.5); Oxygen Content ABG 22.4 %vol (16.0-22.0); Oxygen Saturation ABG 89.4 % (95.0-100.0); Oxyhemoglobin 89.4 % THb (90.0-100.0); PCO2 ABG 49.9 mmHg (35.0-45.0); PO2 ABG 61.6 mmHg (80.0-100.0); Reduced Hemoglobin 9.5 %THb (0-5.0); Total Hemoglobin 17.9 g/dL (12.0-18.0); pH ABG 7.315 (7.350-7.450)
[2020-07-19 14:39] LABS: Basophils Absolute Auto 0.1 K/mm3 (0.0-0.1); Basophils Percent Auto 0.6 % (0.2-1.2); Eosinophils Absolute Auto 0.2 K/mm3 (0-0.3); Eosinophils Percent Auto 1.9 % (0-4.4); Hematocrit 55.2 % (42.0-52.0); Immature Granulocyte Absolute 0.12 K/mm3 (0.00-0.031); Lymphocytes Absolute Auto 2.42 K/mm3 (0.9-3.2); Lymphocytes Percent Auto 19.7 % (18.3-44.2); Mean Corpuscular HGB Conc 32.6 g/dl (32-36); Mean Corpuscular Hemoglobin 31.9 pg (26-34); Mean Corpuscular Volume 97.7 fl (80-100); Mean Platelet Volume 10.1 fl (7.4-10.4); Monocytes Absolute Auto 1.2 K/mm3 (0.1-0.6); Monocytes Percent Auto 10.1 % (2.6-8.5); Neutrophils Absolute Auto 8.2 K/mm3 (1.3-6.7); Neutrophils Percent Auto 66.7 % (45.5-73.1); Platelet Count Result 155 k/mm3 (150-375); Red Blood Count 5.65 M/mm3 (4.6-6.20); Red Cell Distribution Width 14.1 % (11.5-14.5); White Blood Count 12.3 K/mm3 (4.5-10.0)
[2020-07-19 14:40] VITALS: PULSE 60; RESP 25; O2SAT 100
[2020-07-19 14:42] LABS: Device NASAL CANNULA; Modified Allen's Test Pass; Site Drawn RIGHT RADIAL
--- NOTE | 2020-07-19 14:42 | ED.SOB ---
HPI - SOB/Dyspnea General Chief Complaint: Shortness of Breath/Dyspnea Stated Complaint: sob Time Seen by Provider: 07/19/20 14:36 History of Present Illness HPI Narrative: Brought in from home in severe respiratory distress. He has been SOB for the past few hours. He notes that this happens frequently. No CP, fever. He has a h/o COPD, CHF, pacemaker. History limited by acuity of condition. Related Data Home Medications Medication Instructions Recorded Confirmed Anoro Ellipta 1 inh INHALATION DAILY 02/12/20 07/01/20 Invokana 100 mg PO DAILY 02/12/20 07/01/20 Tradjenta 5 mg PO DAILY 02/12/20 07/01/20 albuterol sulfate [ProAir HFA] 2 puff INHALATION Q4H PRN 02/22/20 07/01/20 aripiprazole [Abilify] 15 mg PO DAILY 02/22/20 07/01/20 aspirin [Aspir-81] 81 mg PO DAILY 02/22/20 07/01/20 carvedilol [Coreg] 12.5 mg PO BID 02/22/20 07/01/20 cholecalciferol (vitamin D3) 50 mcg PO DAILY 02/22/20 07/01/20 [Vitamin D3] docusate sodium 100 mg PO DAILY 02/22/20 07/01/20 doxepin 10 mg PO HS 02/22/20 07/01/20 levothyroxine 25 mcg PO DAILY 02/22/20 07/01/20 mycophenolate sodium [Myfortic] 360 mg PO BID 02/22/20 07/01/20 pravastatin 40 mg PO DAILY 02/22/20 07/01/20 tacrolimus 3 mg PO BID 02/22/20 07/01/20 Allergies Allergy/AdvReac Type Severity Reaction Status Date / Time No Known Allergies Allergy Verified 06/03/20 07:19 Review of Systems Review of Systems: ROS unobtainable: Yes unobtainable due to medical condition PMFSH Past Medical History Medical History COPD (chronic obstructive pulmonary disease) Coronary artery disease Depression HTN (hypertension) with goal to be determined Hypertension Hypothyroid Immunosuppressed status Myocardial infarction Pacemaker Persistent atrial fibrillation Schizophrenia T2DM (type 2 diabetes mellitus) TIA (transient ischemic attack) Surgical History Surgical History Kidney transplant recipient Renal transplant recipient S/P coronary artery stent placement Family History Family History Mother Cancer Social History Social History Social History: Patient would like to be a full code and his POA is his father relay. He sees Dr. Lyman at [facility] as his primary care doctor. He quit smoking 3 days ago but before that was smoking about a pack per month. He does not drink alcohol. He is on disability for schizophrenia. Years smoked: 15 Smoking status: Former smoker Tobacco type: cigarettes Additional smoking assessment comments: Pt states he smokes about 1 pack per month Alcohol intake: never Substance use: current Substance use type: marijuana Gender identity (if verbalized by the patient): Male Spiritual care concerns: No Agree to blood products: Yes Exam Const: General: alert and ill appearing acutely and chronically Orientation/consciousness: patient oriented x3 Other: moderate distress HENMT: Head: normal to inspection Chest: Chest palpation & inspection: normal inspection of the chest Resp: Effort & Inspection: labored and tachypneic Auscultation: wheezes and diminished lung sounds Cardio: Rate: regular rate Rhythm: regular rhythm Other: Distant Skin: Other: diaphoretic, pale Neuro: General: patient oriented x3, moves all extremities and no focal motor deficits Course Vital Signs Vital signs: Vital Signs Pulse Rate 79 07/19/20 14:18 Respiratory Rate 22 H 07/19/20 14:18 Blood Pressure 150/108 H 07/19/20 14:18 Pulse Oximetry 89 L 07/19/20 14:18 Pulse Rate 61 07/19/20 16:55 Respiratory Rate 19 07/19/20 16:55 Blood Pressure 122/76 07/19/20 16:55 Pulse Oximetry 100 07/19/20 16:55 MDM - SOB/Dyspnea MDM Narrative Medical decision making narrative: He improved significantly o
--- NOTE | 2020-07-19 14:44 | PC.NURSE ---
Patient placed on BiPAP at this time per EDP verbal order.
[2020-07-19] MEDS: ALBUTEROL SULFATE NEB 2.5 MG/0.5 ML INH 5 MG INHALATION (14:46)
[2020-07-19] MEDS: IPRATROPIUM BR 0.02% INH SOLN 0.5 MG/2.5 ML VIAL INHALATION (14:47)
[2020-07-19 14:50] VITALS: PULSE 60; RESP 28
[2020-07-19 14:51] LABS: Anion Gap 9 mmol/L (8-16); Blood Urea Nitrogen 23 mg/dL (9-20); Calcium 10.5 mg/dL (8.4-10.2); Carbon Dioxide 26 mmol/L (22-30); Chloride 102 mmol/L (98-107); Estimated CRCL calculation 60 ml/min; Estimated Glomerular Filt Rate > 60; Glucose 216 mg/dL (75-110); Potassium 4.5 mmol/L (3.4-5.0); Sodium 137 mmol/L (137-145)
[2020-07-19 14:55] VITALS: BP 126/80; PULSE 70; RESP 18; O2SAT 100
[2020-07-19 15:07] LABS: INR 1.9; Prothrombin Time 20.9 Seconds (11.1-14.7)
[2020-07-19 15:08] LABS: Partial Thromboplastin Time 33.5 SECONDS (22.3-36.8)
[2020-07-19 15:15] LABS: NT Pro B Type Natriuretic Pept 3610 PG/ML (5-100); Troponin I 0.015 ng/mL (0.000-0.034)
--- NOTE | 2020-07-19 15:29 | PC.NURSE ---
Patient found to have taken Bipap off face, refusing to put back on until he can get something to drink.
--- NOTE | 2020-07-19 16:45 | PC.NURSE ---
Patient found in room sitting in chair, patient took all monitors off and refusing to put bipap back on face.
[2020-07-19 16:55] VITALS: BP 122/76; PULSE 61; RESP 19; O2SAT 100
--- NOTE | 2020-07-19 17:30 | PC.NURSE ---
patient found in room without BiPap on face, patients family states that he keeps removing his mask. patient states I want to go home, i am not staying here, I am feeling better. EDP aware that patient will not wear BiPap at this time and wants to leave AMA.
--- NOTE | 2020-07-19 17:56 | PC.NURSE ---
patient left AMA, refusing any exit vitals and stating I am going home I dont care what you say. Patient educated and informed of the risks of him leaving AMA. Patient signed AMA paperwork after EDP spoke with patient.
[2020-07-19 23:56] LABS: SARS-CoV-2 RNA PCR Negative
== END 2020-07-19 17:45 | disposition left against medical advice (07) ==
PROVIDERS: Emergency Provider Emergency Medicine
DX: J44.1 Chronic obstructive pulmonary disease with (acute) exacerbation (principal); I50.9 Heart failure, unspecified; Z20.828 Contact with and (suspected) exposure to other viral communicable diseases; I49.3 Ventricular premature depolarization; Z95.5 Presence of coronary angioplasty implant and graft; I25.10 Atherosclerotic heart disease of native coronary artery without angina pectoris; I11.0 Hypertensive heart disease with heart failure; I25.2 Old myocardial infarction; E03.9 Hypothyroidism, unspecified; I48.19 Other persistent atrial fibrillation; F20.9 Schizophrenia, unspecified; E11.9 Type 2 diabetes mellitus without complications; Z95.0 Presence of cardiac pacemaker; Z86.73 Personal history of transient ischemic attack (TIA), and cerebral infarction without residual deficits; Z79.82 Long term (current) use of aspirin
CPT/HCPCS: 36415; 36600; 71045; 80048; 82375; 82805; 83050; 83880; 84484; 85025; 85610; 85730; 87635; 93005; 94002; 94640; 99284; C9803; U0003

== ENCOUNTER 2020-07-21 07:43 | Inpatient (IN) | payer MEDICARE, MEDICAID, SELFPAY ==
[2020-07-21] VITALS (27 sets, daily range): BP systolic 90–208; BP diastolic 61–123; PULSE 60–92; RESP 19–44; TEMP 35.8–36.6; O2SAT 93–100; BMI 21.9
--- NOTE | ~2020-07-21 | XR_ITS ---
EXAMINATION: XR chest 1V portable DATE: 07/21/2020 08:55 INDICATION: Shortness of breath. TECHNIQUE: A single frontal view of the chest was obtained on 2 radiographs. COMPARISON: Chest single view 07/19/2020 FINDINGS: The lungs are hyperexpanded, consistent with chronic obstructive pulmonary disease. Prieto B-lines are noted, consistent with mild pulmonary edema. No pleural effusion or pneumothorax. The hea rt size is normal. There is a left chest wall pacer with leads in the right atrium and right ventricl e. IMPRESSION: 1. Mild pulmonary edema. 2. Hyperexpanded lungs, consistent with chronic obstructive pulmonary disease. Reviewed, dictated and finalized at location A.
--- NOTE | ~2020-07-21 | XR_ITS ---
EXAMINATION: XR chest 1V portable INDICATION: Pulmonary edema TECHNIQUE: Portable AP chest at 0603 hours COMPARISON: 07/21/2020 FINDINGS: A mild diffuse interstitial pattern persists but has improved. There is no pleural effusion or pneumothorax. The cardiomediastinal silhouette is normal. The lungs are hyperinflated but free of acute opacities. A dual-lead cardiac pacemaker of the left chest wall ends with leads in expected lo cations. IMPRESSION: 1. Improving mild pulmonary edema. Reviewed, dictated and finalized at location A.
--- NOTE | 2020-07-21 08:12 | ED.SOB ---
HPI - SOB/Dyspnea General Chief Complaint: Shortness of Breath/Dyspnea Stated Complaint: SOB Time Seen by Provider: 07/21/20 08:02 Source: patient and EMS Mode of arrival: EMS Limitations: clinical condition History of Present Illness HPI Narrative: 55 years old white male presents with shortness of breath for the last few days, got worse this morning, called the ambulance, oxygen saturation was 76% on room air, patient was placed on BiPAP and brought to the emergency room with respiratory rate at 42 bpm, patient is DNR. History of COPD and congestive heart failure. Patient came to our emergency room with the same symptoms 2 days ago and signed AMA. I am not able to take any history from the patient because currently he is on BiPAP and no family member at the bedside. Negative COVID-19 test 2 days ago, July 19. Related Data Home Medications Medication Instructions Recorded Confirmed Anoro Ellipta 1 inh INHALATION DAILY 02/12/20 07/01/20 Invokana 100 mg PO DAILY 02/12/20 07/01/20 Tradjenta 5 mg PO DAILY 02/12/20 07/01/20 albuterol sulfate [ProAir HFA] 2 puff INHALATION Q4H PRN 02/22/20 07/01/20 aripiprazole [Abilify] 15 mg PO DAILY 02/22/20 07/01/20 aspirin [Aspir-81] 81 mg PO DAILY 02/22/20 07/01/20 carvedilol [Coreg] 12.5 mg PO BID 02/22/20 07/01/20 cholecalciferol (vitamin D3) 50 mcg PO DAILY 02/22/20 07/01/20 [Vitamin D3] docusate sodium 100 mg PO DAILY 02/22/20 07/01/20 doxepin 10 mg PO HS 02/22/20 07/01/20 levothyroxine 25 mcg PO DAILY 02/22/20 07/01/20 mycophenolate sodium [Myfortic] 360 mg PO BID 02/22/20 07/01/20 pravastatin 40 mg PO DAILY 02/22/20 07/01/20 tacrolimus 3 mg PO BID 02/22/20 07/01/20 nitroglycerin 07/21/20 Allergies Allergy/AdvReac Type Severity Reaction Status Date / Time No Known Allergies Allergy Verified 06/03/20 07:19 Review of Systems Review of Systems: ROS unobtainable: Yes unobtainable due to medical condition PMFSH Past Medical History Medical History COPD (chronic obstructive pulmonary disease) Coronary artery disease Depression HTN (hypertension) with goal to be determined Hypertension Hypothyroid Immunosuppressed status Myocardial infarction Pacemaker Persistent atrial fibrillation Schizophrenia T2DM (type 2 diabetes mellitus) TIA (transient ischemic attack) Surgical History Surgical History Kidney transplant recipient Renal transplant recipient S/P coronary artery stent placement Family History Family History Mother Cancer Social History Social History Social History: Patient would like to be a full code and his POA is his father relay. He sees Dr. Lyman at [facility] as his primary care doctor. He quit smoking 3 days ago but before that was smoking about a pack per month. He does not drink alcohol. He is on disability for schizophrenia. Years smoked: 15 Smoking status: Former smoker Tobacco type: cigarettes Additional smoking assessment comments: Pt states he smokes about 1 pack per month Alcohol intake: never Substance use: current Substance use type: marijuana Gender identity (if verbalized by the patient): Male Spiritual care concerns: No Agree to blood products: Yes Exam Narrative: Exam Narrative: General appearance: Well-developed, well-nourished, tachypneic, BiPAP unable to talk Skin: Normal color Head: Normocephalic, nontraumatic Eyes: Clear conjunctiva ENT: Oropharynx normal, ears normal, nose normal Neck: Supple, nontender Chest and respiratory: Airway patent, labored breathing, diminution of air entry bilaterally Heart: Regular rate/rhythm Abdomen: Soft, nontender, no organomegaly, quiet bowel sounds Vascular: Normal peripheral pulses, normal capillary refill. Neurologic: Alert and oriented ?3,
[2020-07-21] MEDS: MORPHINE SULFATE 2 MG/ML INJ IV PUSH (08:15)
[2020-07-21] MEDS: ONDANSETRON INJ 4 MG/2 ML VIAL IV PUSH (08:15)
[2020-07-21] MEDS: ALBUTEROL SULFATE NEB 2.5 MG/0.5 ML INH 5 MG INHALATION ×3 (08:24→20:56)
[2020-07-21] MEDS: IPRATROPIUM BR 0.02% INH SOLN 0.5 MG/2.5 ML VIAL INHALATION ×3 (08:24→20:57)
[2020-07-21 08:28] LABS: Basophils Absolute Auto 0.1 K/mm3 (0.0-0.1); Basophils Percent Auto 0.6 % (0.2-1.2); Eosinophils Absolute Auto 0.3 K/mm3 (0-0.3); Eosinophils Percent Auto 1.3 % (0-4.4); Hematocrit 51.4 % (42.0-52.0); Hemoglobin 16.5 g/dL (14.0-18.0); Immature Granulocyte Absolute 0.13 K/mm3 (0.00-0.031); Immature Granulocyte Percent A 0.7 % (0-0.5); Lymphocytes Absolute Auto 4.79 K/mm3 (0.9-3.2); Lymphocytes Percent Auto 24.5 % (18.3-44.2); Mean Corpuscular HGB Conc 32.1 g/dl (32-36); Mean Corpuscular Hemoglobin 31.6 pg (26-34); Mean Corpuscular Volume 98.5 fl (80-100); Mean Platelet Volume 10.3 fl (7.4-10.4); Monocytes Absolute Auto 1.9 K/mm3 (0.1-0.6); Monocytes Percent Auto 9.7 % (2.6-8.5); Neutrophils Absolute Auto 12.3 K/mm3 (1.3-6.7); Neutrophils Percent Auto 63.2 % (45.5-73.1); Platelet Count Result 184 k/mm3 (150-375); Red Blood Count 5.22 M/mm3 (4.6-6.20); Red Cell Distribution Width 13.9 % (11.5-14.5); White Blood Count 19.5 K/mm3 (4.5-10.0)
[2020-07-21 08:32] LABS: Alveolar/Arterial O2 Gradient 200.5 mmHg; Fractional Inspired Oxygen 100 %; Oxygen Saturation ABG 99.8 % (95.0-100.0); Oxyhemoglobin 98.1 % THb (90.0-100.0); PCO2 ABG 44.4 mmHg (35.0-45.0); PO2 ABG 468.1 mmHg (80.0-100.0); PO2 FiO2 Ratio Arterial Blood 4.68 %; Total Hemoglobin 15.8 g/dL (12.0-18.0)
--- NOTE | 2020-07-21 08:32 | ECG_ITS ---
Measurements Intervals [place] Rate: 77 P: [place]: 0 QRS: -84 QRSD: 190 T: 95 QT: 440 QTc: 499 Interpretive Statements ELECTRONIC VENTRICULAR PACEMAKER BASELINE ARTIFACT- I, V1-V6 NO FURTHER INTERPRETATION IS POSSIBLE ATYPICAL ECG Electronically Signed On 07-21-2020 9:59:49 CDT by Eliu Thompson D.O.
[2020-07-21 08:34] LABS: Device NON-INVASIVE VENT; Site Drawn LEFT BRACHIAL
[2020-07-21 08:35] LABS: Non-Invasive Expiratory Pressure 8 CMH2O; Non-Invasive Inspiratory Pressure 14 CMH2O; Non-Invasive Vent Rate 16 /MIN
[2020-07-21 08:38] LABS: Prothrombin Time 22.4 Seconds (11.1-14.7)
[2020-07-21 08:39] LABS: Lactic Acid Reflex 2.1 mmol/L (0.7-2.1); Partial Thromboplastin Time 33.7 SECONDS (22.3-36.8)
[2020-07-21 08:43] LABS: Alanine Aminotransferase 25 U/L (4-50); Albumin Level 4.2 g/dL (3.5-5.1); Alkaline Phosphatase 113 U/L (38-126); Anion Gap 9 mmol/L (8-16); Aspartate Amino Transferase 41 U/L (17-59); Bilirubin,Total 1.1 mg/dL (0.2-1.3); Blood Urea Nitrogen 25 mg/dL (9-20); CRP 7.9 mg/dL (<1.0); Calcium 10.2 mg/dL (8.4-10.2); Carbon Dioxide 23 mmol/L (22-30); Chloride 104 mmol/L (98-107); Estimated CRCL calculation 55 ml/min; Estimated Glomerular Filt Rate 57; Glucose 225 mg/dL (75-110); Potassium 5.1 mmol/L (3.4-5.0); Sodium 136 mmol/L (137-145)
[2020-07-21 08:53] LABS: NT Pro B Type Natriuretic Pept 3930 PG/ML (5-100)
[2020-07-21 09:03] LABS: Add Urine Microscopic? YES; Appearance Urine Clear (Clear); Bilirubin Urine Negative (Negative); Blood Urine Negative (Negative); Color Urine Yellow (Yellow); Glucose Urine UA 3+ mg/dL (Negative); Ketones Urine Negative (Negative); Leukocyte Esterase Ur Negative LEU/UL (Negative); Nitrate Urine Negative (Negative); Protein Urine 2+ mg/dL (Negative); Squamous Epithelial Cell Urine Rare /hpf (Few); Urobilinogen Urine Negative mg/dL (<2.0); WBC Urine 0-3 /hpf
[2020-07-21 09:08] LABS: Specific Grav Ur 1.035 (1.001-1.035)
--- NOTE | 2020-07-21 10:11 | PC.NURSE ---
Report called to IMU KEVIN Barker. Patient transport to be completed by RN.
--- NOTE | 2020-07-21 10:22 | PC.NURSE ---
This patient, Bob Alfaro, was admitted to IMU Room 203-01. Patient/family oriented to hospital policies and general routines including ID bracelet, bed and alarms, visiting hours, pain management, procedures, bathroom and other care routines, personal items, smoking policy, room service/diet, and visiting hours. Valuables list has been completed. Information on how to activate the Rapid Response Team has been discussed. Patient/Family are encouraged to report perceived risks to care and to ask questions if they do not understand what they are told or what they should do.
[2020-07-21 11:25] LABS: Reflex Lactic Acid Yes or No Add Lactic
[2020-07-21 12:10] LABS: Lactic Acid 1.7 mmol/L (0.7-2.1)
[2020-07-21] MEDS: methylPREDNISolone SOD SUCC 125 MG VIAL 60 MG IV PUSH ×2 (13:42→17:16)
[2020-07-21 14:29] LABS: Hemoglobin A1C 7.6 % (<5.7)
[2020-07-21 14:33] LABS: Anion Gap 6 mmol/L (8-16); Blood Urea Nitrogen 27 mg/dL (9-20); Calcium 9.7 mg/dL (8.4-10.2); Carbon Dioxide 24 mmol/L (22-30); Chloride 104 mmol/L (98-107); Estimated CRCL calculation 59 ml/min; Estimated Glomerular Filt Rate > 60; Glucose 134 mg/dL (75-110); Potassium 5.3 mmol/L (3.4-5.0); Sodium 134 mmol/L (137-145)
[2020-07-21 14:40] LABS: Alveolar/Arterial O2 Gradient 104.6 mmHg; Carboxyhemoglobin 0.1 % THb (0-2.0); Fractional Inspired Oxygen 100 %; HCO3 ABG 19.4 mEq/l (22.0-26.0); Methemoglobin ABG 0.3 %THb (0-1.5); Oxygen Content ABG 22.3 %vol (16.0-22.0); Oxygen Saturation ABG 99.9 % (95.0-100.0); PCO2 ABG 31.3 mmHg (35.0-45.0); PO2 ABG 577.1 mmHg (80.0-100.0); PO2 FiO2 Ratio Arterial Blood 5.77 %; Reduced Hemoglobin 0.6 %THb (0-5.0); Total Hemoglobin 14.9 g/dL (12.0-18.0)
[2020-07-21 14:41] LABS: Device NON-INVASIVE VENT; Non-Invasive Expiratory Pressure 8 CMH2O; Non-Invasive Inspiratory Pressure 14 CMH2O; Non-Invasive Vent Rate 16 /MIN; Site Drawn LEFT BRACHIAL
--- NOTE | 2020-07-21 15:50 | PM.IMHP ---
H&P: HPI History of Present Illness Date/Time: 07/21/20 15:50 Chief complaint: Shortness of breath. Narrative: Bob Alfaro is a 55-year-old male, former smoker, with COPD, coronary artery disease, hypertension, type 2 diabetes mellitus, chronic kidney disease stage 3 status post kidney transplant on immunosuppressants, and persistent atrial fibrillation on warfarin who presented to the emergency department earlier today via EMS from home for evaluation of shortness of breath. He has chronic dyspnea on minimal exertion, getting short of breath when ambulating from the bedroom to the kitchen to the point where he has to stop and rest for about a minute before he is able to catch his breath. Today, he got up from his bed and went to sit in the chair as per usual. Shortly thereafter he went to the bathroom, got extremely short of breath, and called 911. On arrival to the emergency department he was found to be hypercarbic and was started on BiPAP. He was admitted to the floor for acute respiratory failure, however he has frequently been taking the BiPAP off because it pushes too much air. a repeat ABG demonstrated normalization of his pCO2 and pH, and he is now on room air with oxygen saturations in the mid 90s. With further questioning, he has occasional cough which is productive of green phlegm, and he goes on to say that this is not unusual for him. He uses nebulizers 3 times a day, but did not try the nebulizer before coming to the hospital. At the time of my evaluation he feels much better and is asking whether he might qualify for a BiPAP at home. He has no complaints at this time and specifically denies fever, chest pain, pleuritic pain, palpitations, nausea, vomiting, and lower extremity edema. Of note, this is his 6th visit to the hospital since February 2020, and he was admitted several times for COPD exacerbation and in fact required intubation in April. Most recently he was seen emergency department 2 days ago on July 19, but left against medical advice despite abnormal ABGs. Review of Systems Review of Systems: Narrative: Twelve systems were reviewed with pertinent positives and negatives as per HPI no sinus congestion, rhinorrhea, otalgia, or odynophagia. He denies fever. He has chronic dyspnea on exertion as detailed above. He denies orthopnea and PND. No history of sleep apnea. He is not on oxygen at home. He denies sick contacts and exposure to those with known positive COVID-19. Except as documented, all other systems were reviewed and are negative. [facility] Past Medical History Medical History (Updated 07/21/20 @ 20:20 by Amparo Barraza PA-C) Cerebrovascular accident (~06/2004) Chronic kidney disease, stage 3 Baseline creatinine between 1.2 and 1.30. Chronic obstructive pulmonary disease Coronary artery disease Status post stent in 2016. Depression Essential hypertension Hypertension Hypothyroidism Immunosuppressed status On immunosuppressant status post renal transplant. Pacemaker Persistent atrial fibrillation On long-term anticoagulation with warfarin. Schizophrenia Type 2 diabetes mellitus Surgical History Surgical History (Updated 07/21/20 @ 20:12 by Amparo Barraza PA-C) Status post coronary artery stent placement Status post kidney transplant Family History Family History Mother Cancer Social History Social History (Updated 07/21/20 @ 20:15 by Amparo Barraza PA-C) Social History: The patient lives in [place] with his father. He is unemployed and is on disability due to schizophrenia. He smoked about a pack of cigarettes per day for several years and got down to the point where he was smoking a pack of month and now he has quit smoking as of May 2020. No alcohol use. Occasional marijuana use. He designates his father, Hemal, as his surrogate decision maker and he wishes to be a DNR. Smoking packs per day: 1 Smokin
[2020-07-21] MEDS: WARFARIN (*PBKC) 3 MG TABLET PO (17:16)
[2020-07-21] MEDS: SODIUM CHLORIDE 0.9% IV 1,000 ML 999 ML IV CONT (17:16)
[2020-07-21 19:39] LABS: Potassium 5.5 mmol/L (3.4-5.0)
[2020-07-21 20:52] LABS: Glucose Point of Care 237 (65-105)
[2020-07-21] MEDS: DEXTROSE 50% 25 GM/50 ML SYRINGE IV PUSH (21:47)
[2020-07-21] MEDS: CALCIUM GLUC 1,000 MG/NS 50 ML 1,000 MG/50 ML BAG 100 MG IVPB (21:47)
[2020-07-21] MEDS: DOXEPIN HCL 10 MG CAPSULE PO (21:52)
[2020-07-21] MEDS: carvediloL 12.5 MG TABLET PO (21:52)
[2020-07-21] MEDS: SODIUM BICARBONATE 8.4% 50 MEQ/50 ML VIAL IV PUSH (21:54)
[2020-07-21] MEDS: INSULIN HUMAN REGULAR (*BKC) 100 UNITS/ML 10 UNITS IV PUSH (21:55)
[2020-07-22] VITALS (28 sets, daily range): BP systolic 100–133; BP diastolic 66–88; PULSE 60–101; RESP 16–21; TEMP 36–36.8; O2SAT 91–100
--- NOTE | 2020-07-22 | ECHO_ITS ---
Patient Info Name: Bob Alfaro Age: 55 years : 1965 Gender: Male Ht: 69 in Wt: 151 lbs BSA: 1.83 m2 HR: 77 bpm BP: 131 / 83 mmHg Heart Rhythm: Paced Technical Quality: Good Exam Date: 07/22/2020 1:48 PM Exam Location: [facility] Pulmonary Patient Status: Inpatient Admit Date: 07/21/2020 Staff Ordering Physician: Shine Figueroa MD Collection Manager: Arnulfo rKishna RDCS Attending Provider: Sameer Castañeda MD Exam Type: CA echo doppler color flow Study Info Indications R06.02 - Shortness of breath Complete two-dimensional, color flow and Doppler transthoracic echocardiogram is performed. History/Risk Factors COPD exacerbation; SOB, CAD/[place], HTN, PPM, Afib, DM2, CHF. Summary 1. Complete two-dimensional, color flow and Doppler transthoracic echocardiogram is performed. 2. Left ventricular chamber dimension is mildly enlarged. 3. Left ventricular systolic function is normal, estimated at 60-65%. 4. There is severely increased left ventricular wall thickness. 5. Left ventricular septal wall motion is normal. 6. The left ventricular diastolic function is grade III diastolic dysfunction. 7. Right ventricular chamber dimension is moderately enlarged. 8. Left atrial chamber dimension is mildly enlarged. 9. Right atrial chamber dimension is mildly enlarged. 10. There is severe aortic valve calcification. 11. There is mild aortic valve stenosis with a peak velocity of 127 cm/s, mean gradient of 3 mmHg, and aortic valve area of 1.7 cm2. 12. There is mild mitral valve regurgitation. 13. There is mild tricuspid valve regurgitation. 14. Mild pulmonary hypertension, estimated pulmonary arterial systolic pressure is 40 mmHg. 15. There is mild pulmonic regurgitation. 16. Possible bicuspid aortic valve. Left Ventricle Left ventricular chamber dimension is mildly enlarged. Left ventricular systolic function is normal, estimated at 60-65%. There is severely increased left ventricular wall thickness. Left ventricular septal wall motion is normal. The left ventricular diastolic function is grade III diastolic dysfunction. Right Ventricle Right ventricular chamber dimension is moderately enlarged. Right ventricular systolic function is normal. Left Atria Left atrial chamber dimension is mildly enlarged. Right Atria Right atrial chamber dimension is mildly enlarged. Atrial Septum Intact interatrial septum visualized by color flow imaging. Aortic Valve There is mild aortic valve stenosis with a peak velocity of 127 cm/s, mean gradient of 3 mmHg, and aortic valve area of 1.7 cm2. There is trace aortic valve regurgitation. There is severe aortic valve calcification. Possible bicuspid aortic valve. Pulmonic Valve The pulmonic valve is normal. There is no pulmonic valve stenosis. There is mild pulmonic regurgitation. Mitral Valve The mitral valve has calcified annulus. There is no mitral valve stenosis. There is mild mitral valve regurgitation. Tricuspid Valve The tricuspid valve leaflets are normal. There is no significant tricuspid valve stenosis. There is mild tricuspid valve regurgitation. Mild pulmonary hypertension, estimated pulmonary arterial systolic pressure is 40 mmHg. Pericardium/Pleural The pericardium appears normal. There is trivial pericardial effusion. Inferior Vena Cava Dilated inferior vena cava with <50% collapse upon inspiration consistent with elevated right atrial pressure, 15 mmHg. Aorta The aorti
[2020-07-22 01:02] LABS: Anion Gap 6 mmol/L (8-16); Blood Urea Nitrogen 33 mg/dL (9-20); Calcium 9.2 mg/dL (8.4-10.2); Carbon Dioxide 22 mmol/L (22-30); Chloride 105 mmol/L (98-107); Estimated CRCL calculation 70 ml/min; Estimated Glomerular Filt Rate > 60; Glucose 294 mg/dL (75-110); Potassium 4.9 mmol/L (3.4-5.0); Sodium 133 mmol/L (137-145)
[2020-07-22] MEDS: ALBUTEROL SULFATE NEB 2.5 MG/0.5 ML INH 5 MG INHALATION ×4 (04:51→20:52)
[2020-07-22] MEDS: IPRATROPIUM BR 0.02% INH SOLN 0.5 MG/2.5 ML VIAL INHALATION ×4 (04:51→20:53)
[2020-07-22 05:05] LABS: Hematocrit 42.4 % (42.0-52.0); Hemoglobin 13.7 g/dL (14.0-18.0); Mean Corpuscular HGB Conc 32.3 g/dl (32-36); Mean Corpuscular Hemoglobin 31.9 pg (26-34); Mean Corpuscular Volume 98.6 fl (80-100); Mean Platelet Volume 10.3 fl (7.4-10.4); Platelet Count Result 98 k/mm3 (150-375); Red Cell Distribution Width 13.6 % (11.5-14.5); White Blood Count 7.9 K/mm3 (4.5-10.0)
[2020-07-22 05:16] LABS: Alveolar/Arterial O2 Gradient 35.8 mmHg; Base Excess ABG -3.1 mEq/l (+/-2.0); Carboxyhemoglobin 0.3 % THb (0-2.0); Device ROOM AIR; Fractional Inspired Oxygen 21 %; HCO3 ABG 21.4 mEq/l (22.0-26.0); Methemoglobin ABG 0.2 %THb (0-1.5); Oxygen Content ABG 19.1 %vol (16.0-22.0); Oxyhemoglobin 92.8 % THb (90.0-100.0); PCO2 ABG 36.7 mmHg (35.0-45.0); PO2 FiO2 Ratio Arterial Blood 3.33 %; Reduced Hemoglobin 6.7 %THb (0-5.0); Site Drawn LEFT BRACHIAL; Total Hemoglobin 14.6 g/dL (12.0-18.0); pH ABG 7.384 (7.350-7.450)
[2020-07-22 05:19] LABS: Anion Gap 7 mmol/L (8-16); Blood Urea Nitrogen 32 mg/dL (9-20); Calcium 9.6 mg/dL (8.4-10.2); Carbon Dioxide 23 mmol/L (22-30); Chloride 103 mmol/L (98-107); Estimated CRCL calculation 65 ml/min; Estimated Glomerular Filt Rate > 60; Glucose 248 mg/dL (75-110); Magnesium 1.7 mg/dL (1.6-2.3); Sodium 133 mmol/L (137-145)
[2020-07-22] MEDS: LEVOTHYROXINE SODIUM 25 MCG TABLET PO (06:13)
[2020-07-22] MEDS: methylPREDNISolone SOD SUCC 40 MG VIAL IV PUSH ×3 (06:14→21:07)
[2020-07-22 07:36] LABS: INR 2.3; Prothrombin Time 24.6 Seconds (11.1-14.7)
[2020-07-22 08:18] LABS: Glucose Point of Care 216 (65-105)
[2020-07-22] MEDS: CANAGLIFLOZIN 100 MG TABLET PO (08:29)
[2020-07-22] MEDS: predniSONE 10 MG TABLET PO (08:29)
[2020-07-22] MEDS: PANTOPRAZOLE 40 MG TABLET PO (08:30)
[2020-07-22] MEDS: DOCUSATE SODIUM 100 MG CAPSULE PO (08:30)
[2020-07-22] MEDS: INSULIN ASPART (*BKC) 100 UNITS/ML SUB-Q ×3 (08:30→17:06)
[2020-07-22] MEDS: carvediloL 12.5 MG TABLET PO ×2 (08:30→20:47)
[2020-07-22] MEDS: PRAVASTATIN SODIUM 20 MG TABLET 40 MG PO (08:30)
[2020-07-22] MEDS: ASPIRIN 81 MG ENTERIC TABLET PO (08:30)
[2020-07-22] MEDS: ARIPiprazole 5 MG TABLET 15 MG PO (08:30)
[2020-07-22] MEDS: CHOLECALCIFEROL 1,000 UNITS TABLET 2000 UNITS PO (08:30)
[2020-07-22] MEDS: SOD HYPOCHLORITE 1/4 STRENGTH 473 ML 1 APPLIC TOPICAL ×2 (09:44→20:57)
--- NOTE | 2020-07-22 11:17 | HOMEO2EVAL ---
Home Oxygen Evaluation RC: Home Oxygen (O2) Evaluation Start: 07/21/20 20:25 Freq: ONCE Status: Active Protocol: RPE Activity Type Activity Date Activity User E-Sign Co-Sign Detail Recorded Client Recorded Date Recorded By Document 07/22/20 10:45 ABHAY [id number] 07/22/20 11:16 ABHAY Document 07/22/20 10:50 ABHAY [id number] 07/22/20 11:16 ABHAY Document 07/22/20 10:55 ABHAY [id number] 07/22/20 11:16 ABHAY 07/22/20 07/22/20 07/22/20 10:45 10:50 10:55 Home O2 Evaluation Test Phase Resting Exercise Resting Oxygen Delivery Room Air Room Air Room Air Pulse Oximetry (90-100 %) 99 91 97 Pulse Rate (60-100 beats/min) 74 101 H 79 Activity Tolerance Good Ambulation Distance (feet) 250 Treatment Charges O2 Evaluation
--- NOTE | 2020-07-22 11:17 | PCRCNOTE ---
HOME O2 EVAL COMPLETED. PT DOES NOT REQUIRE HOEM O2 AT REST OR WITH EXERTION DURING THE DAY, BUT DOES REQUIRE HOME O2 AT NIGHT ACCORDING TO THE APNEA LINK RESULTS. I WILL SET UP HOME O2 WITH [facility] FOR NOCTURNAL USE. [facility] PHONE # [phone]. UPON DISCHARGE
--- NOTE | 2020-07-22 11:30 | PM.IMPN ---
Progress Note: A&P Assessment and Plan (1) Acute respiratory failure with hypoxia and hypercarbia: Code(s): J96.01 - Acute respiratory failure with hypoxia; J96.02 - Acute respiratory failure with hypercapnia Status: Acute Assessment and Plan: Patient presents with complaints of shortness of breath. ABG showed a pH of 7.25 with a normal pCO2. He was placed on BiPAP and repeat ABG Showing normal pH and pCO2. Patient has since been refusing BiPAP. He is a DNR. Chest x-ray is consistent with mild pulmonary edema. BNP was 3900. He was treated for COPD exacerbation with Solu-Medrol and nebulizer treatments. Last Echo in February showing EF 60% with diastolic dysfunction. He feels much better today. Apnea link showing AHI 5.8 and RI 7.4 for 6.5hrs on room air. Will give Lasix IV. (2) COPD exacerbation: Code(s): J44.1 - Chronic obstructive pulmonary disease with (acute) exacerbation Status: Acute Assessment and Plan: [place] he has COPD exacerbation. Continue Solu-Medrol and nebs. Convert to oral steroids tomorrow. (3) Hyperkalemia: Code(s): E87.5 - Hyperkalemia Status: Acute Assessment and Plan: Potassium is mildly elevated On admission. Probably related to the spironolactone which has been placed on hold. Repeat potassium 5.0. Lasix should help with this. Continue to monitor. (4) Type 2 diabetes mellitus: Code(s): E11.9 - Type 2 diabetes mellitus without complications Status: Acute Assessment and Plan: A1c 7.6. The patient's blood glucose was reviewed on 07/22 Glucose elevated into the 200s related the steroids. Continue AccuCheks covering with sliding scale. Hypoglycemia protocol available as needed. Continue current medications with Invokana and Tradjenta. Add Levemir (5) Essential hypertension: Code(s): I10 - Essential (primary) hypertension Status: Acute Assessment and Plan: Patient's blood pressure was reviewed on 07/22 Blood pressure remains well controlled. Will continue current medications with COreg. (6) Chronic kidney disease, stage 3: Code(s): N18.3 - Chronic kidney disease, stage 3 (moderate) Status: Acute Assessment and Plan: Patient presumably has CKD stage 3 but his eGFR >60 with his creatinine clearance of 60-70. Renal function appears stable. Continue to monitor (7) Immunosuppressed status: Code(s): D89.9 - Disorder involving the immune mechanism, unspecified Status: Acute Assessment and Plan: Patient is status post renal transplant. continue mycophenolate and tacrolimus. (8) Kidney transplant recipient: Code(s): Z94.0 - Kidney transplant status Status: Chronic Assessment and Plan: As above. (9) Leukocytosis: Qualifiers: Leukocytosis type: unspecified Qualified Code(s): D72.829 - Elevated white blood cell count, unspecified Code(s): D72.829 - Elevated white blood cell count, unspecified Status: Acute Assessment and Plan: White count elevated 19,000 for unclear reasons. No evidence of acute infection. Repeat white count this morning is normal. Repeat white count probably will be higher given the fact he is on Solu-Medrol now. (10) Persistent atrial fibrillation: Code(s): I48.19 - Other persistent atrial fibrillation Status: Chronic Assessment and Plan: He has mostly paced rhythm. Continue Carvedilol. INR remains t
[2020-07-22 12:35] LABS: Glucose Point of Care 304 (65-105)
[2020-07-22] MEDS: FUROSEMIDE INJ 40 MG/4 ML VIAL IV PUSH ×2 (12:59→17:06)
--- NOTE | 2020-07-22 13:31 | PM.CNGS ---
Assessment and Plan Assessment and plan (1) Skin ulcer: Code(s): L98.499 - Non-pressure chronic ulcer of skin of other sites with unspecified severity Status: Acute Assessment and Plan: will need surgical debridement, no active infection noted on exam, pt would like to proceed c procedure as outpt as he is planned to be discharged tomorrow, cont local wound care c [place] at this point, f/u next wk to setup debridement (2) Acute respiratory failure with hypoxia and hypercarbia: Code(s): J96.01 - Acute respiratory failure with hypoxia; J96.02 - Acute respiratory failure with hypercapnia Status: Acute Assessment and Plan: much improved, cont current mgmt (3) Chronic kidney disease, stage 3: Code(s): N18.3 - Chronic kidney disease, stage 3 (moderate) Status: Acute Assessment and Plan: stable (4) Type 2 diabetes mellitus: Code(s): E11.9 - Type 2 diabetes mellitus without complications Status: Acute Assessment and Plan: stable (5) Essential hypertension: Code(s): I10 - Essential (primary) hypertension Status: Acute Assessment and Plan: stable History of Present Illness Consult details Consult date: 07/22/20 Reason for consult: wound care Requesting physician: Shine Figueroa MD Narrative: Pt is a 55 y/o M c multiple med issues including COPD, CKD s/p txp, DM presenting c respiratory failure. Pt has improved at this point and is actually doing well on RA at this time. Incidentally, pt noted to have L post lower thigh wound. Pt reports wound has been present for quite a while . Wound care consulted and evaluation was c/w need for surgical debridment. Review of Systems Constitutional: Constitutional: Reports chills, Reports fatigue, Reports lethargy and Reports weakness Eyes: Eyes: Reports as per HPI and Reports no additional eye complaints ENT: Reports system reviewed and no additional complaints, except as documented Cardiovascular: Cardiovascular: Reports no additional cardiovascular complaints Respiratory: Respiratory: Reports chest congestion, Reports cough, Denies hemoptysis, Reports dyspnea, Reports dyspnea on exertion and Reports wheezing Gastrointestinal: Gastrointestinal: Reports no additional gastrointestinal complaints Genitourinary: Genitourinary: Reports no additional male genitourinary complaints Musculoskeletal: Musculoskeletal: Reports no additional musculoskeletal complaints Integumentary/Breasts: Skin/Breast: Reports system reviewed and no additional complaints, except as docu and Reports wounds Neurologic: Reports system reviewed and no additional complaints, except as documented Psychiatric: Psychiatric: Reports no additional psychiatric complaints PMF Past Medical History Medical History Cerebrovascular accident (~06/2004) Chronic kidney disease, stage 3 Baseline creatinine between 1.2 and 1.30. Chronic obstructive pulmonary disease Coronary artery disease Status post stent in 2016. Depression Essential hypertension Hypertension Hypothyroidism Immunosuppressed status On immunosuppressant status post renal transplant. Pacemaker Persistent atrial fibrillation On long-term anticoagulation with warfarin. Schizophrenia Type 2 diabetes mellitus Surgical History Surgical History Status post coronary artery stent placement Status post kidney transplant Family History Family History Mother Cancer Social History Social History Social History: The patient lives in [place] with his father. He is unemployed and is on disability due to schizophrenia. He smoked about a pack of cigarettes per day for several years and got down to the point where he was smoking a pack of month and n
[2020-07-22] MEDS: WARFARIN (*PBKC) 3 MG TABLET PO (17:06)
[2020-07-22 17:13] LABS: Glucose Point of Care 299 (65-105)
[2020-07-22 20:27] LABS: Glucose Point of Care 374 (65-105)
[2020-07-22] MEDS: DOXEPIN HCL 10 MG CAPSULE PO (20:48)
[2020-07-22] MEDS: INSULIN DETEMIR 100 UNITS/ML 10 UNITS SUB-Q (20:57)
[2020-07-22] MEDS: ACETAMINOPHEN 325 MG TABLET 650 MG PO (22:21)
[2020-07-23] VITALS (13 sets, daily range): BP systolic 107–140; BP diastolic 74–93; PULSE 61–89; RESP 16–20; TEMP 35.8–36.2; O2SAT 96–100
[2020-07-23 04:32] LABS: Mean Platelet Volume 10.7 fl (7.4-10.4); Platelet Count Result 139 k/mm3 (150-375)
[2020-07-23 04:47] LABS: Anion Gap 9 mmol/L (8-16); Blood Urea Nitrogen 39 mg/dL (9-20); Carbon Dioxide 27 mmol/L (22-30); Chloride 100 mmol/L (98-107); Estimated CRCL calculation 55 ml/min; Estimated Glomerular Filt Rate 57; Glucose 299 mg/dL (75-110); Potassium 4.4 mmol/L (3.4-5.0); Sodium 136 mmol/L (137-145)
[2020-07-23 05:09] LABS: INR 2.7; Prothrombin Time 28.3 Seconds (11.1-14.7)
[2020-07-23] MEDS: LEVOTHYROXINE SODIUM 25 MCG TABLET PO (06:13)
[2020-07-23] MEDS: ALBUTEROL SULFATE NEB 2.5 MG/0.5 ML INH 5 MG INHALATION ×2 (08:25→13:42)
[2020-07-23] MEDS: IPRATROPIUM BR 0.02% INH SOLN 0.5 MG/2.5 ML VIAL INHALATION ×2 (08:26→13:43)
[2020-07-23 08:35] LABS: Glucose Point of Care 246 (65-105)
[2020-07-23] MEDS: SOD HYPOCHLORITE 1/4 STRENGTH 473 ML 1 APPLIC TOPICAL (09:28)
[2020-07-23] MEDS: INSULIN ASPART (*BKC) 100 UNITS/ML SUB-Q ×2 (09:28→13:54)
[2020-07-23] MEDS: predniSONE 20 MG TABLET 40 MG PO (09:29)
[2020-07-23] MEDS: ASPIRIN 81 MG ENTERIC TABLET PO (09:29)
[2020-07-23] MEDS: ARIPiprazole 5 MG TABLET 15 MG PO (09:29)
[2020-07-23] MEDS: CANAGLIFLOZIN 100 MG TABLET PO (09:29)
[2020-07-23] MEDS: carvediloL 12.5 MG TABLET PO (09:29)
[2020-07-23] MEDS: DOCUSATE SODIUM 100 MG CAPSULE PO (09:30)
[2020-07-23] MEDS: PANTOPRAZOLE 40 MG TABLET PO (09:30)
[2020-07-23] MEDS: PRAVASTATIN SODIUM 20 MG TABLET 40 MG PO (09:30)
[2020-07-23] MEDS: FUROSEMIDE INJ 40 MG/4 ML VIAL IV PUSH (09:30)
[2020-07-23] MEDS: CHOLECALCIFEROL 1,000 UNITS TABLET 2000 UNITS PO (09:30)
[2020-07-23] MEDS: ACETAMINOPHEN 325 MG TABLET 650 MG PO (09:32)
[2020-07-23] MEDS: INSULIN DETEMIR 100 UNITS/ML 10 UNITS SUB-Q (09:33)
[2020-07-23 12:59] LABS: Glucose Point of Care 285 (65-105)
--- NOTE | 2020-07-23 13:22 | PM.DS ---
DS: Admitting Diagnosis Admitting Diagnosis Admitting Diagnosis: Shortness of breath. DS: Discharge Diagnosis Discharge Diagnosis (1) Acute respiratory failure with hypoxia and hypercarbia: Code(s): J96.01 - Acute respiratory failure with hypoxia; J96.02 - Acute respiratory failure with hypercapnia Status: Acute Assessment and Plan: Patient presents with complaints of shortness of breath. ABG showed a pH of 7.25 with a normal pCO2. He was placed on BiPAP and repeat ABG showing normal pH and pCO2. Patient has since been refusing BiPAP. He is a DNR. Chest x-ray is consistent with mild pulmonary edema. BNP was 3900. He was treated for COPD exacerbation with Solu-Medrol and nebulizer treatments. Last Echo in February showing EF 60% with diastolic dysfunction. He feels much better today. Apnea link showing AHI 5.8 and RI 7.4 for 6.5hrs on room air. [place] he had CHF exacerbation. We treated him with Lasix IV. Repeat CXR showing improving mild pulmonary edema. Echo here showing EF 60-65% with grade III diastolic dysfunction. He has only mild valvular disease but a possible bicuspid valve. He follows with cardioligst at [place]. Home today - continue with Lasix. (2) Diastolic CHF: Code(s): I50.30 - Unspecified diastolic (congestive) heart failure Status: Acute Assessment and Plan: As above. (3) COPD exacerbation: Code(s): J44.1 - Chronic obstructive pulmonary disease with (acute) exacerbation Status: Acute Assessment and Plan: [place] he has COPD exacerbation as well. Treated with Solu-Medrol and nebs. Converted to oral steroids. (4) Hyperkalemia: Code(s): E87.5 - Hyperkalemia Status: Acute Assessment and Plan: Potassium is mildly elevated on admission. Probably related to the spironolactone which has been placed on hold. Repeat potassium normal. Luisana should help with this. (5) Type 2 diabetes mellitus: Code(s): E11.9 - Type 2 diabetes mellitus without complications Status: Acute Assessment and Plan: A1c 7.6. The patient's blood glucose was monitored Glucose elevated into the 200s related the steroids. We added levemir while here. Continue AccuCheks covering with sliding scale. Hypoglycemia protocol available as needed. Continue current medications with Invokana and Tradjenta. (6) Essential hypertension: Code(s): I10 - Essential (primary) hypertension Status: Acute Assessment and Plan: Patient's blood pressure was monitored Blood pressure remains well controlled. We continued current medications with Coreg. (7) Chronic kidney disease, stage 3: Code(s): N18.3 - Chronic kidney disease, stage 3 (moderate) Status: Acute Assessment and Plan: Patient presumably has CKD stage 3. His eGFR >60 with his creatinine clearance of 60-70 but with diuresis, CrCl 55. (8) Immunosuppressed status: Code(s): D89.9 - Disorder involving the immune mechanism, unspecified Status: Acute Assessment and Plan: Patient is status post renal transplant. Continue mycophenolate and tacrolimus. (9) Kidney transplant recipient: Code(s): Z94.0 - Kidney transplant status Status: Chronic Assessment and Plan: As above. (10) Leukocytosis: Qualifiers: Leukocytosis type: unspecified Qualified Code(s): D72.829 - Elevated white blood cell count, unspecified Code(s): D72.829 - Elevated white blood cell count, unspecified
== END 2020-07-23 14:24 | disposition home or self-care (01) | DRG 291 ==
LOC: ANHED 09:29 → ANHIMU 09:58
PROVIDERS: Physician Assistant; Admitting Provider Family Medicine; Emergency Provider Emergency Medicine; Visit Provider Internal Medicine
DX: I13.0 Hypertensive heart and chronic kidney disease with heart failure and stage 1 through stage 4 chronic kidney disease, or unspecified chronic kidney disease (principal); J96.02 Acute respiratory failure with hypercapnia; J96.01 Acute respiratory failure with hypoxia; I50.33 Acute on chronic diastolic (congestive) heart failure; J44.1 Chronic obstructive pulmonary disease with (acute) exacerbation; Z94.0 Kidney transplant status; I48.19 Other persistent atrial fibrillation; L97.129 Non-pressure chronic ulcer of left thigh with unspecified severity; E11.22 Type 2 diabetes mellitus with diabetic chronic kidney disease; N18.3 Chronic kidney disease, stage 3 (moderate); D69.6 Thrombocytopenia, unspecified; F20.9 Schizophrenia, unspecified; Z66 Do not resuscitate; I25.10 Atherosclerotic heart disease of native coronary artery without angina pectoris; I25.2 Old myocardial infarction; E03.9 Hypothyroidism, unspecified; E87.5 Hyperkalemia; D72.829 Elevated white blood cell count, unspecified; Z79.01 Long term (current) use of anticoagulants; Z79.82 Long term (current) use of aspirin; Z79.899 Other long term (current) drug therapy; Z86.73 Personal history of transient ischemic attack (TIA), and cerebral infarction without residual deficits; Z87.891 Personal history of nicotine dependence; Z95.0 Presence of cardiac pacemaker; Z95.5 Presence of coronary angioplasty implant and graft
CPT/HCPCS: 36415; 36600; 51701; 71045; 80048; 80053; 81001; 82375; 82805; 83036; 83050; 83605; 83735; 83880; 84132; 84484; 85025; 85027; 85049; 85610; 85730; 86140; 87040; 87635; 93005; 93306; 94002; 94618; 94640; 94762; 96365; 96375; 99284; 99285; A9270; C9803; J0610; J1815; J1940; J1956; J2270; J2405; J2920; J2930; J7030; J7512; U0003

== ENCOUNTER 2020-08-02 00:14 | Outpatient (CLI) | payer MEDICARE, MEDICAID, SELFPAY ==
[2020-08-02 17:25] LABS: SARS-CoV-2 RNA PCR Negative
== END 2020-08-02 00:15 | disposition home or self-care (01) ==
LOC: ANHCOVIDDT 00:15
PROVIDERS: Visit Provider Surgery
DX: Z01.812 Encounter for preprocedural laboratory examination (principal); Z11.59 Encounter for screening for other viral diseases
CPT/HCPCS: 87635; C9803; U0003

== ENCOUNTER 2020-08-04 01:01 | Day surgery (SDC) | payer MEDICARE, MEDICAID, SELFPAY ==
[2020-07-27 14:31] VITALS: BMI 20.7
[2020-08-04] VITALS (8 sets, daily range): BP systolic 97–125; BP diastolic 74–89; PULSE 59–78; RESP 12–18; TEMP 36.2; O2SAT 93–98
--- NOTE | 2020-08-04 07:28 | WPDHPUPDATE1 ---
History and Physical Update Update Date/Time: 08/04/20 07:28 History and Physical has been reviewed, including an updated exam of the patient. There are NO changes in the patient's condition. Risks, benefits, and alternatives have been discussed and questions answered. Patient agrees to proceed with procedure.
[2020-08-04] MEDS: LACTATED RINGERS 1,000 ML 30 ML IV CONT (07:35)
[2020-08-04 07:47] LABS: Glucose Point of Care 274 (65-105)
--- NOTE | 2020-08-04 07:50 | WPDANESEPPF ---
Anes - Initial Pre Proc Eval Procedure: Operation Date: 08/04/20 08:30 Proposed Procedures p Debridement Necrotic Wound Left Lower Leg Times Two - Deloris Pedraza MD Date/Time: 08/04/20 07:50 Surgeon: Deloris Pedraza MD Pre Op Diagnosis: non healing necrotic left lower extremity wound x2 Patient Data Age: 55 Gender: M Height: 5 ft 9 in Weight: 63.5 kg Allergies Allergy/AdvReac Type Severity Reaction Status Date / Time No Known Allergies Allergy Verified 07/27/20 14:31 Home Medications Medication Instructions Recorded Confirmed Type Anoro Ellipta 1 inh INHALATION DAILY 02/12/20 08/01/20 History Invokana 100 mg PO DAILY 02/12/20 08/01/20 History Tradjenta 5 mg PO DAILY 02/12/20 08/01/20 History albuterol sulfate [ProAir HFA] 2 puff INHALATION Q4H PRN 02/22/20 08/01/20 History aripiprazole [Abilify] 15 mg PO QPM 02/22/20 08/01/20 History carvedilol [Coreg] 12.5 mg PO Q12H 02/22/20 08/01/20 History cholecalciferol (vitamin D3) 50 mcg PO DAILY 02/22/20 08/01/20 History [Vitamin D3] docusate sodium 100 mg PO DAILY 02/22/20 08/01/20 History levothyroxine 25 mcg PO DAILY 02/22/20 08/01/20 History mycophenolate sodium [Myfortic] 360 mg PO Q12H 02/22/20 08/01/20 History pravastatin 40 mg PO DAILY 02/22/20 08/01/20 History tacrolimus 3 mg PO Q12H 02/22/20 08/01/20 History pantoprazole 40 mg PO QAM #30 tablet 05/03/20 08/01/20 Rx doxepin 10 mg PO HS 07/21/20 08/01/20 History furosemide [Lasix] 20 mg PO DAILY #30 tablet 07/23/20 08/01/20 Rx prednisone 10 mg PO DIRECTED #23 tablet 07/23/20 08/01/20 Rx albuterol sulfate 2.5 mg INHALATION TID 07/27/20 07/27/20 History sulfamethoxazole-trimethoprim 1 tablet PO Q12H 07/27/20 07/27/20 History [Bactrim DS] warfarin 2 mg PO DAILY 07/27/20 07/27/20 History Laboratory Tests 08/04/20 07:45 POC Capillary Glucose 274 mg/dl H mg/dl (65-105) Patient hx anesthesia problems: none Family hx anesthesia problems: none [facility] Social History Social History Social History: The patient lives in [place] with his father. He is unemployed and is on disability due to schizophrenia. He smoked about a pack of cigarettes per day for several years and got down to the point where he was smoking a pack of month and now he has quit smoking as of May 2020. No alcohol use. Occasional marijuana use. He designates his father, Hemal, as his surrogate decision maker and he wishes to be a DNR. Smoking packs per day: 2 Smoking cigarettes per day: 40.0 Years smoked: 20 Smoking pack-years: 40.00 Smoking status: Former smoker Tobacco type: cigarettes Second hand tobacco smoke exposure: Yes Additional smoking assessment comments: QUIT 3 MONTHS AGO Alcohol intake: never Substance use: former Substance use type: marijuana Gender identity (if verbalized by the patient): Male Spiritual care concerns: No Agree to blood products: Yes Anes - Eval Final PreProcedure Day of Procedure 08/04/20 07:50 Patient weight: normal Heart: irregular rhythm Lungs: clear to auscultation Airway: Mallampati scale class III Neurological: alert and oriented Last oral intake: >/= 8 hours ASA classification: IV Emergent: no Anesthetic plan: proceed Anesthesia type and monitoring: general LMA and standard monitoring Informed Consent: The patient's anesthetic plan and its attendant risks and benefits were discussed with the patient/family/POA. Questions were solicited and answers provided to the satisfaction of the patient/family/POA.
[2020-08-04 08:04] LABS: INR 1.1; Partial Thromboplastin Time 22.4 SECONDS (22.3-36.8)
[2020-08-04] MEDS: ceFAZolin 2 GM/D5W 50 ML 2 GM/50 ML BAG IVPB (08:30)
--- NOTE | 2020-08-04 09:15 | PM.PROC ---
Procedure Note - Detailed Date of procedure: 08/04/20 Pre-op diagnosis: non healing necrotic left lower extremity wound x2 Post-op diagnosis: same Procedure performed: sharp debridement and washout LLE necrotic wound x 2, posterior calf 6x6 cm, lateral calf 2x2 cm, extending through dermis and subcutaneous tissue but not into underlying fascia or muscle Description of procedure: Patient brought to the operating room and placed in the lateral position. After adequate induction LMA mac anesthesia, the patient was prepped and draped in the normal sterile fashion. I began by doing the smaller wound on the lateral calf, measuring approximately 2 x 2 cm. There was noted to be a necrotic eschar superficial and I debrided this tissue using a 15 blade scalp. I debrided this through the dermis and into the subcutaneous tissue. There was noted to be some liquified necrosis in the subcutaneous tissue. Of note, this did not extend into the underlying fascia or muscle. I debrided this to healthy appearing subcutaneous tissue. I then gained hemostasis with the Bovie cautery. I then began working on the bigger wound in the posterior calf. This was noted to be approximately 6 x 6 cm. Began by again debriding the necrotic eschar. I again used a 15 blade scalpel and the debridement was noted to be through the dermis into the subcutaneous tissue. Again the underlying fascia and muscle were uninvolved. There was again noted to be liquified necrosis of the fat in this area. Once debrided to healthy viable tissue I gained hemostasis with the Bovie cautery. The depth of the wounds were noted to be approximately 1 and half to 2 cm. I then washed both these wounds out extensively. Sterile dressing was then placed. The patient tolerated the procedure well will be transferred to the recovery room in stable condition. Surgeon: Deloris Pedraza MD Estimated blood loss (mL): 5 Drains: No Packing: No Pathology: none sent Complications: No immediate complications Condition: stable Disposition: PACU Findings: necrotic LLE wound x 2
[2020-08-04 10:02] LABS: Glucose Point of Care 267 (65-105)
--- NOTE | 2020-08-04 12:22 | SUR.PHASEII ---
1015 called and left message with Nivia(dr chong nurse) concerning dressing change and wound care for pt 1050 dr chong returned call, would like to set up pt to see wound care in hospital. i will call wound care to set up.
== END 2020-08-04 10:40 | disposition home or self-care (01) ==
PROVIDERS: Visit Provider Surgery
PROC: (CPT 11042; principal; 2020-08-04 08:30)
DX: I96 Gangrene, not elsewhere classified (principal); I13.0 Hypertensive heart and chronic kidney disease with heart failure and stage 1 through stage 4 chronic kidney disease, or unspecified chronic kidney disease; N18.9 Chronic kidney disease, unspecified; E11.22 Type 2 diabetes mellitus with diabetic chronic kidney disease; I48.19 Other persistent atrial fibrillation; N18.3 Chronic kidney disease, stage 3 (moderate); I25.10 Atherosclerotic heart disease of native coronary artery without angina pectoris; Z79.01 Long term (current) use of anticoagulants; Z87.891 Personal history of nicotine dependence; F20.9 Schizophrenia, unspecified; F12.90 Cannabis use, unspecified, uncomplicated; Z94.0 Kidney transplant status; Z66 Do not resuscitate
CPT/HCPCS: 11042; 11045; 36415; 85610; 85730; A9270; J0690; J2405; J2704; J3010; J7120

== ENCOUNTER 2020-09-26 09:42 | Outpatient (CLI) | payer MEDICARE, MEDICAID, SELFPAY ==
--- NOTE | ~2020-09-26 | CT_ITS ---
EXAMINATION:CT chest high resolution wo al DATE: 09/26/2020 10:59 INDICATION: Chronic obstructive pulmonary disease. TECHNIQUE: Computed tomography (CT) of the chest was performed without intravenous contrast. Automate d exposure control and iterative reconstruction technique were employed. The dose-length product (DLP ) was 181.37 mGy-cm. COMPARISON: None. FINDINGS: There is mild emphysema. There is mild atelectasis bilaterally. No pleural effusion. The he art size is normal. There are coronary artery calcifications. No pericardial effusion. There is a lef t chest wall pacer with leads in the right atrium and right ventricle. The central pulmonary arteries are enlarged, consistent with pulmonary arterial hypertension. There is ectasia of ascending aorta m easuring 4.2 cm. Bilateral gynecomastia is noted. There is moderate to severe atrophy of the kidneys. There is mild thoracic spondylosis. IMPRESSION: 1. Mild emphysema. Reviewed, dictated and finalized at location B. OLL ADMINISTRATOR IMPRESSION: 1. Mild emphysema.
--- NOTE | 2020-09-26 10:52 | PCRCNOTE ---
PT. REFUSED SIX MINUTE WALK.
--- NOTE | 2020-10-02 14:48 | WPDPFTINT ---
PFT Interpretation PFT Interpretation: This PFT met all criteria for ATS standards and reproducibility FEV/FVC post bronchodilator 48% FEV1 43% or 1.43 liters FVC 65% or 2.96 liters TLC 114% RV 209% RV/TLC 63% DLCO 66% when adjusted for alveolar volume but not adjusted for hemoglobin Flow volume loops showed severe expiratory coving Impression: Severe airflow obstruction with air trapping and mildly reduced diffusion capacity. Clinical correlation is advised.
== END 2020-09-26 09:43 | disposition home or self-care (01) ==
PROVIDERS: Visit Provider Internal Medicine Critical Care Medicine
DX: J44.9 Chronic obstructive pulmonary disease, unspecified (principal); J43.9 Emphysema, unspecified
CPT/HCPCS: 71250; 94060; 94726; 94729

== ENCOUNTER 2020-11-07 08:01 | Outpatient (RCR) | payer MEDICARE, MEDICAID, SELFPAY ==
[2020-08-15 13:36] VITALS: BMI 19.9
--- NOTE | 2020-08-15 13:40 | WPDWOUNDNOTE ---
Wound Care Note Date/Time: 08/15/20 13:40 Pt seen and examined in wound care clinic. Pt denies any changes, reports he has overall been doing well. Pt seen by derm and Kenelog injection done around wounds. Pt denies any s/s infection. Pt reports some pain in bigger site francis c palpation, pressure. Assessment and Plan Assessment and plan (1) Non-healing wound of left lower extremity: Code(s): S81.802A - Unspecified open wound, left lower leg, initial encounter Status: Acute Assessment and Plan: will place Santyl for enzymatic debridement, cont local wound care, f/u 2 wks Review of Systems Constitutional: Constitutional: Reports body ache(s), Denies chills, Reports fatigue, Reports lethargy and Reports weakness Cardiovascular: Cardiovascular: Reports no additional cardiovascular complaints and Denies chest pain Respiratory: Respiratory: Reports no additional respiratory complaints and Denies dyspnea Gastrointestinal: Gastrointestinal: Reports no additional gastrointestinal complaints Musculoskeletal: Musculoskeletal: Reports back pain, Reports myalgias and Reports arthralgias Integumentary/Breasts: Skin/Breast: Denies erythema, Denies skin pain and Reports wounds Exam Const: General: no acute distress Resp: Auscultation: clear to auscultation bilaterally Cardio: Rate: regular rate Rhythm: regular rhythm GI: Inspection: non-distended GI Palp: Yes Soft to palpation, No Tenderness to palpation present (GI), No Guarding due to palpation present (GI) and No Hernia present Skin: Other: LLE wound x 2 lateral knee - 2x2 cm, shallow, mild eschar, no s/s infection post fossa - 6x6 cm, good granulation base, small amount of eschar at periphery, no s/s infection Neuro: Speech: normal speech Psych: Mental Status: mental status grossly normal
--- NOTE | 2020-08-29 13:05 | P.PNWOUND_ITS ---
Wound Care Note Date/Time: 08/29/20 13:05 Pt seen today in wound care clinic. Pt reports no issues and states wound seems to be healing. Pt denies any s/s infection. Pt does request some pain meds for nighttime. Assessment and Plan Assessment and plan (1) Non-healing wound of left lower extremity: Code(s): S81.802A - Unspecified open wound, left lower leg, initial encounter Status: Acute Assessment and Plan: cont local wound care c Santyl, will refill [place] rx, f/u for wound check in 6 wks Review of Systems Constitutional: Constitutional: Denies anorexia, Denies chills, Denies fatigue, Denies fever(s), Denies lethargy, Denies malaise and Denies weakness Cardiovascular: Cardiovascular: Reports no additional cardiovascular complaints Respiratory: Respiratory: Reports no additional respiratory complaints Gastrointestinal: Gastrointestinal: Reports no additional gastrointestinal complaints Exam Const: General: cooperative and ill appearing Nutritional Appearance: malnourished Orientation/consciousness: patient oriented x3 Resp: Effort & Inspection: normal respiratory effort Auscultation: clear to auscultation bilaterally Cardio: Rate: regular rate Rhythm: regular rhythm GI: Inspection: normal to inspection GI Palp: No abdominal tenderness, Yes Soft to palpation and No Tenderness to palpation present (GI) Skin: Other: LLE wounds x 2 - medial wound approx 2x2 clean c good granulation base, lat wound 6x6 good granulation bed, some eschar at edges diminished since last visit
--- NOTE | 2020-10-10 13:08 | P.PNWOUND_ITS ---
Wound Care Note Date/Time: 10/10/20 13:08 Pt here for eval of LLE wounds. Pt reports wound seems to be ok but somewhat enlarging. Pt c some eschar at edges of wound. Pt denies any s/s infection, drainage. Pt reports diabetes poorly controlled and he has been losing weight. Assessment and Plan Assessment and plan (1) Non-healing wound of left lower extremity: Code(s): S81.802A - Unspecified open wound, left lower leg, initial encounter Status: Acute Assessment and Plan: slowly enlarging, will need further debridement in OR, will likely need skin graft, will refer to plastics, needs better nutrition and bs control prior to OR, no s/s infection, cont local wound care for now (2) Type 2 diabetes mellitus: Qualifiers: Diabetes mellitus correction insulin use: without equipment operator intermodal yard use Diabetes mellitus complication status: without complication Qualified Code(s): E11.9 - Type 2 diabetes mellitus without complications Code(s): E11.9 - Type 2 diabetes mellitus without complications Status: Acute Assessment and Plan: needs better bs control Review of Systems Review of Systems: All systems reviewed & are unremarkable except as noted in HPI and below Exam Const: General: cooperative, comfortable and no acute distress Nutritional Appearance: malnourished Orientation/consciousness: patient oriented x3 Resp: Effort & Inspection: normal respiratory effort Auscultation: diminished lung sounds Cardio: Rate: regular rate Rhythm: regular rhythm GI: Inspection: normal to inspection GI Palp: Yes Soft to palpation, No Fir mness to palpation present (GI), No Tenderness to palpation present (GI) and No Guarding due to palpation present (GI) Skin: Other: L post knee wound - measuring 14x5.7.0.8 cm, good granulation base, dk eschar around periphery, no s/s infection
--- NOTE | 2020-11-07 15:01 | WPDWOUNDNOTE ---
Wound Care Note Date/Time: 11/07/20 15:01 Pt reports he has developed some new wounds and area in LLE seems to be slowly getting longer. Pt reports he is seeing hot blaster at [facility] and they recently took a bx. Pt has also had extensive changes in his home meds. Assessment and Plan Assessment and plan (1) Non-healing wound of left lower extremity: Code(s): S81.802A - Unspecified open wound, left lower leg, initial encounter Status: Acute Assessment and Plan: new wounds in bilateral UE and LE, await bx, as pt receives majority of care at [facility] would recommend wound care at that facility, pt will likely need further debridement once dx made Review of Systems Review of Systems: All systems reviewed & are unremarkable except as noted in HPI and below Exam Const: General: cooperative, no acute distress and ill appearing Nutritional Appearance: underweight Orientation/consciousness: patient oriented x3 Resp: Effort & Inspection: normal respiratory effort Auscultation: clear to auscultation bilaterally Cardio: Rate: regular rate Rhythm: regular rhythm GI: Inspection: normal to inspection GI Palp: No abdominal tenderness, Yes Soft to palpation and No Tenderness to palpation present (GI) Skin: Other: LLE wound 20x7x.3 c some necrotic eschar at edges, also new wound on prox thigh 4x3x.2 c necrotic eschar overlying, no s/s active infection
== END 2020-11-13 23:59 | disposition home or self-care (01) ==
LOC: ANHWOC 08:01
PROVIDERS: Visit Provider Surgery
DX: S81.802D Unspecified open wound, left lower leg, subsequent encounter (principal)
CPT/HCPCS: 99212; 99213; G0463

== ENCOUNTER 2020-12-28 07:28 | Inpatient (IN) | payer MEDICARE, MEDICAID, SELFPAY ==
[2020-12-28] VITALS (26 sets, daily range): BP systolic 107–196; BP diastolic 57–101; PULSE 52–109; RESP 20–40; TEMP 35.8–36.8; O2SAT 84–100; BMI 20.5
--- NOTE | ~2020-12-28 | XR_ITS ---
XR chest 1V portable 12/28/2020 08:22 Indication: Cough and shortness of breath Procedure: AP portable chest Comparison: Comparison to multiple prior studies sequentially, with oldest reviewed study dated 06/30. Findings: Heart size is normal. Pacemaker leads in expected position. There are chronic interstitial changes of the right lower lung zone peripherally, curly B lines, likely mild chronic interstitial ed jessica. Blunting of the costophrenic recesses may represent small effusions. No pneumothorax. The lungs are hyperinflated which is consistent with, but not diagnostic of chronic obstructive pulmonary disea se. Impression: 1: Chronic interstitial changes of the lower lung zones, possibly chronic interstitial edema. Reviewed, dictated and finalized at location [facility] Impression: 1: Chronic interstitial changes of the lower lung zones, possibly chronic inter stitial edema.
--- NOTE | 2020-12-28 07:31 | ECG_ITS ---
Measurements Intervals [place] Rate: 68 P: CT: 0 QRS: -85 QRSD: 196 T: 98 QT: 463 QTc: 494 Interpretive Statements ELECTRONIC VENTRICULAR PACEMAKER UNDERLYING ATRIAL FLUTTER/TACHYCARDIA BASELINE ARTIFACT- I, III, AVL NO FURTHER INTERPRETATION IS POSSIBLE ABNORMAL ECG Electronically Signed On 12-28-2020 8:05:07 AUTOMOTIVE REFINISH TECHNICIAN by Eliu Thompson D.O.
--- NOTE | 2020-12-28 07:38 | ED.SOB ---
HPI - SOB/Dyspnea General Chief Complaint: Shortness of Breath/Dyspnea Stated Complaint: SOB Source: RN notes reviewed History of Present Illness HPI Narrative: Patient presents to emergency department from home via EMS for shortness of breath. Patient has a history of CHF and COPD states he has been feeling short of breath for the past day unable to tell me specifically how much home oxygen he normally wears when EMS arrived she was noted to be in the 70s on room air he was placed on nonrebreather and transported that time. Patient denies having any chest pain or abdominal pain he denies any fevers or chills Related Data Home Medications Medication Instructions Recorded Confirmed Anoro Ellipta 1 inh INHALATION DAILY 02/12/20 08/04/20 Invokana 100 mg PO DAILY 02/12/20 08/04/20 Tradjenta 5 mg PO DAILY 02/12/20 08/04/20 albuterol sulfate [ProAir HFA] 2 puff INHALATION Q4H PRN 02/22/20 08/04/20 aripiprazole [Abilify] 15 mg PO QPM 02/22/20 08/04/20 carvedilol [Coreg] 12.5 mg PO Q12H 02/22/20 08/04/20 cholecalciferol (vitamin D3) 50 mcg PO DAILY 02/22/20 08/04/20 [Vitamin D3] docusate sodium 100 mg PO DAILY 02/22/20 08/04/20 levothyroxine 25 mcg PO DAILY 02/22/20 08/04/20 mycophenolate sodium [Myfortic] 360 mg PO Q12H 02/22/20 08/04/20 pravastatin 40 mg PO DAILY 02/22/20 08/04/20 tacrolimus 3 mg PO Q12H 02/22/20 08/04/20 doxepin 10 mg PO HS 07/21/20 08/04/20 albuterol sulfate 2.5 mg INHALATION TID 07/27/20 08/04/20 sulfamethoxazole-trimethoprim 1 tablet PO Q12H 07/27/20 08/04/20 [Bactrim DS] warfarin 2 mg PO DAILY 07/27/20 08/04/20 Allergies Allergy/AdvReac Type Severity Reaction Status Date / Time No Known Allergies Allergy Verified 12/28/20 07:38 Review of Systems Review of Systems: Narrative: Gen.: Denies fevers or chills ENT: Denies congestion Respiratory: See HPI CV: Denies chest pain or palpitations GI: Denies abdominal pain nausea, emesis or diarrhea Musculoskeletal: Denies back pain or muscle pain Neuro: Denies numbness, tingling, weakness or focal weakness Skin: Denies rash Except as documented, all other systems reviewed and negative [facility] Past Medical History Medical History (Updated 12/28/20 @ 14:08 by Rodríguez Crow DO) Cerebrovascular accident (~06/2004) Chronic kidney disease, stage 3 Baseline creatinine between 1.2 and 1.30. Chronic obstructive pulmonary disease Coronary artery disease Status post stent in 2016. Depression Essential hypertension Hypertension Hypothyroidism Immunosuppressed status On immunosuppressant status post renal transplant. Pacemaker Persistent atrial fibrillation On long-term anticoagulation with warfarin. Schizophrenia Type 2 diabetes mellitus Surgical History Surgical History Status post coronary artery stent placement Status post kidney transplant Family History Family History Mother Cancer Social History Social History Social History: The patient lives in [place] with his father. He is unemployed and is on disability due to schizophrenia. He smoked about a pack of cigarettes per day for several years and got down to the point where he was smoking a pack of month and now he has quit smoking as of May 2020. No alcohol use. Occasional marijuana use. He designates his father, Hemal, as his surrogate decision maker and he wishes to be a DNR. Smoking packs per day: 2 Smoking cigarettes per day: 40.0 Years smoked: 20 Smoking pack-years: 40.00 Smoking status: Former smoker Tobacco type: cigarettes Second hand tobacco smoke exposure: Yes Additional smoking assessment comments: QUIT 3 MONTHS AGO Alcohol intake: never Substance use: former Substance use type: marijuana Gender identity (if verbalized by the patient): Male Spiritual care concerns:
[2020-12-28] MEDS: IPRATROPIUM BR 0.02% INH SOLN 0.5 MG/2.5 ML VIAL INHALATION ×3 (07:45→21:14)
[2020-12-28] MEDS: methylPREDNISolone SOD SUCC 125 MG VIAL IV PUSH (07:45)
[2020-12-28] MEDS: ALBUTEROL SULFATE NEB 2.5 MG/0.5 ML INH 5 MG INHALATION ×3 (07:45→21:16)
[2020-12-28 07:46] LABS: Basophils Absolute Auto 0.1 K/mm3 (0.0-0.1); Basophils Percent Auto 0.7 % (0.2-1.2); Eosinophils Absolute Auto 0.1 K/mm3 (0-0.3); Hematocrit 43.3 % (42.0-52.0); Hemoglobin 13.5 g/dL (14.0-18.0); Immature Granulocyte Absolute 0.04 K/mm3 (0.00-0.031); Immature Granulocyte Percent A 0.3 % (0-0.5); Lymphocytes Absolute Auto 3.12 K/mm3 (0.9-3.2); Lymphocytes Percent Auto 23.7 % (18.3-44.2); Mean Corpuscular HGB Conc 31.2 g/dl (32-36); Mean Corpuscular Hemoglobin 29.1 pg (26-34); Mean Corpuscular Volume 93.3 fl (80-100); Mean Platelet Volume 9.8 fl (7.4-10.4); Monocytes Absolute Auto 1.3 K/mm3 (0.1-0.6); Monocytes Percent Auto 9.6 % (2.6-8.5); Neutrophils Absolute Auto 8.5 K/mm3 (1.3-6.7); Neutrophils Percent Auto 64.7 % (45.5-73.1); Platelet Count Result 218 k/mm3 (150-375); Red Blood Count 4.64 M/mm3 (4.6-6.20); Red Cell Distribution Width 17.8 % (11.5-14.5); White Blood Count 13.2 K/mm3 (4.5-10.0)
[2020-12-28 07:57] LABS: INR 1.5; Lactic Acid Reflex 2.8 mmol/L (0.7-2.1); Prothrombin Time 18.3 Seconds (11.1-14.7)
[2020-12-28 07:58] LABS: Partial Thromboplastin Time 33.5 SECONDS (22.3-36.8)
[2020-12-28 07:59] LABS: Alveolar/Arterial O2 Gradient 223.4 mmHg; Base Excess ABG -6.1 mEq/l (+/-2.0); Device NON-INVASIVE VENT; Fractional Inspired Oxygen 100 %; HCO3 ABG 19.9 mEq/l (22.0-26.0); Modified Allen's Test Pass; Oxygen Content ABG 18.3 %vol (16.0-22.0); Oxygen Saturation ABG 99.8 % (95.0-100.0); Oxyhemoglobin 98.2 % THb (90.0-100.0); PO2 ABG 448.6 mmHg (80.0-100.0); PO2 FiO2 Ratio Arterial Blood 4.49 %; Site Drawn RIGHT RADIAL; Total Hemoglobin 12.4 g/dL (12.0-18.0); pH ABG 7.303 (7.350-7.450)
[2020-12-28 08:00] LABS: Non-Invasive Expiratory Pressure 6 CMH2O; Non-Invasive Inspiratory Pressure 12 CMH2O; Non-Invasive Vent Rate 16 /MIN
--- NOTE | 2020-12-28 08:15 | PC.NURSE ---
Called laboratory and added on labs ordered by EDP. Spoke to Elvira.
--- NOTE | 2020-12-28 09:18 | PC.NURSE ---
Spoke to father - Hemal in regards to pt. Given verbal permission per pt. Pt resides w/ father. PH# [phone]
[2020-12-28 09:25] LABS: Anion Gap 9 mmol/L (8-16); Blood Urea Nitrogen 17 mg/dL (9-20); Calcium 10.2 mg/dL (8.4-10.2); Carbon Dioxide 25 mmol/L (22-30); Chloride 107 mmol/L (98-107); Estimated CRCL calculation 61 ml/min; Estimated Glomerular Filt Rate > 60; Glucose 144 mg/dL (75-110); Potassium 4.9 mmol/L (3.4-5.0); Sodium 141 mmol/L (137-145)
[2020-12-28 09:55] LABS: NT Pro B Type Natriuretic Pept 8940 PG/ML (5-100); Troponin I 0.056 ng/mL (0.000-0.034)
[2020-12-28] MEDS: FUROSEMIDE INJ 40 MG/4 ML VIAL IV PUSH (10:15)
[2020-12-28] MEDS: ASPIRIN 81 MG CHEWABLE TABLET 324 MG PO (10:31)
[2020-12-28 10:43] LABS: Reflex Lactic Acid Yes or No Add Lactic
--- NOTE | 2020-12-28 10:47 | PC.NURSE ---
Pts wallet/ID/cards given to father Hemal. EDP Dr Crow in w/r to discuss POC w/ pts father.
--- NOTE | 2020-12-28 12:58 | PM.IMHP ---
H&P: HPI History of Present Illness Date/Time: 12/28/20 12:58 Chief Complaint: sob Narrative: Bob Alfaro is a 55 year old male with past medical history of COPD hypertension diabetes mellitus kidney transplant presented to the hospital with shortness of breath complaint shortness of breath was worsened with activity associated with cough also has some lower extremity swelling and the patient was found to have saturation in 70s and started on non-rebreather with saturation improvement patient found to have COPD exacerbation and CHF exacerbation admitted for further evaluation and treatment Review of Systems Review of Systems: All systems reviewed & are unremarkable except as noted in HPI and below PMFSH Past Medical History Medical History Cerebrovascular accident (~06/2004) Chronic kidney disease, stage 3 Baseline creatinine between 1.2 and 1.30. Chronic obstructive pulmonary disease Coronary artery disease Status post stent in 2016. Depression Essential hypertension Hypertension Hypothyroidism Immunosuppressed status On immunosuppressant status post renal transplant. Pacemaker Persistent atrial fibrillation On long-term anticoagulation with warfarin. Schizophrenia Type 2 diabetes mellitus Surgical History Surgical History Status post coronary artery stent placement Status post kidney transplant Family History Family History Mother Cancer Social History Social History Social History: The patient lives in [place] with his father. He is unemployed and is on disability due to schizophrenia. He smoked about a pack of cigarettes per day for several years and got down to the point where he was smoking a pack of month and now he has quit smoking as of May 2020. No alcohol use. Occasional marijuana use. He designates his father, Hemal, as his surrogate decision maker and he wishes to be a DNR. Smoking packs per day: 2 Smoking cigarettes per day: 40.0 Years smoked: 20 Smoking pack-years: 40.00 Smoking status: Former smoker Tobacco type: cigarettes Second hand tobacco smoke exposure: Yes Additional smoking assessment comments: QUIT 3 MONTHS AGO Alcohol intake: never Substance use: former Substance use type: marijuana Gender identity (if verbalized by the patient): Male Spiritual care concerns: No Agree to blood products: Yes Meds Home Medications and Allergies Home Medications Medication Instructions Recorded Confirmed Type Anoro Ellipta 1 inh INHALATION DAILY 02/12/20 08/04/20 History Invokana 100 mg PO DAILY 02/12/20 08/04/20 History Tradjenta 5 mg PO DAILY 02/12/20 08/04/20 History albuterol sulfate [ProAir HFA] 2 puff INHALATION Q4H PRN 02/22/20 08/04/20 History aripiprazole [Abilify] 15 mg PO QPM 02/22/20 08/04/20 History carvedilol [Coreg] 12.5 mg PO Q12H 02/22/20 08/04/20 History cholecalciferol (vitamin D3) 50 mcg PO DAILY 02/22/20 08/04/20 History [Vitamin D3] docusate sodium 100 mg PO DAILY 02/22/20 08/04/20 History levothyroxine 25 mcg PO DAILY 02/22/20 08/04/20 History mycophenolate sodium [Myfortic] 360 mg PO Q12H 02/22/20 08/04/20 History pravastatin 40 mg PO DAILY 02/22/20 08/04/20 History tacrolimus 3 mg PO Q12H 02/22/20 08/04/20 History pantoprazole 40 mg PO QAM #30 tablet 05/03/20 08/04/20 Rx doxepin 10 mg PO HS 07/21/20 08/04/20 History prednisone 10 mg PO DIRECTED #23 tablet 07/23/20 08/04/20 Rx albuterol sulfate 2.5 mg INHALATION TID 07/27/20 08/04/20 History sulfamethoxazole-trimethoprim 1 tablet PO Q12H 07/27/20 08/04/20 History [Bactrim DS] warfarin 2 mg PO DAILY 07/27/20 08/04/20 History hydrocodone-acetaminophen [[place]] 1 tablet PO Q6H PRN #14 tablet 08/04/20 Rx hydrocodone 5 mg-acetaminophen 325 1 tablet P
--- NOTE | 2020-12-28 13:02 | ADMGEN ---
This patient, Bob Alfaro, was admitted to IMU Room 213-01. Patient/family oriented to hospital policies and general routines including ID bracelet, bed and alarms, visiting hours, pain management, procedures, bathroom and other care routines, personal items, smoking policy, room service/diet, and visiting hours. Information on how to activate the Rapid Response Team has been discussed. Patient/Family are encouraged to report perceived risks to care and to ask questions if they do not understand what they are told or what they should do.
[2020-12-28 14:29] LABS: Free T4 Free Thyroxine 1.49 ng/mL (0.78-2.19)
[2020-12-28] MEDS: methylPREDNISolone SOD SUCC 40 MG VIAL IV PUSH ×2 (15:24→22:17)
--- NOTE | 2020-12-28 15:24 | PHAR ---
HOME MEDICATIONS VERIFIED BY PHARMACY: TACROLIMUS 1MG TAKE 3 CAPSULES PO BID RX [id number] MYCOPHENOLIC ACID 360 MG TAKE 1 TABLET PO BID RX [id number] PREDNISONE 5MG TABLET 1 TABLET PO ONCE DAILY RX [id number] ELIQUIS 5MG TABLET TAKE 1 TABLET PO BID RX [id number] BACTRIM DS TABLET TAKE 1 TABLET PO DAILY RX [id number]
[2020-12-28 15:41] LABS: Lactic Acid 2.1 mmol/L (0.7-2.1)
--- NOTE | 2020-12-28 16:03 | PM.CNCAR ---
Assessment and Plan Assessment and plan (1) Acute respiratory failure with hypoxia: Code(s): J96.01 - Acute respiratory failure with hypoxia Status: Acute Assessment and Plan: Patient presents with hypoxia primarily secondary to COPD exacerbation with a component of diastolic CHF, improved with treatment. (2) COPD exacerbation: Code(s): J44.1 - Chronic obstructive pulmonary disease with (acute) exacerbation Status: Acute Assessment and Plan: Continue updrafts, BiPAP etc. per Dr. Blue (3) Acute on chronic diastolic heart failure: Code(s): I50.33 - Acute on chronic diastolic (congestive) heart failure Status: Acute Assessment and Plan: Elevated BNP and mild edema on admission although chest x-ray did not show significant CHF and he had no PND orthopnea. Mild exacerbation of diastolic heart failure, aggravated by hypoxia. Improved with diuresis. Probably discontinue IV Lasix tomorrow as he does not appear significantly volume overloaded. Daily BMP (4) Coronary artery disease: Qualifiers: Coronary Disease-Associated Artery/Lesion type: [place] artery [place] vs. transplanted heart: [place] heart Associated angina: without angina Qualified Code(s): I25.10 - Atherosclerotic heart disease of [place] coronary artery without angina pectoris Code(s): I25.10 - Atherosclerotic heart disease of [place] coronary artery without angina pectoris Status: Acute Assessment and Plan: History of coronary stent in 2016. Has mildly elevated troponins, a common phenomenon for him when he arrives hypoxic. Troponin spill secondary to physiologic stress. No acute coronary syndrome. Continue statin, Eliquis (5) Persistent atrial fibrillation: Code(s): I48.19 - Other persistent atrial fibrillation Status: Chronic Assessment and Plan: Patient has chronic AFib, rate controlled, on Eliquis Also has of pacemaker. History of Present Illness History of Present Illness Consult date/time: 12/28/20 16:03 Requesting physician: Dave Blue M.A., MD Consult reason: congestive heart failure Reason For Visit: Acute respiratory failure with hypoxia/CHF/COPD Narrative: 12/28/2020 Mr. Bob Alfaro is a 55-year-old male with schizophrenia who was admitted with shortness of breath and COPD exacerbation. We were asked to see him at the request of the hospitalists for our advice and opinion regarding his congestive heart failure in consultation. To the ER by EMS with complaints of shortness of breath and O2 saturations in the 70s. In the ER the patient's respiratory rate was 40, blood pressure 196/101 and pulse ox was 84%. Methylprednisolone, antibiotics, albuterol and atrovent inhalation, BiPAP, and improved. He denies any chest discomfort, PND, orthopnea but had SERRANO with any minor exertion over the last few days. Mild cough.. He has had some mild edema. The patient has CAD and pacemaker and has been followed by Dr. Rios at [place]. His COPD has been followed by Dr. Suarez. He was hospitalized here for shortness of breath in March, April, May and July 2020. Has chronic minimally elevated troponins secondary to COPD/hypoxia, elevated BNPs and shortness of breath was thought to be primarily secondary to COPD with some diastolic CHF. Coronary stent in 2015, kidney transplant, persistent atrial fibrillation as well as a [employer] pacemaker. Lexiscan stress test In April 2020 showed no ischemia or infarct, EF 52%. Echocardiogram in July 2020 showed EF 60-65%, severe LVH, diastolic dysfunction, moderate right ventricular enlargement, biatrial enlargement, mild aortic stenosis and possibly bicuspid aortic valve with a peak velocity of only 1.3 meters per 2nd, aortic valve area 1.7 cm2, mild MR/TR, RV
[2020-12-28 16:12] LABS: Alanine Aminotransferase 21 U/L (4-50); Albumin Level 3.8 g/dL (3.5-5.1); Alkaline Phosphatase 101 U/L (38-126); Anion Gap 9 mmol/L (8-16); Aspartate Amino Transferase 26 U/L (17-59); Bilirubin,Total 1.1 mg/dL (0.2-1.3); Blood Urea Nitrogen 21 mg/dL (9-20); Calcium 10.6 mg/dL (8.4-10.2); Carbon Dioxide 24 mmol/L (22-30); Chloride 105 mmol/L (98-107); Estimated CRCL calculation 65 ml/min; Estimated Glomerular Filt Rate > 60; Glucose 177 mg/dL (75-110); Potassium 4.9 mmol/L (3.4-5.0); Sodium 138 mmol/L (137-145)
--- NOTE | 2020-12-28 16:19 | PM.CNNEP ---
Assessment and Plan Assessment and plan (1) Kidney transplant recipient: Code(s): Z94.0 - Kidney transplant status Status: Chronic Assessment and Plan: allograft function appears stable I would resume his home immunosuppression medications although he probably does not need prednisone since he is on IV steroids follow repeat labs and UOP to ensure stability in renal function (2) Acute respiratory failure with hypoxia: Code(s): J96.01 - Acute respiratory failure with hypoxia Status: Acute Assessment and Plan: likely due to a combination of COPD exacerbation and mild CHF continue current therapy (BiPAP, steroids, nebulizers...etc) Cardiology following as well (3) Hypertension: Code(s): I10 - Essential (primary) hypertension Status: Chronic Assessment and Plan: reasonable control at this time follow trend of hemodynamics (4) T2DM (type 2 diabetes mellitus): Qualifiers: Diabetes mellitus complication status: without complication Diabetes mellitus intermodal dispatcher insulin use: without intermodal dispatcher use Qualified Code(s): E11.9 - Type 2 diabetes mellitus without complications Code(s): E11.9 - Type 2 diabetes mellitus without complications Status: Chronic Assessment and Plan: follow accuchecks on SSI Will continue to follow. History of Present Illness Reason for Consult Consult date: 12/28/20 Reason for consult: Other (renal transplant) Chief Complaint Chief complaint: Acute respiratory failure with hypoxia/CHF/COPD History of Present Illness Narrative: The patient is a 55 year old male with a past medical history as outlined below who presented to [facility] ER with complaints of shortness of breath. The patient reports that he has been having shortness of breath for the last 1-2 days prior to calling EMS for further evaluation. As shortness of breath seemed to be progressively worsening, EMS was called and on their arrival it was noted the patient was saturating 70% on room air. Non-rebreather mask was applied and he was subsequent transferred to the ER for further intervention. He denied any other symptoms or complaints with regard to chest pain, nausea, vomiting, fevers, chills, or abdominal pain. Workup and evaluation emergency room did demonstrate the patient be hypoxic requiring supplemental oxygen to maintain his O2 saturations. Further workup and evaluation demonstrated a CBC with a mildly elevated white blood cell count and otherwise normal chemistries. His troponin was mildly elevated and his chest x-ray was somewhat suggestive of emphysema changes in association with some mild volume overload. It was felt that his respiratory status was due to a combination of COPD as well as CHF and he was subsequently treated with nebulizer treatments, steroids, and IV diuretics. He was subsequent admitted the hospital for further evaluation therapy and he was instituted on BiPAP therapy to optimize his respiratory status. Renal consultation was requested due to his known history of kidney transplantation. His baseline creatinine normally runs around 1.2-1.3 mg/dL is actually somewhat better than baseline by his admission labs. He otherwise has no critical electrolyte abnormalities and he reports no other issues or problems with regard to decreased urine output, hematuria, dysuria, or difficulty urinating. He is on triple therapy (tacrolimus, CellCept, and prednisone ) for immunosuppressive therapy for his kidney transplant. Currently, the patient Has BiPAP in place and appears to be doing better from a respiratory standpoint. Review of Systems Review of Systems: Narrative: As per HPI. [facility] Past Medical History Medical History (Updated 12/28/20 @ 20:07 by Pau Doss MD) Cerebrovascular accident (~06/2004) Chronic kidney disease, stage 3 Baseline creatinine between 1.2 and 1.30. Chronic obstructive pulmon
[2020-12-28 16:26] LABS: Troponin I 0.057 ng/mL (0.000-0.034)
[2020-12-28] MEDS: SILVERGEL (ELTA) 45 ML 1 APPLIC TOPICAL (16:30)
[2020-12-28 17:12] LABS: Magnesium 1.5 mg/dL (1.6-2.3)
[2020-12-28] MEDS: FUROSEMIDE INJ 40 MG/4 ML VIAL 20 MG IV PUSH (17:12)
[2020-12-28 17:30] LABS: Glucose Point of Care 178 (65-105)
[2020-12-28 19:24] LABS: Basophils Percent Auto 0.2 % (0.2-1.2); Hematocrit 41.3 % (42.0-52.0); Hemoglobin 12.4 g/dL (14.0-18.0); Immature Granulocyte Absolute 0.02 K/mm3 (0.00-0.031); Immature Granulocyte Percent A 0.4 % (0-0.5); Lymphocytes Absolute Auto 0.59 K/mm3 (0.9-3.2); Lymphocytes Percent Auto 11.1 % (18.3-44.2); Mean Corpuscular Hemoglobin 29.4 pg (26-34); Mean Corpuscular Volume 97.9 fl (80-100); Mean Platelet Volume 9.8 fl (7.4-10.4); Monocytes Absolute Auto 0.1 K/mm3 (0.1-0.6); Monocytes Percent Auto 2.6 % (2.6-8.5); Neutrophils Absolute Auto 4.6 K/mm3 (1.3-6.7); Neutrophils Percent Auto 85.7 % (45.5-73.1); Platelet Count Result 165 k/mm3 (150-375); Red Blood Count 4.22 M/mm3 (4.6-6.20); Red Cell Distribution Width 18.2 % (11.5-14.5); White Blood Count 5.3 K/mm3 (4.5-10.0)
[2020-12-28 20:01] LABS: Troponin I 0.042 ng/mL (0.000-0.034)
[2020-12-28 20:25] LABS: Glucose Point of Care 195 (65-105)
[2020-12-28] MEDS: APIXABAN 5 MG TABLET PO (22:15)
[2020-12-28 22:35] LABS: SARS-CoV-2 RNA PCR Negative
[2020-12-29] VITALS (24 sets, daily range): BP systolic 105–140; BP diastolic 60–87; PULSE 59–93; RESP 16–20; TEMP 36.2–36.6; O2SAT 94–100
[2020-12-29] MEDS: carvediloL 12.5 MG TABLET PO ×3 (00:51→20:25)
[2020-12-29] MEDS: ARIPiprazole 10 MG TABLET PO ×2 (00:52→17:01)
[2020-12-29] MEDS: ARIPiprazole 5 MG TABLET PO ×2 (00:52→17:02)
[2020-12-29] MEDS: DOXEPIN HCL 10 MG CAPSULE PO ×2 (00:52→20:25)
[2020-12-29] MEDS: ALBUTEROL SULFATE NEB 2.5 MG/0.5 ML INH 5 MG INHALATION ×4 (03:11→22:31)
[2020-12-29] MEDS: IPRATROPIUM BR 0.02% INH SOLN 0.5 MG/2.5 ML VIAL INHALATION ×4 (03:11→22:31)
[2020-12-29] MEDS: methylPREDNISolone SOD SUCC 40 MG VIAL IV PUSH ×3 (05:21→22:20)
[2020-12-29] MEDS: LEVOTHYROXINE SODIUM 25 MCG TABLET PO (05:21)
[2020-12-29 05:28] LABS: Basophils Percent Auto 0.2 % (0.2-1.2); Hematocrit 35.3 % (42.0-52.0); Hemoglobin 10.9 g/dL (14.0-18.0); Immature Granulocyte Absolute 0.02 K/mm3 (0.00-0.031); Immature Granulocyte Percent A 0.3 % (0-0.5); Lymphocytes Absolute Auto 0.56 K/mm3 (0.9-3.2); Mean Corpuscular HGB Conc 30.9 g/dl (32-36); Mean Corpuscular Hemoglobin 29.4 pg (26-34); Mean Corpuscular Volume 95.1 fl (80-100); Mean Platelet Volume 10.2 fl (7.4-10.4); Monocytes Absolute Auto 0.4 K/mm3 (0.1-0.6); Monocytes Percent Auto 5.9 % (2.6-8.5); Neutrophils Absolute Auto 5.3 K/mm3 (1.3-6.7); Neutrophils Percent Auto 84.6 % (45.5-73.1); Platelet Count Result 182 k/mm3 (150-375); Red Blood Count 3.71 M/mm3 (4.6-6.20); White Blood Count 6.2 K/mm3 (4.5-10.0)
[2020-12-29 05:39] LABS: Anion Gap 5 mmol/L (8-16); Blood Urea Nitrogen 36 mg/dL (9-20); Calcium 9.7 mg/dL (8.4-10.2); Carbon Dioxide 26 mmol/L (22-30); Chloride 103 mmol/L (98-107); Cholesterol 139 mg/dL (0-200); Estimated CRCL calculation 58 ml/min; Estimated Glomerular Filt Rate > 60; Glucose 404 mg/dL (75-110); HDL Direct 42 mg/dL; Potassium 4.9 mmol/L (3.4-5.0); Sodium 134 mmol/L (137-145); Triglycerides 61 mg/dL (<150)
[2020-12-29 05:45] LABS: LDL Cholesterol Direct 83 mg/dL
[2020-12-29 07:59] LABS: Glucose Point of Care 375 (65-105)
[2020-12-29] MEDS: PRAVASTATIN SODIUM 20 MG TABLET 40 MG PO (08:15)
[2020-12-29] MEDS: CHOLECALCIFEROL 1,000 UNITS TABLET 2000 UNITS PO (08:15)
[2020-12-29] MEDS: DOCUSATE SODIUM 100 MG CAPSULE PO (08:15)
[2020-12-29] MEDS: APIXABAN 5 MG TABLET PO ×2 (08:15→20:25)
[2020-12-29] MEDS: FUROSEMIDE INJ 40 MG/4 ML VIAL 20 MG IV PUSH (08:16)
[2020-12-29] MEDS: INSULIN ASPART (*BKC) 100 UNITS/ML SUB-Q ×3 (08:22→17:01)
[2020-12-29] MEDS: SILVERGEL (ELTA) 45 ML 1 APPLIC TOPICAL (10:55)
[2020-12-29 11:56] LABS: Glucose Point of Care 276 (65-105)
--- NOTE | 2020-12-29 12:30 | PM.IMPN ---
Progress Note: A&P Assessment and Plan (1) Diastolic CHF: Code(s): I50.30 - Unspecified diastolic (congestive) heart failure Status: Acute Assessment and Plan: Cardiology recommendation appreciated most likely diastolic CHF exacerbation acute on top of chronic switch to oral Lasix (2) Thrombocytopenia: Code(s): D69.6 - Thrombocytopenia, unspecified Status: Acute Assessment and Plan: Monitor platelet (3) Hyperkalemia: Code(s): E87.5 - Hyperkalemia Status: Acute Assessment and Plan: Monitor (4) Acute respiratory failure with hypoxia and hypercarbia: Code(s): J96.01 - Acute respiratory failure with hypoxia; J96.02 - Acute respiratory failure with hypercapnia Status: Acute Assessment and Plan: Most likely related to COPD exacerbation give steroid antibiotic inhaler treatment (5) Chronic kidney disease, stage 3: Code(s): N18.3 - Chronic kidney disease, stage 3 (moderate) Status: Acute Assessment and Plan: Avoid nephrotoxic medication (6) Type 2 diabetes mellitus: Qualifiers: Diabetes mellitus fpc insulin use: without predatory animal exterminator use Diabetes mellitus complication status: without complication Qualified Code(s): E11.9 - Type 2 diabetes mellitus without complications Code(s): E11.9 - Type 2 diabetes mellitus without complications Status: Acute Assessment and Plan: Insulin sliding scale (7) Essential hypertension: Code(s): I10 - Essential (primary) hypertension Status: Acute Assessment and Plan: Continue to monitor (8) COPD exacerbation: Code(s): J44.1 - Chronic obstructive pulmonary disease with (acute) exacerbation Status: Acute Assessment and Plan: Inhaler treatment steroid antibiotics (9) DNR (do not resuscitate): Code(s): Z66 - Do not resuscitate Status: Acute (10) Hypothyroid: Qualifiers: Hypothyroidism type: unspecified Qualified Code(s): E03.9 - Hypothyroidism, unspecified Code(s): E03.9 - Hypothyroidism, unspecified Status: Chronic Assessment and Plan: Continue medication (11) Elevated troponin: Code(s): R79.89 - Other specified abnormal findings of blood chemistry Status: Acute Assessment and Plan: Most likely NSTEMI type 2 secondary to demand ischemia monitor Subjective Date/time seen: 12/29/20 12:30 Interval history: Patient seen and examined Patient feels weak shortness of breath has improved Patient denies fever headache chest pain I am seeing the patient for CHF Exam Narrative: Exam Narrative: Alert Chest wheeze Abdomen nontender nondistended CVS S1 + S2 Lower extremity edema Objective Data Vital Signs Vital Signs: Vital Signs - 24 hr 12/28/20 13:00 12/28/20 13:25 12/28/20 14:00 Temperature 96.5 F L Pulse Rate 87 52 L 80 Respiratory Rate 20 24 H Blood Pressure 127/92 H Pulse Oximetry 97 96 12/28/20 14:25 12/28/20 14:26 12/28/20 14:40 Temperature Pulse Rate 76 79 77 Respiratory Rate 20 24 H 20 Blood Pressure Pulse Oximetry 97 12/28/20 16:00 12/28/20 16:23 12/28/20 17:55 Temperature 96.6 F L Pulse Rate 81 90 80 Respiratory Rate 23 H 22 H Blood Pressure 137/83 Pulse Oximetry 97 97 12/28/20 18:00 12/28/20 18:53 12/28/20 20:00 Temperature 98.3 F Pulse Rate 84 84 65 Respiratory Rate 24 H Blood Pressure 128/97 H Pulse Oximetry 93 100 12/28/20 21:20 12/28/20 21:25 12/28/20 21:49 Temperature Pulse Rate 105 H 76 109 H Respiratory Rate 27 H 20 20 Blood Pressure Pulse Oximetry 100 12/28/20 21:55 12/28/20 22:00 12/29/20 00:00 Temperature 97.3 F L Pulse Rate 76 67 62 Respiratory Rate 24 H 18 Blood Pressure 140/81 Pulse Oximetry 100 98 12/29/20 00:51 12/29/20 02:00 12/29/20 03:12 Temperature Pulse Rate 64 77 61 Respiratory Rate 20 Blood Pressure Pulse Oximetry
[2020-12-29] MEDS: HYDROcodone/acetaminophen (*CRX) 5-325 MG TABLET 1 TAB PO (13:10)
--- NOTE | 2020-12-29 13:24 | PM.PNNEP ---
Progress Note: A&P Assessment and Plan (1) Kidney transplant recipient: Code(s): Z94.0 - Kidney transplant status Status: Chronic Assessment and Plan: allograft function appears stable basline creatinine runs around 1.0 - 1.3mg/dl I would resume his home immunosuppression medications since he appears to be improving follow repeat labs and UOP to ensure stability in renal function (2) Acute respiratory failure with hypoxia: Code(s): J96.01 - Acute respiratory failure with hypoxia Status: Acute Assessment and Plan: likely due to a combination of COPD exacerbation and mild CHF continue current therapy (BiPAP, steroids, nebulizers...etc) Cardiology following as well (3) Hypertension: Code(s): I10 - Essential (primary) hypertension Status: Chronic Assessment and Plan: reasonable control at this time follow trend of hemodynamics (4) T2DM (type 2 diabetes mellitus): Qualifiers: Diabetes mellitus complication status: without complication Diabetes mellitus group home insulin use: without equipment operator intermodal yard use Qualified Code(s): E11.9 - Type 2 diabetes mellitus without complications Code(s): E11.9 - Type 2 diabetes mellitus without complications Status: Chronic Assessment and Plan: follow accuchecks on SSI Will continue to follow. Subjective Date/time seen: 12/29/20 13:24 Seems to be feeling significantly better at this time; weaned off BiPAP and supplemental oxygen with stable oxygen saturations; no other acute issues or problems to report at this time; no events/issues overnight or earlier this AM. Exam Narrative: Exam Narrative: General: WD/WN male in NAD Heart: normal S1 and S2; no rub Lungs: clear anteriorly Abdomen: soft, nontender, nondistended, positive bowel sounds Extremities: no cyanosis or clubbing; no edema Skin: warm and dry Objective Data Vital Signs Vital Signs: Vital Signs Temp Pulse Resp BP Pulse Ox 12/29/20 12:00 36.6 C 60 18 132/87 98 12/29/20 08:22 78 20 100 12/29/20 08:17 65 20 12/29/20 08:14 61 12/29/20 08:00 36.4 C 61 16 125/77 97 12/29/20 06:00 60 12/29/20 04:00 61 12/29/20 03:57 100 12/29/20 03:54 36.6 C 65 20 105/60 100 12/29/20 03:20 64 20 12/29/20 03:12 61 20 12/29/20 02:00 77 12/29/20 00:51 64 12/29/20 00:00 36.3 C L 62 18 140/81 98 12/28/20 22:00 67 12/28/20 21:55 76 24 H 100 12/28/20 21:49 109 H 20 12/28/20 21:25 76 20 12/28/20 21:20 105 H 27 H 100 12/28/20 20:00 65 100 12/28/20 18:53 36.8 C 84 24 H 128/97 H 93 12/28/20 18:00 84 12/28/20 17:55 80 22 H 97 Intake/Output Intake/Output: Intake & Output 12/26/20 12/27/20 12/28/20 12/29/20 23:59 23:59 23:59 23:59 Intake Total 50 1470 Output Total 1100 900 Balance -1050 570 Meds/Results Medications: Active Medications Generic Name Dose Route Start Last Admin Trade Name Freq PRN Reason Stop Dose Admin Hydrocodone Bitart/Acetaminophen 1 tab 12/28/20 22:33 12/29/20 13:10 Hydrocodone/Acetaminophen (*Crx) 5-325 Mg Tablet PO 1 tab Q6H PRN Administration pain Albuterol 5 mg 12/28/20 14:00 12/29/20 13:31 Albuterol Sulfate Neb 2.5 Mg/0.5 Ml Inh INHALATION 5 mg Q6HRT PRISCILLA Administration Albuterol 2 puff 12/28/20 22:33 Albuterol Sulfate (*Sp) Aerosol 1 Puff INHALATION Q4H PRN Shortness Of Breath Apixaban 5 mg 12/28/20 21:00 12/29/20 08:15 Apixaban 5 Mg Tablet PO 5 mg Q12HR PRISCILLA Administration Aripiprazole 10 mg 12/28/20 22:55 12/29/20 17:01 Aripiprazole 10 Mg Tablet PO 10 mg QPM PRISCILLA Administration Aripiprazole 5 mg 12/28/20 22:55 12/29/20 17:02 Aripiprazole 5 Mg Tablet PO 5 mg QPM PRISCILLA Administration Carvedilol 12.5 mg 12/28/20 23:20 12/29/20 08:14 Carvedilol 12.5 Mg Tablet PO 12.5 mg Q12HR PRISCILLA
--- NOTE | 2020-12-29 15:24 | PM.PNCARD ---
Progress Note: A&P Assessment and Plan (1) Acute respiratory failure with hypoxia: Code(s): J96.01 - Acute respiratory failure with hypoxia Status: Acute Assessment and Plan: Hypoxia primarily secondary to COPD exacerbation with a component of diastolic CHF, improved with treatment. (2) Acute on chronic diastolic heart failure: Code(s): I50.33 - Acute on chronic diastolic (congestive) heart failure Status: Acute Assessment and Plan: Elevated BNP and mild edema on admission although chest x-ray did not show significant CHF and he had no PND orthopnea. Mild exacerbation of diastolic heart failure, aggravated by hypoxia. Improved with diuresis. Furosemide IV changed to 20 mg p.o. BID 12/28/2020. Does not take a diuretic at home; may need to reduce it to once daily. Advised low Na+ diet. Daily BMP. Increase activity, out of bed. Will follow at a distance. Follow-up with the patient's primary wellness rn, , at [place] after discharge. (3) COPD exacerbation: Code(s): J44.1 - Chronic obstructive pulmonary disease with (acute) exacerbation Status: Acute Assessment and Plan: Treatment per hospitalist (4) Coronary artery disease: Qualifiers: Coronary Disease-Associated Artery/Lesion type: [place] artery [place] vs. transplanted heart: [place] heart Associated angina: without angina Qualified Code(s): I25.10 - Atherosclerotic heart disease of [place] coronary artery without angina pectoris Code(s): I25.10 - Atherosclerotic heart disease of [place] coronary artery without angina pectoris Status: Acute Assessment and Plan: History of coronary stent in 2016. Has mildly elevated troponins, a common phenomenon for him when he arrives hypoxic. Troponin spill secondary to physiologic stress. No acute coronary syndrome. Continue statin, Eliquis, carvedilol. (5) Persistent atrial fibrillation: Code(s): I48.19 - Other persistent atrial fibrillation Status: Chronic Assessment and Plan: Patient has chronic AFib, rate controlled, on Eliquis Also has of pacemaker. Subjective Date/time seen: 12/29/20 15:24 Interval history: Follow-up for diastolic CHF, mildly elevated troponins. Admitted because of breathlessness, hypoxia and a COPD exacerbation. His CAD and pacemaker are followed at [facility], and he has a history of some mild diastolic CHF, coronary stent, persistent atrial fibrillation and pacemaker. EF 60-65% in July 2020. Tends to develop mild elevation of troponins when hypoxic. Negative Lexiscan in April 2020. Date of service 12/29/2020: Feeling better, nearly back to normal, no shortness of breath at rest. Has not been out of bed. Diuresed yesterday. Now is just on room air O2, with saturation of 94%. Has 2 cans of V-8 at the bedside, each containing 440 mg of sodium. Counseled patient about sodium restriction. Review of Systems Constitutional: Constitutional: Denies fatigue ENT: Denies epistaxis Cardiovascular: Cardiovascular: Denies chest pain, Denies pedal edema, Denies leg edema and Denies palpitations Respiratory: Respiratory: Denies cough and Denies dyspnea Gastrointestinal: Gastrointestinal: Denies abdominal pain Musculoskeletal: Musculoskeletal: Reports arthralgias Integumentary/Breasts: Skin/Breast: Denies rash Neurologic: Reports system reviewed and no additional complaints, except as documented Psychiatric: Psychiatric: Denies behavioral changes Exam Const: General: comfortable HENMT: General nose exam: no epistaxis Eyes: EOM: EOMs intact bilaterally Resp: Effort & Inspection: normal respiratory effort Auscultation: clear to auscultation bilaterally Cardio: Rate: regular rate Rhythm: abnormal rhythm irregularly irregular GI: I
[2020-12-29 16:34] LABS: Glucose Point of Care 314 (65-105)
[2020-12-29] MEDS: FUROSEMIDE 20 MG TABLET PO (16:56)
--- NOTE | 2020-12-29 18:51 | PC.NURSE ---
Patient arrived on 3 med surg @1645 home meds on hold placed in front med room, patient oriented to room, call light within reach.
[2020-12-29 22:30] LABS: Glucose Point of Care 336 (65-105)
[2020-12-30] VITALS: PULSE 60
[2020-12-30] MEDS: IPRATROPIUM BR 0.02% INH SOLN 0.5 MG/2.5 ML VIAL INHALATION ×2 (03:20→08:42)
[2020-12-30] MEDS: ALBUTEROL SULFATE NEB 2.5 MG/0.5 ML INH 5 MG INHALATION ×2 (03:20→08:42)
[2020-12-30 03:23] VITALS: PULSE 66; RESP 18
[2020-12-30 04:00] VITALS: BP 137/88; PULSE 73; PULSE 85; RESP 20; TEMP 36.2; O2SAT 97
[2020-12-30] MEDS: methylPREDNISolone SOD SUCC 40 MG VIAL IV PUSH (05:28)
[2020-12-30] MEDS: LEVOTHYROXINE SODIUM 25 MCG TABLET PO (05:30)
[2020-12-30 06:55] LABS: Anion Gap 6 mmol/L (8-16); Blood Urea Nitrogen 42 mg/dL (9-20); Calcium 9.8 mg/dL (8.4-10.2); Carbon Dioxide 25 mmol/L (22-30); Chloride 104 mmol/L (98-107); Estimated CRCL calculation 72 ml/min; Estimated Glomerular Filt Rate > 60; Glucose 371 mg/dL (75-110); Potassium 4.6 mmol/L (3.4-5.0); Sodium 135 mmol/L (137-145)
[2020-12-30 07:46] LABS: Alanine Aminotransferase 15 U/L (4-50); Alkaline Phosphatase 72 U/L (38-126); Aspartate Amino Transferase 17 U/L (17-59); Bilirubin,Total 0.6 mg/dL (0.2-1.3)
[2020-12-30 08:00] VITALS: PULSE 70; RESP 20; O2SAT 97
[2020-12-30 08:08] LABS: Glucose Point of Care 335 (65-105)
[2020-12-30 08:30] LABS: Basophils Percent Auto 0.1 % (0.2-1.2); Hematocrit 35.9 % (42.0-52.0); Hemoglobin 10.9 g/dL (14.0-18.0); Immature Granulocyte Absolute 0.05 K/mm3 (0.00-0.031); Immature Granulocyte Percent A 0.4 % (0-0.5); Lymphocytes Absolute Auto 0.53 K/mm3 (0.9-3.2); Lymphocytes Percent Auto 4.2 % (18.3-44.2); Mean Corpuscular HGB Conc 30.4 g/dl (32-36); Mean Corpuscular Hemoglobin 29.5 pg (26-34); Mean Platelet Volume 10.1 fl (7.4-10.4); Monocytes Absolute Auto 0.3 K/mm3 (0.1-0.6); Monocytes Percent Auto 2.4 % (2.6-8.5); Neutrophils Absolute Auto 11.8 K/mm3 (1.3-6.7); Neutrophils Percent Auto 92.9 % (45.5-73.1); Platelet Count Result 173 k/mm3 (150-375); Red Cell Distribution Width 18.4 % (11.5-14.5); White Blood Count 12.7 K/mm3 (4.5-10.0)
[2020-12-30 08:44] VITALS: PULSE 60; RESP 20; O2SAT 97
[2020-12-30] MEDS: INSULIN ASPART (*BKC) 100 UNITS/ML SUB-Q ×2 (08:48→12:52)
[2020-12-30 08:55] VITALS: PULSE 70; RESP 20
--- NOTE | 2020-12-30 10:06 | PM.DS ---
DS: Admitting Diagnosis Admitting Diagnosis Admitting Diagnosis: shortness of breath DS: Discharge Diagnosis Discharge Diagnosis (1) Diastolic CHF: Code(s): I50.30 - Unspecified diastolic (congestive) heart failure Status: Acute Assessment and Plan: Cardiology recommendation appreciated most likely diastolic CHF exacerbation acute on top of chronic switch to oral Lasix follow-up with transplant team follow-up with PCP (2) Thrombocytopenia: Code(s): D69.6 - Thrombocytopenia, unspecified Status: Acute Assessment and Plan: history of thrombocytopenia follow-up with PCP (3) Hyperkalemia: Code(s): E87.5 - Hyperkalemia Status: Acute Assessment and Plan: repeat CMP in 1 week (4) Acute respiratory failure with hypoxia and hypercarbia: Code(s): J96.01 - Acute respiratory failure with hypoxia; J96.02 - Acute respiratory failure with hypercapnia Status: Acute Assessment and Plan: Most likely related to COPD exacerbation give steroid antibiotic inhaler treatment significantly improved patient will be discharged on inhaler treatment follow-up with pulmonology as outpatient (5) Chronic kidney disease, stage 3: Code(s): N18.3 - Chronic kidney disease, stage 3 (moderate) Status: Acute Assessment and Plan: Avoid nephrotoxic medication (6) Type 2 diabetes mellitus: Qualifiers: Diabetes mellitus jail insulin use: without bed bug exterminator use Diabetes mellitus complication status: without complication Qualified Code(s): E11.9 - Type 2 diabetes mellitus without complications Code(s): E11.9 - Type 2 diabetes mellitus without complications Status: Acute Assessment and Plan: continue home medication (7) Essential hypertension: Code(s): I10 - Essential (primary) hypertension Status: Acute Assessment and Plan: Continue to monitor (8) COPD exacerbation: Code(s): J44.1 - Chronic obstructive pulmonary disease with (acute) exacerbation Status: Acute Assessment and Plan: improved inhaler treatment (9) DNR (do not resuscitate): Code(s): Z66 - Do not resuscitate Status: Acute (10) Hypothyroid: Qualifiers: Hypothyroidism type: unspecified Qualified Code(s): E03.9 - Hypothyroidism, unspecified Code(s): E03.9 - Hypothyroidism, unspecified Status: Chronic Assessment and Plan: Continue medication (11) Elevated troponin: Code(s): R79.89 - Other specified abnormal findings of blood chemistry Status: Acute Assessment and Plan: Most likely NSTEMI type 2 secondary to demand ischemia monitor follow-up with cardiology as outpatient DS: Summary Hospital Course Hospital Course: patient was admitted to the hospital with shortness of breath was found to have acute on top of chronic diastolic CHF exacerbation acute COPD exacerbation treated with inhaler treatment steroid antibiotics IV Lasix cardiology was consulted patient will be discharged did on inhaler treatment and over steroid follow-up with PCP and transplant team as outpatient Time Spent with Patient Time attestation: Total time spent providing and/or coordinating discharge services: 30 minutes Exam Narrative: Exam Narrative: Alert Chest wheeze Abdomen nontender nondistended CVS S1 + S2 Lower extremity edema DS: Data Data Completed and Pending Labs on day of discharge: Labs from last 24 hours 12/30/20 12/30/20 12/30/20 07:52 06:27 06:27 WBC Pending RBC Pending Hgb Pending Hct Pending MCV Pending MCH Pending MCHC Pending RDW Pending Plt Count Pending MPV Pending Immature Gran % (Auto) Pending Neut % (Auto) Pending Lymph % (Auto) Pending [place] % (Auto) Pending Eos % (Auto) Pending Baso % (Auto) Pending Lymph # (Auto) Pending [place] # (Auto) Pending Eos # (Auto) Pending Baso # (Auto) Pe
[2020-12-30 12:00] LABS: Glucose Point of Care 365 (65-105)
[2020-12-30] MEDS: APIXABAN 5 MG TABLET PO (12:42)
[2020-12-30] MEDS: carvediloL 12.5 MG TABLET PO (12:43)
[2020-12-30] MEDS: FUROSEMIDE 20 MG TABLET PO (12:43)
[2020-12-30] MEDS: DOCUSATE SODIUM 100 MG CAPSULE PO (12:43)
[2020-12-30] MEDS: CHOLECALCIFEROL 1,000 UNITS TABLET 2000 UNITS PO (12:43)
[2020-12-30] MEDS: PRAVASTATIN SODIUM 20 MG TABLET 40 MG PO (12:43)
[2020-12-30] MEDS: SILVERGEL (ELTA) 45 ML 1 APPLIC TOPICAL (12:44)
[2020-12-30] MEDS: HYDROcodone/acetaminophen (*CRX) 5-325 MG TABLET 1 TAB PO ×2 (12:49→13:50)
--- NOTE | 2020-12-30 12:54 | PM.PNNEP ---
Progress Note: A&P Assessment and Plan (1) Kidney transplant recipient: Code(s): Z94.0 - Kidney transplant status Status: Chronic Assessment and Plan: allograft function appears stable basline creatinine runs around 1.0 - 1.3mg/dl continue home immunosuppression medications as is follow repeat labs and UOP to ensure stability in renal function (2) Acute respiratory failure with hypoxia: Code(s): J96.01 - Acute respiratory failure with hypoxia Status: Acute Assessment and Plan: likely due to a combination of COPD exacerbation and mild CHF continue current therapy (BiPAP, steroids, nebulizers...etc) Cardiology following as well (3) Hypertension: Code(s): I10 - Essential (primary) hypertension Status: Chronic Assessment and Plan: reasonable control at this time follow trend of hemodynamics (4) T2DM (type 2 diabetes mellitus): Qualifiers: Diabetes mellitus complication status: without complication Diabetes mellitus long chain dyeing machine operator insulin use: without long chain dyeing machine operator use Qualified Code(s): E11.9 - Type 2 diabetes mellitus without complications Code(s): E11.9 - Type 2 diabetes mellitus without complications Status: Chronic Assessment and Plan: follow accuchecks on SSI Will continue to follow. Subjective Date/time seen: 12/30/20 12:54 Appears to be doing quite well at this time; respiratory status/breathing appears to be back to baseline with interventions to date; no apparent distress to report currently; happy abut discharge home today; no other acute issues/events overnight or earlier this morning. Exam Narrative: Exam Narrative: General: WD/WN male in NAD Heart: normal S1 and S2; no rub Lungs: clear anteriorly Abdomen: soft, nontender, nondistended, positive bowel sounds Extremities: no cyanosis or clubbing; no edema Skin: warm and intact Objective Data Vital Signs Vital Signs: Vital Signs Temp Pulse Resp BP Pulse Ox 12/30/20 08:55 70 20 12/30/20 08:44 60 20 97 12/30/20 08:00 70 20 97 12/30/20 04:00 36.2 C L 73 20 137/88 97 12/30/20 03:23 66 18 12/30/20 00:00 60 12/29/20 22:50 36.3 C L 60 18 118/78 96 12/29/20 22:45 72 18 95 12/29/20 22:32 70 18 12/29/20 22:30 95 12/29/20 20:25 68 12/29/20 20:00 93 97 12/29/20 18:45 36.6 C 63 16 121/78 97 12/29/20 16:00 36.2 C L 63 18 125/69 97 Intake/Output Intake/Output: Intake & Output 12/27/20 12/28/20 12/29/20 12/30/20 23:59 23:59 23:59 23:59 Intake Total 50 1710 520 Output Total 1100 900 Balance -1050 810 520 Meds/Results Medications: Active Medications Generic Name Dose Route Start Last Admin Trade Name Freq PRN Reason Stop Dose Admin Hydrocodone Bitart/Acetaminophen 1 tab 12/28/20 22:33 12/30/20 13:50 Hydrocodone/Acetaminophen (*Crx) 5-325 Mg Tablet PO 1 tab Q6H PRN Administration pain Albuterol 5 mg 12/28/20 14:00 12/30/20 08:42 Albuterol Sulfate Neb 2.5 Mg/0.5 Ml Inh INHALATION 5 mg Q6HRT PRISCILLA Administration Albuterol 2 puff 12/28/20 22:33 Albuterol Sulfate (*Sp) Aerosol 1 Puff INHALATION Q4H PRN Shortness Of Breath Apixaban 5 mg 12/28/20 21:00 12/30/20 12:42 Apixaban 5 Mg Tablet PO 5 mg Q12HR PRISCILLA Administration Aripiprazole 10 mg 12/28/20 22:55 12/29/20 17:01 Aripiprazole 10 Mg Tablet PO 10 mg QPM PRISCILLA Administration Aripiprazole 5 mg 12/28/20 22:55 12/29/20 17:02 Aripiprazole 5 Mg Tablet PO 5 mg QPM PRISCILLA Administration Carvedilol 12.5 mg 12/28/20 23:20 12/30/20 12:43 Carvedilol 12.5 Mg Tablet PO 12.5 mg Q12HR PRISCILLA Administration Dextrose 12.5 gm 12/28/20 22:35 Dextrose 50% 25 Gm/50 Ml Syringe IV PUSH PRN PRN Hypoglycemia Protocol Docusate Sodium 100 mg 12/29/20 09:00 12/30/20 12:43 Docusate Sodium 100 Mg Capsule PO 100 mg DAILY PRISCILLA
--- NOTE | 2021-03-09 18:02 | PC.NURSE ---
Addendum entered by Betty Yanez RN 03/09/21 18:09: Upon entering this note, I noticed patient has . Original Note: Patient discharged 12/30/20 from [facility]. Home medications left. Patient admitted to [facility] on 01/12/21 & discharged on 01/16/21. Called patient on 01/26/21, no answer. Home medications will be thrown away. 03/09/21 @ 1376
== END 2020-12-30 14:40 | disposition home or self-care (01) | DRG 190 ==
LOC: ANHED 10:00 → ANHIMU 12:48 → ANH3MEDSUR 12-30 10:06 → ANHIMU 01-03 17:08
PROVIDERS: Internal Medicine Cardiovascular Disease; Admitting Provider Family Medicine; Emergency Provider Emergency Medicine; Visit Provider Internal Medicine
DX: J44.1 Chronic obstructive pulmonary disease with (acute) exacerbation (principal); J96.01 Acute respiratory failure with hypoxia; J96.02 Acute respiratory failure with hypercapnia; I50.33 Acute on chronic diastolic (congestive) heart failure; I13.0 Hypertensive heart and chronic kidney disease with heart failure and stage 1 through stage 4 chronic kidney disease, or unspecified chronic kidney disease; I48.19 Other persistent atrial fibrillation; Z94.0 Kidney transplant status; R77.8 Other specified abnormalities of plasma proteins; D69.6 Thrombocytopenia, unspecified; F20.9 Schizophrenia, unspecified; N18.30 Chronic kidney disease, stage 3 unspecified; E11.22 Type 2 diabetes mellitus with diabetic chronic kidney disease; I25.10 Atherosclerotic heart disease of native coronary artery without angina pectoris; E87.5 Hyperkalemia; E03.9 Hypothyroidism, unspecified; Z20.822 Contact with and (suspected) exposure to COVID-19; Z66 Do not resuscitate; Z79.01 Long term (current) use of anticoagulants; Z86.73 Personal history of transient ischemic attack (TIA), and cerebral infarction without residual deficits; Z87.891 Personal history of nicotine dependence; Z95.0 Presence of cardiac pacemaker; Z95.5 Presence of coronary angioplasty implant and graft
CPT/HCPCS: 36415; 36600; 71045; 80048; 80053; 80061; 82805; 82948; 83605; 83735; 83880; 84439; 84443; 84484; 85025; 85610; 85730; 87040; 93005; 94003; 94640; 96374; 96375; 99285; A9270; C9803; J0696; J1815; J1940; J2920; J2930; U0003; U0005

== ENCOUNTER 2021-01-12 13:44 | Inpatient (IN) | payer MEDICARE, MEDICAID, SELFPAY ==
[2021-01-12] VITALS (18 sets, daily range): BP systolic 96–164; BP diastolic 52–99; PULSE 60–81; RESP 12–41; TEMP 36.2–36.9; O2SAT 94–100; BMI 19.9
--- NOTE | ~2021-01-12 | XR_ITS ---
XR chest 1V portable DATE: 01/12/2021 14:52 INDICATION: Shortness of breath TECHNIQUE: Portable upright AP views on November 11, 2021 at 1449 and 1450 hours COMPARISON: December 28, 2020 portable AP chest views 10/06/2020 CT chest high resolution scan 07/23/2020 portable AP chest FINDINGS: Left-sided dual-lead pacemaker device with leads overlying right atrium and right ventricle . Heart size is within normal limits. Is aortic calcification. Bilateral hyperinflation consistent with COPD. Prominent central pulmonary artery suggesting pulmonar y hypertension. No pulmonary infiltrate or consolidation Bilateral Prieto B-lines likely be due to pulmonary interstitial edema and/or fibrosis. No pleural ef fusion or pneumothorax is evident. Diffuse osteopenia. IMPRESSION: COPD and pulmonary hypertension Prieto B-lines may be due to pulmonary interstitial edema and/or interstitial fibrosis Reviewed, dictated and finalized at location A. [facility] [employer] IMPRESSION: COPD and pulmonary hypertension Prieto B-lines may be due to pulmonary interstitial edema and/or interstitial f ibrosis
--- NOTE | ~2021-01-12 | US_ITS ---
. EXAMINATION: US retroperitoneal duplex ltd DATE: 01/14/2021 11:06 INDICATION: Hypertension. TECHNIQUE: Multiple grayscale, color Doppler, and pulsed Doppler images of the kidneys and renal dante paul were obtained. COMPARISON: Ultrasound kidneys 04/28/2020 FINDINGS: The [place] right kidney measures 7.9 x 3.3 x 3.7 cm. The ek[place] left kidney measures 5.7 x 3.1 x 2.6 cm. The transplant kidney measures 12.1 x 6.5 x 4.2 cm. The transplant kidney demonstrates normal par enchymal echogenicity. No hydronephrosis. The arterial resistive index is normal in the transplant ki dney. The transplant renal vein is patent. The transplant renal artery is normal. IMPRESSION: 1. Normal transplant kidney. Reviewed, dictated and finalized at location A. [employer]
--- NOTE | 2021-01-12 13:52 | PC.NURSE ---
Pt placed on bipap 14/6 rate 12 70% o2
--- NOTE | 2021-01-12 13:55 | ECG_ITS ---
Measurements Intervals [place] Rate: 62 P: [place]: 0 QRS: -89 QRSD: 186 T: 100 QT: 522 QTc: 534 Interpretive Statements ELECTRONIC VENTRICULAR PACEMAKER UNDERLYING ATRIAL FLUTTER VENTRICULAR PREMATURE COMPLEXES NO FURTHER INTERPRETATION IS POSSIBLE ABNORMAL ECG Electronically Signed On 01-12-2021 15:12:48 SENIOR JAVA ARCHITECT by Eliu Thompson D.O.
[2021-01-12] MEDS: methylPREDNISolone SOD SUCC 125 MG VIAL IV PUSH (14:04)
--- NOTE | 2021-01-12 14:05 | PC.NURSE ---
Multiple sticks for IV's and lab draw unsuccessful. extraction supervisor aware.
[2021-01-12 14:24] LABS: Basophils Absolute Auto 0.1 K/mm3 (0.0-0.1); Eosinophils Absolute Auto 0.4 K/mm3 (0-0.3); Eosinophils Percent Auto 3.7 % (0-4.4); Hematocrit 44.9 % (42.0-52.0); Hemoglobin 13.9 g/dL (14.0-18.0); Immature Granulocyte Absolute 0.04 K/mm3 (0.00-0.031); Immature Granulocyte Percent A 0.4 % (0-0.5); Lymphocytes Absolute Auto 3.57 K/mm3 (0.9-3.2); Lymphocytes Percent Auto 35.6 % (18.3-44.2); Mean Platelet Volume 9.7 fl (7.4-10.4); Monocytes Absolute Auto 1.1 K/mm3 (0.1-0.6); Monocytes Percent Auto 10.9 % (2.6-8.5); Neutrophils Absolute Auto 4.9 K/mm3 (1.3-6.7); Neutrophils Percent Auto 48.4 % (45.5-73.1); Platelet Count Result 198 k/mm3 (150-375); Red Blood Count 4.63 M/mm3 (4.6-6.20); Red Cell Distribution Width 18.1 % (11.5-14.5)
[2021-01-12 14:25] LABS: Alveolar/Arterial O2 Gradient 392.6 mmHg; Fractional Inspired Oxygen 70 %; HCO3 ABG 24.2 mEq/l (22.0-26.0); Oxyhemoglobin 56.9 % THb (90.0-100.0); PO2 FiO2 Ratio Arterial Blood 0.54 %; Total Hemoglobin 13.8 g/dL (12.0-18.0)
--- NOTE | 2021-01-12 14:25 | PC.NURSE ---
Labs collected per phelbotomy. Alisa Celis, Vascular RN, at bedside obtaining lactic acid and initiating additional IV.
[2021-01-12 14:30] LABS: PCO2 ABG 63.9 mmHg (35.0-45.0); pH ABG 7.196 (7.350-7.450)
[2021-01-12 14:31] LABS: Device BIPAP; Modified Allen's Test Pass; Oxygen Saturation ABG 58.5 % (95.0-100.0); PO2 ABG 37.8 mmHg (80.0-100.0); Site Drawn LEFT RADIAL
[2021-01-12 14:32] LABS: Expiratory Pressure 6 cmH2O; Inspiratory Pressure 14 cmH2O
[2021-01-12] MEDS: LORazepam INJ (*CRX) 2 MG/ML VIAL 0.5 MG IV PUSH (14:35)
[2021-01-12 14:38] LABS: Alanine Aminotransferase 12 U/L (4-50); Albumin Level 3.7 g/dL (3.5-5.1); Alkaline Phosphatase 83 U/L (38-126); Anion Gap 6 mmol/L (8-16); Aspartate Amino Transferase 24 U/L (17-59); Bilirubin,Total 0.8 mg/dL (0.2-1.3); Blood Urea Nitrogen 21 mg/dL (9-20); Carbon Dioxide 25 mmol/L (22-30); Chloride 106 mmol/L (98-107); Estimated CRCL calculation 47 ml/min; Estimated Glomerular Filt Rate 57; Glucose 125 mg/dL (75-110); Potassium 4.8 mmol/L (3.4-5.0); Sodium 137 mmol/L (137-145)
--- NOTE | 2021-01-12 14:38 | PC.NURSE ---
Pt's father calls to case management, states that the patient is unable to go back home and live with him if and when he's discharged. Case management is working on a place for the patient to be discharged to as long as covid negative at d/c.
[2021-01-12 14:41] LABS: INR 1.6; Prothrombin Time 19.3 Seconds (11.1-14.7)
[2021-01-12 14:50] LABS: NT Pro B Type Natriuretic Pept 8430 PG/ML (5-100); Troponin I 0.026 ng/mL (0.000-0.034)
[2021-01-12 14:53] LABS: Lactic Acid Reflex 2.1 mmol/L (0.7-2.1)
--- NOTE | 2021-01-12 15:02 | PCCCNOTE ---
Pt's father called and stated that this patient lives with him and he is no longer able to care for patient in his home and requests that for patient to be placed in snf upon discharge from the hospital. Father, (Hemal cell phone [phone]) has spoken with Yahaira at [facility] in [place] and would like to have patient transferred there. Spoke with patient in the ED and he agrees with plan. Spoke with financial sales representative at [facility]. They will require a negative covid test before transfer there. Dr Pereira will order covid test
--- NOTE | 2021-01-12 15:13 | PC.NURSE ---
Report to KEVIN Olmedo, to continue care.
--- NOTE | 2021-01-12 15:16 | PC.NURSE ---
Patient on BiPAP at this time, tolerating well. Settings are iPAP 14, ePAP 6, 70% FiO2.
--- NOTE | 2021-01-12 15:21 | ED.SOB ---
HPI - SOB/Dyspnea General Chief Complaint: Shortness of Breath/Dyspnea Stated Complaint: Dyspnea Time Seen by Provider: 01/12/21 13:47 Source: patient Mode of arrival: EMS Limitations: clinical condition History of Present Illness HPI Narrative: 55-year-old with a history of diastolic CHF, COPD, pacemaker, A. fib, diabetes here with complaints of shortness of breath since yesterday however symptoms got worse this morning had to call ambulance upon EMS arrival patient was in moderate respiratory distress was placed on CPAP and was later transferred to the ER. Patient denies any chest pain, fever or chills. He states that he is not on home oxygen. He also states that he has been taking all his home medication. MD elicited complaint: shortness of breath Pertinent past history: COPD, congestive heart failure and diabetes Onset (ago): day(s) (1) Severity: severe Exacerbating factors: nothing Relieving factors: oxygen and upright position Known history of: COPD and congestive heart failure Related Data Home oxygen amount: none Home Medications Medication Instructions Recorded Confirmed Anoro Ellipta 1 inh INHALATION DAILY 02/12/20 12/28/20 albuterol sulfate [ProAir HFA] 2 puff INHALATION Q4H PRN 02/22/20 12/28/20 carvedilol [Coreg] 12.5 mg PO Q12H 02/22/20 12/28/20 cholecalciferol (vitamin D3) 50 mcg PO DAILY 02/22/20 12/28/20 [Vitamin D3] docusate sodium 100 mg PO DAILY 02/22/20 12/28/20 levothyroxine 25 mcg PO DAILY 02/22/20 12/28/20 mycophenolate sodium [Myfortic] 360 mg PO Q12H 02/22/20 12/28/20 pravastatin 40 mg PO DAILY 02/22/20 12/28/20 tacrolimus 3 mg PO Q12H 02/22/20 12/28/20 doxepin 10 mg PO HS 07/21/20 12/28/20 prednisone 5 mg PO DAILY 12/28/20 12/28/20 sulfamethoxazole-trimethoprim 1 tablet PO DAILY 12/28/20 12/28/20 aripiprazole mg 01/12/21 gentamicin TOPICAL 01/12/21 insulin lispro [Humalog KwikPen unit SUBCUT 01/12/21 Insulin] rosuvastatin mg 01/12/21 Allergies Allergy/AdvReac Type Severity Reaction Status Date / Time No Known Allergies Allergy Verified 01/12/21 15:14 Review of Systems Review of Systems: All systems reviewed & are unremarkable except as noted in HPI and below Constitutional: Constitutional: Reports no additional constitutional complaints Eyes: Eyes: Reports no additional eye complaints Cardiovascular: Cardiovascular: Reports as per HPI Respiratory: Respiratory: Reports as per HPI Gastrointestinal: Gastrointestinal: Reports no additional gastrointestinal complaints Musculoskeletal: Musculoskeletal: Reports no additional musculoskeletal complaints Neurologic: Reports system reviewed and no additional complaints, except as documented Psychiatric: Psychiatric: Reports no additional psychiatric complaints Endocrine: Endocrine: Reports no additional endocrine complaints [facility] Past Medical History Medical History Cerebrovascular accident (~06/2004) Chronic kidney disease, stage 3 Baseline creatinine between 1.2 and 1.30. Chronic obstructive pulmonary disease Coronary artery disease Status post stent in 2016. Depression Essential hypertension Hypertension Hypothyroidism Immunosuppressed status On immunosuppressant status post renal transplant. Pacemaker Persistent atrial fibrillation On long-term anticoagulation with warfarin. Schizophrenia Type 2 diabetes mellitus Surgical History Surgical History Status post coronary artery stent placement Status post kidney transplant Family History Family History Mother Cancer Social History Social History Social History: The patient lives in [place] with his father. He is unemployed and is on disability due to schizophrenia. He smoked about a pack of cigarettes per day for several years and got down to the p
[2021-01-12] MEDS: FUROSEMIDE INJ 40 MG/4 ML VIAL IV PUSH ×2 (15:56→21:27)
--- NOTE | 2021-01-12 16:00 | PC.NURSE ---
RT in room decreased Fi02 to 60% at this time.
--- NOTE | 2021-01-12 17:11 | PM.IMHP ---
H&P: HPI History of Present Illness Date/Time: 01/12/21 17:11 Chief Complaint: Shortness of breath Narrative: Bob Alfaro is a 55 year old male who had just gotten discharged from this hospital on 12/30/2020. He was here for exacerbation of diastolic congestive heart failure. He has a history of having a renal transplant and he is on immunosuppressive therapy for COPD as well as exacerbation of CHF at that time. The patient complained of shortness of breath today and was placed on a CPAP and transferred to the emergency room. He denied any chest pain or palpitations. He had been taking all of his home medications. EKG was read as normal rate normal pacer function. Chest x-ray was read as Prieto B lines may be due to pulmonary interstitial edema or interstitial fibrosis. Earlier this month of was negative he is swabbed again today for COVID and it is pending. Creatinine is 1.3 today the patient's ABGs pH is 7.196 PO2 was 37.8 O2 saturation was 58.5. I am wondering if this med is mixed venous specimen. The patient is currently on a BiPAP machine. The patient was given Solu-Medrol, Ativan and Lasix in the emergency room. The patient is being admitted to inpatient status on 01/12/2021 Review of Systems Review of Systems: All systems reviewed & are unremarkable except as noted in HPI and below Constitutional: Constitutional: Reports as per HPI and Reports no additional constitutional complaints Eyes: Eyes: Reports as per HPI and Reports no additional eye complaints ENT: Reports system reviewed and no additional complaints, except as documented and Reports Normal hearing present Cardiovascular: Cardiovascular: Reports no additional cardiovascular complaints Respiratory: Respiratory: Reports no additional respiratory complaints and Reports no additional respiratory complaints Gastrointestinal: Gastrointestinal: Reports as per HPI and Reports no additional gastrointestinal complaints Musculoskeletal: Musculoskeletal: Reports no additional musculoskeletal complaints Integumentary/Breasts: Skin/Breast: Reports system reviewed and no additional complaints, except as docu and Reports as per HPI Neurologic: Reports system reviewed and no additional complaints, except as documented, Reports as per HPI and Reports Normal hearing present Psychiatric: Psychiatric: Reports no additional psychiatric complaints and Reports as per HPI Endocrine: Endocrine: Reports no additional endocrine complaints Hematologic/Lymphatic: Hematologic/Lymphatic: Reports no additional hematologic/lymphatic complaints Allergic/Immunologic: Allergic/Immunologic: Reports no additional allergic/immunologic complaints [facility] Past Medical History Medical History Cerebrovascular accident (~06/2004) Chronic kidney disease, stage 3 Baseline creatinine between 1.2 and 1.30. Chronic obstructive pulmonary disease Coronary artery disease Status post stent in 2016. Depression Essential hypertension Hypertension Hypothyroidism Immunosuppressed status On immunosuppressant status post renal transplant. Pacemaker Persistent atrial fibrillation On long-term anticoagulation with warfarin. Schizophrenia Type 2 diabetes mellitus Surgical History Surgical History Status post coronary artery stent placement Status post kidney transplant Family History Family History Mother Cancer Social History Social History (Updated 01/12/21 @ 17:24 by Lilly Madrigal NP) Social History: The patient lives in [place] with his father. He is unemployed and is on disability due to schizophrenia. He smoked about a pack of cigarettes per day for several years and got down to the point where he was smoking a pack of month and now he has quit smoking as of May 2020. No alcohol use. Occasional marijuana use. He design
[2021-01-12 17:40] LABS: Reflex Lactic Acid Yes or No Add Lactic
--- NOTE | 2021-01-12 18:07 | ADMGEN ---
This patient, Bob Alfaro, was admitted to IMU Room 210-01. Patient/family oriented to hospital policies and general routines including ID bracelet, bed and alarms, visiting hours, pain management, procedures, bathroom and other care routines, personal items, smoking policy, room service/diet, and visiting hours. Information on how to activate the Rapid Response Team has been discussed. Patient/Family are encouraged to report perceived risks to care and to ask questions if they do not understand what they are told or what they should do.
[2021-01-12 18:27] LABS: Glucose Point of Care 108 (65-105)
[2021-01-12 18:32] LABS: Hemoglobin A1C 6.2 % (<5.7)
[2021-01-12 18:34] LABS: Lactic Acid 1.3 mmol/L (0.7-2.1)
[2021-01-12 18:50] LABS: Troponin I 0.032 ng/mL (0.000-0.034)
--- NOTE | 2021-01-12 18:55 | PC.NURSE ---
Pictures of wounds on left arm and right inner thigh taken. Additional wound that was dressed on left inner thigh that patient refused to let me undress to take pictures
[2021-01-12] MEDS: carvediloL 12.5 MG TABLET PO (21:37)
[2021-01-12] MEDS: DOXEPIN HCL 10 MG CAPSULE PO (21:37)
[2021-01-12] MEDS: MUPIROCIN 2% OINT 22 GM TUBE 1 APPLIC TOPICAL (21:37)
[2021-01-12 22:15] LABS: Troponin I 0.027 ng/mL (0.000-0.034)
[2021-01-12] MEDS: INSULIN ASPART (*BKC) 100 UNITS/ML 6 UNITS SUB-Q (22:57)
[2021-01-12 23:10] LABS: Glucose Point of Care 244 (65-105)
[2021-01-13] VITALS (21 sets, daily range): BP systolic 96–118; BP diastolic 52–74; PULSE 59–74; RESP 14–18; TEMP 36.3–37.3; O2SAT 96–100; BMI 19.8
[2021-01-13 05:16] LABS: Basophils Percent Auto 0.2 % (0.2-1.2); Hematocrit 35.2 % (42.0-52.0); Immature Granulocyte Absolute 0.03 K/mm3 (0.00-0.031); Immature Granulocyte Percent A 0.7 % (0-0.5); Lymphocytes Absolute Auto 0.78 K/mm3 (0.9-3.2); Lymphocytes Percent Auto 16.9 % (18.3-44.2); Mean Corpuscular HGB Conc 31.3 g/dl (32-36); Mean Corpuscular Hemoglobin 29.3 pg (26-34); Mean Corpuscular Volume 93.6 fl (80-100); Mean Platelet Volume 10.4 fl (7.4-10.4); Monocytes Absolute Auto 0.2 K/mm3 (0.1-0.6); Monocytes Percent Auto 3.9 % (2.6-8.5); Neutrophils Absolute Auto 3.6 K/mm3 (1.3-6.7); Neutrophils Percent Auto 78.3 % (45.5-73.1); Platelet Count Result 176 k/mm3 (150-375); Red Blood Count 3.76 M/mm3 (4.6-6.20); Red Cell Distribution Width 17.6 % (11.5-14.5); White Blood Count 4.6 K/mm3 (4.5-10.0)
[2021-01-13 05:39] LABS: Anion Gap 6 mmol/L (8-16); Blood Urea Nitrogen 36 mg/dL (9-20); Calcium 9.1 mg/dL (8.4-10.2); Carbon Dioxide 27 mmol/L (22-30); Chloride 103 mmol/L (98-107); Estimated CRCL calculation 49 ml/min; Estimated Glomerular Filt Rate 57; Glucose 237 mg/dL (75-110); Magnesium 1.4 mg/dL (1.6-2.3); Potassium 4.5 mmol/L (3.4-5.0); Sodium 136 mmol/L (137-145)
[2021-01-13] MEDS: LEVOTHYROXINE SODIUM 25 MCG TABLET PO (06:27)
[2021-01-13 08:56] LABS: Glucose Point of Care 300 (65-105)
[2021-01-13] MEDS: carvediloL 12.5 MG TABLET PO ×2 (10:51→21:21)
[2021-01-13] MEDS: ASPIRIN 81 MG CHEWABLE TABLET PO (10:51)
[2021-01-13] MEDS: MAGNESIUM SULF 2 GM/WATER 50ML 2 GM/50 ML BAG IVPB (10:51)
[2021-01-13] MEDS: ROSUVASTATIN 10 MG TABLET 20 MG PO (10:52)
[2021-01-13] MEDS: SENNOSIDES 8.6 MG TABLET PO (10:52)
[2021-01-13] MEDS: DOCUSATE SODIUM 100 MG CAPSULE PO (10:52)
[2021-01-13] MEDS: CHOLECALCIFEROL 1,000 UNITS TABLET 2000 UNITS PO (10:52)
[2021-01-13] MEDS: INSULIN ASPART (*BKC) 100 UNITS/ML SUB-Q ×2 (10:53→17:29)
[2021-01-13] MEDS: FUROSEMIDE INJ 40 MG/4 ML VIAL IV PUSH (10:53)
[2021-01-13] MEDS: APIXABAN 5 MG TABLET PO ×2 (10:53→17:30)
[2021-01-13] MEDS: ARIPiprazole 5 MG TABLET 15 MG PO (10:53)
[2021-01-13] MEDS: INSULIN GLARGINE (*BKC) 100 UNITS/ML 15 UNITS SUB-Q (10:53)
[2021-01-13] MEDS: methylPREDNISolone SOD SUCC 125 MG VIAL 62.5 MG IV PUSH (10:54)
[2021-01-13] MEDS: UMECLIDINIUM/VILANTEROL 62.5-25 MCG ELLIPTA 1 PUFF INHALATION (10:56)
[2021-01-13] MEDS: ACETAMINOPHEN 325 MG TABLET 650 MG PO (10:58)
[2021-01-13 11:27] LABS: Influenza Control Positive
--- NOTE | 2021-01-13 11:56 | PM.IMPN ---
Progress Note: A&P Assessment and Plan (1) Acute respiratory failure with hypoxia: Code(s): J96.01 - Acute respiratory failure with hypoxia Status: Acute Assessment and Plan: The patient with acute respiratory failure on admission. ABG noted as 7.20/64/38 but may be mixed venous. No hx of hypercarbia. Respiratory failure related to CHF exacerbation mostly. Treated with BiPAP overnight and now back to room air. COVID pending. Influenza negative. Better after diuresis. Continue to monitor. (2) Acute on chronic diastolic heart failure: Code(s): I50.33 - Acute on chronic diastolic (congestive) heart failure Status: Acute Assessment and Plan: Patient here for SOB. CXR consistent with CHF and BNP 8400. Started on IV Lasix with excellent UOP. Was on BiPAP last night but weaned to room air now. Will continue Coreg. Continue IV Lasix but decrease dose. Consider flash pulmonary edema from renal artery stenosis. Check renal doppler. (3) COPD exacerbation: Code(s): J44.1 - Chronic obstructive pulmonary disease with (acute) exacerbation Status: Acute Assessment and Plan: No wheezing listed on presenting exams to suggest COPD exacerbation. CXR more consistent with CHF. patient stared on Solu-medrol but quickly transitioned back to his home Prednisone dose. Continue inhalers. Appreciate Pulmonary input. (4) Persistent atrial fibrillation: Code(s): I48.19 - Other persistent atrial fibrillation Status: Chronic Assessment and Plan: Patient has paced rhythm at times but with underlying AFib/Flutter. Rate controlled. Continue Coreg. Continue Eliquis. (5) Hypertension: Code(s): I10 - Essential (primary) hypertension Status: Chronic Assessment and Plan: Blood pressure reviewed on 01/13. BP well controlled and even soft at times. Currently on Coreg and IV Lasix. Prednisone resumed. Consider stress dose steroids if he develops significant HoTN. Will decrease Lasix dose. (6) Non-healing wound of left lower extremity: Code(s): S81.802A - Unspecified open wound, left lower leg, initial encounter Status: Acute Assessment and Plan: Multiple wounds at varius stages of heeling. Wound care has been consulted. Continue current dressing changes. (7) Chronic kidney disease, stage 3: Code(s): N18.3 - Chronic kidney disease, stage 3 (moderate) Status: Acute Assessment and Plan: The patient has a history of renal transplant. Resume his home medications. Patient's creatinine is 1.3 again today. Follow. (8) Type 2 diabetes mellitus: Qualifiers: Diabetes mellitus complication status: without complication Diabetes mellitus penitentiary insulin use: without penitentiary use Qualified Code(s): E11.9 - Type 2 diabetes mellitus without complications Code(s): E11.9 - Type 2 diabetes mellitus without complications Status: Acute Assessment and Plan: A1c 6.0. Glucose reviewed on 01/13. Glucose poorly controlled. Lantus resumed. Continue Accu-Chek AC and HS covering with sliding scale. Hypoglycemia protocol available as needed. Advance Lantus daily to control sugars (9) Kidney transplant recipient: Code(s): Z94.0 - Kidney transplant status Status: Chronic Assessment and Plan: Spoke with RN. Family has brought in Tacrolimus and he received a dose today. Also has been resumed on his prednisone. Continue with his immunosuppressant therapy. (10) Hypothyroid: Qualifiers: Hypothyroidism type: unspecified Qualified Code(s): E03.9 - Hypothyroidism, unspecified Code(s): E03.9 - Hypothyroidism, unspecified Status: Chronic Assessment and Plan: TSH 2.0. Continue levothyroxine. (11) Schizophrenia: Qualifiers: Schizophrenia type: other Qualified Code(s): F20.89 - Other schizophrenia
[2021-01-13 12:18] LABS: Glucose Point of Care 430 (65-105)
--- NOTE | 2021-01-13 12:30 | PM.CNPUL ---
Assessment and Plan Assessment and plan (1) Acute on chronic diastolic heart failure: Code(s): I50.33 - Acute on chronic diastolic (congestive) heart failure Status: Acute Assessment and Plan: Patient presents with fluid overload, Congestion on his chest x-ray, elevated BNP and history of diastolic heart failure. Patient diuresed with Lasix 1700 mL overnight and this morning he is breathing much better. He is currently on room air with saturations 98%. Agree with a as aggressive diuresis as tolerated by his cardiac and renal systems per primary team. (2) Acute respiratory failure with hypoxia: Code(s): J96.01 - Acute respiratory failure with hypoxia Status: Acute Assessment and Plan: Patient has acute respiratory acidosis on presentation with the BiPAP 14-6 blood gas of 7.20/64/38. He does not have a history of hypercarbic respiratory failure as his blood gas on 12/28/2020 on BiPAP 12/6 100% was 7.30/41/448 and his blood gas on 07/22/2020 on room air was 7.38 /37/70. his serum bicarbonates values over the last 6 months range from 23-27. I suspect patient has acute respiratory acidosis is related to his diastolic congestive heart failure and fluid overload rather than chronic hypercarbic respiratory failure from his COPD. (3) COPD exacerbation: Code(s): J44.1 - Chronic obstructive pulmonary disease with (acute) exacerbation Status: Acute Assessment and Plan: Patient is improved with diuresis and IV Solu-Medrol for possible COPD exacerbation. Currently he has no wheezes. He had no change in his cough, no fever, no focal infiltrates on chest x-ray and no leukocytosis. I do not believe he has a pneumonia or tracheobronchitis. I do not think he needs antibiotics at this point. Pain should is currently on apixaban 5 mg p.o. b.i.d. for anticoagulation and I do not think he has had a pulmonary embolism. I agree with continuation of patient's home Anoro Ellipta 62.5-25 at 1 puff q.day and I would discontinue Solu-Medrol and place him back on his home dose of prednisone 5 mg p.o. q.day. We will watch closely for evidence of a worsening COPD exacerbation and restart steroids if needed. Will follow with you. History of Present Illness History of Present Illness Consult date: 01/13/21 Requesting physician: Shine Figueroa MD Reason for consult: COPD Chief complaint: copd/chf Narrative: This is a new consult for acute respiratory failure requiring BiPAP use. 55-year-old male with a history of kidney transplantation, congestive heart failure with a normal EF of 60-65 and grade 3 diastolic dysfunction, moderately enlarged right ventricle mild pulmonary hypertension with an RVSP of 40 per echo on 07/21/2020. Patient has 7 admissions from February of 2020 and his last admission was on 12/28/2020 for exacerbation of his diastolic congestive heart failure. Patient has a history of tobacco use (80 PY and quit one year ago) with COPD with a post bronchodilator FEV1 of 1.43 L, 43% predicted, total lung capacity of 114% predicted. Functional residual capacity of 1.39 139% predicted and residual volume of 209% predicted on PFTs from 09/26/2020. He does not have a history of hypercarbic respiratory failure as his blood gas on 12/28/2020 on BiPAP 12/6 100% was 7.30/41/448 and his blood gas on 07/22/2020 on room air was 7.38 /37/70. his serum bicarbonates values over the last 6 months range from 23-27. Patient has mild centrilobular emphysema on his high-resolution CT scan from 09/26/2020. Patient tells me that he was doing well until about 2 days ago 2-3 days ago when he developed lower extremity edema. Two days ago patient states that he started to develop shortness of breath. Patient denies any fever, chills, wheezes, change in his phlegm production or hemoptysis. Patient states that on a good day he can walk but walk 1 block and then has to stop for peripheral neuropathy and dyspnea on e
[2021-01-13] MEDS: MUPIROCIN 2% OINT 22 GM TUBE 1 APPLIC TOPICAL (13:45)
[2021-01-13] MEDS: GENTAMICIN SULFATE 0.1% OINT 15 GM TUBE 1 APPLIC TOPICAL (13:45)
[2021-01-13 14:13] LABS: Glucose Point of Care 434 (65-105)
[2021-01-13] MEDS: INSULIN ASPART (*BKC) 100 UNITS/ML 8 UNITS SUB-Q (15:00)
--- NOTE | 2021-01-13 15:03 | PHAR ---
PT'S HOME MED TACROMILUS 1 MG CAPSULE VERIFIED BY PHARMACY
[2021-01-13] MEDS: predniSONE 5 MG TABLET PO (17:28)
[2021-01-13 17:45] LABS: Glucose Point of Care 352 (65-105)
[2021-01-13 17:46] LABS: SARS-CoV-2 RNA PCR Negative
[2021-01-13 20:11] LABS: Glucose Point of Care 321 (65-105)
[2021-01-13] MEDS: DOXEPIN HCL 10 MG CAPSULE PO (21:21)
[2021-01-14] VITALS (13 sets, daily range): BP systolic 109–137; BP diastolic 56–92; PULSE 59–65; RESP 16–18; TEMP 36.1–36.6; O2SAT 98–100
[2021-01-14 05:09] LABS: Anion Gap 4 mmol/L (8-16); Blood Urea Nitrogen 40 mg/dL (9-20); Carbon Dioxide 28 mmol/L (22-30); Chloride 102 mmol/L (98-107); Estimated CRCL calculation 52 ml/min; Estimated Glomerular Filt Rate > 60; Glucose 317 mg/dL (75-110); Magnesium 1.7 mg/dL (1.6-2.3); Phosphorus 3.5 mg/dL (2.5-4.5); Potassium 4.4 mmol/L (3.4-5.0); Sodium 134 mmol/L (137-145)
[2021-01-14] MEDS: LEVOTHYROXINE SODIUM 25 MCG TABLET PO (06:30)
[2021-01-14 07:51] LABS: Glucose Point of Care 284 (65-105)
[2021-01-14] MEDS: ARIPiprazole 5 MG TABLET 15 MG PO (08:37)
[2021-01-14] MEDS: DOCUSATE SODIUM 100 MG CAPSULE PO (08:38)
[2021-01-14] MEDS: carvediloL 12.5 MG TABLET PO ×2 (08:38→20:17)
[2021-01-14] MEDS: CHOLECALCIFEROL 1,000 UNITS TABLET 2000 UNITS PO (08:38)
[2021-01-14] MEDS: APIXABAN 5 MG TABLET PO ×2 (08:38→17:14)
[2021-01-14] MEDS: FUROSEMIDE INJ 40 MG/4 ML VIAL IV PUSH (08:39)
[2021-01-14] MEDS: SENNOSIDES 8.6 MG TABLET PO (08:39)
[2021-01-14] MEDS: ROSUVASTATIN 10 MG TABLET 20 MG PO (08:39)
[2021-01-14] MEDS: ASPIRIN 81 MG CHEWABLE TABLET PO (08:43)
[2021-01-14] MEDS: UMECLIDINIUM/VILANTEROL 62.5-25 MCG ELLIPTA 1 PUFF INHALATION (08:44)
[2021-01-14] MEDS: INSULIN GLARGINE (*BKC) 100 UNITS/ML 20 UNITS SUB-Q (08:53)
[2021-01-14] MEDS: INSULIN ASPART (*BKC) 100 UNITS/ML SUB-Q ×3 (08:54→17:17)
[2021-01-14] MEDS: predniSONE 5 MG TABLET PO (09:59)
--- NOTE | 2021-01-14 10:23 | PM.IMPN ---
Progress Note: A&P Assessment and Plan (1) Acute respiratory failure with hypoxia: Code(s): J96.01 - Acute respiratory failure with hypoxia Status: Acute Assessment and Plan: The patient with acute respiratory failure on admission. ABG noted as 7.20/64/38 but may be mixed venous. No hx of hypercarbia. Respiratory failure related to CHF exacerbation mostly. Treated with BiPAP overnight and now back to room air. COVID negative. Influenza negative. Improving after diuresis To medical floor Home soon (2) Acute on chronic diastolic heart failure: Code(s): I50.33 - Acute on chronic diastolic (congestive) heart failure Status: Acute Assessment and Plan: Patient here for SOB. CXR consistent with CHF and BNP 8400. Started on IV Lasix with excellent UOP. Was on BiPAP last night but weaned to room air now. Will continue Coreg. Continue IV Lasix (3) COPD exacerbation: Code(s): J44.1 - Chronic obstructive pulmonary disease with (acute) exacerbation Status: Acute Assessment and Plan: No wheezing listed on presenting exams to suggest COPD exacerbation. CXR more consistent with CHF. patient stared on Solu-medrol but quickly transitioned back to his home Prednisone dose. Continue inhalers. (4) Persistent atrial fibrillation: Code(s): I48.19 - Other persistent atrial fibrillation Status: Chronic Assessment and Plan: Patient has paced rhythm at times but with underlying AFib/Flutter. Rate controlled. Continue Coreg. Continue Eliquis. (5) Hypertension: Code(s): I10 - Essential (primary) hypertension Status: Chronic Assessment and Plan: Blood pressure reviewed on 01/14. BP well controlled and even soft at times. Currently on Coreg and IV Lasix. Prednisone resumed. Consider stress dose steroids if he develops significant HoTN. Will decrease Lasix dose. (6) Non-healing wound of left lower extremity: Code(s): S81.802A - Unspecified open wound, left lower leg, initial encounter Status: Acute Assessment and Plan: Multiple wounds at varius stages of heeling. Wound care has been consulted. Continue current dressing changes. (7) Chronic kidney disease, stage 3: Code(s): N18.3 - Chronic kidney disease, stage 3 (moderate) Status: Acute Assessment and Plan: The patient has a history of renal transplant. Continue his home medications. Patient's creatinine is 1.2 today. Follow. (8) Type 2 diabetes mellitus: Qualifiers: Diabetes mellitus regional intermodal truck driver insulin use: without regional intermodal truck driver use Diabetes mellitus complication status: without complication Qualified Code(s): E11.9 - Type 2 diabetes mellitus without complications Code(s): E11.9 - Type 2 diabetes mellitus without complications Status: Acute Assessment and Plan: A1c 6.0. Glucose reviewed on 01/14 Glucose poorly controlled. Lantus resumed. Continue Accu-Chek AC and HS covering with sliding scale. Hypoglycemia protocol available as needed. Advance Lantus daily to control sugars (9) Kidney transplant recipient: Code(s): Z94.0 - Kidney transplant status Status: Chronic Assessment and Plan: Continue with his immunosuppressant therapy. (10) Hypothyroid: Qualifiers: Hypothyroidism type: unspecified Qualified Code(s): E03.9 - Hypothyroidism, unspecified Code(s): E03.9 - Hypothyroidism, unspecified Status: Chronic Assessment and Plan: TSH 2.0. Continue levothyroxine. (11) Schizophrenia: Qualifiers: Schizophrenia type: other Qualified Code(s): F20.89 - Other schizophrenia Code(s): F20.9 - Schizophrenia, unspecified Status: Chronic Assessment and Plan: Mood stable. Continue with home medications. (12) DVT prophylaxis: Code(s): Z29.9 - Encounter for prophylactic measures, unspecified
[2021-01-14 11:47] LABS: Glucose Point of Care 213 (65-105)
--- NOTE | 2021-01-14 12:25 | PC.NURSE ---
Received from [facility] via bed. Cunningham intact.
--- NOTE | 2021-01-14 12:26 | PC.NURSE ---
This patient, Bob Alfaro, was transferred to [[id number] ] on 01/14/21 at 1220. Personal belongings sent with patient. Report given to [Santa ]. Appropriate documentation sent with patient.
[2021-01-14 16:54] LABS: Glucose Point of Care 223 (65-105)
--- NOTE | 2021-01-14 18:20 | PM.PNPUL ---
Progress Note: A&P Assessment and Plan (1) Acute on chronic diastolic heart failure: Code(s): I50.33 - Acute on chronic diastolic (congestive) heart failure Status: Acute Assessment and Plan: Patient presents with fluid overload, Congestion on his chest x-ray, elevated BNP and history of diastolic heart failure. Patient diuresed with Lasix 1000 mL Feb 26, breathing improved since admission. He is currently on room air with saturations 98%. Agree with a as aggressive diuresis as tolerated by his cardiac and renal systems per primary team. (2) Acute respiratory failure with hypoxia: Code(s): J96.01 - Acute respiratory failure with hypoxia Status: Acute Assessment and Plan: Patient has acute respiratory acidosis on presentation with the BiPAP 14-6 blood gas of 7.20/64/38. He does not have a history of hypercarbic respiratory failure as his blood gas on 12/28/2020 on BiPAP 12/6 100% was 7.30/41/448 and his blood gas on 07/22/2020 on room air was 7.38 /37/70. his serum bicarbonates values over the last 6 months range from 23-27. I suspect patient has acute respiratory acidosis is related to his diastolic congestive heart failure and fluid overload rather than chronic hypercarbic respiratory failure from his COPD. (3) COPD exacerbation: Code(s): J44.1 - Chronic obstructive pulmonary disease with (acute) exacerbation Status: Acute Assessment and Plan: Patient is improved with diuresis, now oral prednisone. Currently he has no wheezes. He had no change in his cough, no fever, no focal infiltrates on chest x-ray and no leukocytosis. I do not believe he has a pneumonia or tracheobronchitis. I do not think he needs antibiotics at this point. Erin should is currently on apixaban 5 mg p.o. b.i.d. for anticoagulation and I do not think he has had a pulmonary embolism. I agree with continuation of patient's home Anoro Ellipta 62.5-25 at 1 puff q.day and I would discontinue Solu-Medrol and place him back on his home dose of prednisone 5 mg p.o. q.day. We will watch closely for evidence of a worsening COPD exacerbation and restart steroids if needed. Will follow with you. Subjective Date/time seen: 01/14/21 18:20 Bob Alfaro is a 55-year-old male with a history of kidney transplantation, congestive heart failure with a normal EF of 60-65 and grade 3 diastolic dysfunction, moderately enlarged right ventricle mild pulmonary hypertension with an RVSP of 40 per echo on 07/21/2020. Patient has 7 admissions from February of 2020 and his last admission was on 12/28/2020 for exacerbation of his diastolic congestive heart failure. His deterioration appears to be due to cardiac issues, not COPD. He wants to have a CPAP or BiPAP at home to help when he gets into acute respiratory distress, however if he does not have a sleep diagnosis, this won't be an option. He is better today, on room air. Patient has a history of tobacco use (80 PY and quit one year ago) with COPD with a post bronchodilator FEV1 of 1.43 L, 43% predicted, total lung capacity of 114% predicted. Functional residual capacity of 1.39 139% predicted and residual volume of 209% predicted on PFTs from 09/26/2020. He does not have a history of hypercarbic respiratory failure as his blood gas on 12/28/2020 on BiPAP 12/6 100% was 7.30/41/448 and his blood gas on 07/22/2020 on room air was 7.38 /37/70. his serum bicarbonates values over the last 6 months range from 23-27. Patient has mild centrilobular emphysema on his high-resolution CT scan from 09/26/2020. He was stable until 2-3 days prior to admission he developed lower extremity edema, then shortness of breath without fever, chills, wheezes, change in his phlegm production or hemoptysis. Patient states that on a good day he can walk but walk 1 block and then has to stop for peripheral neuropathy and dyspnea on exertion. Patient presented to the emergency room with acute respira
[2021-01-14 20:17] LABS: Glucose Point of Care 314 (65-105)
[2021-01-14] MEDS: DOXEPIN HCL 10 MG CAPSULE PO (20:17)
[2021-01-14] MEDS: ACETAMINOPHEN 325 MG TABLET 650 MG PO (21:05)
[2021-01-15] VITALS (8 sets, daily range): BP systolic 112–143; BP diastolic 70–82; PULSE 49–98; RESP 16–20; TEMP 35.9–36.4; O2SAT 95–100
[2021-01-15 05:25] LABS: Hematocrit 35.6 % (42.0-52.0); Hemoglobin 11.3 g/dL (14.0-18.0); Mean Corpuscular HGB Conc 31.7 g/dl (32-36); Mean Corpuscular Hemoglobin 29.7 pg (26-34); Mean Corpuscular Volume 93.7 fl (80-100); Mean Platelet Volume 9.6 fl (7.4-10.4); Platelet Count Result 171 k/mm3 (150-375); Red Cell Distribution Width 17.4 % (11.5-14.5); White Blood Count 7.4 K/mm3 (4.5-10.0)
[2021-01-15 05:45] LABS: Anion Gap 5 mmol/L (8-16); Blood Urea Nitrogen 35 mg/dL (9-20); Calcium 9.2 mg/dL (8.4-10.2); Carbon Dioxide 28 mmol/L (22-30); Chloride 105 mmol/L (98-107); Estimated CRCL calculation 62 ml/min; Estimated Glomerular Filt Rate > 60; Glucose 256 mg/dL (75-110); Potassium 3.7 mmol/L (3.4-5.0); Sodium 138 mmol/L (137-145)
[2021-01-15] MEDS: LEVOTHYROXINE SODIUM 25 MCG TABLET PO (06:24)
[2021-01-15 07:38] LABS: Glucose Point of Care 175 (65-105)
[2021-01-15] MEDS: ACETAMINOPHEN 325 MG TABLET 650 MG PO ×2 (08:00→23:05)
[2021-01-15] MEDS: DOCUSATE SODIUM 100 MG CAPSULE PO (08:01)
[2021-01-15] MEDS: predniSONE 5 MG TABLET PO (08:02)
[2021-01-15] MEDS: APIXABAN 5 MG TABLET PO ×2 (08:02→17:40)
[2021-01-15] MEDS: ARIPiprazole 5 MG TABLET 15 MG PO (08:02)
[2021-01-15] MEDS: CHOLECALCIFEROL 1,000 UNITS TABLET 2000 UNITS PO (08:02)
[2021-01-15] MEDS: SENNOSIDES 8.6 MG TABLET PO (08:02)
[2021-01-15] MEDS: ROSUVASTATIN 10 MG TABLET 20 MG PO (08:02)
[2021-01-15] MEDS: carvediloL 12.5 MG TABLET PO ×2 (08:03→20:22)
[2021-01-15] MEDS: GENTAMICIN SULFATE 0.1% OINT 15 GM TUBE 1 APPLIC TOPICAL (08:05)
[2021-01-15] MEDS: MUPIROCIN 2% OINT 22 GM TUBE 1 APPLIC TOPICAL (08:06)
[2021-01-15] MEDS: FUROSEMIDE INJ 40 MG/4 ML VIAL IV PUSH (08:06)
[2021-01-15] MEDS: UMECLIDINIUM/VILANTEROL 62.5-25 MCG ELLIPTA 1 PUFF INHALATION (08:07)
[2021-01-15] MEDS: INSULIN GLARGINE (*BKC) 100 UNITS/ML 20 UNITS SUB-Q (08:14)
[2021-01-15] MEDS: ASPIRIN 81 MG CHEWABLE TABLET PO (08:47)
[2021-01-15 11:55] LABS: Glucose Point of Care 269 (65-105)
[2021-01-15] MEDS: INSULIN ASPART (*BKC) 100 UNITS/ML SUB-Q ×2 (12:02→17:49)
--- NOTE | 2021-01-15 14:16 | PM.PNPUL ---
Progress Note: A&P Assessment and Plan (1) Acute on chronic diastolic heart failure: Code(s): I50.33 - Acute on chronic diastolic (congestive) heart failure Status: Acute Assessment and Plan: Patient presents with fluid overload, Congestion on his chest x-ray, elevated BNP and history of diastolic heart failure. Patient diuresed with Lasix 1.3 L Feb 27, breathing improved since admission. He is currently on room air with saturations 98%. Agree with a as aggressive diuresis as tolerated by his cardiac and renal systems per primary team. (2) Acute respiratory failure with hypoxia: Code(s): J96.01 - Acute respiratory failure with hypoxia Status: Acute Assessment and Plan: Patient has acute respiratory acidosis on presentation with the BiPAP 14-6 blood gas of 7.20/64/38. He does not have a history of hypercarbic respiratory failure as his blood gas on 12/28/2020 on BiPAP 12/6 100% was 7.30/41/448 and his blood gas on 07/22/2020 on room air was 7.38 /37/70. his serum bicarbonates values over the last 6 months range from 23-27. I suspect patient has acute respiratory acidosis is related to his diastolic congestive heart failure and fluid overload rather than chronic hypercarbic respiratory failure from his COPD. He may have a PAP device at home, says cathy his father knows more about it, gave me his number. (3) COPD exacerbation: Code(s): J44.1 - Chronic obstructive pulmonary disease with (acute) exacerbation Status: Acute Assessment and Plan: Patient is improved with diuresis, now oral prednisone. Currently he has no wheezes. He had no change in his cough, no fever, no focal infiltrates on chest x-ray and no leukocytosis. I do not believe he has a pneumonia or tracheobronchitis. I do not think he needs antibiotics at this point. Pain should is currently on apixaban 5 mg p.o. b.i.d. for anticoagulation and I do not think he has had a pulmonary embolism. I agree with continuation of patient's home Anoro Ellipta 62.5-25 at 1 puff q.day and I would discontinue Solu-Medrol and place him back on his home dose of prednisone 5 mg p.o. q.day. We will watch closely for evidence of a worsening COPD exacerbation and restart steroids if needed. Will follow with you. Subjective Date/time seen: 01/15/21 14:16 Bob Alfaro is a 55-year-old male with a history of kidney transplantation, congestive heart failure with a normal EF of 60-65 and grade 3 diastolic dysfunction, moderately enlarged right ventricle mild pulmonary hypertension with an RVSP of 40 per echo on 07/21/2020. Patient has 7 admissions from February of 2020 and his last admission was on 12/28/2020 for exacerbation of his diastolic congestive heart failure. His deterioration appears to be due to cardiac issues, not COPD. He says that he does have a CPAP at home, describes a device like a CPAP or maybe an oxygen concentrator. He is a little vague. We can see what device he has at home. If he has a PAP device, he might be able to get some relief wearing it when he starts to develop CHF. IF hte presure is low, it might not be enough to provide relief. He is on room air, feels better compared to admission. Patient has a history of tobacco use (80 PY and quit one year ago) with COPD with a post bronchodilator FEV1 of 1.43 L, 43% predicted, total lung capacity of 114% predicted. Functional residual capacity of 1.39 139% predicted and residual volume of 209% predicted on PFTs from 09/26/2020. He does not have a history of hypercarbic respiratory failure as his blood gas on 12/28/2020 on BiPAP 12/6 100% was 7.30/41/448 and his blood gas on 07/22/2020 on room air was 7.38 /37/70. his serum bicarbonates values over the last 6 months range from 23-27. Patient has mild centrilobular emphysema on his high-resolution CT scan from 09/26/2020. He was stable until 2-3 days prior to admission he developed lower extremity edema, then shortness o
[2021-01-15 17:46] LABS: Glucose Point of Care 235 (65-105)
--- NOTE | 2021-01-15 19:15 | PM.IMPN ---
Progress Note: A&P Assessment and Plan (1) Acute on chronic diastolic heart failure: Code(s): I50.33 - Acute on chronic diastolic (congestive) heart failure Status: Acute Assessment and Plan: Improved Has a negative I/O's balance (2) COPD exacerbation: Code(s): J44.1 - Chronic obstructive pulmonary disease with (acute) exacerbation Status: Acute Assessment and Plan: Likely secondary to CHF exacerbation. Now back o his usual Appreciate Pulmonology note (3) Acute respiratory failure with hypercapnia: Code(s): J96.02 - Acute respiratory failure with hypercapnia Status: Acute Assessment and Plan: Resolved Likely secondary to CHF exacerbation. (4) Chronic kidney disease, stage 3: Code(s): N18.3 - Chronic kidney disease, stage 3 (moderate) Status: Acute Assessment and Plan: Continue to monitor Follow up in the outpatient setting. (5) Type 2 diabetes mellitus: Qualifiers: Diabetes mellitus group home insulin use: without exterminator use Diabetes mellitus complication status: without complication Qualified Code(s): E11.9 - Type 2 diabetes mellitus without complications Code(s): E11.9 - Type 2 diabetes mellitus without complications Status: Acute Assessment and Plan: 1800 carb consistent diet (6) Acute exacerbation of chronic obstructive airways disease: Code(s): J44.1 - Chronic obstructive pulmonary disease with (acute) exacerbation Status: Acute Assessment and Plan: Resolved (7) Hypertension: Code(s): I10 - Essential (primary) hypertension Status: Chronic Assessment and Plan: Stable Continue home meds Continue to monitor Subjective Date/time seen: 01/15/21 19:15 I feel that I'm back to my usual Review of Systems Review of Systems: Narrative: No new issues ROS unobtainable: Yes unobtainable due to medical condition Exam Narrative: Exam Narrative: lying in bed Const: General: comfortable, no acute distress, alert, awake and other (Chronically ill looking) Nutritional Appearance: average body habitus Orientation/consciousness: oriented to person, oriented to place and oriented to time HENMT: Head: normal to inspection and normocephalic Ears: hearing grossly normal bilaterally General nose exam: Normal external nose present Face and sinus: normal facial exam Eyes: General: appearance normal, both eyes and all related structures Pupils: Equal, round and reactive pupils present EOM: EOMs intact bilaterally Neck: Neck: no lymphadenopathy, supple and no JVD Resp: Effort & Inspection: normal respiratory effort and able to speak in complete sentences Auscultation: clear to auscultation bilaterally and diminished lung sounds Cardio: Jugular venous distension: no JVD Rate: regular rate Rhythm: regular rhythm GI: GI Palp: Yes Soft to palpation and Yes No hepatosplenomegaly present Skin: Rashes: no rashes Wounds: no wounds Neuro: General: patient oriented x3 Cranial nerves: Yes CN's II-XII intact bilaterally, Yes Equal, round and reactive pupils present and Yes Bilaterally intact EOM present Cognition (Neuro): abnormal cognition Motor exam (neuro): 5/5 motor strength present throughout Extrem: General: no pedal edema Objective Data Vital Signs Vital Signs: Vital Signs - 24 hr 01/14/21 20:17 01/14/21 21:26 01/15/21 06:51 Temperature 97.0 F L 96.7 F L Pulse Rate 65 64 49 L Respiratory Rate 16 16 Blood Pressure 127/73 143/76 H Pulse Oximetry 100 99 01/15/21 08:03 01/15/21 08:05 01/15/21 08:06 Temperature 97.5 F L Pulse Rate 63 98 Respiratory Rate 18 18 Blood Pressure 143/82 H Pulse Oximetry 98 98 01/15/21 16:00 Temperature 97.5 F L Pulse Rate 63 Respiratory Rate 16 Blood Pressure 118/70 Pulse Oximetry 100 Intake/Output Intake/Output: Intake & Output 01/12/21 01/13/21 01/14/21 01/15/21 23:59 23:59 23:59 23:59 Intake Tot
[2021-01-15] MEDS: DOXEPIN HCL 10 MG CAPSULE PO (20:22)
[2021-01-15 20:58] LABS: Glucose Point of Care 152 (65-105)
[2021-01-16 03:37] VITALS: PULSE 88; RESP 18; O2SAT 93
[2021-01-16] MEDS: LEVOTHYROXINE SODIUM 25 MCG TABLET PO (06:05)
[2021-01-16 07:58] LABS: Glucose Point of Care 77 (65-105)
[2021-01-16] MEDS: ARIPiprazole 5 MG TABLET 15 MG PO (08:27)
[2021-01-16 08:28] VITALS: PULSE 88; RESP 16; O2SAT 97
[2021-01-16] MEDS: APIXABAN 5 MG TABLET PO ×2 (08:28→17:22)
[2021-01-16] MEDS: predniSONE 5 MG TABLET PO (08:28)
[2021-01-16] MEDS: SENNOSIDES 8.6 MG TABLET PO (08:28)
[2021-01-16] MEDS: ROSUVASTATIN 10 MG TABLET 20 MG PO (08:28)
[2021-01-16] MEDS: CHOLECALCIFEROL 1,000 UNITS TABLET 2000 UNITS PO (08:28)
[2021-01-16] MEDS: carvediloL 12.5 MG TABLET PO (08:28)
[2021-01-16] MEDS: DOCUSATE SODIUM 100 MG CAPSULE PO (08:28)
[2021-01-16] MEDS: FUROSEMIDE INJ 40 MG/4 ML VIAL IV PUSH (08:29)
[2021-01-16] MEDS: ASPIRIN 81 MG CHEWABLE TABLET PO (08:29)
[2021-01-16] MEDS: GENTAMICIN SULFATE 0.1% OINT 15 GM TUBE 1 APPLIC TOPICAL (08:31)
[2021-01-16] MEDS: UMECLIDINIUM/VILANTEROL 62.5-25 MCG ELLIPTA 1 PUFF INHALATION (08:32)
[2021-01-16] MEDS: MUPIROCIN 2% OINT 22 GM TUBE 1 APPLIC TOPICAL (08:33)
[2021-01-16] MEDS: ACETAMINOPHEN 325 MG TABLET 650 MG PO (08:42)
--- NOTE | 2021-01-16 09:47 | PM.PNPUL ---
Progress Note: A&P Assessment and Plan (1) Acute on chronic diastolic heart failure: Code(s): I50.33 - Acute on chronic diastolic (congestive) heart failure Status: Acute Assessment and Plan: 01/13 Patient presents with fluid overload, Congestion on his chest x-ray, elevated BNP and history of diastolic heart failure. Patient diuresed with Lasix 1.3 L Jan 14, breathing improved since admission. He is currently on room air with saturations 98%. Agree with a as aggressive diuresis as tolerated by his cardiac and renal systems per primary team. 01/16 Patient states he is back to normla regarding his breathing, sats 93% on room air. Baseline he can walk 20 feet in his house and he is walking to bathroom here. Cumulative minus 3530 from diuresis. Needs home diuretics optimized. (2) Acute respiratory failure with hypoxia: Code(s): J96.01 - Acute respiratory failure with hypoxia Status: Acute Assessment and Plan: 01/13 Patient has acute respiratory acidosis on presentation with the BiPAP 14-6 blood gas of 7.20/64/38. He does not have a history of hypercarbic respiratory failure as his blood gas on 12/28/2020 on BiPAP 12/6 100% was 7.30/41/448 and his blood gas on 07/22/2020 on room air was 7.38 /37/70. his serum bicarbonates values over the last 6 months range from 23-27. 01/15 I suspect patient has acute respiratory acidosis is related to his diastolic congestive heart failure and fluid overload rather than chronic hypercarbic respiratory failure from his COPD. He may have a PAP device at home, says that his father knows more about it, gave me his number. 01/16 Denies having CPAP at home to me. He would not qualify for CPAP, BiPAP or noninvasive ventilation as he has no hypercarbia. (3) COPD exacerbation: Code(s): J44.1 - Chronic obstructive pulmonary disease with (acute) exacerbation Status: Acute Assessment and Plan: 01/14 Patient is improved with diuresis, now oral prednisone. Currently he has no wheezes. He had no change in his cough, no fever, no focal infiltrates on chest x-ray and no leukocytosis. I do not believe he has a pneumonia or tracheobronchitis. I do not think he needs antibiotics at this point. Pain should is currently on apixaban 5 mg p.o. b.i.d. for anticoagulation and I do not think he has had a pulmonary embolism. I agree with continuation of patient's home Anoro Ellipta 62.5-25 at 1 puff q.day and I would discontinue Solu-Medrol and place him back on his home dose of prednisone 5 mg p.o. q.day. We will watch closely for evidence of a worsening COPD exacerbation and restart steroids if needed. 01/16 Patient states he is back to normal regarding his breathing, sats 93% on room air. Baseline he can walk 20 feet in his house and he is walking to bathroom here. Cumulative minus 3530 from diuresis. He has improved back to normal with diuresis and no active treatment for COPD exacerbation. I do not think he had an exacerbation of COPD this admission. He has been maintained on his home anoro ellipta and baseline 5 mg PO prednisone. Ready for discharge from pulmonary perspective: [place] Ellipta 62.5/25 1 puff Q day. Albuterol rescue 2 puffs Q 4 H PRN for SOB. Prednisone 5 mg PO Q day (for renal transplant). Oxygen per home O2 assessment (I have ordered). Discussed with Dr. Wilder, will sign off, please call for any questions. Subjective Date/time seen: 01/16/21 09:47 Interval history: 01/13 Narrative: This is a new consult for acute respiratory failure requiring BiPAP use. 55-year-old male with a history of kidney transplantation, congestive heart failure with a normal EF of 60-65 and grade 3 diastolic dysfunction, moderately enlarged right ventricle mild pulmonary hypertension with an RVSP of 40 per echo on 07/21/2020. Patient has 7 admissions from February of 2020 and his last admission was on 12/28/2020 for exacerbation of his diastolic congestive heart failure. Patient
[2021-01-16 11:44] LABS: Glucose Point of Care 274 (65-105)
[2021-01-16] MEDS: INSULIN ASPART (*BKC) 100 UNITS/ML SUB-Q ×2 (11:44→17:23)
[2021-01-16 14:00] VITALS: BP 119/72; PULSE 63; RESP 16; TEMP 36.5; O2SAT 98
[2021-01-16 17:21] LABS: Glucose Point of Care 233 (65-105)
[2021-01-16 18:21] LABS: SARS-CoV-2 RNA PCR Negative
[2021-01-18 17:29] LABS: Tacrolimus Prograf 6.3 mcg/L
--- NOTE | 2021-01-22 14:28 | PM.DS ---
DS: Admitting Diagnosis Admitting Diagnosis Admitting Diagnosis: (1) Acute respiratory failure with hypoxia: (2) COPD exacerbation: (3) Acute on chronic diastolic heart failure: (4) Hypertension: (5) Non-healing wound of left lower extremity: (6) Thrombocytopenia: (7) Chronic kidney disease, stage 3: (8) Type 2 diabetes mellitus: (9) Kidney transplant recipient: (10) Hypothyroid: (11) Schizophrenia: DS: Discharge Diagnosis Discharge Diagnosis (1) Acute respiratory failure with hypercapnia: Code(s): J96.02 - Acute respiratory failure with hypercapnia Status: Acute Assessment and Plan: Resolved Patient was back to his usual Will follow up in the outpatient setting (2) Acute on chronic diastolic heart failure: Code(s): I50.33 - Acute on chronic diastolic (congestive) heart failure Status: Acute Assessment and Plan: Aggressively diuresed back to his usual Follow up in the outpatient setting. (3) Chronic obstructive pulmonary disease: Code(s): J44.9 - Chronic obstructive pulmonary disease, unspecified Status: Acute Assessment and Plan: Severe COPD Follow up in the outpatient setting. (4) Schizophrenia: Qualifiers: Schizophrenia type: other Qualified Code(s): F20.89 - Other schizophrenia Code(s): F20.9 - Schizophrenia, unspecified Status: Chronic Assessment and Plan: Stable Continue home meds Follows up in the outpatient setting. (5) Persistent atrial fibrillation: Code(s): I48.19 - Other persistent atrial fibrillation Status: Chronic Assessment and Plan: Rate controlled. (6) Kidney transplant recipient: Code(s): Z94.0 - Kidney transplant status Status: Chronic Assessment and Plan: Follow up in the outpatient setting Patent. DS: Summary Hospital Course Reason for hospitalization: SOB Hospital Course: Bob Alfaro is a 55 year old male who had just gotten discharged from this hospital on 12/30/2020. He was here for exacerbation of diastolic congestive heart failure. He has a history of having a renal transplant and he is on immunosuppressive therapy for COPD as well as exacerbation of CHF at that time. The patient complained of shortness of breath today and was placed on a CPAP and taken to the emergency room. He denied any chest pain or palpitations. He had been taking all of his home medications. EKG was read as normal rate normal pacer function. Chest x-ray was read as Prieto B lines may be due to pulmonary interstitial edema or interstitial fibrosis. Earlier this month of was negative he is swabbed again today for COVID and it is pending. Creatinine is 1.3 today the patient's ABGs pH is 7.196 PO2 was 37.8 O2 saturation was 58.5. I am wondering if this med is mixed venous specimen. The patient is currently on a BiPAP machine. The patient was given Solu-Medrol, Ativan and Lasix in the emergency room. The patient is being admitted to inpatient status on 01/12/2021. Pulmonology was consulted Patient has a history of tobacco use (80 PY and quit one year ago) with COPD with a severe obstructive abnormality, Air trapping, hyperinflation and a mildly decreased DLCO (on PFTs from 09/26/2020 with concaved expiratory flow tracing, a Pre bronchodilator FVC 2.71, 59% predicted. Pre bronchodilator FEV1 1.36 L, 41% predicted. FEV1: FVC ratio 50%, post bronchodilator FVC of 2.96, representing a 9% increase. A post bronchodilator FEV1 of 1.43 L, representing a 5% increase, total lung capacity of 7.39 L, 114% predicted. The forced functional residual capacity is 5.57 L, 139% predicted. The residual volume is 4.67 L, 209% predicted. The absolute diffusion capacity is 13.5, 66% predicted. The diffusing capacity corrected for alveolar volume is 76%). He does not have a history of hypercarbic respiratory failure as his b
== END 2021-01-16 20:15 | DRG 189 ==
LOC: ANHED 15:22 → ANHIMU 01-13 06:59 → ANH2MED 01-15 13:46 → ANHIMU 01-20 09:41
PROVIDERS: Family Medicine; Internal Medicine; Internal Medicine Pulmonary Disease; Nurse Practitioner; Admitting Provider Internal Medicine; Emergency Provider Family Medicine; Visit Provider Internal Medicine
DX: J96.02 Acute respiratory failure with hypercapnia (principal); I50.33 Acute on chronic diastolic (congestive) heart failure; I13.0 Hypertensive heart and chronic kidney disease with heart failure and stage 1 through stage 4 chronic kidney disease, or unspecified chronic kidney disease; Z94.0 Kidney transplant status; J44.1 Chronic obstructive pulmonary disease with (acute) exacerbation; I48.19 Other persistent atrial fibrillation; J96.01 Acute respiratory failure with hypoxia; Z20.822 Contact with and (suspected) exposure to COVID-19; E11.22 Type 2 diabetes mellitus with diabetic chronic kidney disease; N18.30 Chronic kidney disease, stage 3 unspecified; E03.9 Hypothyroidism, unspecified; F20.9 Schizophrenia, unspecified; D69.6 Thrombocytopenia, unspecified; I25.10 Atherosclerotic heart disease of native coronary artery without angina pectoris; S81.802A Unspecified open wound, left lower leg, initial encounter; Z79.01 Long term (current) use of anticoagulants; Z87.891 Personal history of nicotine dependence; Z86.73 Personal history of transient ischemic attack (TIA), and cerebral infarction without residual deficits; Z95.0 Presence of cardiac pacemaker; Z95.5 Presence of coronary angioplasty implant and graft
CPT/HCPCS: 36415; 36600; 71045; 80048; 80053; 80069; 80197; 82805; 82948; 83036; 83605; 83735; 83880; 84443; 84484; 85025; 85027; 85610; 87804; 93005; 93976; 94002; 94003; 96374; 96375; 97161; 97165; 99285; A9270; C9803; J1815; J1940; J2060; J2930; J3475; J7512; U0003; U0005

== ENCOUNTER 2021-02-16 13:04 | Emergency (ER) | payer MEDICARE, MEDICAID, SELFPAY ==
--- NOTE | 2021-02-16 13:08 | PC.NURSE ---
IO placed to left leg by Dr. Davis.
--- NOTE | 2021-02-16 13:13 | PC.NURSE ---
Intubated with 7.5 et tube, 25 at the lip.
--- NOTE | 2021-02-16 13:20 | PC.NURSE ---
Father at bedside. Code called by Dr. Davis.
--- NOTE | 2021-02-16 13:22 | ED_ITS ---
HPI - CPR General Chief Complaint: Cardiac Arrest/CPR Stated Complaint: Code Blue Time Seen by Provider: 02/16/21 13:05 Source: family Limitations: clinical condition History of Present Illness HPI narrative: Patient is 55 years old brought to the emergency room by his dad in a private car because of trouble with his blood glucose and breathing over the last 24 hours. Patient became unresponsive prior to arrival to the triage. CPR started immediately on arrival to the emergency room, CPR protocol was applied without success. Patient's father is telling me that he was expecting that his son at any moment and he wished that he in bed without going anywhere. Review of Systems Review of Systems: ROS unobtainable: Yes unobtainable due to medical condition Exam Narrative: Exam Narrative: General appearance: Well-developed, well-nourished Skin: Pale and cold Head: Normocephalic, nontraumatic Eyes: Pupils are, dilated, not reactive to light Chest and respiratory: No spontaneous breathing Heart: No cardiac sounds Abdomen: Soft, nontender, no organomegaly, silent bowel sounds Vascular: No pulses Neurologic: Unresponsive Course Consultations Consultation #1: DAVID MEEHAN, agreed that KATHLEEN Chaparro will sign the certificate. At [facility] Date: 02/16/21 Time: 14:21 Procedures Intubation Intubation #1: Intubation Date: 02/16/21 Intubation Time: 18:59 Time out performed: No sedative: none Tube Size (cm): 7.0 Method of Intubation: orotracheal Number of Attempts: 1 Tube Secured Location: lips Tube Placement Confirmation: visualized tube passing through cords, equal breath sounds bilaterally and confirmation by capnometry Patient Tolerated Procedure: well Intubation Complications: none MDM - Cardiac Arrest/CPR MDM Narrative Medical decision making narrative: Patient arrived to the emergency room in cardiopulmonary arrest, CPR protocol was applied without success. Patient's father was at the bedside. Lab Data Labs: Lab Results 02/16/21 Range/Units 13:15 POC Capillary Glucose 66 (65-105) mg/dl Critical Care Time Critical Care Time Critical Care Time: Yes Total Critical Care Time: 30 Discharge Plan Discharge Clinical Impression: Cardiac arrest Patient Disposition: Condition: Follow-up/Referrals: UNKNOWN,DOCTOR [Primary Care Provider] -
[2021-02-16 13:28] LABS: Glucose Point of Care 66 (65-105)
--- NOTE | 2021-02-16 13:33 | PC.NURSE ---
[facility] coroner notified of .
--- NOTE | 2021-02-16 13:48 | PC.NURSE ---
[facility] transplant notified of and have released body to atmospheric technician.
--- NOTE | 2021-02-16 14:20 | PC.NURSE ---
Dr. Sibley auto suspension and steering mechanic for Dr. Peter Sinha notified of and will sign certificate.
--- NOTE | 2021-02-16 14:32 | PC.NURSE ---
[facility] notified that body is ready to be picked up.
--- NOTE | 2021-02-16 16:02 | PC.NURSE ---
[facility] here to corn picker body.
== END 2021-02-16 16:04 | disposition expired ==
PROVIDERS: Emergency Provider Emergency Medicine
DX: I46.9 Cardiac arrest, cause unspecified (principal)
CPT/HCPCS: 31500; 36680; 92950; 99285; J0171; J0282; J2001; J7030